=== PATIENT | female | born 1955 | race Caucasian/White ===

== ENCOUNTER 2016-05-24 20:07 | Observation (INO) | payer OTHER ==
[~2016-05-24] VITALS: Ht 157.5 cm; Wt 77.2 kg
[2016-05-24] MEDS ORDERED: EPINEPHrine INJ 1 MG/ML 1ML VIAL/AMP As Ordered ONE (20:29)
[2016-05-24] MEDS ORDERED: methylPREDNISolone INJ 125 MG/2 ML VIAL (J2930) As Ordered ONE (20:47)
[2016-05-24] MEDS ORDERED: diphenhydrAMINE INJ 50MG/ML VIAL (J1200) As Ordered ONE (20:47)
[2016-05-24] MEDS ORDERED: FAMOTIDINE INJ 20MG/2ML VIAL (S0028) As Ordered ONE (20:48)
[2016-05-24 21:13] LABS: ANION GAP 7 MEQ/L (8-16); BLOOD UREA NITROGEN 25 MG/DL (7-18); CARBON DIOXIDE LEVEL 26 MEQ/L (21-32); CHLORIDE LEVEL 109 MEQ/L (98-107); GLUCOSE, FASTING 146 MG/DL (70-105); POTASSIUM SERUM 4.7 MEQ/L (3.5-5.1); SODIUM LEVEL 142 MEQ/L (136-145)
[2016-05-24 21:16] LABS: BASO % 0.5 % (0.0-1.0); EOS # 0.1 K/mm3 (0.0-0.50); EOS % 1.1 % (0.0-3.0); LARGE UNSTAINED CELL # 0.1 K/mm3 (0.0-0.4); LARGE UNSTAINED CELL % 2.2 % (0.0-4.0); LYMPH # 2.7 K/mm3 (1.5-4.5); LYMPH % 45.7 % (24.0-44.0); MEAN CORPUSCULAR HEMOGLOBIN 31.3 pg (27.0-33.0); MEAN CORPUSCULAR VOLUME 94.8 fl (80.0-96.0); MONO # 0.3 K/mm3 (0.0-0.8); MONO % 4.2 % (0.0-5.0); NEUTROPHILS # 2.7 K/mm3 (1.8-7.7); NEUTROPHILS % 46.3 % (36.0-66.0); PLATELET COUNT, AUTOMATED 323 k/mm3 (150-450); RED CELL DISTRIBUTION WIDTH 11.6 % (11.5-14.5); WHITE BLOOD COUNT 5.9 K/mm3 (4.0-10.0)
[2016-05-24] MEDS ORDERED: TYLE325T5 PO (23:13)
[2016-05-24] MEDS ORDERED: LEXA1TAB2 PO (23:13)
[2016-05-24] MEDS ORDERED: ACETAMINOPHEN TAB 650MG DOSE (2X325MG) PO PRN (23:30)
[2016-05-24] MEDS ORDERED: ONDANSETRON 4MG/2ML VIAL (J2405) IV PRN (23:30)
--- NOTE | 2016-05-25 | HPE ---
DATE OF ADMISSION: 05/24/2016 PRIMARY CARE PROVIDER: Dr. Jessie Lovell NEUROLOGIST: The patient sees Dr. Bansal in [place] but also sees a neurologist at [facility]. CHIEF COMPLAINT: Hives, itchy, redness, sensation of throat closing. 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 The patient was in her normal state of health today until around 7:00 p.m. when the patient was eating some beef stew prepared by her sister, usual recipe with no new food or new medication but after around 7:00 p.m., the patient was having her beef stew when she felt her lip was full and she was red all over her body with itchiness and also a sensation of her throat closing. Subsequently, the patient was brought to the emergency room. In the emergency room, the patient was given Benadryl, Solu-Medrol, Pepcid and epinephrine, subsequently with resolution of symptoms. The patient is feeling almost back to baseline, but in addition, the patient was found to have a creatinine elevation of 1.5, baseline creatinine is normal. The patient denies any recent nonsteroidal anti-inflammatory drug (NSAID) use or medication changes, is only taking Tylenol over the counter. No new medication recently. She does report drinking less and making less urine in the last couple of weeks. The patient denies any previous episodes, but does report many years ago had some strawberries with some hives but subsequently taking strawberries with no problems. Currently, the patient is comfortable, denies any shortness of breath, denies any chest pain, palpitations, abdominal pain. Denies any nausea or vomiting, vision change, hearing change. Denies any significant headache. The patient does have underlying aphasia that has been evaluated by neurology currently, although it was not noticed during the history and physical process. ALLERGIES: No known drug allergies previously. PAST MEDICAL HISTORY: Depression. Questionable cerebrovascular accident. PAST SURGICAL HISTORY: Gastric bypass 2007. Tonsillectomy. Eight brain surgeries done at [facility] for a variety of reasons, which include hydrocephalus, brain cyst, head trauma. SOCIAL HISTORY: The patient has a year of smoking history while she was in college many years ago. Drinks about a beer or wine every 2 weeks. Denies any other illicit drug use, [id number] medications or herbal remedies. FAMILY HISTORY: Noncontributory. REVIEW OF SYSTEMS: 11-point review of systems was negative except for those mentioned in the history of the present illness. HOME MEDICATIONS: The patient takes: - Lexapro 20 mg by mouth nightly - acetaminophen 975 mg by mouth every 6 hours as needed PHYSICAL EXAMINATION: VITAL SIGNS: Blood pressure 128/83, pulse 101, respirations 20, temperature 95.9, pulse oximetry 96% on room air. GENERAL: Patient alert and oriented times three, in no acute distress. HEENT: Normocephalic, atraumatic. PULMONARY: Bilateral clear to auscultation. CARDIAC: Regular rate and rhythm. Normal S1, S2. ABDOMEN: Soft, nontender. Positive bowel sounds. EXTREMITIES: No edema bilateral lower extremities. NEUROLOGIC: No focal deficit. Able to move all four extremities. EKG: Sinus rhythm at 68. No ST segment changes. LABORATORY: WBC 5.9, hemoglobin and hematocrit 13.8 over 41.6, platelets 323. Chemistry: Sodium 142, potassium 4.7, chloride 109, bicarbonate 26, BUN 25, creatinine 1.5. ASSESSMENT AND PLAN: This is a 60-year-old female patient with underlying medical history of gastric bypass, depression, brain lesions with multiple brain surgeries and questionable cerebrovascular accident, admitted for angioedema with allergic reaction and also acute kidney injury (MARKUS). Problems: 1. Angioedema. The patient is returning to baseline. Given Solu-Medrol, Pepcid, Benadryl and epinephrine in the emergency room. Will monitor oxygen saturation. 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 The patient should followup with primary care provider for possible referral to allergy/immunology for further workup but currently no obvious source other than the beef stew, which the patient had previously. Will continue to monitor. 2. Acute kidney injury. Baseline normal creatinine. Currently creatinine elevation. IV hydration. Followup BUN and creatinine overnight. Followup salicylate level. Followup urine studies. Ultrasound renal. 3. History of gastric bypass. Patient placed on folic acid, multivitamin, vitamin D and thiamine. Will check vitamin D level in the morning to adjust the dosage. 4. History of brain trauma and brain lesions, questionable cerebrovascular accident. Outpatient followup with neurology and neurosurgeon. Currently the patient is asymptomatic. 5. Depression. Continue home medication. 6. Deep vein thrombosis (DVT) prophylaxis. Heparin subcu. DISPOSITION PLANNING: Will monitor the patient overnight. Workup kidney function. Will followup BUN and creatinine in the morning. Followup urine output. Addendum: To Assessment and Plan under acute kidney injury (MARKUS), please add: Consider outpatient nephrology versus inpatient consultation for nephrology for MARKUS.
--- NOTE | 2016-05-25 00:10 | REPUSA ---
Clinical history: Renal failure. Findings: The urinary bladder is unremarkable. The right kidney measures 10.6 x 5.3 x 4.3 cm. The lef t kidney measures 10.5 x 5.4 x 6.1 cm. The kidneys demonstrate normal echotexture and echogenicity. T here is no evidence of hydronephrosis or nephrolithiasis. No renal masses are seen. There is incident al finding of multiple echogenic solid lesions throughout the liver. The largest of these is in the p osterior right lobe measuring 5.7 x 4.8 cm. A lesion in the left lobe measures 6.0 x 5.1 cm. No free fluid is appreciated. Impression: 1. Unremarkable ultrasound examination of the kidneys. 2. Multiple echogenic solid lesions throughout the liver. This is a nonspecific finding. CT or MRI wi th contrast utilizing liver protocol would be recommended for further evaluation.
[2016-05-25] MEDS: LR 1,000 ML IV SCH ×3 (01:47→22:03)
[2016-05-25 01:51] LABS: OSMOLALITY URINE 1098 MOSM/KG (500-800)
[2016-05-25] MEDS ORDERED: ESCITALOPRAM OXALATE 10 MG TAB (LEXAPRO) As Ordered ONE (01:51)
[2016-05-25] MEDS: ESCITALOPRAM OXALATE 10 MG TAB (LEXAPRO) PO SCH ×2 (01:55→22:04)
[2016-05-25] MEDS ORDERED: ACETAMINOPHEN 325 MG TAB As Ordered ONE (04:55)
[2016-05-25 06:56] LABS: MEAN CORPUSCULAR HEMOGLOBIN 31.5 pg (27.0-33.0); MEAN CORPUSCULAR HGB CONC 33.3 g/dl (32.0-36.5); MEAN CORPUSCULAR VOLUME 94.6 fl (80.0-96.0); RED CELL DISTRIBUTION WIDTH 11.6 % (11.5-14.5)
[2016-05-25 07:24] LABS: ALBUMIN 3.5 GM/DL (3.2-5.2); ALBUMIN/GLOBULIN RATIO 1.13 (1.00-1.93); ALKALINE PHOSPHATASE 86 U/L (45-117); ALT/SGPT 23 U/L (12-78); ANION GAP 8 MEQ/L (8-16); AST/SGOT 14 U/L (15-37); BILIRUBIN,DIRECT < 0.1 MG/DL (0.0-0.2); BILIRUBIN,TOTAL 0.4 MG/DL (0.2-1.0); BLOOD UREA NITROGEN 19 MG/DL (7-18); CALCIUM LEVEL 8.9 MG/DL (8.5-10.1); CARBON DIOXIDE LEVEL 27 MEQ/L (21-32); CHLORIDE LEVEL 107 MEQ/L (98-107); GLUCOSE, FASTING 171 MG/DL (70-105); MAGNESIUM LEVEL 1.9 MG/DL (1.8-2.4); POTASSIUM SERUM 4.1 MEQ/L (3.5-5.1); SODIUM LEVEL 142 MEQ/L (136-145); TOTAL PROTEIN 6.6 GM/DL (6.4-8.2)
[2016-05-25 07:31] LABS: GLOMERULAR FILTRATION RATE > 60.0 (>51)
[2016-05-25] MEDS: SENOKOT S TAB PO SCH ×2 (09:00→22:04)
[2016-05-25] MEDS: MULTIVITAMINS/MINERALS THERAP 1 TAB PO SCH (09:00)
[2016-05-25] MEDS: FOLIC ACID 1 MG TAB PO SCH (09:00)
[2016-05-25] MEDS: THIAMINE 100 MG TAB PO SCH (09:00)
[2016-05-25] MEDS: VITAMIN D (CHOLECALCIFEROL) 400 INTERNATIONAL UNITS TAB PO SCH (09:00)
[2016-05-25] MEDS: HEPARIN SOD (PORCINE) 5000 UNITS/ML VIAL SC SCH ×2 (09:00→22:04)
[2016-05-25] MEDS: PANTOPRAZOLE 40MG TAB (PROTONIX) PO SCH (09:00)
--- NOTE | 2016-05-25 10:53 | ECGEPIP ---
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
--- NOTE | 2016-05-25 11:11 | CR.PDOC ---
[facility] Consultation Consultation DATE OF ADMISSION: 05/24/2016 DATE OF CONSULTATION: 05/25/2016 ATTENDING PHYSICIAN: Dr. Marquis Goodwin CONSULTING PHYSICIAN: Dr. Chasidy Hughes REASON FOR CONSULTATION: Acute kidney injury. HISTORY OF PRESENT ILLNESS: Ms. Butts is a 60-year-old female with past medical history significant for hydrocephalus status post PER DIEM RN shunt and 6 brain surgeries, brain cysts, depression, multiple CVAs, headaches who presents to the emergency department after having an allergic reaction. She stated that she was in her usual state of health and then all of a sudden while eating some beef stew that was prepared by her sister, she began to experience itching, redness, swelling of the lips, and sensation of her throat closing. She reports that all of her symptoms erupted within 15-20 minutes. She reports that she took some cider vinegar shortly before eating the beef stew as she heard that it was good for digestion. After about 20 minutes of her symptoms, she presented to the emergency department. She reports that she had an allergic reaction once in college after eating strawberries, but now she tolerates strawberries just fine. In the emergency department, she was given Benadryl, Solu-Medrol, Pepcid and epinephrine and symptoms resolved. She was found to have a creatinine of 1.5 with previous normal renal function. She denies any NSAID use or medication changes. Oral intake has been good. She does report a sensation of incomplete bladder emptying, which is not new. Currently she is comfortable, in no acute distress. She denies any chest pain, chest pressure, palpitations, shortness of breath, nausea, vomiting, diarrhea, abdominal pain, headache, dizziness. No new urinary complaints. She was given IV hydration and renal function has improved. Nephrology was consulted for assistance in managing acute kidney injury. PAST MEDICAL HISTORY: Hydrocephalus. Brain cysts. Depression. History of many strokes. History of headaches. PAST SURGICAL HISTORY: Six brain surgeries done at [facility] from [id number] PER DIEM RN shunt. Gastric bypass 2007. Tonsillectomy. Breast augmentation. ALLERGIES: No known drug allergies. She had a strawberry allergy when she was young, but she tolerates it well now. HOME MEDICATIONS: Please see below. SOCIAL HISTORY: She smoked for a year while she was in college many years ago. Drinks about one beer or glass of wine every other week. Denies any illicit drug use. 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 FAMILY HISTORY: No history of renal disease requiring hemodialysis. REVIEW OF SYSTEMS: CONSTITUTIONAL: No fever, chills, night sweats. No excessive weight changes. HEENT: No headache, lightheadedness or dizziness. No acute changes to vision or hearing. CARDIOVASCULAR: No chest pain, chest pressure, palpitations, shortness of breath. RESPIRATORY: Shortness of breath or cough. No hemoptysis. GENITOURINARY: She reports feeling of incomplete bladder emptying, which is not new. No dysuria or hematuria. MUSCULOSKELETAL: No unusual muscle or joint pains. GASTROINTESTINAL: No nausea, vomiting, diarrhea, constipation, abdominal pain, hematochezia or melena. SKIN: Positive for itching and redness of the skin, which has resolved. NEUROLOGICAL: No syncope. No paresthesias. History of mini strokes. ENDOCRINE: No history of diabetes or thyroid disorder. HEMATOLOGIC: No excessive bleeding or bruising. ALLERGIC: Allergic reaction with sensation of throat closing, lip swelling, pruritus and hives after eating beef stew. PHYSICAL EXAMINATION: VITALS SIGNS: Temperature 97.9, blood pressure 131/71, pulse 74, respiratory rate 18, pulse ox 95% on room air. GENERAL: Patient is alert and oriented times three, in no acute distress. HEENT: Normocephalic, atraumatic. Extraocular muscles are intact. Moist mucosa. NECK: Supple. No thyromegaly. No jugular venous distention appreciated. PER DIEM RN shunt on the right. HEART: Normal S1, S2. Regular rate and rhythm. LUNGS: Clear to auscultation bilaterally. No rales, rhonchi or wheezing. ABDOMEN: Soft, nontender. Nondistended. Bowel sounds are present. EXTREMITIES: No cyanosis or lower extremity edema. Positive pedal pulses bilaterally. SKIN: Warm and dry. Good skin turgor. No rashes noted. NEUROLOGIC: No focal deficit. Cranial nerves II through XII are grossly intact. Motor and sensation intact. LABORATORY DATA: 05/25/16 06:40 IMAGING: Renal ultrasound revealed that kidneys were unremarkable. Multiple echogenic solid lesions throughout the liver, nonspecific finding. CT or MRI with contrast utilizing liver protocol is recommended for further evaluation. ASSESSMENT/PLAN: Ms. Butts is a 60-year-old female with past medical history significant for hydrocephalus status post PER DIEM RN shunt and 6 brain surgeries, brain cysts, depression, multiple CVAs, and headaches who presented with an allergic reaction with symptoms of hives, pruritus, swelling of the lips and sensation of throat closing after eating beef stew and found to have acute renal injury. 1. Acute kidney injury, likely secondary to hemodynamic instability from allergic reaction. Her vitals and electrolytes are stable. She was given IV hydration and renal function has improved. 2. Allergic reaction with angioedema. Patient was treated with Benadryl, Solu- Medrol, Pepcid and epinephrine with resolution of symptoms. She's currently stable. Given the severity of her allergic reaction, EpiPen was discussed and patient was advised to consider carrying this in her purse in case she has another allergic reaction, as it is not clear what she was allergic to in the beef stew. 3. Multiple solid lesions of the liver. MRI has been recommended and this is pending. 4. History of hydrocephalus with multiple brain surgeries. She currently has a PER DIEM RN shunt on the right. She does have chronic headaches but this is stable. 5. History of depression. Patient takes Lexapro 20 mg daily. Mood is stable. DISPOSITION: Given that allergic symptoms have resolved and her renal function has improved, on a renal standpoint, she would be okay to be discharged as long as she remains stable. Thank you for the consultation and allowing us to participate in the care of Ms. Butts. We will continue to follow along with you. Allergies Coded Allergies: No Known Drug Allergy (Unverified Allergy, Unknown, 05/24/16) Home Medications Scheduled Escitalopram Oxalate (Lexapro) 20 Mg Tab 20 MG PO QHS (Reported) Scheduled PRN Acetaminophen (Tylenol) 325 Mg Tab 975 MG PO Q6H PRN PRN HEADACHE OR PAIN ( Reported) Diphenhydramine HCl (Diphenhydramine HCl) 25 Mg Cap #10 25 MG PO Q6HP PRN PRN ITCHING GME ATTESTATION GME ATTESTATION My preceptor for this patient encounter was physically present in the building during the encounter and was fully available. As needed, all aspects of the patient interview, examination, medical decision making process, and medical care plan development were reviewed and approved by the preceptor. Preceptor is aware and concurs with the plan as stated in the body of this note and will attest to such by his/her cosignature. ATTENDING NOTE Nephrology: Pt was examined during rounds. MARKUS sec to anaphylactic reaction and hemodynamic instability. Renal function is improving. Pt needs to follow up with allergy and Immunology and possibly carry an Epi Pen. Plan of care as per Resident's note. RICARDO PINO DO May 25, 2016 11:11 CHASIDY HUGHES MD May 27, 2016 21:56
--- NOTE | 2016-05-25 12:42 | EDDOCDS ---
Nurse's Notes [facility] Name: Florencia Butts Age: 60 yrs Sex: Female : 1955 Arrival Date: 05/24/2016 Time: 20:07 Bed Admit Hold Private MD: Jessie Mcneil Diagnosis: Pruritus-Allergic Reaction;Abnormal results of kidney function studies Presentation: 05/24 20:13 Presenting complaint: Patient states: itching, rash, throat closing while eating beef rs3 soup around 7.30. Has not taken any meds. Onset: The symptoms/episode began/occurred suddenly. This patient has not experienced a previous allergic reaction. Anaphylaxis evaluation, the patient reports or I have noted the following symptoms which indicate a significant risk of anaphylaxis: no signs or symptoms of anaphylaxis were noted. Adult Sepsis Screening: The patient does not have new or worsening altered mentation. Patient's respiratory rate is less than 22. Systolic blood pressure is greater than 100. Patient has a qSOFA score of 0- Negative Sepsis Screen. Suicide/Homicide risk assessment- the patient denies having any suicidal and/or homicidal ideations and does not present with any other emotional, behavioral or mental health complaints. Status: Patient is not a insurance customer service specialist or dependent. Transition of care: patient was not received from another setting of care. 20:13 Method Of Arrival: Walkin/Carried/Asstd rs3 20:13 Acuity: PHILL Level 3 rs3 Triage Assessment: 20:13 General: Appears in no apparent distress. Pain: Denies pain. Pt Declines HIV testing. rs3 Respiratory: Reports no respiratory complaints. Historical: - Allergies: no known allergies; - Home Meds: 1. Lexapro 20 mg Oral tab 1 tab once daily - PMHx: Depression; - PSHx: Gastric Bypass (2007); Tonsillectomy; 6 brain surgeries; - Social history: Smoking status: Patient states former smoker of tobacco. No barriers to communication noted, The patient speaks fluent Tajik. - Family history: Not pertinent. - : The pt / caregiver states he / she is not on anticoagulants. Home medication list is obtained from the patient. - Exposure Risk Screening:: None identified. Screenin:35 Screening information is obtained from the patient. Fall risk: No risks identified. tm5 Assistance ADL's: requires no assistance with activities of daily living. Abuse/DV Screen: The patient / caregiver reports he/she is: not in a situation that causes fear, pain or injury. Nutritional screening: No deficits noted. Advance Directives: Currently, there is no health care proxy. There is no active DNR order. home support is adequate. Assessment: 20:35 General: Appears in no apparent distress, Behavior is appropriate for age, cooperative. tm5 Pain: Denies pain. Neurological: Level of Consciousness is awake, alert, Oriented to person, place, time. Cardiovascular: Rhythm is regular. Respiratory: Airway is patent Respiratory effort is even, unlabored, Respiratory pattern is regular, symmetrical, Breath sounds are clear bilaterally. GI: No deficits noted. : No deficits noted. Derm: Rash noted that is red, urticaria, to entire body per pt. 21:37 General: Appears in no apparent distress, comfortable, well nourished, well groomed, kas2 Behavior is appropriate for age, cooperative. Pain: Denies pain. Neurological: Level of Consciousness is awake, alert, Oriented to person, place, time. Cardiovascular: Capillary refill < 3 seconds Heart tones S1 S2 present Rhythm is sinus rhythm No ectopy. Respiratory: Airway is patent Respiratory effort is even, unlabored, Respiratory pattern is regular, symmetrical, Breath sounds are clear bilaterally. GI: No deficits noted. : No deficits noted. Derm: Skin is intact, Skin is dry, Skin is pink, warm & dry. Skin temperature is warm Rash noted that is Small light rash all over body. Improved after meds given. 22:48 General: Patient resting in bed with family at bedside. No apparent distress. Denies kas2 pain or discomfort at this time. Appears comfortable. VSS. Call hernandez within reach. Will continue to monitor.. 05/25 00:45 General: Hospitalist in to assess patient at this time.. kas2 01:58 General: Appears in no apparent distress, comfortable, Behavior is appropriate for age, kas2 cooperative. Pain: Denies pain. Neurological: Level of Consciousness is awake, alert, Oriented to person, place, time. Cardiovascular: Rhythm is sinus rhythm No ectopy. Respiratory: Airway is patent Respiratory effort is even, unlabored, Respiratory pattern is regular, symmetrical. Derm: Skin is intact, Skin is dry, Skin is pink, warm & dry. Skin temperature is warm. 03:42 General: Appears in no apparent distress, comfortable, Behavior is appropriate for age, kas2 cooperative. Pain: Denies pain. Neurological: Level of Consciousness is awake, alert, Oriented to person, place, time. Cardiovascular: Rhythm is sinus rhythm No ectopy. Respiratory: Airway is patent Respiratory effort is even, unlabored, Respiratory pattern is regular, symmetrical. Derm: Skin is intact, Skin is dry, Skin is pink, warm & dry. Skin temperature is warm. 04:10 General: Patient up to bathroom to void.. kas2 04:20 General: Patient back from bathroom. Resettled in bed.. kas2 05:00 General: Patient complaining of headache /. Meds given. No apparent distress. Airway kas2 patent and respiratory effort even and unlabored. Call hernandez within reach. Will continue to monitor.. 06:00 General: Appears in no apparent distress, comfortable, Behavior is appropriate for age, kas2 cooperative. Pain: Denies pain. Neurological: Level of Consciousness is awake, alert, Oriented to person, place, time. Cardiovascular: Rhythm is sinus rhythm No ectopy. Respiratory: Airway is patent Respiratory effort is even, unlabored, Respiratory pattern is regular, symmetrical. Derm: Skin is intact, Skin is dry, Skin is pink, warm & dry. Skin temperature is warm. 06:27 General: Patient sleeping at this time with sister at bedside. Denies pain or kas2 discomfort and no apparent distress noted. Appears comfortable. Airway patent and respiratory effort even and unlabored. Call hernandez within reach. Will continue to monitor.. 07:17 General: Appears in no apparent distress, comfortable, Behavior is appropriate for age, pml cooperative. Pain: Location: headache Pain currently is 2 out of 10 on a pain scale. Neurological: Level of Consciousness is awake, alert, Oriented to person, place, time. Cardiovascular: Capillary refill < 3 seconds Rhythm is sinus rhythm No ectopy. Respiratory: Airway is patent Respiratory effort is even, unlabored. GI: Abdomen is non- distended obese. Derm: Skin is pink, warm & dry. 09:06 General: up OOB - off tele as per MD Ricci orders for shower. voices no complaints. pml resps easy and unlabored, skin p/w/d . 12:31 General: Appears in no apparent distress, skin warm and dry color satisfactory. Moist jmk pink oral mucosa. easily accommodates own saliva and vocalizes. No work of breathing. chest CTA. face slightly flushed. skin is other hurtado oren. IV patent. report to ellie putnam as pt is now reporting itching without outward signs of allergic response. Vital Signs: 05/24 20:09 BP 123 / 83; Pulse 101; Resp 20; Temp 95.9(O); Pulse Ox 96% ; Weight 74.84 kg; Height 5 elp ft. 3 in. (160.02 cm); Pain 0/10; 20:31 BP 137 / 69 (auto/); kas2 20:31 Pulse 78 MON; Pulse Ox 97% ; kas2 20:44 BP 133 / 67 (auto/); kas2 20:44 Pulse 62 MON; Pulse Ox 97% ; kas2 21:14 BP 122 / 62 (auto/); kas2 21:14 Pulse 72 MON; Pulse Ox 96% ; kas2 21:44 BP 108 / 65 (auto/); kas2 21:44 Pulse 76 MON; Pulse Ox 95% ; kas2 22:14 BP 111 / 57 (auto/); kas2 22:14 Pulse 72 MON; Pulse Ox 95% ; kas2 22:44 BP 134 / 70 (auto/); kas2 22:44 Pulse 72 MON; Pulse Ox 96% ; kas2 23:14 BP 110 / 62 (auto/); kas2 23:14 Pulse 72 MON; Pulse Ox 96% ; kas2 23:44 BP 112 / 60 (auto/); kas2 23:50 Pulse Ox 95% ; kas2 05/25 00:30 BP 118 / 65; Pulse 75; Resp 18; Temp 98.0(O); Pulse Ox 99% on R/A; Pain 0/10; kas2 01:05 BP 120 / 68; Pulse 69; Resp 18; Pulse Ox 99% on R/A; kas2 03:44 BP 121 / 70; Pulse 72; Resp 18; Temp 97.3(O); Pulse Ox 99% on R/A; Pain 0/10; kas2 04:52 BP 128 / 66 (auto/); kas2 04:52 Pulse Ox 95% ; kas2 05:02 Resp 18; Temp 97.9(O); kas2 05:52 BP 148 / 71 (auto/); kas2 05:52 Pulse 64 MON; Pulse Ox 95% ; kas2 06:52 BP 131 / 71 (auto/); kas2 06:52 Pulse 74 MON; kas2 12:31 BP 141 / 70; Pulse 56; Resp 16; Temp 98.5; jmk 05/24 20:09 Body Mass Index 29.23 (74.84 kg, 160.02 cm) elp Vitals: 05/24 20:09 Log In Time: May 24, 2016 at 20:07. RN notified that patient meets Red Flag elp criteria. ED Course: 20:09 Patient visited by Florence Junior PCA. elp 20:09 Jessie Mcneil is Private Physician. elp 20:09 Patient moved to Waiting elp 20:12 Patient visited by Florence Junior PCA. elp 20:12 Patient moved to Pre RCE elp 20:15 Triage Initiated rs3 20:17 Lorri Lau RN is Primary Nurse. rs3 20:17 Patient moved to 17 rs3 20:20 Dixon Jain MD is Attending Physician. br1 20:27 Patient visited by Dixon Jain MD. br1 20:35 The patient / caregiver is instructed regarding the plan of care and ED course. Cardiac tm5 monitor on. Pulse ox on. NIBP on. 20:57 Inserted saline lock: 20 gauge in left hand and blood collected. The patient tolerated tm5 the procedure well. Labs drawn. (by ED staff). Sent per order to lab. 20:59 Patient visited by Verenice Swanson PCA. rs6 20:59 EKG done. (by ED staff). Reviewed by Dixon Jain MD. rs6 21:36 [facility] Payment Agreement was scanned into en[employer]reet and attached to record. zo 21:39 Patient visited by Lorri Lau RN. kas2 22:15 Patient visited by Lorri Lau RN. kas2 22:48 Patient visited by Lorri Lau RN. kas2 22:50 Patient visited by Lorri Lau RN. kas2 23:03 Marci Dickey is Hospitalizing Provider. br1 05/25 00:30 Patient moved to Admit Hold sls1 00:35 RENAL US Returned. EDMS 01:08 Patient visited by Lorri Lau RN. kas2 01:08 No procedures done that require assistance. Urine collected. Clean catch specimen. kas2 Urine specimen sent to lab. 01:13 Patient visited by Lorri Lau RN. kas2 02:00 Patient visited by Lorri Lau RN. kas2 03:45 Patient visited by Lorri Lau RN. kas2 05:02 Patient visited by Lorri Lau RN. kas2 06:01 Patient visited by Lorri Lau RN. kas2 06:28 Patient visited by Lorri Lau RN. kas2 06:57 Patient visited by Lorri Lau RN. kas2 07:04 Patient visited by Lorri Lau RN. kas2 07:18 Patient visited by Fany Segura RN. pml 08:27 Fany Segura RN is Primary Nurse. pml 09:06 Patient visited by Fany Segura RN. pml 11:12 EKG-ADULT Returned. EDMS Administered Medications: 05/24 20:34 Drug: EPINEPHrine (1:1000) 0.3 ml [epinephrine HCl (PF) 1 mg/mL (1 mL) intravenous tm5 solution (0.3 mL)] Route: IM; Site: left vastus lateralis; 20:57 Drug: Solu-MEDROL 125 mg [Solu-Medrol 500 mg intravenous solution (125 mg)] Route: IVP; tm5 Site: left hand; 20:57 Drug: diphenhydrAMINE 50 mg [diphenhydramine 50 mg/mL injection solution (1 mL)] Route: tm5 IVP; Site: left hand; 20:57 Drug: Famotidine 40 mg [famotidine 10 mg/mL intravenous solution (4 mL)] {Note: given tm5 IVPB over 30 minutes.} Route: IVP; Site: left hand; 21:39 Drug: NS 0.9% 1000 ml [sodium chloride 0.9 % intravenous solution] Route: IV; Rate: 150 kas2 mL/hr; Site: left hand; Order Results: Lab Order: CBC with Diff; SPEC'M 05/24/16 20:46 Test: WHITE BLOOD COUNT; Value: 5.9; Range: 4.0-10.0; Units: K/mm3; Status: F Test: RED BLOOD COUNT; Value: 4.39; Range: 4.00-5.40; Units: M/mm3; Status: F Test: HEMOGLOBIN; Value: 13.8; Range: 12.0-16.0; Units: g/dl; Status: F Test: HEMATOCRIT; Value: 41.6; Range: 36.0-47.0; Units: %; Status: F Test: MEAN CORPUSCULAR VOLUME; Value: 94.8; Range: 80.0-96.0; Units: fl; Status: F Test: MEAN CORPUSCULAR HEMOGLOBIN; Value: 31.3; Range: 27.0-33.0; Units: pg; Status: F Test: MEAN CORPUSCULAR HGB CONC; Value: 33.0; Range: 32.0-36.5; Units: g/dl; Status: F Test: RED CELL DISTRIBUTION WIDTH; Value: 11.6; Range: 11.5-14.5; Units: %; Status: F Test: PLATELET COUNT, AUTOMATED; Value: 323; Range: 150-450; Units: k/mm3; Status: F Test: NEUTROPHILS %; Value: 46.3; Range: 36.0-66.0; Units: %; Status: F Test: LYMPH %; Value: 45.7; Range: 24.0-44.0; Abnormal: Above high normal; Units: %; Status: F Test: MONO %; Value: 4.2; Range: 0.0-5.0; Units: %; Status: F Test: EOS %; Value: 1.1; Range: 0.0-3.0; Units: %; Status: F Test: BASO %; Value: 0.5; Range: 0.0-1.0; Units: %; Status: F Test: LARGE UNSTAINED CELL %; Value: 2.2; Range: 0.0-4.0; Units: %; Status: F Test: NEUTROPHILS #; Value: 2.7; Range: 1.8-7.7; Units: K/mm3; Status: F Test: LYMPH #; Value: 2.7; Range: 1.5-4.5; Units: K/mm3; Status: F Test: MONO #; Value: 0.3; Range: 0.0-0.8; Units: K/mm3; Status: F Test: EOS #; Value: 0.1; Range: 0.0-0.50; Units: K/mm3; Status: F Test: BASO #; Value: 0.0; Range: 0.0-0.2; Units: K/mm3; Status: F Test: LARGE UNSTAINED CELL #; Value: 0.1; Range: 0.0-0.4; Units: K/mm3; Status: F Lab Order: BMP; SPEC'M 05/24/16 20:46 Test: GLUCOSE, FASTING; Value: 146; Range: 70-105; Abnormal: Above high normal; Units: MG/DL; Status: F Test: BLOOD UREA NITROGEN; Value: 25; Range: 7-18; Abnormal: Above high normal; Units: MG/DL; Status: F Test: CREATININE FOR GFR; Value: 1.50; Range: 0.55-1.02; Abnormal: Above high normal; Units: MG/DL; Status: F Test: GLOMERULAR FILTRATION RATE; Value: 38.0; Range: >51; Abnormal: Below low normal; Status: F Test: SODIUM LEVEL; Value: 142; Range: 136-145; Units: MEQ/L; Status: F Test: POTASSIUM SERUM; Value: 4.7; Range: 3.5-5.1; Units: MEQ/L; Status: F Test: CHLORIDE LEVEL; Value: 109; Range: 98-107; Abnormal: Above high normal; Units: MEQ/L; Status: F Test: CARBON DIOXIDE LEVEL; Value: 26; Range: 21-32; Units: MEQ/L; Status: F Test: ANION GAP; Value: 7; Range: 8-16; Abnormal: Below low normal; Units: MEQ/L; Status: F Test: CALCIUM LEVEL; Value: 9.0; Range: 8.5-10.1; Units: MG/DL; Status: F Test Note: ; Units are mL/min/1.73 m2 Chronic Kidney Disease Staging per NKF: Stage I & II GFR >=60 Normal to Mildly Decreased Stage III GFR 30-59 Moderately Decreased Stage IV GFR 15-29 Severely Decreased Stage V GFR <15 Very Little GFR Left ESRD GFR <15 on IP/MOSAIC TECHNICIAN Lab Order: URINALYSIS; SPEC'M 05/25/16 01:06 Test: APPEARANCE, URINE; Value: CLEAR; Range: CLEAR; Status: F Test: COLOR, URINE; Value: YELLOW; Range: YELLOW; Status: F Test: PH,URINE; Value: 5.0; Range: 5.0-9.0; Units: UNITS; Status: F Test: SPECIFIC GRAVITY URINE AUTO; Value: 1.026; Range: 1.002-1.035; Status: F Test: PROTEIN, URINE AUTO; Value: NEGATIVE; Range: NEGATIVE; Units: mg/dL; Status: F Test: GLUCOSE, URINE (UA) AUTO; Value: NEGATIVE; Range: NEGATIVE; Units: mg/dL; Status: F Test: KETONE, URINE AUTO; Value: 2+; Range: NEGATIVE; Abnormal: Above high normal; Units: mg/dL; Status: F Test: UROBILINOGEN, URINE AUTO; Value: 0.2; Range: 0.0-2.0; Units: mg/dL; Status: F Test: BILIRUBIN, URINE AUTO; Value: NEGATIVE; Range: NEGATIVE; Status: F Test: NITRITE, URINE AUTO; Value: NEGATIVE; Range: NEGATIVE; Status: F Test: LEUKOCYTE ESTERASE, URINE AUTO; Value: NEGATIVE; Range: NEGATIVE; Status: F Test: BLOOD, URINE BLOOD; Value: NEGATIVE; Range: NEGATIVE; Status: F Test: WBC, URINE AUTO; Value: 2; Range: 0-3; Units: /HPF; Status: F Test: RBC, URINE AUTO; Value: 1; Range: 0-3; Units: /HPF; Status: F Test: BACTERIA, URINE AUTO; Value: NEGATIVE; Range: NEGATIVE; Status: F Test: SQUAMOUS EPITHELIAL CELL UR AU; Value: 1; Range: 0-6; Units: /HPF; Status: F Test: MUCUS, URINE; Value: SMALL; Range: NEGATIVE; Status: F Test: HYALINE CAST, URINE AUTO; Value: 0; Range: 0-1; Units: /LPF; Status: F Lab Order: OSMOLALITY,URINE; SPEC' 05/25/16 01:06 Test: OSMOLALITY URINE; Value: 1098; Range: 500-800; Abnormal: Above high normal; Units: MOSM/KG; Status: F Lab Order: TOTAL PROTEIN,RANDOM URINE; SPEC' 05/25/16 01:06 Test: TOTAL PROTEIN,RANDOM URINE; Value: 14.0; Range: 0.0-12.0; Abnormal: Above high normal; Units: MG/DL; Status: F Lab Order: CREATININE,RANDOM URINE; SPEC' 05/25/16 01:06 Test: CREATININE,RANDOM URINE; Value: 140.0; Units: MG/DL; Status: F Lab Order: POTASSIUM,RANDOM URINE; 05/25/16 01:06 Test: POTASSIUM RANDOM URINE; Value: 84.2; Units: MEQ/L; Status: F Lab Order: CHLORIDE,RANDOM URINE; 05/25/16 01:06 Test: CHLORIDE,RANDOM URINE; Value: 208; Units: MEQ/L; Status: F Lab Order: SODIUM,RANDOM URINE; 05/25/16 01:06 Test: SODIUM,RANDOM URINE; Value: 139; Units: MEQ/L; Status: F Lab Order: COMPLETE BLOOD COUNT; 05/25/16 06:40 Test: WHITE BLOOD COUNT; Value: 5.0; Range: 4.0-10.0; Units: K/mm3; Status: F Test: RED BLOOD COUNT; Value: 3.92; Range: 4.00-5.40; Abnormal: Below low normal; Units: M/mm3; Status: F Test: HEMOGLOBIN; Value: 12.3; Range: 12.0-16.0; Units: g/dl; Status: F Test: HEMATOCRIT; Value: 37.0; Range: 36.0-47.0; Units: %; Status: F Test: MEAN CORPUSCULAR VOLUME; Value: 94.6; Range: 80.0-96.0; Units: fl; Status: F Test: MEAN CORPUSCULAR HEMOGLOBIN; Value: 31.5; Range: 27.0-33.0; Units: pg; Status: F Test: MEAN CORPUSCULAR HGB CONC; Value: 33.3; Range: 32.0-36.5; Units: g/dl; Status: F Test: RED CELL DISTRIBUTION WIDTH; Value: 11.6; Range: 11.5-14.5; Units: %; Status: F Test: PLATELET COUNT, AUTOMATED; Value: 277; Range: 150-450; Units: k/mm3; Status: F Lab Order: BASIC METABOLIC PROFILE; [facility] 05/25/16 06:40 Test: GLUCOSE, FASTING; Value: 171; Range: 70-105; Abnormal: Above high normal; Units: MG/DL; Status: F Test: BLOOD UREA NITROGEN; Value: 19; Range: 7-18; Abnormal: Above high normal; Units: MG/DL; Status: F Test: CREATININE FOR GFR; Value: 0.70; Range: 0.55-1.02; Abnormal: Delta; Units: MG/DL; Status: F Test: GLOMERULAR FILTRATION RATE; Value: > 60.0; Range: >51; Status: F Test: SODIUM LEVEL; Value: 142; Range: 136-145; Units: MEQ/L; Status: F Test: POTASSIUM SERUM; Value: 4.1; Range: 3.5-5.1; Units: MEQ/L; Status: F Test: CHLORIDE LEVEL; Value: 107; Range: 98-107; Units: MEQ/L; Status: F Test: CARBON DIOXIDE LEVEL; Value: 27; Range: 21-32; Units: MEQ/L; Status: F Test: ANION GAP; Value: 8; Range: 8-16; Units: MEQ/L; Status: F Test: CALCIUM LEVEL; Value: 8.9; Range: 8.5-10.1; Units: MG/DL; Status: F Test Note: ; Units are mL/min/1.73 m2 Chronic Kidney Disease Staging per NKF: Stage I & II GFR >=60 Normal to Mildly Decreased Stage III GFR 30-59 Moderately Decreased Stage IV GFR 15-29 Severely Decreased Stage V GFR <15 Very Little GFR Left ESRD GFR <15 on IP/MOSAIC TECHNICIAN Lab Order: MAGNESIUM LEVEL; SPEC'M 05/25/16 06:40 Test: MAGNESIUM LEVEL; Value: 1.9; Range: 1.8-2.4; Units: MG/DL; Status: F Lab Order: LIVER PROFILE; SPEC'M 05/25/16 06:40 Test: AST/SGOT; Value: 14; Range: 15-37; Abnormal: Below low normal; Units: U/L; Status: F Test: ALT/SGPT; Value: 23; Range: 12-78; Units: U/L; Status: F Test: ALKALINE PHOSPHATASE; Value: 86; Range: 45-117; Units: U/L; Status: F Test: BILIRUBIN,TOTAL; Value: 0.4; Range: 0.2-1.0; Units: MG/DL; Status: F Test: BILIRUBIN,DIRECT; Value: < 0.1; Range: 0.0-0.2; Units: MG/DL; Status: F Test: TOTAL PROTEIN; Value: 6.6; Range: 6.4-8.2; Units: GM/DL; Status: F Test: ALBUMIN; Value: 3.5; Range: 3.2-5.2; Units: GM/DL; Status: F Test: ALBUMIN/GLOBULIN RATIO; Value: 1.13; Range: 1.00-1.93; Status: F Lab Order: VITAMIN D, 25-HYDROXY; [facility]05/25/16 06:40 Test: TOTAL 25(OH) VITAMIN D; Value: 26.8; Range: 30.0-100.0; Abnormal: Below low normal; Units: NG/ML; Status: F Test Note: ; Total 25(OH)Vitamin D Expected Values Deficiency <20 ng/ml Insufficiency 20-30 ng/ml Sufficiency 30-100 ng/ml Toxicity >100 ng/ml Lab Order: SALICYLATE LEVEL; [facility] 05/24/16 20:46 Test: SALICYLATE LEVEL; Value: < 1.7; Range: 5.0-30.0; Abnormal: Below low normal; Units: MG/DL; Status: F Lab Order: ACETAMINOPHEN LEVEL; 05/24/16 20:46 Test: ACETAMINOPHEN LEVEL; Value: < 2.0; Range: 10.0-30.0; Abnormal: Below low normal; Units: UG/ML; Status: F Lab Order: URINE PROTEIN ELECTROPHORESIS; 05/25/16 01:06 Test: URINE VOLUME; Units: ML; Status: I Test: URINE TOTAL PROTEIN; Value: 16.6; Range: 0-12; Abnormal: Above high normal; Units: MG/DL; Status: F Test: UPEP INTERPRETATION; Status: I Lab Order: SERUM PROTEIN ELECTROPHORESIS; 05/25/16 06:40 Test: ALBUMIN %; Range: 55.8-66.1; Units: %; Status: I Test: CNPUH-0-JIMCMVWE %; Range: 2.9-4.9; Units: %; Status: I Test: LRWEY-3-ZZIERZOGP %; Range: 7.1-11.8; Units: %; Status: I Test: TQHI-7-ESVGNVYEU %; Range: 4.7-7.2; Units: %; Status: I Test: YLBI-4-YVJSDFCKO %; Range: 3.2-6.5; Units: %; Status: I Test: GAMMA GLOBULIN %; Range: 11.1-18.8; Units: %; Status: I Test: ALBUMIN; Range: 3.29-5.55; Units: GM/DL; Status: I Test: NKEWW-8-HQHBTZFYP; Range: 0.17-0.41; Units: GM/DL; Status: I Test: AZPOJ-1-JBEREFKOF; Range: 0.42-0.99; Units: GM/DL; Status: I Test: OSLQ-9-FRTKNXCEM; Range: 0.28-0.60; Units: GM/DL; Status: I Test: ZYJI-2-TYPJBXGEE; Range: 0.19-0.55; Units: GM/DL; Status: I Test: GAMMA GLOBULINS; Range: 0.65-1.58; Units: GM/DL; Status: I Test: TOTAL PROTEIN; Value: 6.6; Range: 6.4-8.2; Units: GM/DL; Status: F Test: SPEP INTERPRETATION; Status: I Radiology Order: EKG-ADULT Test: EKG-ADULT REASON FOR EXAMINATION: dysrhythmia; Stationary ECG Study; [facility] - ED; ; Test Date: 2016-05-24; Pat Name: FLORENCIA BUTTS Department:; Room: [place] [address]; Gender: F 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 The right kidney measures 10.6 x 5.3 x 4.3 cm. The lef; t kidney measures 10.5 x 5.4 x 6.1 cm. The kidneys demonstrate normal echotexture and echogenicity. T; here is no evidence of hydronephrosis or nephrolithiasis. No renal masses are seen. There is incident; al finding of multiple echogenic solid lesions throughout the liver. The largest of these is in the p; osterior right lobe measuring 5.7 x 4.8 cm. A lesion in the left lobe measures 6.0 x 5.1 cm. No free; fluid is appreciated.; Impression:; 1. Unremarkable ultrasound examination of the kidneys.; 2. Multiple echogenic solid lesions throughout the liver. This is a nonspecific finding. CT or MRI wi; th contrast utilizing liver protocol would be recommended for further evaluation.; ; Outcome: 23:03 Decision to Hospitalize by Provider. br1 05/25 12:33 Discharge Assessment: Patient awake, alert and oriented x 3. No cognitive and/or k functional deficits noted. Patient verbalized understanding of disposition instructions. patient administered narcotics - no. The following High Risk Discharge criteria are identified: None. Admitted to Med/Surg Other 5 [place]. Condition: good. CT Study completed. Property :Personal belongings accompany Pt. 12:41 Patient left the ED. caitlin Signatures: Dispatcher [employer] EDMS Yosef Bowman RN RN jmk Olin, Zoeann zo Roggie, Brian, MD MD br1 Sophia Saldana RN RN rs3 Nguyen Hill RN RN sls1 Fany Segura RN RN pml Patchen, Erin, CLINIC OFFICE ASSISTANT CLINIC OFFICE ASSISTANT elp Verenice Swanson, CLINIC OFFICE ASSISTANT CLINIC OFFICE ASSISTANT rs6 Lorri Lau RN RN kas2 Steff Hardy RN RN tm5 Corrections: (The following items were deleted from the chart) 05/24 20:16 20:13 Acuity: PHILL Level 2 rs3 rs3 MTDD
--- NOTE | 2016-05-25 12:42 | EDDOCDS ---
Physician Documentation [facility] Name: Florencia Butts Age: 60 yrs Sex: Female : 1955 Arrival Date: 05/24/2016 Time: 20:07 Bed Admit Hold Private MD: Jessie Mcneil Disposition: 05/24/16 23:03 Hospitalization ordered by Marci Dickey for Inpatient Admission. Preliminary diagnosis are Pruritus - Allergic Reaction, Abnormal results of kidney function studies. - Bed requested for 5 Higgins. - Status is Inpatient Admission. [place] - Condition is Stable. - Problem is new. - Symptoms are unchanged. Historical: - Allergies: no known allergies; - Home Meds: 1. Lexapro 20 mg Oral tab 1 tab once daily - PMHx: Depression; - PSHx: Gastric Bypass (2007); Tonsillectomy; 6 brain surgeries; - Social history: Smoking status: Patient states former smoker of tobacco. No barriers to communication noted, The patient speaks fluent Cape Verdean. - Family history: Not pertinent. - : The pt / caregiver states he / she is not on anticoagulants. Home medication list is obtained from the patient. - Exposure Risk Screening:: None identified. Vital Signs: 05/24 20:09 BP 123 / 83; Pulse 101; Resp 20; Temp 95.9(O); Pulse Ox 96% ; Weight 74.84 kg / 164.99 elp lbs; Height 5 ft. 3 in. (160.02 cm); Pain 0/10; 20:31 BP 137 / 69 (auto/); kas2 20:31 Pulse 78 MON; Pulse Ox 97% ; kas2 20:44 BP 133 / 67 (auto/); kas2 20:44 Pulse 62 MON; Pulse Ox 97% ; kas2 21:14 BP 122 / 62 (auto/); kas2 21:14 Pulse 72 MON; Pulse Ox 96% ; kas2 21:44 BP 108 / 65 (auto/); kas2 21:44 Pulse 76 MON; Pulse Ox 95% ; kas2 22:14 BP 111 / 57 (auto/); kas2 22:14 Pulse 72 MON; Pulse Ox 95% ; kas2 22:44 BP 134 / 70 (auto/); kas2 22:44 Pulse 72 MON; Pulse Ox 96% ; kas2 23:14 BP 110 / 62 (auto/); kas2 23:14 Pulse 72 MON; Pulse Ox 96% ; kas2 23:44 BP 112 / 60 (auto/); kas2 23:50 Pulse Ox 95% ; kas2 02 00:30 BP 118 / 65; Pulse 75; Resp 18; Temp 98.0(O); Pulse Ox 99% on R/A; Pain 0/10; kas2 01:05 BP 120 / 68; Pulse 69; Resp 18; Pulse Ox 99% on R/A; kas2 03:44 BP 121 / 70; Pulse 72; Resp 18; Temp 97.3(O); Pulse Ox 99% on R/A; Pain 0/10; kas2 04:52 BP 128 / 66 (auto/); kas2 04:52 Pulse Ox 95% ; kas2 05:02 Resp 18; Temp 97.9(O); kas2 05:52 BP 148 / 71 (auto/); kas2 05:52 Pulse 64 MON; Pulse Ox 95% ; kas2 06:52 BP 131 / 71 (auto/); kas2 06:52 Pulse 74 MON; kas2 12:31 BP 141 / 70; Pulse 56; Resp 16; Temp 98.5; [facility] 05/24 20:09 Body Mass Index 29.23 (74.84 kg, 160.02 cm) elp MDM: 05/24 20:27 EPINEPHrine (1:1000) 0.3 ml IM once; Deep IM ordered. br1 20:28 IV Saline Lock ordered. br1 20:28 Solu-MEDROL 125 mg IVP once ordered. br1 20:28 diphenhydrAMINE 50 mg IVP once ordered. br1 20:28 Famotidine 40 mg IVP once ordered. br1 20:29 Gambling Supervisor/Pulse Ox/q 30 min VS ordered. br1 20:30 CBC with Diff Ordered. EDMS 20:30 BMP Ordered. EDMS 20:30 ECG WITH READING ER PHYS+CARDIAG ordered. EDMS 21:19 Financial registration complete. zo 21:23 CBC with Diff Reviewed. br1 21:23 BMP Reviewed. br1 21:24 NS 0.9% 1000 ml IV at 150 mL/hr continuous ordered. br1 21:36 [facility] [place] was scanned into [employer] and attached to record. zo 22:34 BED REQUEST+ADM ordered. EDMS 23:23 URINALYSIS Ordered. EDMS 23:24 OSMOLALITY,URINE Ordered. EDMS 23:24 TOTAL PROTEIN,RANDOM URINE Ordered. EDMS 23:24 CREATININE,RANDOM URINE Ordered. EDMS 23:24 POTASSIUM,RANDOM URINE Ordered. EDMS 23:24 CHLORIDE,RANDOM URINE Ordered. EDMS 23:24 SODIUM,RANDOM URINE Ordered. EDMS 23:24 COMPLETE BLOOD COUNT Ordered. EDMS 23:24 BASIC METABOLIC PROFILE Ordered. EDMS 23:24 MAGNESIUM LEVEL Ordered. EDMS 23:27 RENAL US Ordered. EDMS 23:28 Admission / Observation Status ordered. EDMS 23:28 REGULAR DIET ordered. EDMS 02/03 01:12 LIVER PROFILE Ordered. EDMS 01:12 VITAMIN D, 25-HYDROXY Ordered. EDMS 04:12 MRI ABDOMEN WITHOUT CONTRAST Ordered. EDMS 04:16 5-HIAA QN,RANDOM UR Ordered. EDMS 04:16 SEROTONIN QUANTITATIVE LEVEL Ordered. EDMS 04:26 URINE PROTEIN ELECTROPHORESIS Ordered. EDMS 04:36 SERUM PROTEIN ELECTROPHORESIS Ordered. EDMS 12:01 Admission / Observation Status ordered. EDMS Administered Medications: 05/24 20:34 Drug: EPINEPHrine (1:1000) 0.3 ml [epinephrine HCl (PF) 1 mg/mL (1 mL) intravenous tm5 solution (0.3 mL)] Route: IM; Site: left vastus lateralis; 20:57 Drug: Solu-MEDROL 125 mg [Solu-Medrol 500 mg intravenous solution (125 mg)] Route: IVP; tm5 Site: left hand; 20:57 Drug: diphenhydrAMINE 50 mg [diphenhydramine 50 mg/mL injection solution (1 mL)] Route: tm5 IVP; Site: left hand; 20:57 Drug: Famotidine 40 mg [famotidine 10 mg/mL intravenous solution (4 mL)] {Note: given tm5 IVPB over 30 minutes.} Route: IVP; Site: left hand; 21:39 Drug: NS 0.9% 1000 ml [sodium chloride 0.9 % intravenous solution] Route: IV; Rate: 150 kas2 mL/hr; Site: left hand; Signatures: Dispatcher [employer] EDMS Yosef Bowman RN RN jmk Olin, Zoeann zo Roggie, Brian, MD MD br1 Sophia Saldana RN RN rs3 Fany Segura,RN RN pml Domitila Munoz RN RN sls2 Steff Hardy,RN RN tm5 Lorri Lau RN kas2 The chart was reviewed and I authenticate all verbal orders and agree with the evaluation and treatment provided.Corrections: (The following items were deleted from the chart) 05/25 01:12 05/24 23:29 VITAMIN D, 25-HYDROXY ordered. EDMS EDMS 05/25 01:12 05/24 23:32 LIVER PROFILE ordered. EDMS EDMS 05/25 01:13 05/24 23:05 ACETAMINOPHEN LEVEL+LAB ordered. EDMS EDMS 05/25 01:13 05/24 23:05 SALICYLATE LEVEL+LAB ordered. EDMS EDMS 05/25 04:36 04:26 SERUM PROTEIN ELECTROPHORESIS ordered. EDMS EDMS : 05/24 21:36 [facility] [place] Agreement zo MTDD
[2016-05-25 12:55] VITALS: BP 160/74; O2SAT 99
[2016-05-25] MEDS ORDERED: diphenhydrAMINE 25 MG CAP PO PRN (13:15)
[2016-05-25 14:00] VITALS: BP 123/71
--- NOTE | 2016-05-25 17:01 | REP ---
MRI study of the abdomen without and with IV contrast: History: Multiple echogenic mass is seen throughout the liver on renal ultrasound from May 24, 2016. MRI contrast dose: 50 ml of intravenous ProHance is administered. MRI technique: Axial and coronal imaging planes are utilized. T1 and T2-weighted sequences include true FISP, in and out of phase, spin echo, turbo spin-echo, and 2-D gradient echo fat sat T1-weighted sequentially acquired post-gadolinium enhanced images. MRI findings: There are numerous hepatic mass lesions ranging in size from 0.9 cm to 9.7 cm in greatest diameter in the left lobe and right lobe of the liver. These all show low T1 and high T2 signal intensity. The T2 signal intensity increases with increased T2-weighting. There are at least 12 hepatic mass lesions. On dynamically acquired post gadolinium enhanced images all the lesions demonstrate initial peripheral discontinuous enhancement with subsequent sequences showing centripetal filling in and enhancement of the lesions. The larger lesions do not fill in completely. They are considered most compatible with atypical benign hemangiomas. No splenic mass lesion is observed. The liver is not enlarged. No biliary ductal dilation is apparent. No pancreatic mass lesion is seen. No adrenal lesion is observed. No renal lesion is seen. There is no evidence of ascites. No retroperitoneal mass or adenopathy is seen. No bony lesion is seen. No pleural effusion is noted. Bilateral breast augmentation implants are seen. Study is otherwise unremarkable. Impression: Multiple hepatic mass lesions compatible with atypical benign hemangiomas. Recommend follow-up MRI study in six months to document stability over time. Signed by Brian Ramos MD 05/25/2016 07:30 P
[2016-05-25 20:00] VITALS: O2SAT 94
[2016-05-25 22:00] VITALS: BP 112/55
[2016-05-26 06:00] VITALS: BP 114/66
[2016-05-26 06:38] LABS: MEAN CORPUSCULAR HEMOGLOBIN 31.7 pg (27.0-33.0); MEAN CORPUSCULAR HGB CONC 32.7 g/dl (32.0-36.5); RED CELL DISTRIBUTION WIDTH 11.7 % (11.5-14.5); WHITE BLOOD COUNT 5.5 K/mm3 (4.0-10.0)
[2016-05-26] MEDS: LR 1,000 ML IV SCH (06:38)
[2016-05-26 06:59] LABS: ANION GAP 6 MEQ/L (8-16); BLOOD UREA NITROGEN 13 MG/DL (7-18); CALCIUM LEVEL 8.4 MG/DL (8.5-10.1); CARBON DIOXIDE LEVEL 29 MEQ/L (21-32); CHLORIDE LEVEL 110 MEQ/L (98-107); CREATININE FOR GFR 0.54 MG/DL (0.55-1.02); GLOMERULAR FILTRATION RATE > 60.0 (>51); GLUCOSE, FASTING 88 MG/DL (70-105); MAGNESIUM LEVEL 1.9 MG/DL (1.8-2.4); SODIUM LEVEL 145 MEQ/L (136-145)
[2016-05-26] MEDS ORDERED: DIPH25CA PO (08:13)
[2016-05-26] MEDS: VITAMIN D (CHOLECALCIFEROL) 400 INTERNATIONAL UNITS TAB PO SCH (08:27)
[2016-05-26] MEDS: THIAMINE 100 MG TAB PO SCH (08:27)
[2016-05-26] MEDS: HEPARIN SOD (PORCINE) 5000 UNITS/ML VIAL SC SCH (08:27)
[2016-05-26] MEDS: MULTIVITAMINS/MINERALS THERAP 1 TAB PO SCH (08:28)
[2016-05-26] MEDS: SENOKOT S TAB PO SCH (08:28)
[2016-05-26] MEDS: FOLIC ACID 1 MG TAB PO SCH (08:28)
[2016-05-26] MEDS: PANTOPRAZOLE 40MG TAB (PROTONIX) PO SCH (08:28)
[2016-05-26 09:00] VITALS: O2SAT 94
--- NOTE | 2016-05-27 13:41 | EDDOCDS ---
Physician Documentation [facility] Name: Florencia Butts Age: 60 yrs Sex: Female : 1955 Arrival Date: 05/24/2016 Time: 20:07 Bed Admit Hold Private MD: Jessie Mcneil Disposition: 05/24/16 23:03 Hospitalization ordered by Marci Dickey for Inpatient Admission. Preliminary diagnosis are Pruritus - Allergic Reaction, Abnormal results of kidney function studies. - Bed requested for 5 Higgins. - Status is Inpatient Admission. [place] - Condition is Stable. - Problem is new. - Symptoms are unchanged. Historical: - Allergies: no known allergies; - Home Meds: 1. Lexapro 20 mg Oral tab 1 tab once daily - PMHx: Depression; - PSHx: Gastric Bypass (2007); Tonsillectomy; 6 brain surgeries; - Social history: Smoking status: Patient states former smoker of tobacco. No barriers to communication noted, The patient speaks fluent [place]ymraes. - Family history: Not pertinent. - : The pt / caregiver states he / she is not on anticoagulants. Home medication list is obtained from the patient. - Exposure Risk Screening:: None identified. Vital Signs: 05/24 20:09 BP 123 / 83; Pulse 101; Resp 20; Temp 95.9(O); Pulse Ox 96% ; Weight 74.84 kg / 164.99 elp lbs; Height 5 ft. 3 in. (160.02 cm); Pain 0/10; 20:31 BP 137 / 69 (auto/); kas2 20:31 Pulse 78 MON; Pulse Ox 97% ; kas2 20:44 BP 133 / 67 (auto/); kas2 20:44 Pulse 62 MON; Pulse Ox 97% ; kas2 21:14 BP 122 / 62 (auto/); kas2 21:14 Pulse 72 MON; Pulse Ox 96% ; kas2 21:44 BP 108 / 65 (auto/); kas2 21:44 Pulse 76 MON; Pulse Ox 95% ; kas2 22:14 BP 111 / 57 (auto/); kas2 22:14 Pulse 72 MON; Pulse Ox 95% ; kas2 22:44 BP 134 / 70 (auto/); kas2 22:44 Pulse 72 MON; Pulse Ox 96% ; kas2 23:14 BP 110 / 62 (auto/); kas2 23:14 Pulse 72 MON; Pulse Ox 96% ; kas2 23:44 BP 112 / 60 (auto/); kas2 23:50 Pulse Ox 95% ; kas2 02 00:30 BP 118 / 65; Pulse 75; Resp 18; Temp 98.0(O); Pulse Ox 99% on R/A; Pain 0/10; kas2 01:05 BP 120 / 68; Pulse 69; Resp 18; Pulse Ox 99% on R/A; kas2 03:44 BP 121 / 70; Pulse 72; Resp 18; Temp 97.3(O); Pulse Ox 99% on R/A; Pain 0/10; kas2 04:52 BP 128 / 66 (auto/); kas2 04:52 Pulse Ox 95% ; kas2 05:02 Resp 18; Temp 97.9(O); kas2 05:52 BP 148 / 71 (auto/); kas2 05:52 Pulse 64 MON; Pulse Ox 95% ; kas2 06:52 BP 131 / 71 (auto/); kas2 06:52 Pulse 74 MON; kas2 12:31 BP 141 / 70; Pulse 56; Resp 16; Temp 98.5; [facility] 05/24 20:09 Body Mass Index 29.23 (74.84 kg, 160.02 cm) elp MDM: 05/24 20:27 EPINEPHrine (1:1000) 0.3 ml IM once; Deep IM ordered. br1 20:28 IV Saline Lock ordered. br1 20:28 Solu-MEDROL 125 mg IVP once ordered. br1 20:28 diphenhydrAMINE 50 mg IVP once ordered. br1 20:28 Famotidine 40 mg IVP once ordered. br1 20:29 Smoked Meat Preparer/Pulse Ox/q 30 min VS ordered. br1 20:30 CBC with Diff Ordered. EDMS 20:30 BMP Ordered. EDMS 20:30 ECG WITH READING ER PHYS+CARDIAG ordered. EDMS 21:19 Financial registration complete. zo 21:23 CBC with Diff Reviewed. br1 21:23 BMP Reviewed. br1 21:24 NS 0.9% 1000 ml IV at 150 mL/hr continuous ordered. br1 21:36 [facility] [place] Agreement was scanned into [employer] and attached to record. zo 22:34 BED REQUEST+ADM ordered. EDMS 23:23 URINALYSIS Ordered. EDMS 23:24 OSMOLALITY,URINE Ordered. EDMS 23:24 TOTAL PROTEIN,RANDOM URINE Ordered. EDMS 23:24 CREATININE,RANDOM URINE Ordered. EDMS 23:24 POTASSIUM,RANDOM URINE Ordered. EDMS 23:24 CHLORIDE,RANDOM URINE Ordered. EDMS 23:24 SODIUM,RANDOM URINE Ordered. EDMS 23:24 COMPLETE BLOOD COUNT Ordered. EDMS 23:24 BASIC METABOLIC PROFILE Ordered. EDMS 23:24 MAGNESIUM LEVEL Ordered. EDMS 23:27 RENAL US Ordered. EDMS 23:28 Admission / Observation Status ordered. EDMS 23:28 REGULAR DIET ordered. EDMS 02/03 01:12 LIVER PROFILE Ordered. EDMS 01:12 VITAMIN D, 25-HYDROXY Ordered. EDMS 04:12 MRI ABDOMEN WITHOUT CONTRAST Ordered. EDMS 04:16 5-HIAA QN,RANDOM UR Ordered. EDMS 04:16 SEROTONIN QUANTITATIVE LEVEL Ordered. EDMS 04:26 URINE PROTEIN ELECTROPHORESIS Ordered. EDMS 04:36 SERUM PROTEIN ELECTROPHORESIS Ordered. EDMS 12:01 Admission / Observation Status ordered. EDMS 15:46 T-Sheet-- Draft Copy was scanned into [employer] and attached to record. gb Administered Medications: 05/24 20:34 Drug: EPINEPHrine (1:1000) 0.3 ml [epinephrine HCl (PF) 1 mg/mL (1 mL) intravenous tm5 solution (0.3 mL)] Route: IM; Site: left vastus lateralis; 20:57 Drug: Solu-MEDROL 125 mg [Solu-Medrol 500 mg intravenous solution (125 mg)] Route: IVP; tm5 Site: left hand; 20:57 Drug: diphenhydrAMINE 50 mg [diphenhydramine 50 mg/mL injection solution (1 mL)] Route: tm5 IVP; Site: left hand; 20:57 Drug: Famotidine 40 mg [famotidine 10 mg/mL intravenous solution (4 mL)] {Note: given tm5 IVPB over 30 minutes.} Route: IVP; Site: left hand; 21:39 Drug: NS 0.9% 1000 ml [sodium chloride 0.9 % intravenous solution] Route: IV; Rate: 150 kas2 mL/hr; Site: left hand; Signatures: Dispatcher [employer] EDMS Yosef Bowman,MIGUEL ANGEL RN Evelia Buchanan Reg Reg gb Janay Resendez Brian, MD MD br1 Sophia SaldanaRN RN rs3 Fany Segura,RN RN pml Domitila Munoz RN RN sls2 Steff Hardy,RN RN tm5 Lorri Lau RN kas2 The chart was reviewed and I authenticate all verbal orders and agree with the evaluation and treatment provided.Corrections: (The following items were deleted from the chart) 05/25 01:12 05/24 23:29 VITAMIN D, 25-HYDROXY ordered. EDMS EDMS 05/25 01:12 05/24 23:32 LIVER PROFILE ordered. EDMS EDMS 05/25 01:13 05/24 23:05 ACETAMINOPHEN LEVEL+LAB ordered. EDMS EDMS 05/25 01:13 05/24 23:05 SALICYLATE LEVEL+LAB ordered. EDMS EDMS 05/25 04:36 04:26 SERUM PROTEIN ELECTROPHORESIS ordered. EDMS EDMS Attachments: 05/24 21:36 [facility] Payment Agreement zo 05/25 15:46 T-Sheet-- Draft Copy gb Chart Complete MTDD
--- NOTE | 2016-05-27 13:41 | EDDOCDS ---
Physician Documentation [facility] Name: Florencia Butts Age: 60 yrs Sex: Female : 1955 Arrival Date: 05/24/2016 Time: 20:07 Bed Admit Hold Private MD: Jessie Mcneil Disposition: 05/24/16 23:03 Hospitalization ordered by Marci Dickey for Inpatient Admission. Preliminary diagnosis are Pruritus - Allergic Reaction, Abnormal results of kidney function studies. - Bed requested for 5 Higgins. - Status is Inpatient Admission. [place] - Condition is Stable. - Problem is new. - Symptoms are unchanged. Historical: - Allergies: no known allergies; - Home Meds: 1. Lexapro 20 mg Oral tab 1 tab once daily - PMHx: Depression; - PSHx: Gastric Bypass (2007); Tonsillectomy; 6 brain surgeries; - Social history: Smoking status: Patient states former smoker of tobacco. No barriers to communication noted, The patient speaks fluent Thai. - Family history: Not pertinent. - : The pt / caregiver states he / she is not on anticoagulants. Home medication list is obtained from the patient. - Exposure Risk Screening:: None identified. Vital Signs: 05/24 20:09 BP 123 / 83; Pulse 101; Resp 20; Temp 95.9(O); Pulse Ox 96% ; Weight 74.84 kg / 164.99 elp lbs; Height 5 ft. 3 in. (160.02 cm); Pain 0/10; 20:31 BP 137 / 69 (auto/); kas2 20:31 Pulse 78 MON; Pulse Ox 97% ; kas2 20:44 BP 133 / 67 (auto/); kas2 20:44 Pulse 62 MON; Pulse Ox 97% ; kas2 21:14 BP 122 / 62 (auto/); kas2 21:14 Pulse 72 MON; Pulse Ox 96% ; kas2 21:44 BP 108 / 65 (auto/); kas2 21:44 Pulse 76 MON; Pulse Ox 95% ; kas2 22:14 BP 111 / 57 (auto/); kas2 22:14 Pulse 72 MON; Pulse Ox 95% ; kas2 22:44 BP 134 / 70 (auto/); kas2 22:44 Pulse 72 MON; Pulse Ox 96% ; kas2 23:14 BP 110 / 62 (auto/); kas2 23:14 Pulse 72 MON; Pulse Ox 96% ; kas2 23:44 BP 112 / 60 (auto/); kas2 23:50 Pulse Ox 95% ; kas2 02 00:30 BP 118 / 65; Pulse 75; Resp 18; Temp 98.0(O); Pulse Ox 99% on R/A; Pain 0/10; kas2 01:05 BP 120 / 68; Pulse 69; Resp 18; Pulse Ox 99% on R/A; kas2 03:44 BP 121 / 70; Pulse 72; Resp 18; Temp 97.3(O); Pulse Ox 99% on R/A; Pain 0/10; kas2 04:52 BP 128 / 66 (auto/); kas2 04:52 Pulse Ox 95% ; kas2 05:02 Resp 18; Temp 97.9(O); kas2 05:52 BP 148 / 71 (auto/); kas2 05:52 Pulse 64 MON; Pulse Ox 95% ; kas2 06:52 BP 131 / 71 (auto/); kas2 06:52 Pulse 74 MON; kas2 12:31 BP 141 / 70; Pulse 56; Resp 16; Temp 98.5; [facility] 05/24 20:09 Body Mass Index 29.23 (74.84 kg, 160.02 cm) elp MDM: 05/24 20:27 EPINEPHrine (1:1000) 0.3 ml IM once; Deep IM ordered. br1 20:28 IV Saline Lock ordered. br1 20:28 Solu-MEDROL 125 mg IVP once ordered. br1 20:28 diphenhydrAMINE 50 mg IVP once ordered. br1 20:28 Famotidine 40 mg IVP once ordered. br1 20:29 Skilled Nursing Case Manager/Pulse Ox/q 30 min VS ordered. br1 20:30 CBC with Diff Ordered. EDMS 20:30 BMP Ordered. EDMS 20:30 ECG WITH READING ER PHYS+CARDIAG ordered. EDMS 21:19 Financial registration complete. zo 21:23 CBC with Diff Reviewed. br1 21:23 BMP Reviewed. br1 21:24 NS 0.9% 1000 ml IV at 150 mL/hr continuous ordered. br1 21:36 [facility] Payment Agreement was scanned into [employer] and attached to record. zo 22:34 BED REQUEST+ADM ordered. EDMS 23:23 URINALYSIS Ordered. EDMS 23:24 OSMOLALITY,URINE Ordered. EDMS 23:24 TOTAL PROTEIN,RANDOM URINE Ordered. EDMS 23:24 CREATININE,RANDOM URINE Ordered. EDMS 23:24 POTASSIUM,RANDOM URINE Ordered. EDMS 23:24 CHLORIDE,RANDOM URINE Ordered. EDMS 23:24 SODIUM,RANDOM URINE Ordered. EDMS 23:24 COMPLETE BLOOD COUNT Ordered. EDMS 23:24 BASIC METABOLIC PROFILE Ordered. EDMS 23:24 MAGNESIUM LEVEL Ordered. EDMS 23:27 RENAL US Ordered. EDMS 23:28 Admission / Observation Status ordered. EDMS 23:28 REGULAR DIET ordered. EDMS 02/03 01:12 LIVER PROFILE Ordered. EDMS 01:12 VITAMIN D, 25-HYDROXY Ordered. EDMS 04:12 MRI ABDOMEN WITHOUT CONTRAST Ordered. EDMS 04:16 5-HIAA QN,RANDOM UR Ordered. EDMS 04:16 SEROTONIN QUANTITATIVE LEVEL Ordered. EDMS 04:26 URINE PROTEIN ELECTROPHORESIS Ordered. EDMS 04:36 SERUM PROTEIN ELECTROPHORESIS Ordered. EDMS 12:01 Admission / Observation Status ordered. EDMS 15:46 T-Sheet-- Draft Copy was scanned into [employer] and attached to record. gb Administered Medications: 05/24 20:34 Drug: EPINEPHrine (1:1000) 0.3 ml [epinephrine HCl (PF) 1 mg/mL (1 mL) intravenous tm5 solution (0.3 mL)] Route: IM; Site: left vastus lateralis; 20:57 Drug: Solu-MEDROL 125 mg [Solu-Medrol 500 mg intravenous solution (125 mg)] Route: IVP; tm5 Site: left hand; 20:57 Drug: diphenhydrAMINE 50 mg [diphenhydramine 50 mg/mL injection solution (1 mL)] Route: tm5 IVP; Site: left hand; 20:57 Drug: Famotidine 40 mg [famotidine 10 mg/mL intravenous solution (4 mL)] {Note: given tm5 IVPB over 30 minutes.} Route: IVP; Site: left hand; 21:39 Drug: NS 0.9% 1000 ml [sodium chloride 0.9 % intravenous solution] Route: IV; Rate: 150 kas2 mL/hr; Site: left hand; Signatures: Dispatcher [employer] EDMS Yosef Bowman,MIGUEL ANGEL RN Evelia Buchanan Reg Reg gb Janay Resendez Brian, MD MD br1 Sophia SaldanaRN RN rs3 Fany Segura,RN RN pml Domitila Munoz RN RN sls2 Steff Hardy,RN RN tm5 Lorri Lau RN kas2 The chart was reviewed and I authenticate all verbal orders and agree with the evaluation and treatment provided.Corrections: (The following items were deleted from the chart) 05/25 01:12 05/24 23:29 VITAMIN D, 25-HYDROXY ordered. EDMS EDMS 05/25 01:12 05/24 23:32 LIVER PROFILE ordered. EDMS EDMS 05/25 01:13 05/24 23:05 ACETAMINOPHEN LEVEL+LAB ordered. EDMS EDMS 05/25 01:13 05/24 23:05 SALICYLATE LEVEL+LAB ordered. EDMS EDMS 05/25 04:36 04:26 SERUM PROTEIN ELECTROPHORESIS ordered. EDMS EDMS Attachments: 05/24 21:36 [facility] Payment Agreement zo 05/25 15:46 T-Sheet-- Draft Copy gb Chart Complete MTDD
--- NOTE | 2016-05-27 13:41 | EDDOCDS ---
Nurse's Notes [facility] Name: Florencia Butts Age: 60 yrs Sex: Female : 1955 Arrival Date: 05/24/2016 Time: 20:07 Bed Admit Hold Private MD: Jessie Mcneil Diagnosis: Pruritus-Allergic Reaction;Abnormal results of kidney function studies Presentation: 05/24 20:13 Presenting complaint: Patient states: itching, rash, throat closing while eating beef rs3 soup around 7.30. Has not taken any meds. Onset: The symptoms/episode began/occurred suddenly. This patient has not experienced a previous allergic reaction. Anaphylaxis evaluation, the patient reports or I have noted the following symptoms which indicate a significant risk of anaphylaxis: no signs or symptoms of anaphylaxis were noted. Adult Sepsis Screening: The patient does not have new or worsening altered mentation. Patient's respiratory rate is less than 22. Systolic blood pressure is greater than 100. Patient has a qSOFA score of 0- Negative Sepsis Screen. Suicide/Homicide risk assessment- the patient denies having any suicidal and/or homicidal ideations and does not present with any other emotional, behavioral or mental health complaints. Status: Patient is not a clinical services specialist or dependent. Transition of care: patient was not received from another setting of care. 20:13 Method Of Arrival: Walkin/Carried/Asstd rs3 20:13 Acuity: PHILL Level 3 rs3 Triage Assessment: 20:13 General: Appears in no apparent distress. Pain: Denies pain. Pt Declines HIV testing. rs3 Respiratory: Reports no respiratory complaints. Historical: - Allergies: no known allergies; - Home Meds: 1. Lexapro 20 mg Oral tab 1 tab once daily - PMHx: Depression; - PSHx: Gastric Bypass (2007); Tonsillectomy; 6 brain surgeries; - Social history: Smoking status: Patient states former smoker of tobacco. No barriers to communication noted, The patient speaks fluent Serbian. - Family history: Not pertinent. - : The pt / caregiver states he / she is not on anticoagulants. Home medication list is obtained from the patient. - Exposure Risk Screening:: None identified. Screenin:35 Screening information is obtained from the patient. Fall risk: No risks identified. tm5 Assistance ADL's: requires no assistance with activities of daily living. Abuse/DV Screen: The patient / caregiver reports he/she is: not in a situation that causes fear, pain or injury. Nutritional screening: No deficits noted. Advance Directives: Currently, there is no health care proxy. There is no active DNR order. home support is adequate. Assessment: 20:35 General: Appears in no apparent distress, Behavior is appropriate for age, cooperative. tm5 Pain: Denies pain. Neurological: Level of Consciousness is awake, alert, Oriented to person, place, time. Cardiovascular: Rhythm is regular. Respiratory: Airway is patent Respiratory effort is even, unlabored, Respiratory pattern is regular, symmetrical, Breath sounds are clear bilaterally. GI: No deficits noted. : No deficits noted. Derm: Rash noted that is red, urticaria, to entire body per pt. 21:37 General: Appears in no apparent distress, comfortable, well nourished, well groomed, kas2 Behavior is appropriate for age, cooperative. Pain: Denies pain. Neurological: Level of Consciousness is awake, alert, Oriented to person, place, time. Cardiovascular: Capillary refill < 3 seconds Heart tones S1 S2 present Rhythm is sinus rhythm No ectopy. Respiratory: Airway is patent Respiratory effort is even, unlabored, Respiratory pattern is regular, symmetrical, Breath sounds are clear bilaterally. GI: No deficits noted. : No deficits noted. Derm: Skin is intact, Skin is dry, Skin is pink, warm & dry. Skin temperature is warm Rash noted that is Small light rash all over body. Improved after meds given. 22:48 General: Patient resting in bed with family at bedside. No apparent distress. Denies kas2 pain or discomfort at this time. Appears comfortable. VSS. Call hernandez within reach. Will continue to monitor.. 05/25 00:45 General: Hospitalist in to assess patient at this time.. kas2 01:58 General: Appears in no apparent distress, comfortable, Behavior is appropriate for age, kas2 cooperative. Pain: Denies pain. Neurological: Level of Consciousness is awake, alert, Oriented to person, place, time. Cardiovascular: Rhythm is sinus rhythm No ectopy. Respiratory: Airway is patent Respiratory effort is even, unlabored, Respiratory pattern is regular, symmetrical. Derm: Skin is intact, Skin is dry, Skin is pink, warm & dry. Skin temperature is warm. 03:42 General: Appears in no apparent distress, comfortable, Behavior is appropriate for age, kas2 cooperative. Pain: Denies pain. Neurological: Level of Consciousness is awake, alert, Oriented to person, place, time. Cardiovascular: Rhythm is sinus rhythm No ectopy. Respiratory: Airway is patent Respiratory effort is even, unlabored, Respiratory pattern is regular, symmetrical. Derm: Skin is intact, Skin is dry, Skin is pink, warm & dry. Skin temperature is warm. 04:10 General: Patient up to bathroom to void.. kas2 04:20 General: Patient back from bathroom. Resettled in bed.. kas2 05:00 General: Patient complaining of headache /. Meds given. No apparent distress. Airway kas2 patent and respiratory effort even and unlabored. Call hernandez within reach. Will continue to monitor.. 06:00 General: Appears in no apparent distress, comfortable, Behavior is appropriate for age, kas2 cooperative. Pain: Denies pain. Neurological: Level of Consciousness is awake, alert, Oriented to person, place, time. Cardiovascular: Rhythm is sinus rhythm No ectopy. Respiratory: Airway is patent Respiratory effort is even, unlabored, Respiratory pattern is regular, symmetrical. Derm: Skin is intact, Skin is dry, Skin is pink, warm & dry. Skin temperature is warm. 06:27 General: Patient sleeping at this time with sister at bedside. Denies pain or kas2 discomfort and no apparent distress noted. Appears comfortable. Airway patent and respiratory effort even and unlabored. Call hernandez within reach. Will continue to monitor.. 07:17 General: Appears in no apparent distress, comfortable, Behavior is appropriate for age, pml cooperative. Pain: Location: headache Pain currently is 2 out of 10 on a pain scale. Neurological: Level of Consciousness is awake, alert, Oriented to person, place, time. Cardiovascular: Capillary refill < 3 seconds Rhythm is sinus rhythm No ectopy. Respiratory: Airway is patent Respiratory effort is even, unlabored. GI: Abdomen is non- distended obese. Derm: Skin is pink, warm & dry. 09:06 General: up OOB - off tele as per MD Ricci orders for shower. voices no complaints. pml resps easy and unlabored, skin p/w/d . 12:31 General: Appears in no apparent distress, skin warm and dry color satisfactory. Moist jmk pink oral mucosa. easily accommodates own saliva and vocalizes. No work of breathing. chest CTA. face slightly flushed. skin is other hurtado oren. IV patent. report to ellie putnam as pt is now reporting itching without outward signs of allergic response. Vital Signs: 05/24 20:09 BP 123 / 83; Pulse 101; Resp 20; Temp 95.9(O); Pulse Ox 96% ; Weight 74.84 kg; Height 5 elp ft. 3 in. (160.02 cm); Pain 0/10; 20:31 BP 137 / 69 (auto/); kas2 20:31 Pulse 78 MON; Pulse Ox 97% ; kas2 20:44 BP 133 / 67 (auto/); kas2 20:44 Pulse 62 MON; Pulse Ox 97% ; kas2 21:14 BP 122 / 62 (auto/); kas2 21:14 Pulse 72 MON; Pulse Ox 96% ; kas2 21:44 BP 108 / 65 (auto/); kas2 21:44 Pulse 76 MON; Pulse Ox 95% ; kas2 22:14 BP 111 / 57 (auto/); kas2 22:14 Pulse 72 MON; Pulse Ox 95% ; kas2 22:44 BP 134 / 70 (auto/); kas2 22:44 Pulse 72 MON; Pulse Ox 96% ; kas2 23:14 BP 110 / 62 (auto/); kas2 23:14 Pulse 72 MON; Pulse Ox 96% ; kas2 23:44 BP 112 / 60 (auto/); kas2 23:50 Pulse Ox 95% ; kas2 05/25 00:30 BP 118 / 65; Pulse 75; Resp 18; Temp 98.0(O); Pulse Ox 99% on R/A; Pain 0/10; kas2 01:05 BP 120 / 68; Pulse 69; Resp 18; Pulse Ox 99% on R/A; kas2 03:44 BP 121 / 70; Pulse 72; Resp 18; Temp 97.3(O); Pulse Ox 99% on R/A; Pain 0/10; kas2 04:52 BP 128 / 66 (auto/); kas2 04:52 Pulse Ox 95% ; kas2 05:02 Resp 18; Temp 97.9(O); kas2 05:52 BP 148 / 71 (auto/); kas2 05:52 Pulse 64 MON; Pulse Ox 95% ; kas2 06:52 BP 131 / 71 (auto/); kas2 06:52 Pulse 74 MON; kas2 12:31 BP 141 / 70; Pulse 56; Resp 16; Temp 98.5; jmk 05/24 20:09 Body Mass Index 29.23 (74.84 kg, 160.02 cm) elp Vitals: 05/24 20:09 Log In Time: May 24, 2016 at 20:07. RN notified that patient meets Red Flag elp criteria. ED Course: 20:09 Patient visited by Florence Junior PCA. elp 20:09 Jessie Mcneil is Private Physician. elp 20:09 Patient moved to Waiting elp 20:12 Patient visited by Florence Junior PCA. elp 20:12 Patient moved to Pre RCE elp 20:15 Triage Initiated rs3 20:17 Lorri Lau RN is Primary Nurse. rs3 20:17 Patient moved to 17 rs3 20:20 Dixon Jain MD is Attending Physician. br1 20:27 Patient visited by Dixon Jain MD. br1 20:35 The patient / caregiver is instructed regarding the plan of care and ED course. Cardiac tm5 monitor on. Pulse ox on. NIBP on. 20:57 Inserted saline lock: 20 gauge in left hand and blood collected. The patient tolerated tm5 the procedure well. Labs drawn. (by ED staff). Sent per order to lab. 20:59 Patient visited by Verenice Swanson PCA. rs6 20:59 EKG done. (by ED staff). Reviewed by Dixon Jain MD. rs6 21:36 [facility] [place] Agreement was scanned into [employer] and attached to record. zo 21:39 Patient visited by Lorri Lau RN. kas2 22:15 Patient visited by Lorri Lau RN. kas2 22:48 Patient visited by Lorri Lau RN. kas2 22:50 Patient visited by Lorri Lau RN. kas2 23:03 Marci Dickey is Hospitalizing Provider. br1 05/25 00:30 Patient moved to Admit Hold sls1 00:35 RENAL US Returned. EDMS 01:08 Patient visited by Lorri Lau RN. kas2 01:08 No procedures done that require assistance. Urine collected. Clean catch specimen. kas2 Urine specimen sent to lab. 01:13 Patient visited by Lorri Lau RN. kas2 02:00 Patient visited by Lorri Lau RN. kas2 03:45 Patient visited by Lorri Lau RN. kas2 05:02 Patient visited by Lorri Lau RN. kas2 06:01 Patient visited by Lorri Lau RN. kas2 06:28 Patient visited by Lorri Lau RN. kas2 06:57 Patient visited by Lorri Lau RN. kas2 07:04 Patient visited by Lorri Lau RN. kas2 07:18 Patient visited by Fany Segura RN. pml 08:27 Fany Segura RN is Primary Nurse. pml 09:06 Patient visited by Fany Segura RN. pml 11:12 EKG-ADULT Returned. EDMS 15:46 T-Sheet-- Draft Copy was scanned into [employer] and attached to record. gb Administered Medications: 05/24 20:34 Drug: EPINEPHrine (1:1000) 0.3 ml [epinephrine HCl (PF) 1 mg/mL (1 mL) intravenous tm5 solution (0.3 mL)] Route: IM; Site: left vastus lateralis; 20:57 Drug: Solu-MEDROL 125 mg [Solu-Medrol 500 mg intravenous solution (125 mg)] Route: IVP; tm5 Site: left hand; 20:57 Drug: diphenhydrAMINE 50 mg [diphenhydramine 50 mg/mL injection solution (1 mL)] Route: tm5 IVP; Site: left hand; 20:57 Drug: Famotidine 40 mg [famotidine 10 mg/mL intravenous solution (4 mL)] {Note: given tm5 IVPB over 30 minutes.} Route: IVP; Site: left hand; 21:39 Drug: NS 0.9% 1000 ml [sodium chloride 0.9 % intravenous solution] Route: IV; Rate: 150 kas2 mL/hr; Site: left hand; Order Results: Lab Order: CBC with Diff; SPEC'M 05/24/16 20:46 Test: WHITE BLOOD COUNT; Value: 5.9; Range: 4.0-10.0; Units: K/mm3; Status: F Test: RED BLOOD COUNT; Value: 4.39; Range: 4.00-5.40; Units: M/mm3; Status: F Test: HEMOGLOBIN; Value: 13.8; Range: 12.0-16.0; Units: g/dl; Status: F Test: HEMATOCRIT; Value: 41.6; Range: 36.0-47.0; Units: %; Status: F Test: MEAN CORPUSCULAR VOLUME; Value: 94.8; Range: 80.0-96.0; Units: fl; Status: F Test: MEAN CORPUSCULAR HEMOGLOBIN; Value: 31.3; Range: 27.0-33.0; Units: pg; Status: F Test: MEAN CORPUSCULAR HGB CONC; Value: 33.0; Range: 32.0-36.5; Units: g/dl; Status: F Test: RED CELL DISTRIBUTION WIDTH; Value: 11.6; Range: 11.5-14.5; Units: %; Status: F Test: PLATELET COUNT, AUTOMATED; Value: 323; Range: 150-450; Units: k/mm3; Status: F Test: NEUTROPHILS %; Value: 46.3; Range: 36.0-66.0; Units: %; Status: F Test: LYMPH %; Value: 45.7; Range: 24.0-44.0; Abnormal: Above high normal; Units: %; Status: F Test: MONO %; Value: 4.2; Range: 0.0-5.0; Units: %; Status: F Test: EOS %; Value: 1.1; Range: 0.0-3.0; Units: %; Status: F Test: BASO %; Value: 0.5; Range: 0.0-1.0; Units: %; Status: F Test: LARGE UNSTAINED CELL %; Value: 2.2; Range: 0.0-4.0; Units: %; Status: F Test: NEUTROPHILS #; Value: 2.7; Range: 1.8-7.7; Units: K/mm3; Status: F Test: LYMPH #; Value: 2.7; Range: 1.5-4.5; Units: K/mm3; Status: F Test: MONO #; Value: 0.3; Range: 0.0-0.8; Units: K/mm3; Status: F Test: EOS #; Value: 0.1; Range: 0.0-0.50; Units: K/mm3; Status: F Test: BASO #; Value: 0.0; Range: 0.0-0.2; Units: K/mm3; Status: F Test: LARGE UNSTAINED CELL #; Value: 0.1; Range: 0.0-0.4; Units: K/mm3; Status: F Lab Order: BMP; SPEC05/24/16 20:46 Test: GLUCOSE, FASTING; Value: 146; Range: 70-105; Abnormal: Above high normal; Units: MG/DL; Status: F Test: BLOOD UREA NITROGEN; Value: 25; Range: 7-18; Abnormal: Above high normal; Units: MG/DL; Status: F Test: CREATININE FOR GFR; Value: 1.50; Range: 0.55-1.02; Abnormal: Above high normal; Units: MG/DL; Status: F Test: GLOMERULAR FILTRATION RATE; Value: 38.0; Range: >51; Abnormal: Below low normal; Status: F Test: SODIUM LEVEL; Value: 142; Range: 136-145; Units: MEQ/L; Status: F Test: POTASSIUM SERUM; Value: 4.7; Range: 3.5-5.1; Units: MEQ/L; Status: F Test: CHLORIDE LEVEL; Value: 109; Range: 98-107; Abnormal: Above high normal; Units: MEQ/L; Status: F Test: CARBON DIOXIDE LEVEL; Value: 26; Range: 21-32; Units: MEQ/L; Status: F Test: ANION GAP; Value: 7; Range: 8-16; Abnormal: Below low normal; Units: MEQ/L; Status: F Test: CALCIUM LEVEL; Value: 9.0; Range: 8.5-10.1; Units: MG/DL; Status: F Test Note: ; Units are mL/min/1.73 m2 Chronic Kidney Disease Staging per NKF: Stage I & II GFR >=60 Normal to Mildly Decreased Stage III GFR 30-59 Moderately Decreased Stage IV GFR 15-29 Severely Decreased Stage V GFR <15 Very Little GFR Left ESRD GFR <15 on PATENTS EXAMINER Lab Order: URINALYSIS; SPEC05/25/16 01:06 Test: APPEARANCE, URINE; Value: CLEAR; Range: CLEAR; Status: F Test: COLOR, URINE; Value: YELLOW; Range: YELLOW; Status: F Test: PH,URINE; Value: 5.0; Range: 5.0-9.0; Units: UNITS; Status: F Test: SPECIFIC GRAVITY URINE AUTO; Value: 1.026; Range: 1.002-1.035; Status: F Test: PROTEIN, URINE AUTO; Value: NEGATIVE; Range: NEGATIVE; Units: mg/dL; Status: F Test: GLUCOSE, URINE (UA) AUTO; Value: NEGATIVE; Range: NEGATIVE; Units: mg/dL; Status: F Test: KETONE, URINE AUTO; Value: 2+; Range: NEGATIVE; Abnormal: Above high normal; Units: mg/dL; Status: F Test: UROBILINOGEN, URINE AUTO; Value: 0.2; Range: 0.0-2.0; Units: mg/dL; Status: F Test: BILIRUBIN, URINE AUTO; Value: NEGATIVE; Range: NEGATIVE; Status: F Test: NITRITE, URINE AUTO; Value: NEGATIVE; Range: NEGATIVE; Status: F Test: LEUKOCYTE ESTERASE, URINE AUTO; Value: NEGATIVE; Range: NEGATIVE; Status: F Test: BLOOD, URINE BLOOD; Value: NEGATIVE; Range: NEGATIVE; Status: F Test: WBC, URINE AUTO; Value: 2; Range: 0-3; Units: /HPF; Status: F Test: RBC, URINE AUTO; Value: 1; Range: 0-3; Units: /HPF; Status: F Test: BACTERIA, URINE AUTO; Value: NEGATIVE; Range: NEGATIVE; Status: F Test: SQUAMOUS EPITHELIAL CELL UR AU; Value: 1; Range: 0-6; Units: /HPF; Status: F Test: MUCUS, URINE; Value: SMALL; Range: NEGATIVE; Status: F Test: HYALINE CAST, URINE AUTO; Value: 0; Range: 0-1; Units: /LPF; Status: F Lab Order: OSMOLALITY,URINE; SPEC'M 05/25/16 01:06 Test: OSMOLALITY URINE; Value: 1098; Range: 500-800; Abnormal: Above high normal; Units: MOSM/KG; Status: F Lab Order: TOTAL PROTEIN,RANDOM URINE; SPEC'M 05/25/16 01:06 Test: TOTAL PROTEIN,RANDOM URINE; Value: 14.0; Range: 0.0-12.0; Abnormal: Above high normal; Units: MG/DL; Status: F Lab Order: CREATININE,RANDOM URINE; 05/25/16 01:06 Test: CREATININE,RANDOM URINE; Value: 140.0; Units: MG/DL; Status: F Lab Order: POTASSIUM,RANDOM URINE; 05/25/16 01:06 Test: POTASSIUM RANDOM URINE; Value: 84.2; Units: MEQ/L; Status: F Lab Order: CHLORIDE,RANDOM URINE; 05/25/16 01:06 Test: CHLORIDE,RANDOM URINE; Value: 208; Units: MEQ/L; Status: F Lab Order: SODIUM,RANDOM URINE; 05/25/16 01:06 Test: SODIUM,RANDOM URINE; Value: 139; Units: MEQ/L; Status: F Lab Order: COMPLETE BLOOD COUNT; 05/25/16 06:40 Test: WHITE BLOOD COUNT; Value: 5.0; Range: 4.0-10.0; Units: K/mm3; Status: F Test: RED BLOOD COUNT; Value: 3.92; Range: 4.00-5.40; Abnormal: Below low normal; Units: M/mm3; Status: F Test: HEMOGLOBIN; Value: 12.3; Range: 12.0-16.0; Units: g/dl; Status: F Test: HEMATOCRIT; Value: 37.0; Range: 36.0-47.0; Units: %; Status: F Test: MEAN CORPUSCULAR VOLUME; Value: 94.6; Range: 80.0-96.0; Units: fl; Status: F Test: MEAN CORPUSCULAR HEMOGLOBIN; Value: 31.5; Range: 27.0-33.0; Units: pg; Status: F Test: MEAN CORPUSCULAR HGB CONC; Value: 33.3; Range: 32.0-36.5; Units: g/dl; Status: F Test: RED CELL DISTRIBUTION WIDTH; Value: 11.6; Range: 11.5-14.5; Units: %; Status: F Test: PLATELET COUNT, AUTOMATED; Value: 277; Range: 150-450; Units: k/mm3; Status: F Lab Order: BASIC METABOLIC PROFILE; 05/25/16 06:40 Test: GLUCOSE, FASTING; Value: 171; Range: 70-105; Abnormal: Above high normal; Units: MG/DL; Status: F Test: BLOOD UREA NITROGEN; Value: 19; Range: 7-18; Abnormal: Above high normal; Units: MG/DL; Status: F Test: CREATININE FOR GFR; Value: 0.70; Range: 0.55-1.02; Abnormal: Delta; Units: MG/DL; Status: F Test: GLOMERULAR FILTRATION RATE; Value: > 60.0; Range: >51; Status: F Test: SODIUM LEVEL; Value: 142; Range: 136-145; Units: MEQ/L; Status: F Test: POTASSIUM SERUM; Value: 4.1; Range: 3.5-5.1; Units: MEQ/L; Status: F Test: CHLORIDE LEVEL; Value: 107; Range: 98-107; Units: MEQ/L; Status: F Test: CARBON DIOXIDE LEVEL; Value: 27; Range: 21-32; Units: MEQ/L; Status: F Test: ANION GAP; Value: 8; Range: 8-16; Units: MEQ/L; Status: F Test: CALCIUM LEVEL; Value: 8.9; Range: 8.5-10.1; Units: MG/DL; Status: F Test Note: ; Units are mL/min/1.73 m2 Chronic Kidney Disease Staging per NKF: Stage I & II GFR >=60 Normal to Mildly Decreased Stage III GFR 30-59 Moderately Decreased Stage IV GFR 15-29 Severely Decreased Stage V GFR <15 Very Little GFR Left ESRD GFR <15 on PATENTS EXAMINER Lab Order: MAGNESIUM LEVEL; SPEC'M 05/25/16 06:40 Test: MAGNESIUM LEVEL; Value: 1.9; Range: 1.8-2.4; Units: MG/DL; Status: F Lab Order: LIVER PROFILE; SPEC'M 05/25/16 06:40 Test: AST/SGOT; Value: 14; Range: 15-37; Abnormal: Below low normal; Units: U/L; Status: F Test: ALT/SGPT; Value: 23; Range: 12-78; Units: U/L; Status: F Test: ALKALINE PHOSPHATASE; Value: 86; Range: 45-117; Units: U/L; Status: F Test: BILIRUBIN,TOTAL; Value: 0.4; Range: 0.2-1.0; Units: MG/DL; Status: F Test: BILIRUBIN,DIRECT; Value: < 0.1; Range: 0.0-0.2; Units: MG/DL; Status: F Test: TOTAL PROTEIN; Value: 6.6; Range: 6.4-8.2; Units: GM/DL; Status: F Test: ALBUMIN; Value: 3.5; Range: 3.2-5.2; Units: GM/DL; Status: F Test: ALBUMIN/GLOBULIN RATIO; Value: 1.13; Range: 1.00-1.93; Status: F Lab Order: VITAMIN D, 25-HYDROXY; 05/25/16 06:40 Test: TOTAL 25(OH) VITAMIN D; Value: 26.8; Range: 30.0-100.0; Abnormal: Below low normal; Units: NG/ML; Status: F Test Note: ; Total 25(OH)Vitamin D Expected Values Deficiency <20 ng/ml Insufficiency 20-30 ng/ml Sufficiency 30-100 ng/ml Toxicity >100 ng/ml Lab Order: SALICYLATE LEVEL; 05/24/16 20:46 Test: SALICYLATE LEVEL; Value: < 1.7; Range: 5.0-30.0; Abnormal: Below low normal; Units: MG/DL; Status: F Lab Order: ACETAMINOPHEN LEVEL; 05/24/16 20:46 Test: ACETAMINOPHEN LEVEL; Value: < 2.0; Range: 10.0-30.0; Abnormal: Below low normal; Units: UG/ML; Status: F Lab Order: URINE PROTEIN ELECTROPHORESIS; 05/25/16 01:06 Test: URINE VOLUME; Units: ML; Status: I Test: URINE TOTAL PROTEIN; Value: 16.6; Range: 0-12; Abnormal: Above high normal; Units: MG/DL; Status: F Test: UPEP INTERPRETATION; Status: I Lab Order: SERUM PROTEIN ELECTROPHORESIS; 05/25/16 06:40 Test: ALBUMIN %; Range: 55.8-66.1; Units: %; Status: I Test: PIWYJ-2-FKBWYWEK %; Range: 2.9-4.9; Units: %; Status: I Test: FCKVM-5-NXNAXOQPR %; Range: 7.1-11.8; Units: %; Status: I Test: HMYL-1-UTXMMPCLL %; Range: 4.7-7.2; Units: %; Status: I Test: DMEN-5-CKTBMFCWT %; Range: 3.2-6.5; Units: %; Status: I Test: GAMMA GLOBULIN %; Range: 11.1-18.8; Units: %; Status: I Test: ALBUMIN; Range: 3.29-5.55; Units: GM/DL; Status: I Test: GRISN-2-YUSICLUBU; Range: 0.17-0.41; Units: GM/DL; Status: I Test: UNRLR-6-HEUHAZARE; Range: 0.42-0.99; Units: GM/DL; Status: I Test: FMOF-6-KMUJPZDBG; Range: 0.28-0.60; Units: GM/DL; Status: I Test: CJFH-4-TDTAQMBFE; Range: 0.19-0.55; Units: GM/DL; Status: I Test: GAMMA GLOBULINS; Range: 0.65-1.58; Units: GM/DL; Status: I Test: TOTAL PROTEIN; Value: 6.6; Range: 6.4-8.2; Units: GM/DL; Status: F Test: SPEP INTERPRETATION; Status: I Radiology Order: EKG-ADULT Test: EKG-ADULT REASON FOR EXAMINATION: dysrhythmia; Stationary ECG Study; [facility] - ED; ; Test Date: 2016-05-24; Pat Name: FLORENCIA BUTTS Department:; Room: [place] [address]; Gender: F Clinical Lab Specialist: rs; : 1955 Requested By: DIXON Zheng; Order Number: [id number] Reading MD: Shruthi Sauceda; Measurements; Intervals Tennyson; Rate: 68 P: 35; FL: 164 QRS: 36; QRSD: 83 T: 51; QT: 399; QTc: 427; Interpretive Statements; SINUS RHYTHM; NONSPECIFIC T-WAVE ABNORMALITY COMPARED 02/09/14; Electronically Signed On 05-25-2016 10:53:07 EST by Shruthi Sauceda; Radiology Order: RENAL US Test: RENAL US REASON FOR EXAMINATION: diane; ; Clinical history: Renal failure.; Findings: The urinary bladder is unremarkable. The right kidney measures 10.6 x 5.3 x 4.3 cm. The lef; t kidney measures 10.5 x 5.4 x 6.1 cm. The kidneys demonstrate normal echotexture and echogenicity. T; here is no evidence of hydronephrosis or nephrolithiasis. No renal masses are seen. There is incident; al finding of multiple echogenic solid lesions throughout the liver. The largest of these is in the p; osterior right lobe measuring 5.7 x 4.8 cm. A lesion in the left lobe measures 6.0 x 5.1 cm. No free; fluid is appreciated.; Impression:; 1. Unremarkable ultrasound examination of the kidneys.; 2. Multiple echogenic solid lesions throughout the liver. This is a nonspecific finding. CT or MRI wi; th contrast utilizing liver protocol would be recommended for further evaluation.; ; Outcome: 23:03 Decision to Hospitalize by Provider. br1 05/25 12:33 Discharge Assessment: Patient awake, alert and oriented x 3. No cognitive and/or k functional deficits noted. Patient verbalized understanding of disposition instructions. patient administered narcotics - no. The following High Risk Discharge criteria are identified: None. Admitted to Med/Surg Other 5 [place]. Condition: good. CT Study completed. Property :Personal belongings accompany Pt. 12:41 Patient left the ED. caitlin Signatures: Dispatcher [employer] EDMS Yosef Bowman RN RN jmk Barnhardt, Gloria, Reg Reg Janay Marcelo Brian, MD MD br1 Sophia SaldanaRN RN rs3 Nguyen Hill RN RN sls1 Fany SeguraRN RN Florence Wu, WEB ADMINISTRATOR WEB ADMINISTRATOR elp Verenice Swanson, WEB ADMINISTRATOR WEB ADMINISTRATOR rs6 Lorri Lau RN RN kas2 Steff Hardy RN RN tm5 Corrections: (The following items were deleted from the chart) 05/24 20:16 20:13 Acuity: PHILL Level 2 rs3 rs3 Chart Complete MTDD
[2016-05-28 11:17] LABS: ALBUMIN % 60.6 % (55.8-66.1); GAMMA GLOBULIN % 14.6 % (11.1-18.8)
== END 2016-05-26 09:30 | disposition home or self-care (01) ==
LOC: M ED 20:07 → M ED INP 23:17 → M MS5PR 05-25 12:56
PROVIDERS: ADMIT Hospitalist; ATTEND Internal Medicine
DX: N17.9 Acute kidney failure, unspecified (principal); T78.3XXA Angioneurotic edema, initial encounter; F32.9 Major depressive disorder, single episode, unspecified; Z98.84 Bariatric surgery status; Z86.73 Personal history of transient ischemic attack (TIA), and cerebral infarction without residual deficits
CPT/HCPCS: 36415; 74183; 76775; 80048; 80076; 81001; 82306; 82436; 82570; 83735; 83935; 84133; 84156; 84165; 84166; 84260; 84300; 85025; 85027; 93005; 93041; 96372; 96374; 96375; 99285; A9576; G0480; J1200; J2930

== ENCOUNTER → 2016-05-29 | Outpatient (REF) | payer OTHER ==
[~2016-05-29] MED LIST: DIPH25CA PO; LEXA1TAB2 PO; TYLE325T5 PO
[2016-05-30 14:05] LABS: HIV SCRN NEGATIVE (NEGATIVE); HIV SCRN1 NEGATIVE (NEGATIVE)
[2016-05-30 14:06] LABS: CONTROL LINE INT CTR LINE PRESENT
== END ==
LOC: M LAB REF 16:29
PROVIDERS: ATTEND Nurse Practitioner Family
DX: Z72.51 High risk heterosexual behavior (principal)

== ENCOUNTER → 2016-06-26 | Outpatient (CLI) | payer OTHER ==
[2016-06-29 14:15] LABS: F036-IGE COCONUT <0.10 kU/L (Class 0); F047-IGE GARLIC <0.10 kU/L (Class 0); F048-IGE ONIONS <0.10 kU/L (Class 0); F089-IGE MUSTARD <0.10 kU/L (Class 0); F224-IGE POPPY SEED <0.10 kU/L (Class 0); F234-IGE VANILLA <0.10 kU/L (Class 0); F269 IGE BASIL <0.10 kU/L (Class 0); F279-IGE CHILI PEPPER <0.10 kU/L (Class 0); F332-IgE MINT <0.10 kU/L (Class 0); IgE CANOLA/RAPE SEED <0.10 kU/L (<0.35); K084-IGE SUNFLOWER SEED <0.10 kU/L (Class 0)
== END ==
LOC: M SMT 11:03
PROVIDERS: ATTEND Allergy & Immunology Allergy
DX: Z91.018 Allergy to other foods (principal)

== ENCOUNTER → 2016-11-13 | Outpatient (CLI) | payer OTHER ==
--- NOTE | 2016-11-13 19:11 | REP ---
MRI LIVER WITH AND WITHOUT CONTRAST: TECHNIQUE: Multiple sequences obtained prior to and following the intravenous administration of 15 mL of gadolinium. Comparison made with prior MRI of 06/04/2016. Once again there are multiple liver lesions present involving right and left lobes. The largest appears to be bilobed and is located in the left lobe of the liver. There are low in signal on T1 and high in signal on T2. Again they demonstrate peripheral nodular enhancement on initial postcontrast images with gradual filling in centrally. Some completely fill in consistent with hemangiomas. One of the larger left lobe hemangiomas does not completely fill in with contrast and another in the posterior right lobe also does not completely fill in with contrast. Findings are again consistent with large hemangiomas. Once again the spleen, adrenals, pancreas and kidneys appear unremarkable. No adenopathy or free fluid is seen in the abdomen. IMPRESSION: Multiple stable large liver hemangiomas. Signed by Heron Marcus MD 11/15/2016 05:47 P
== END ==
LOC: M RAD 14:30
PROVIDERS: ATTEND Nurse Practitioner Family
DX: D18.03 Hemangioma of intra-abdominal structures (principal)

== ENCOUNTER → 2016-12-05 | Outpatient (REF) | payer OTHER ==
[2016-12-05 16:04] LABS: PERCENT SATURATION 35.2 % (13.2-45.0)
== END ==
LOC: M LAB REF 13:20
PROVIDERS: ATTEND Internal Medicine Medical Oncology
DX: D50.9 Iron deficiency anemia, unspecified (principal)

== ENCOUNTER → 2016-12-11 | Outpatient (REF) | payer OTHER ==
[2016-12-11 15:01] LABS: FOLATE 14.3 NG/ML (>5.4)
== END ==
LOC: M LAB REF 13:26
PROVIDERS: ATTEND Internal Medicine Medical Oncology
DX: D50.9 Iron deficiency anemia, unspecified (principal)

== ENCOUNTER → 2017-03-01 | Outpatient (CLI) | payer OTHER ==
--- NOTE | 2017-03-01 14:36 | REP ---
MR LUMBAR SPINE WITHOUT CONTRAST: HISTORY: Scoliosis. Decreased signal intensity on T2-weighted images is present in the lumbar intervertebral discs. The L1-2 through L4-5 intervertebral discs are decreased in height. These findings are consistent with disc degeneration. A diffuse disc bulge is present at the L1-2 level. There is minimal compression of the thecal sac. There is hypertrophy of the posterior articulating facets. A small right intraforaminal disc protrusion is present. There is compression of the right L1 nerve in the neural foramen. The left L1 nerve exits the neural foramen without compression. A diffuse disc bulge is present at the L2-3 level. There is minimal compression of the thecal sac. There is hypertrophy of the posterior articulating facets. The L2 nerves exit the neural foramina without compression. A diffuse disc bulge is present at the L3-4 level. There is minimal compression of the thecal sac. There is hypertrophy of the posterior articulating facets. There is compression of the left L3 nerve in the neural foramen. The right L3 nerve exits the neural foramen without compression. A diffuse disc bulge is present at the L4-5 level. There is hypertrophy of the ligamenta flava and posterior articulating facets. These findings produce mild central canal stenosis. The L4 nerves exit the neural foramina without compression. A diffuse disc bulge is present at the L5-S1 level. There is minimal compression of the thecal sac. There is hypertrophy of the posterior articulating facets. The L5 nerves exit the neural foramina without compression. The conus medullaris is normal in appearance terminating at the level of the L1-2 intervertebral disc. Increased signal intensity on T2-weighted images is present in the endplates of the L1-4 vertebral bodies. This represents degenerative change. IMPRESSION: 1. Diffuse disc bulges at the L1-2 through L3-4 and L5-S1 levels with minimal thecal sac compression. There is compression of the right L1 and left L3 nerves in the neural foramina. 2. Mild central canal stenosis at the L4-5 level secondary to disc bulge, ligamentous and facet hypertrophy. Signed by Korey Ames MD 03/01/2017 02:42 P
== END ==
LOC: M PLARAD 12:50
PROVIDERS: ATTEND Orthopaedic Surgery
DX: M41.26 Other idiopathic scoliosis, lumbar region (principal); M51.26 Other intervertebral disc displacement, lumbar region; M48.061 Spinal stenosis, lumbar region without neurogenic claudication

== ENCOUNTER → 2017-04-30 | Outpatient (REF) | payer OTHER ==
[2017-04-30 16:42] LABS: FERRITIN 12 NG/ML (8-252); IRON (FE) 84 UG/DL (50-170); TOTAL IRON BINDING CAPACITY 221 UG/DL (250-450)
== END ==
LOC: M LAB REF 15:43
DX: D50.9 Iron deficiency anemia, unspecified (principal)

== ENCOUNTER → 2017-07-11 | Outpatient (REF) | payer OTHER ==
[2017-07-11 14:45] LABS: FERRITIN 11 NG/ML (8-252); IRON (FE) 78 UG/DL (50-170); PERCENT SATURATION 35.6 % (13.2-45.0); TOTAL IRON BINDING CAPACITY 219 UG/DL (250-450)
== END ==
LOC: M LAB REF 13:29
DX: D50.9 Iron deficiency anemia, unspecified (principal)

== ENCOUNTER → 2018-08-27 | Outpatient (REF) | payer OTHER ==
[2018-08-27 13:39] LABS: PERCENT SATURATION 27.3 % (13.2-45.0)
== END ==
LOC: M LAB REF 12:26
PROVIDERS: ATTEND Internal Medicine
DX: Z01.818 Encounter for other preprocedural examination (principal); D63.8 Anemia in other chronic diseases classified elsewhere; M16.11 Unilateral primary osteoarthritis, right hip

== ENCOUNTER → 2018-12-25 | Outpatient (REF) | payer OTHER ==
[~2018-12-25] MED LIST changes: -DIPH25CA PO; +DIPH25CA32 PO
[2018-12-30 00:06] LABS: C-PEPTIDE 1.2 ng/mL (1.1-4.4); INSULIN LEVEL 3.4 uIU/mL (2.6-24.9)
== END ==
LOC: M LAB REF 13:13
PROVIDERS: ATTEND Internal Medicine
DX: Z86.39 Personal history of other endocrine, nutritional and metabolic disease (principal)

== ENCOUNTER → 2019-03-10 | Outpatient (CLI) | payer OTHER | LOC: M LAB 07:20 | PROVIDERS: ATTEND Physician Assistant Surgical | DX: Z96.641 Presence of right artificial hip joint (principal); T56.891A Toxic effect of other metals, accidental (unintentional), initial encounter ==

== ENCOUNTER → 2019-04-08 | Outpatient (REF) | payer OTHER | LOC: M LAB REF 17:15 | PROVIDERS: ATTEND Internal Medicine | DX: D50.9 Iron deficiency anemia, unspecified (principal) ==

== ENCOUNTER → 2019-07-24 | Outpatient (CLI) | payer OTHER ==
--- NOTE | 2019-07-24 12:31 | REP ---
MRI LUMBAR SPINE WITHOUT CONTRAST: HISTORY: Low back pain. Spinal stenosis. Comparison MRI study March 01, 2017. TECHNIQUE: Sagittal and axial T1- and T2-weighted scans are acquired in the usual fashion with and without fat saturation. Sequences include spin echo, turbo spin-echo, and STIR imaging sequences. MRI FINDINGS: There is straightening of the normal lumbar lordosis. Lumbar vertebral body heights are preserved. Alignment is normal. Degenerative disc disease changes are again noted at each lumbar level L1-2 through L4-5. The tip of the conus medullaris is normal in position and appearance at L1 unchanged. No extra vertebral abnormality is appreciated. No bony destructive lesion is seen. At L1-L2, there is mild diffuse disc bulging. There is right-sided focal disc protrusion again noted producing right-sided neural foraminal narrowing. This is unchanged. At L2-3, there is been progressive reactive marrow change on either side of the degenerated L2-3 disc, more prominent than at the time of the March 01, 2017 study. Posterior diffuse disc bulging is seen with discogenic osteophytic ridging. This indents the ventral margin of the thecal sac. The canal is mildly stenotic at L2-3. The posterior bulging and thecal sac compression is unchanged. There is mild facet hypertrophy. There is mild bilateral foraminal disc bulging producing mild bilateral neural foraminal narrowing, left more so than right. At L3-L4, there is degenerative narrowing of the disc. Diffuse disc bulging indents the thecal sac. There is mild central canal stenosis. Midline AP dimension of the thecal sac at L3-4 is seen 0.7 mm. This is unchanged. There is mild left-sided foraminal narrowing at L3-4 due to disc bulging and associated spurring. This is unchanged as well. At L4-L5, there is degenerative narrowing, diffuse disc bulging, moderate facet and ligamentum flavum hypertrophy, and central canal stenosis. The midline AP dimension of the thecal sac at L4-5 is 8.4 mm. There is mild right-sided foraminal narrowing due to disc bulging and associated spurring. This is felt to be unchanged. At L5-S1, disc space height is preserved. No thecal sac compression is seen. There is mild facet and ligamentum flavum hypertrophy unchanged. IMPRESSION: Degenerative spondylosis changes with some progression in reactive marrow change on either side of the L2-3 disc. Multilevel central canal stenosis and foraminal narrowing as above. Electronically Signed by Brian Ramos MD 07/24/2019 12:37 P
== END ==
LOC: M RAD 10:03
PROVIDERS: ATTEND Orthopaedic Surgery
DX: M51.36 Other intervertebral disc degeneration, lumbar region (principal); M48.061 Spinal stenosis, lumbar region without neurogenic claudication

== ENCOUNTER → 2020-05-13 | Outpatient (CLI) | payer BC ==
--- NOTE | 2020-05-13 13:22 | REP ---
INDICATION: LUMBAR STENOSIS. COMPARISON: Comparison MRI study July 24, 2019.. TECHNIQUE: Sagittal and axial T1 and T2-weighted scans are acquired in the usual fashion with and without fat saturation. Sequences include spin echo, turbo spin-echo, and STIR imaging sequences. FINDINGS: There is straightening of the normal lumbar lordosis. Cortical and medullary bone signal intensity are normal. Lumbar vertebral body heights are preserved. The tip of the conus medullaris is normal in position and appearance at L1-L2. No extra vertebral abnormality is appreciated. There is mild disc bulging at T9-10 centrally. This appears to contact and displace the distal thoracic cord but there is no cord compression. This was not included in the scanned field of the previous study. There is minimal central bulging at T11-12 which is unchanged. At L1-L2, there is degenerative disc narrowing. Diffuse disc bulging is seen and there is a right lateral and disc disc protrusion with a right-sided neural foraminal narrowing unchanged. At L2-L3 there is advanced degenerative narrowing of the disc and diffuse disc bulging. Bilateral lateral disc bulges and foraminal disc bulges are observed. Left-sided foraminal narrowing worse than right. This is unchanged from the comparison study. At L3-4, there is diffuse disc bulging. Mild central canal stenosis is present. A left foraminal disc protrusion contributes to left-sided neural foraminal narrowing. There is some associated discogenic spurring. These findings are felt to be unchanged at L3-4. At L4-L5, there is mild central canal stenosis due to diffuse disc bulging in combination with ligamentum flavum and facet hypertrophy. No focal protrusion is seen. There is right-sided neural foraminal narrowing at L4-5 due to facet hypertrophy. This is felt to be unchanged. At L5-S1, there is mild facet hypertrophy. No disc protrusion is seen. No other finding. IMPRESSION: Degenerative spondylosis changes as noted above with multilevel neural foraminal narrowing and disc bulge is unchanged from the July 24, 2019 prior study. Straightening. <Electronically signed by Tyler Ramos > 05/13/20 [id number]
== END ==
LOC: M PLARAD 10:46
PROVIDERS: ATTEND Anesthesiology Pain Medicine
DX: M48.062 Spinal stenosis, lumbar region with neurogenic claudication (principal)

== ENCOUNTER → 2020-12-27 | Outpatient (REF) | payer BC ==
[2020-12-27 17:48] LABS: APPEARANCE, URINE CLEAR (CLEAR); BACTERIA, URINE AUTO NEGATIVE (NEGATIVE); BILIRUBIN, URINE AUTO NEGATIVE (NEGATIVE); BLOOD, URINE BLOOD NEGATIVE (NEGATIVE); COLOR, URINE YELLOW (YELLOW); GLUCOSE, URINE (UA) AUTO NEGATIVE (NEGATIVE); KETONE, URINE AUTO NEGATIVE (NEGATIVE); LEUKOCYTE ESTERASE, URINE AUTO NEGATIVE (NEGATIVE); MUCUS, URINE SMALL (NEGATIVE); NITRITE, URINE AUTO NEGATIVE (NEGATIVE); PROTEIN, URINE AUTO NEGATIVE (NEGATIVE); RBC, URINE AUTO 2 /HPF (0-3); SPECIFIC GRAVITY URINE AUTO 1.024 (1.002-1.035); SQUAMOUS EPITHELIAL CELL UR AU 0 /HPF (0-6); WBC, URINE AUTO 1 /HPF (0-3)
[2020-12-27 18:46] LABS: FERRITIN 7 NG/ML (8-252); IRON (FE) 70 UG/DL (50-170); PERCENT SATURATION 28.6 % (13.2-45.0); TOTAL IRON BINDING CAPACITY 245 UG/DL (250-450)
[2020-12-27 18:47] LABS: VITAMIN B12 LEVEL 442 PG/ML
[2020-12-28 09:39] LABS: FOLATE > 24.0 NG/ML
== END ==
LOC: M LAB REF 16:36
PROVIDERS: ATTEND Internal Medicine
DX: Z01.818 Encounter for other preprocedural examination (principal)

== ENCOUNTER → 2021-01-20 | Outpatient (CLI) | payer OTHER ==
--- NOTE | 2021-01-20 16:09 | REPVR ---
PROCEDURE INFORMATION: Exam: MR Head Without and With Contrast Exam date and time: 01/20/2021 2:22 PM Age: 65 years old Clinical indication: Pain; Headache not specified; Prior surgery; Surgery date: 6+ months; Surgery type: HX shunt and multiple surgeries for cyst and hydrocephalus. Last one in 1995; Patient HX: Headaches, shunt since 1995; Additional info: Cognative dysfunction, hydrocephalus TECHNIQUE: Imaging protocol: MR of the head without and with intravenous contrast. 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 This measures approximately 2.8 x 2.3 x 1.4 cm in dimensions. Correlation with prior surgical history is recommended.If the prior studies are made available a direct comparison will be made and an addendum will be issued. There is mild patchy increased T2 signal intensity within the bilateral cerebral periventricular white matter, consistent with chronic microvascular ischemic changes. There is a tiny focus of chronic ischemia in the left deep frontal white matter. Remainder of the brain parenchyma is unremarkable.There is no abnormal diffusion weighted signal intensity to suggest an acute ischemic event. There is mild diffuse cerebral atrophy present, consistent with this patient's age. Cerebral ventricles: Examination again demonstrates a right parietal [employer] shunt with its tip traversing the atrium and body of the left lateral ventricle and with the tip terminating in the left centrum semi ovale. There is increased T2 signal reflecting gliosis/encephalomalacia along the shunt tract in the right parietal lobe. The ventricular system is not dilated and is appropriate for the patient's age. There is no hydrocephalus. Bones/joints: Unremarkable. Paranasal sinuses: Small retention cyst is seen in the right maxillary sinus. Mastoid air cells: Normal as visualized. No mastoid effusion. Orbital cavity: Unremarkable. Soft tissues: Unremarkable. IMPRESSION: 1. Examination again demonstrates a right parietal [employer] shunt with its tip traversing the atrium and body of the left lateral ventricle and with the tip terminating in the left centrum semi ovale. There is increased T2 signal reflecting gliosis/encephalomalacia along the shunt tract in the right parietal lobe. 2. 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 This measures approximately 2.8 x 2.3 x 1.4 cm in dimensions. Correlation with prior surgical history is recommended.If the prior studies are made available a direct comparison will be made and an addendum will be issued. 3. The ventricular system is not dilated and is appropriate for the patient's age. There is no hydrocephalus. Electronically signed by: Yousuf Graham On 01/20/2021 16:09:27 PM
== END ==
LOC: M PLARAD 13:02
PROVIDERS: ATTEND Psychiatry & Neurology Neurology
DX: F09 Unspecified mental disorder due to known physiological condition (principal); G91.9 Hydrocephalus, unspecified

== ENCOUNTER → 2021-01-20 | Outpatient (CLI) | payer BC | LOC: M LABSMTC 11:37 | PROVIDERS: ATTEND Orthopaedic Surgery | DX: Z20.828 Contact with and (suspected) exposure to other viral communicable diseases (principal); Z11.52 Encounter for screening for COVID-19 ==

== ENCOUNTER 2021-04-01 20:35 | Observation (INO) | payer BC, OTHER, SELFPAY ==
[~2021-04-01] VITALS: Ht 157.5 cm; Wt 79.2 kg
--- OUTSIDE RECORDS SUMMARY | 2021-04-01 20:39 | CCD ---
Author Author Ramiro Cedeno MD [facility] Organization Ramiro Cedeno MD [facility] Address [address] [address] Phone Care Team Providers Care [employer]ulatory Lead Name Role Phone Wilian KRAMER, VIKI, Ramiro Manzano Unavailable [phone] Jessie Mcneil MD PP [phone] Reason for Referral No Reason for Referral Recorded Problems Includes: Active, inactive, and resolved Problems All Visits Onset Date - Time Resolved Date - Time Provider Co ndition Status Chalazion 12/11/2018 - 12:00AM Ramiro Cedeno MD, FACS Inactive Vitreous Disorders Degeneration 11/23/2015 - 12:00AM Ramiro Cedeno MD, FACS Active Conjunctivitis Chronic Allergic 11/21/2014 - 12:00AM Ramiro Cedeno MD, FACS Active Note: Unchanged Dry Eye Syndrome Both Eyes 11/19/2014 - 12:00AM Ramiro Cedeno MD, FACS Active Note: Unchanged Blepharitis Both Eyelids 10/06/2013 - 12:00AM Ramiro Cedeno MD, FACS Inactive Note: Unchanged Chalazion Right Eyelid 10/06/2013 - 12:00AM Unknown - Unknown Raúl Lima MD, FACS Resolved Note: Improved - of the uppe r eyelid, 95% improved Pinguecula 10/06/2013 - 12:00AM Ramiro Cedeno MD, FACS Active Note: Unchanged - both eyes Presbyopia 10/06/2013 - 12:00AM Ramiro Cedeno MD, FACS Active Note: Unchanged Vitreous Floaters Both Eyes 10/06/2013 - 12:00AM Ramiro Cedeno MD, FACS Inactive Note: Unchanged Plan of Treatment Future Appointments Date Time Location Provider 1 Year Follow-Up 04/03/2021 7:20AM Ramiro Cedeno MD [facility] Ramiro Cedeno MD, FACS Findings Encounter Date Ordered visual castro test A visual fie ld 120 is indicated to determine if the stroke / hydrocephalus has caused any constriction or loss of vision in the visual field of either eye 5 Month Follow-Up with Ramiro Cedeno MD, FACS 03/29/2016 Ordered visual castro test A visual fie ld 120 is indicated to determine if the Hydrocephalus has caused any constriction or loss of vision in the visual field of either eye 1 Year Follow-Up with Ramiro Cedeno MD, FACS 06/2015 Assessments Includes: Assessments for all patient encounters Findings Encounter Date Chronic allergic conjunctivitis 1 Year Follow-Up with Ramiro Cedeno MD, FACS 04/08/2020 Dry eye syndrome 1 Year Follow-Up with Ramiro westfall MD, FACS 04/08/2020 Pinguecula 1 Year Follow-Up with Ramiro westfall MD, FACS 04/08/2020 Chronic allergic conjunctivitis 1 Year Follow-Up with Ramiro Cedeno MD, FACS 04/03/2019 Dry eye syndrome 1 Year Follow-Up with Ramiro westfall MD, FACS 04/03/2019 Pinguecula 1 Year Follow-Up with Ramiro westfall MD, FACS 04/03/2019 Chalazion TRIAGE NON URGENT with Ramiro torres MD, FACS 12/11/2018 Chronic allergic conjunctivitis 1 Year Follow-Up with Ramiro Cedeno MD, FACS 04/03/2018 Dry eye syndrome of both eyes 1 Year Follow-Up with Raúl Cedeno MD, FACS 04/03/2018 Pinguecula 1 Year Follow-Up with Ramiro westfall MD, FACS 04/03/2018 Bilateral pinguecula 1 Year Follow-Up with Ramiro torres MD, FACS 03/29/2017 Dry eye syndrome of both eyes 1 Year Follow-Up with Raúl Cedeno MD, FACS 03/29/2017 Vitreous degeneration 1 Year Follow-Up with Ramiro stallworth MD, FACS 03/29/2017 Quadrantanopsia VISUAL FIELD 120 with Norm Castañeda DO 01/02/2017 Bilateral pinguecula 5 Month Follow-Up with Ramiro stallworth MD, FACS 03/29/2016 Dry eye syndrome of both eyes 5 Month Follow-Up with Lizet Cedeno MD, FACS 03/29/2016 Stroke/cerebrovascular accident VISUAL FIELD 120 with Ramiro Cedeno MD, FACS 01/11/2016 Dry eye syndrome of both eyes 1 Year Follow-Up with Raúl Cedeno MD, FACS 11/23/2015 Pinguecula 1 Year Follow-Up with Ramiro westfall MD, FACS 11/23/2015 Vitreous degeneration 1 Year Follow-Up with Ramiro stallworth MD, FACS 11/23/2015 Bilateral pinguecula 1 Year Follow-Up with Ramiro torres MD, FACS 11/19/2014 Blepharitis in both eyes 1 Year Follow-Up with Ramiro Razo MD, FACS 11/19/2014 Chronic allergic conjunctivitis of both eyes 1 Year F ollow-Up with Ramiro Cedeno MD, FACS 11/19/2014 Dry eye syndrome of both eyes 1 Year Follow-Up with Raúl Cedeno MD, FACS 11/19/2014 Vitreous floaters in both eyes 1 Year Follow-Up with Lizet Cedeno MD, FACS 11/19/2014 Blepharitis in both eyes Excision of Chalazion In Off ice with Ramiro Lima MD, FACS 11/17/2013 Chalazion in the right eye upper lid, 95% resolved Ex cision of Chalazion In Office with Ramiro Cedeno MD, FACS 11/17/2013 Blepharitis in both eyes TRIAGE NON URGENT with Ramiro Santana MD, FACS 10/06/2013 Chalazion in the right eye of the upper eyelid TRIAGE NON URGENT with Ramiro Cedeno MD, FACS 10/06/2013 Pinguecula of both eyes TRIAGE NON URGENT with Ramiro Santana MD, FACS 10/06/2013 Presbyopia TRIAGE NON URGENT with Ramiro torres MD, FACS 10/06/2013 Vitreous floaters in both eyes TRIAGE NON URGENT with Rmairo Cedeno MD, FACS 10/06/2013 Instructions Instructions not supported for this document typeNo Instructions Recorded Medical Equipment - Implanted Devices Includes: Current and historical DevicesNo Medical Equipment Recorded Medications Includes: Current and historical Medications Current Medications (continue as prescribed) Propanolol 40 MG Oral Tablet 04/03/2019 Provider: Diagnosis: PROzac 10MG Oral Capsule 04/03/2018 Provider: Diagnosis: Past Medications on file Doxycycline Hyclate 50MG Oral Tablet 12/11/2018 - 04/03/2019 Provider: Diagnosis: TobraDex 0.3-0.1% Ophthalmic Suspension 12/11/2018 - 019 Provider: Ramiro Cedeno MD, FACS Diagnosis: Chalazion right uppe r eyelid One drop twice a day in the right eye until follow up with Lizet Mendez Lexapro 10 MG Tablet 11/19/2014 - 04/03/2018 Provider: Diagnosis: Lexapro 10 MG OR TABS 10/06/2013 - 11/19/2014 Provider: Diagnosis: Fiorinal 50-325-40 MG OR CAPS 10/06/2013 - 11/23/2015 Provid er: Diagnosis: TobraDex 0.3-0.1% OP SUSP 10/06/2013 - 05/29/2016 Provider: Ramiro Cedeno MD, FACS Diagnosis: Blepharitis NOS Zylet 0.5-0.3% OP SUSP 10/06/2013 - 12/05/2013 Provider: Ramiro Cedeno MD, FACS Diagnosis: Blepharitis NOS TRY THIS INSTEAD OF TOBRADEX Medications Administered Includes: Administered Medications in patient's chartNo Administered Medications Recorded Vital Signs Includes: Vital Signs from 03/17/2020 through 03/17/2021No Vital Signs Recorded For Specified Dates Results Includes: Results from 03/17/2020 through 03/17/2021No Results Recorded For Specified Dates History of Present Illness History of Present Illness not supported for this document typeNo History of Present Illness Recorded Social History Description Last Updated Never smoked 04/03/2019 Not a current smoker 12/11/2018 No tobacco use 12/11/2018 Not using drugs 12/11/2018 Smoking status : Never smoker 12/11/2018 A social drinker 05/29/2016 Alcohol use seldom 10/06/2013 Procedures and Surgical History Includes: Procedures from 03/17/2020 through 03/17/2021 Procedures Code Diagnosis Performing Provider Service Location Service Date Intermediate Eye Exam Established Patient 355[address] Other chronic allergic conjunctivitis, Dry eye syndrome of bilateral lacrimal glands, Pinguecula, bilateral Ramiro Cedeno MD, FACS Ramiro Cedeno MD [facility] 2019 Surgical History Last Updated Surgical / procedural history : Brain Ellis rgery (6 in Total [id number]), Gastric Bypass - 2007, Breast Augmentation - 201110/06/2013 Medical History Includes: Medical History in patient's chart Description Last Updated Currently wearing eyeglasses OTC Readers +2.50 2019 Reported medical history : Hydrocephalus with [employer] shunt, Depression, Insomnia, Anemia, 2 Mini Strokes 04/03/2019 No recent change in medical history 12/11/2018 Family History Includes: Family History in patient's chart Description Last Updated Maternal history of cataract 12/11/2018 Maternal history of stroke/cerebrovascular accident Paternal history of cataract 12/11/2018 Paternal history of family history of cancer 9 Paternal history of hypertension 12/11/2018 Sororal history of hypertension 12/11/2018 [place] history of macular degeneration 12/11/2018 Review of Systems Review of Systems not supported for this document typeNo Review of Systems Recorded Mental Status Mental Status not supported for this document type Description Oriented to time, place, and person Functional Status Functional Status not supported for this document typeNo Functional Status Recorded Physical Exam Physical Exam not supported for this document typeNo Physical Exam Recorded Immunizations Includes: Immunizations in patient's chartNo Immunizations Recorded Allergies Includes: Active, inactive, and resolved AllergiesNo Known Allergies Encounters Includes: Encounters from 03/17/2020 through 03/17/2021 Encounter Provider Location Date Check-In Time Check-Out Time D iagnosis 1 Year Follow-Up Ramiro Cedeno MD, FACS Ramiro Hinds [facility] 04/08/2020 7:24AM 7:49AM Conjunctivitis Chron ic Allergic, Pinguecula, Dry Eye Syndrome Insurance Includes: Active Insurance Policies Plan Name Member ID Group # Subscriber Relationship Effective [facility] [id number] Florencia black Advance Directives Includes: Current Advance DirectivesNo Advance Directives Recorded Health Concerns Includes: Active Health ConcernsNo Active Health Concerns Recorded Goals Includes: Active GoalsNo Active Goals Recorded Interventions Includes: Interventions for active GoalsNo Interventions Recorded Evaluations & Outcomes Includes: Evaluations & Outcomes for active GoalsNo Outcomes Recorded
--- OUTSIDE RECORDS SUMMARY | 2021-04-01 20:39 | CCD | Continuity of Care Document ---
Author Organization Unknown Address Unknown Phone Unavailable Care Team Providers Care Teacher Learning Disabled Name Role Phone German Pagan MD AUTM [phone] Stephanie Jackson AUTM [phone] Genet Patel AUTM [phone] Problems Active Problems Provider Date Conduction disorder of the heart Shirley Bennett FNP Onset: 06/18/2011 Depressive disorder Shirley Bennett FNP Onset: 06/18/2011 Herpes simplex without complication Shirley Bennett FNP Onse t: 06/18/2011 Inflamed seborrheic keratosis Onset: Mitral valve disorder Onset: 06/18/2011 Hyperlipidemia Onset: 06/18/2011 Social History Type Date Description Comments Sex Unknown ETOH Use Occasionally consumes wine 2-4 p er month ETOH Use Occasionally consumes alcohol 0- 2 a month Tobacco Use Start: Unknown Patient has never smoked Allergies and adverse reactions Description No Known Drug Allergies Medications Active Medications SIG Qnty Indications Ordering Provide r Date Ferrous Sulfate 325(65Fe) mg Table ts 1 by mouth qd increase to bid as tolerated Jessie cano M.D. 12/29/2020 Senna Lax 8.6mg Tablets 1-2 by mouth every night at bedtime as needed Sheldon Hylton 12/29/2020 Fluoxetine HCL 40mg Capsules take one capsule by mouth every morning Jessie Mcneil M.D. 09/23/2018 Acyclovir 5% Ointment Apply 5X/Day X 7 Days prn 30gm Shirley Bennett FNP 10/25/2017 Valacyclovir HCL 1gm Tablets 2 by mouth twice a day x 1 day as needed 12tabs Juan Francisco Desir MD 04/23/2017 Epipen 2-John 0.3mg/0 .3ML Solution Auto-Inject as directed 2units Shirley Bennett FNP 05/29/19 17 Tylenol 325mg Tablets 2 tabs every 4 hours as needed pain or fever 120tabs Shirley Bennett FNP 09/21 Propranolol HCL ER 60mg Caps ER 24 HR 1 by mouth anisha Mcneil M.D. Medications Administered in Office Medication SIG Qnty Indications Ordering Provider Date Covid-19 vaccine, Unspecified Inj ection Unknown 09/03/2020 Immunizations CPT Code Status Date Vaccine Lot # [id number] Refused 06/06/2011 Fluvirin Virus Vaccine Vital Signs Date Vital Result Comment 12/27/2020 10:10am BP Systolic 128 mmHg RT Arm BP Diastolic 76 mmHg RT Arm Heart Rate 51 /min Height 61.75 inches 5'1.75" Weight 175.50 lb O2 Saturation Level with Exercise 91 % RM Air BMI (Body Mass Index) 32.4 kg/m2 07/01/2020 8:10am BP Systolic 102 mmHg RT Arm BP Diastolic 64 mmHg RT Arm Heart Rate 64 /min Height 61.75 inches 5'1.75" Weight 172.00 lb BMI (Body Mass Index) 31.7 kg/m2 Results Test Acquired Date Facility Test Result H/L Range Note Coronavirus 2019 Nasopharygeal 01/20/2021 [id number] [place] [address] [phone] Coronavirus 2019 Nasopharygeal ASSAY INFORMATIO <SEE N OTE> 1 Ua Routine 12/27/2020 [facility] [address] [place] [address] [phone] Appearance, Urine CLEAR Normal Clear Color, Urine YELLOW Normal Yellow PH,Urine 6.0 units Normal 5.0-9.0 Specific [place] Urine Auto 1.024 Normal 1.002-1.035 Protein, Urine Auto NEGATIVE mg/dL Normal Negative Glucose, Urine (Ua) Auto NEGATIVE mg/dL Normal Negative Ketone, Urine Auto NEGATIVE mg/dL Normal Negative Urobilinogen, Urine Auto 2.0 mg/dL High 0.0-2.0 Bilirubin, Urine Auto NEGATIVE Normal Negative Nitrite, Urine Auto NEGATIVE Normal Negative Leukocyte Esterase, Urine Auto NEGATIVE Normal Negative Blood, Urine Blood NEGATIVE Normal Negative WBC, Urine Auto 1 /HPF Normal 0-3 RBC, Urine Auto 2 /HPF Normal 0-3 Bacteria, Urine Auto NEGATIVE Normal Negative Squamous Epithelial Cell Ur AU 0 /HPF Normal 0-6 Mucus, Urine SMALL Normal Negative Hyaline Cast, Urine Auto 0 /LPF Normal 0-1 Laboratory test finding 12/27/2020 [facility] [address] [place], [place] [id number] [phone] Urine Culture FULL REPORT IN L <SEE NOTE> Normal 2 Complete Blood Count 12/27/2020 [facility] [employer]: [place] [address] [phone] WBC 4.7 x10*3/UL 4.1 - 10.9 3 RBC 3.73 x10*6/UL Low 4.20 - 6.30 Hemoglobin 10.9 g/dL Low 12.0 - 18.0 Hematocrit 32.3 % Low 37.0 - 51.0 MCV 86.5 fL 80.0 - 97.0 MCH 29.3 pg 26.0 - 32.0 MCHC 33.9 g/dL 31.0 - 38.0 RDW 13.8 % High 11.6 - 13.7 PLT 378 x10*3/UL 140 - 440 MPV 7.1 FL Low 7.8 - 11.0 Lymph % 40.9 % 10.0 - 58.5 Mid % 7.4 % 1.7 - 9.3 Neut % 51.7 % 37.0 - 92.0 Lymph # 1.9 x10*3/UL 0.6 - 4.1 Mid # 0.4 x10*3/UL 0.1 - 0.6 Neut # 2.4 x10*3/UL 2.0 - 7.8 Basic Metabolic Panel 12/27/2020 [facility] [employer]: [place] [address] [phone] Glucose 89 mg/dL 74 - 99 4 BUN 17 mg/dL 7 - 18 Creatinine 0.7 mg/dL 0.6 - 1.3 Sodium 143 mEq/L 136 - 145 Potassium 4.5 mEq/L 3.5 - 5.1 Chloride 107 mEq/L 98 - 107 Carbon Dioxide 29 mEq/L 21 - 32 Calcium 8.9 mg/dL 8.5 - 10.1 GFR >= 60 mL/min >60 GFR >= 60 mL/min >60 5 A1c 12/27/2020 [facility] [employer]: [place] [address] [phone] Hba1c 6.0 % High <5.7 6 Est Avg Glucose 125 mg/dL High 60 - 110 Laboratory test finding 12/27/2020 [facility] [employer]: [place] [address] [phone] Vitamin D 25-Hydroxy 34.5 ng/ml 24.0 - 80.0 7 Laboratory test finding 12/27/2020 [facility] [address] [place] [address] [phone] Ferritin 7 NG/ML Low 8-252 Total Iron Binding Capacit 12/27/2020 [facility] [address] [place], [place] [id number] [phone] Iron (Fe) 70 g/dL Normal 50-170 Total Iron Binding Capacity 245 g/dL Low 250-450 Percent Saturation 28.6 % Normal 13.2-45.0 Vitamin B12 & Folate 12/27/2020 [facility] [address] [place] [address] [phone] Vitamin B12 Level 442 pg/mL Normal 8 Folate > 24.0 NG/ML Normal 9 1 ASSAY INFORMATION: Real Time RT-PCR NOTE: The COVID-19 assay has been cleared by the U.S. Food and Drug Administration under the Emergency Use Authorization (EUA). [facility] are designated as high complexity laboratories by the Clinical Laboratory Improvement Amendments of 1988(CLIA) and are qualified to perform this test. Not Detected 2 FULL REPORT IN LAB NOTES ([facility] and [facility]). NO GROWTH 3 NOTE: CBC VERIFIED 4 100-125 mg/dL PRE-DIABET ES/FASTING >126 mg/dL DIABETES/FASTING 5 CHRONIC KIDNEY DISEASE STAGI NG PER NKF STAGE I & II GFR >= 60 NORMAL TO MILDLY DECREASED STAGE III GFR 30-59 MODERATELY DECREASED STAGE IV GFR 15-29 SEVERELY DECREASED STAGE V GFR <15 VERY LITTLE GFR LEFT ESRD GFR <15 ON SOLE SPLITTER 6 Lab Result Notes: Pre-Diabetes 5.7 - 6.4 % Diabetes = or > 6.5% 7 This test was performed Monitor [facility] [employer] Vitamin D immunoassay kit. Values obtained with different assay methods should not be used interchangeably. 8 VITAMIN B12 NORMAL RANGE NORMAL 247 - 911 PG/ML INDETERMINATE 211 - 246 PG/ML DEFICIENT LESS THAN 211 PG/ML 9 FOLATE NORMAL RANGE NORMAL GREATER THAN 5.4 NG/ML INDETERMINATE 3.4-5.4 NG/ML DEFICIENT LESS THAN 3.4 NG/ML Procedures Date Code Description Status 12/27/2020 37585 Office/Outpatient Established Mo d MDM 30-39 Min Completed 12/27/2020 22250 EKG/Interpretation & Report Comp leted 07/14/2020 [id number] Colonoscopy Completed 05/28/2012 [id number] Mammogram Completed 02/22/2012 [id number] Colonoscopy Completed Medical Devices Description No Information Available Encounters Type Date Location Provider Dx Diagnosis Office Visit 12/27/2020 10:00a [facility] Samuel Mcneil M.D. Z01.810 Encounter for preprocedural cardiovascular examination M54.16 Radiculopathy, lumbar region M48.061 Spinal stenosis, lumbar keith on without neurogenic reanna M48.062 Spinal stenosis, lumbar keith on with neurogenic claudication G31.84 Mild cognitive impairment, s o stated F34.1 Dysthymic disorder Z98.84 Bariatric surgery status R73.03 Prediabetes B00.9 Herpesviral infection, unspe cified E78.00 Pure hypercholesterolemia, u nspecified M19.90 Unspecified osteoarthritis, unspecified site E55.9 Vitamin D deficiency, unspec ified Assessments Date Code Description Provider 12/27/2020 Z01.810 Encounter for preprocedural card iovascular examination Jessie Mcneil M.D. 12/27/2020 M54.16 Radiculopathy, lumbar region Samuel Mcneil M.D. 12/27/2020 M48.061 Spinal stenosis, lum bar region without neurogenic claudication Jessie Mcneil M.D. 12/27/2020 M48.062 Spinal stenosis, lumbar region w ith neurogenic claudication Jessie Mcneil M.D. 12/27/2020 G31.84 Mild cognitive impairment, so st ated Jessie Mcneil M.D. 12/27/2020 F34.1 Dysthymic disorder Jessie lam M.D. 12/27/2020 Z98.84 Bariatric surgery status Jessie Mcneil M.D. 12/27/2020 R73.03 Prediabetes Jessie jackson M.D. 12/27/2020 B00.9 Herpesviral infection, unspecifi ed Jessie Mcneil M.D. 12/27/2020 E78.00 Pure hypercholesterolemia, unspe cified Jessie Mcneil M.D. 12/27/2020 M19.90 Unspecified osteoarthritis, unsp ecified site Jessie Mcneil M.D. 12/27/2020 E55.9 Vitamin D deficiency, unspecifie d Jessie Mcneil M.D. Plan of Treatment Future Appointment(s):* 06/30/2021 8:40 am - JENNIFER Casarez at [facility] 07/01/2020 - JENNIFER Casarez* Z00.01 Encounter for general adult medical examination with abnormal findings * R73.03 Prediabetes* Comments:* Ha1c is pending. Continue to choose foods with low glycemic index. Decrease intake of processed foods, refined sugars. Weight loss would be favorable and is encouraged. Regular exercise is encouraged as tolerated. * D50.9 Iron deficiency anemia, unspecified* Comments:* CBC is pending, not currently on supplementation. HX of bariatric surgery. * B00.9 Herpesviral infection, unspecified* Comments:* Uses acyclovir/valacyclovir. No current issues. * G31.84 Mild cognitive impairment, so stated* Comments:* Working with a provider in [place]. * F34.1 Dysthymic disorder* Comments:* Follows with Dr. Pond. Stable on Fluoxetine. * E55.9 Vitamin D deficiency, unspecified* Comments:* Not currently supplemented. 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 Deciding against the COVID vaccine at this point. * E78.00 Pure hypercholesterolemia, unspecified* Comments:* Lipids are pending. No current pharmacotherapy. Weight loss, diet and exercise discussed and reinforced. * Z98.84 Bariatric surgery status* Comments:* On bariatric vitamin. * E66.09 Other obesity due to excess calories* Comments:* Weight loss would be favorable.Implement dietary modifications (low fat, low carb, high fiber, lean proteins, decreasing portion sizes, small frequent high protein snacks, and making substitutions in refined sugars).Implement regular exercise as tolerated and increase daily water intake. * Z68.31 Body mass index [BMI] 31.0-31.9, adult * All * Comments:* Tetanus 03/2010. Flu shot refused. EKG 06/06/11. Colonoscopy to be updated next week. Pap, mammogram and DEXA all up to date through Dr. Cardona.F/U in 6 months, sooner PRN.Encouraged balanced diet, 4-5 servings of fresh fruits and vegetables daily. Recommended at least 30 minutes of exercise daily and eight 8 oz. glasses of water daily.SBE encouraged monthly.RTC PRN for acute illness. COVID precautions are discussed and social distancing/mask use/ frequent hand washing and sanitizing are encouraged. Deciding against the COVID vaccination due to personal hx of anaphylaxis without knowing the root cause/inconclusive allergy testing. Functional Status Description No Information Available Mental Status Description No Information Available Referrals Description No Information Available
--- OUTSIDE RECORDS SUMMARY | 2021-04-01 20:41 | CCD ---
Author Author [facility] Organization [facility] Address Unknown Phone Unavailable Care Team Providers Care Sanding Supervisor Name Role Phone Jorge, Genet TEACHER ASSOCIATE Unavailable Unavailable Jorge, Genet TEACHER ASSOCIATE Unavailable Unavailable Jorge, Genet TEACHER ASSOCIATE Unavailable Unavailable Jorge, Genet TEACHER ASSOCIATE Unavailable Unavailable Jorge, Genet TEACHER ASSOCIATE Unavailable Unavailable Jorge, Genet TEACHER ASSOCIATE Unavailable Unavailable Jorge, Genet TEACHER ASSOCIATE Unavailable Unavailable Jorge, Genet TEACHER ASSOCIATE Unavailable Unavailable Jorge, Genet TEACHER ASSOCIATE Unavailable Unavailable Jorge, Genet TEACHER ASSOCIATE Unavailable Unavailable Jorge, Genet TEACHER ASSOCIATE Unavailable Unavailable Jorge, Genet TEACHER ASSOCIATE Unavailable Unavailable Jorge, Genet TEACHER ASSOCIATE Unavailable Unavailable Jorge, Genet TEACHER ASSOCIATE Unavailable Unavailable Jorge, Genet TEACHER ASSOCIATE Unavailable Unavailable Jorge, Genet TEACHER ASSOCIATE Unavailable Unavailable Jorge, Genet TEACHER ASSOCIATE Unavailable Unavailable Jorge, Genet TEACHER ASSOCIATE Unavailable Unavailable Jorge, Genet TEACHER ASSOCIATE Unavailable Unavailable Jorge, Genet TEACHER ASSOCIATE Unavailable Unavailable Jorge, Genet TEACHER ASSOCIATE Unavailable Unavailable Jorge, Genet TEACHER ASSOCIATE Unavailable Unavailable Jorge, Genet TEACHER ASSOCIATE Unavailable Unavailable Jorge, Genet TEACHER ASSOCIATE Unavailable Unavailable Jorge, Genet TEACHER ASSOCIATE Unavailable Unavailable Jorge, Genet TEACHER ASSOCIATE Unavailable Unavailable Jorge, Genet TEACHER ASSOCIATE Unavailable Unavailable Jorge, Genet TEACHER ASSOCIATE Unavailable Unavailable Jorge, Genet TEACHER ASSOCIATE Unavailable Unavailable Jorge, Genet TEACHER ASSOCIATE Unavailable Unavailable Jorge, Genet TEACHER ASSOCIATE Unavailable Unavailable Jorge, Genet TEACHER ASSOCIATE Unavailable Unavailable Jorge, Genet TEACHER ASSOCIATE Unavailable Unavailable Jorge, Genet TEACHER ASSOCIATE Unavailable Unavailable Jorge, Genet TEACHER ASSOCIATE Unavailable Unavailable Jorge, Genet TEACHER ASSOCIATE Unavailable Unavailable MONTGOMERY, L LIZ KRAMER Unavailable Unavailable MONTGOMERY, L LIZ KRAMER Unavailable Unavailable MONTGOMERY, L LIZ KRAMER Unavailable Unavailable MONTGOMERY, L LIZ KRAMER Unavailable Unavailable MONTGOMERY, L LIZ KRAMER Unavailable Unavailable MONTGOMERY, L LIZ KRAMER Unavailable Unavailable MONTGOMERY, L LIZ KRAMER Unavailable Unavailable MONTGOMERY, L LIZ KRAMER Unavailable Unavailable MONTGOMERY, L LIZ KRAMER Unavailable Unavailable MONTGOMERY, L LIZ KRAMER Unavailable Unavailable MONTGOMERY, L LIZ KRAMER Unavailable Unavailable MONTGOMERY, L LIZ KRAMER Unavailable Unavailable MONTGOMERY, L LIZ KRAMER Unavailable Unavailable MONTGOMERY, L LIZ KRAMER Unavailable Unavailable MONTGOMERY, L LIZ KRAMER Unavailable Unavailable MONTGOMERY, L LIZ KRAMER Unavailable Unavailable MONTGOMERY, L LIZ KRAMER Unavailable Unavailable MONTGOMERY, L LIZ KRAMER Unavailable Unavailable MONTGOMERY, L LIZ KRAMER Unavailable Unavailable MONTGOMERY, L LIZ KRAMER Unavailable Unavailable MONTGOMERY, L LIZ KRAMER Unavailable Unavailable MONTGOMERY, L LIZ KRAMER Unavailable Unavailable MONTGOMERY, L LIZ KRAMER Unavailable Unavailable MONTGOMERY, L LIZ KRAMER Unavailable Unavailable MONTGOMERY, L LIZ KRAMER Unavailable Unavailable MONTGOMERY, L LIZ KRAMER Unavailable Unavailable MONTGOMERY, L LIZ KRAMER Unavailable Unavailable MONTGOMERY, L LIZ KRAMER Unavailable Unavailable MONTGOMERY, L LIZ KRAMER Unavailable Unavailable MONTGOMERY, L LIZ KRAMER Unavailable Unavailable MONTGOMERY, L LIZ KRAMER Unavailable Unavailable MONTGOMERY, L LIZ KRAMER Unavailable Unavailable MONTGOMERY, L LIZ KRAMER Unavailable Unavailable MONTGOMERY, L LIZ KRAMER Unavailable Unavailable MONTGOMERY, L LIZ KRAMER Unavailable Unavailable MONTGOMERY, L LIZ KRAMER Unavailable Unavailable MONTGOMERY, L LIZ KRAMER Unavailable Unavailable MONTGOMERY, L LIZ KRAMER Unavailable Unavailable MONTGOMERY, L LIZ KRAMER Unavailable Unavailable MONTGOMERY, L LIZ KRAMER Unavailable Unavailable MONTGOMERY, L LIZ KRAMER Unavailable Unavailable MONTGOMERY, L LIZ KRAMER Unavailable Unavailable MONTGOMERY, L LIZ KRAMER Unavailable Unavailable MONTGOMERY, L LIZ KRAMER Unavailable Unavailable MONTGOMERY, L LIZ KRAMER Unavailable Unavailable YARITZAJerson MORENO MD Unavailable Unavailable YARITZAJerson MORENO MD Unavailable Unavailable YARITZAJerson Donovan MD Unavailable Unavailable YARITZA, Jerson FERRER MD Unavailable Unavailable YARITZA, Jerson FERRER MD Unavailable Unavailable YARITZA, Jerson FERRER MD Unavailable Unavailable YARITZA, Jerson FERRER MD Unavailable Unavailable YARITZA, Jerson FERRER MD Unavailable Unavailable YARITZA, Jerson FERRER MD Unavailable Unavailable YARITZA, Jerson FERRER MD Unavailable Unavailable YARITZA, Jerson FERRER MD Unavailable Unavailable YARITZA, Jerson FERRER MD Unavailable Unavailable YARITZA, Jerson FERRER MD Unavailable Unavailable YARITZA, Jerson FERRER MD Unavailable Unavailable YARITZA, Jerson FERRER MD Unavailable Unavailable YARITZA, Jerson FERRER MD Unavailable Unavailable YARITZA, Jerson FERRER MD Unavailable Unavailable YARITZA, Jerson FERRER MD Unavailable Unavailable YARITZA, Jerson FERRER MD Unavailable Unavailable YARITZA, Jerson FERRER MD Unavailable Unavailable YARITZA, Jerson FERRER MD Unavailable Unavailable YARITZA, Jerson FERRER MD Unavailable Unavailable YARITZA, Jerson FERRER MD Unavailable Unavailable YARITZA, Jerson FERRER MD Unavailable Unavailable YARITZA, Jerson FERRER MD Unavailable Unavailable YARITZA, Jerson FERRER MD Unavailable Unavailable YARITZA, Jerson FERRER MD Unavailable Unavailable YARITZA, Jersno FERRER MD Unavailable Unavailable YARITZA, Jerson FERRER MD Unavailable Unavailable YARITZA, Jerson FERRER MD Unavailable Unavailable YARITZA, Jerson FERRER MD Unavailable Unavailable YARITZA, Jerson FERRER MD Unavailable Unavailable YARITZA, Jerson FERRER MD Unavailable Unavailable YARITZA, Jerson FERRER MD Unavailable Unavailable YARITZA, Jerson FERRER MD Unavailable Unavailable YARITZA, Jerson FERRER MD Unavailable Unavailable YARITZA, Jerson FERRER MD Unavailable Unavailable YARITZA, Jerson FERRER MD Unavailable Unavailable YARITZA, Jerson FERRER MD Unavailable Unavailable YARITZA, Jerson FERRER MD Unavailable Unavailable YARITZA, Jerson FERRER MD Unavailable Unavailable YARITZA, Jerson FERRER MD Unavailable Unavailable YARITZA, Jerson FERRER MD Unavailable Unavailable YARITZA, Jerson FERRER MD Unavailable Unavailable YARITZA, Jerson FERRER MD Unavailable Unavailable YARITZA, Jerosn FERRER MD Unavailable Unavailable YARITZA, Jerson FERRER MD Unavailable Unavailable YARITZA, Jerson FERRER MD Unavailable Unavailable YARITZA, Jerson FERRER MD Unavailable Unavailable YARITZA, Jerson FERRER MD Unavailable Unavailable YARITZA, Jerson FERRER MD Unavailable Unavailable YARITZA, Jerson FERRER MD Unavailable Unavailable YARITZA, Jerson FERRER MD Unavailable Unavailable YARITZA, Jerson FERRER MD Unavailable Unavailable YARITZA, Jerson FERRER MD Unavailable Unavailable YARITZA, Jerson FERRER MD Unavailable Unavailable YARITZA, Jerson FERRER MD Unavailable Unavailable YARITZA, Jerson FERRER MD Unavailable Unavailable YARITZA, Jerson FERRER MD Unavailable Unavailable YARITZA, Jerson FERRER MD Unavailable Unavailable YARITZA, Jerson FERRER MD Unavailable Unavailable YARITZA, Jerson FERRER MD Unavailable Unavailable YARITZA, Jerson FERRER MD Unavailable Unavailable YARITZA, Jerson FERRER MD Unavailable Unavailable YARITZA, Jerson FERRER MD Unavailable Unavailable YARITZA, Jerson FERRER MD Unavailable Unavailable YARITZA, Jerson FERRER MD Unavailable Unavailable YARITZA, Jerson FERRER MD Unavailable Unavailable YARITZA, Jerson FERRER MD Unavailable Unavailable YARITZA, Jerson FERRER MD Unavailable Unavailable YARITZA, Jerson FERRER MD Unavailable Unavailable YARITZA, Jersno FERRER MD Unavailable Unavailable YARITZA, Jerson FERRER MD Unavailable Unavailable YARITZA, Jerson FERRER MD Unavailable Unavailable YARITZA, Jerson FERRER MD Unavailable Unavailable YARITZA, Jerson FERRER MD Unavailable Unavailable YARITZA, Jerson FERRER MD Unavailable Unavailable YARITZA, Jerson FERRER MD Unavailable Unavailable YARITZA, Jerson FERRER MD Unavailable Unavailable YARITZA, Jerson FERRER MD Unavailable Unavailable YARITZA, Jerson FERRER MD Unavailable Unavailable YARITZA, Jerson FERRER MD Unavailable Unavailable YARITZA, Jerson FERRER MD Unavailable Unavailable YARITZA, Jerson FERRER MD Unavailable Unavailable YARITZA, Jerson FERRER MD Unavailable Unavailable YARITZA, Jerson FERRER MD Unavailable Unavailable YARITZA, Jerson FERRER MD Unavailable Unavailable YARITZA, Jerson FERRER MD Unavailable Unavailable YARITZA, Jerson FERRER MD Unavailable Unavailable YARITZA, Jerson FERRER MD Unavailable Unavailable YARITZA, Jerson FERRER MD Unavailable Unavailable Scozzari, K Shelby PA Unavailable Unavailable Scozzari, K Shelby PA Unavailable Unavailable Scozzari, K Shelby PA Unavailable Unavailable Scozzari, K Shelby PA Unavailable Unavailable Scozzari, K Shelby PA Unavailable Unavailable Scozzari, K Shelby PA Unavailable Unavailable Scozzari, K Shelby PA Unavailable Unavailable Scozzari, K Shelby PA Unavailable Unavailable Scozzari, K Shelby PA Unavailable Unavailable Scozzari, K Shelby PA Unavailable Unavailable Scozzari, K Shelby PA Unavailable Unavailable Scozzari, K Shelby PA Unavailable Unavailable Scozzari, K Shelby PA Unavailable Unavailable Scozzari, K Shelby PA Unavailable Unavailable Scozzari, K Shelby PA Unavailable Unavailable Scozzari, K Shelby PA Unavailable Unavailable Scozzari, K Shelby PA Unavailable Unavailable Scozzari, K Shelby PA Unavailable Unavailable Scozzari, K Shelby PA Unavailable Unavailable Scozzari, K Shelby PA Unavailable Unavailable Scozzari, K Shelby PA Unavailable Unavailable Scozzari, K Shelby PA Unavailable Unavailable Scozzari, K Shelby PA Unavailable Unavailable Scozzari, K Shelby PA Unavailable Unavailable Scozzari, K Shelby PA Unavailable Unavailable Scozzari, K Shelby PA Unavailable Unavailable Scozzari, K Shelby PA Unavailable Unavailable Scozzari, K Shelby PA Unavailable Unavailable Scozzari, K Shelby PA Unavailable Unavailable Scozzari, K Shelby PA Unavailable Unavailable Scozzari, K Shelby PA Unavailable Unavailable Scozzari, K Shelby PA Unavailable Unavailable Scozzari, K Shelby PA Unavailable Unavailable Scozzari, K Shelby PA Unavailable Unavailable Scozzari, K Shelby PA Unavailable Unavailable Scozzari, K Shelby PA Unavailable Unavailable Scozzari, K Shelby PA Unavailable Unavailable Scozzari, K Shelby PA Unavailable Unavailable Scozzari, K Shelby PA Unavailable Unavailable Scozzari, K Shelby PA Unavailable Unavailable Scozzari, K Shelby PA Unavailable Unavailable Scozzari, K Shelby PA Unavailable Unavailable Scozzari, K Shelby PA Unavailable Unavailable Scozzari, K Shelby PA Unavailable Unavailable Scozzari, K Shelby PA Unavailable Unavailable Scozzari, K Shelby PA Unavailable Unavailable Scozzari, K Shelby PA Unavailable Unavailable Luis Felipe Reddy MD, FACS Unavailable Unavailable Luis Felipe Reddy MD, FACS Unavailable Unavailable Luis Felipe Reddy MD, FACS Unavailable Unavailable Luis Felipe Reddy MD FACS Unavailable Unavailable Luis Felipe Reddy MD, FACS Unavailable Unavailable Luis Felipe Reddy MD FACS Unavailable Unavailable Luis Felipe Reddy MD FACS Unavailable Unavailable Luis Felipe Reddy MD FACS Unavailable Unavailable Luis Felipe Reddy MD FACS Unavailable Unavailable Luis Felipe Reddy MD, FACS Unavailable Unavailable Luis Felipe Reddy MD, FACS Unavailable Unavailable Luis Felipe Reddy MD, FACS Unavailable Unavailable Luis Felipe Reddy MD FACS Unavailable Unavailable Luis Felipe Reddy MD, FACS Unavailable Unavailable Luis Felipe Reddy MD, FACS Unavailable Unavailable Alaniz Lima, Luis Felipe Rubio MD, FACS Unavailable Unavailable Alaniz Lima, Luis Felipe Rubio MD, FACS Unavailable Unavailable Alaniz Lima, Luis Felipe Rubio MD, FACS Unavailable Unavailable Alaniz Lima, Luis Felipe Rubio MD, FACS Unavailable Unavailable Alaniz Lima, Luis Felipe Rubio MD, FACS Unavailable Unavailable Alaniz Lima, Luis Felipe Rubio MD, FACS Unavailable Unavailable Alaniz Lima, Luis Felipe Rubio MD, FACS Unavailable Unavailable Alaniz Lima, Luis Felipe Rubio MD, FACS Unavailable Unavailable Alaniz Lima, Luis Felipe Rubio MD, FACS Unavailable Unavailable Alaniz Lima, Luis Felipe Rubio MD, FACS Unavailable Unavailable Alaniz Lima, Luis Felipe Rubio MD, FACS Unavailable Unavailable Alaniz Lima, Luis Felipe Rubio MD, FACS Unavailable Unavailable Alaniz Lima, Luis Felipe Rubio MD, FACS Unavailable Unavailable Alaniz Lima, Luis Felipe Rubio MD, FACS Unavailable Unavailable Alaniz Lima, Luis Felipe Rubio MD, FACS Unavailable Unavailable Alaniz Lima, Luis Felipe Rubio MD, FACS Unavailable Unavailable Alaniz Lima, Luis Felipe Rubio MD, FACS Unavailable Unavailable Alaniz Lima, Luis Felipe Rubio MD, FACS Unavailable Unavailable Alaniz Lima, Luis Felipe Rubio MD, FACS Unavailable Unavailable Alaniz Lima, Luis Felipe Rubio MD, FACS Unavailable Unavailable Alaniz Lima, Luis Felipe Rubio MD, FACS Unavailable Unavailable Alaniz Lima, Luis Felipe Rubio MD, FACS Unavailable Unavailable Alaniz Lima, Luis Felipe Rubio MD, FACS Unavailable Unavailable Alainz Lima, Luis Felipe Rubio MD, FACS Unavailable Unavailable JACQUI, 0000{ Unavailable Unavailable ARIEL (MACI), Marcus TIDWELL MD Unavailable Unavailab le ARIEL (MACI), Marcus TIDWELL MD Unavailable Unavailab le ARIEL (MACI), Marcus TIDWELL MD Unavailable Unavailab le ARIEL (MACI), Marcus TIDWELL MD Unavailable Unavailab le ARIEL (MACI), Marcus TIDWELL MD Unavailable Unavailab le ARIEL (MACI), Marcus TIDWELL MD Unavailable Unavailab le ARIEL (MACI), Marcus TIDWELL MD Unavailable Unavailab le ARIEL (MACI), Marcus TIDWELL MD Unavailable Unavailab le ARIEL (MACI), Marcus TIDWELL MD Unavailable Unavailab le ARIEL (MACI), Marcus TIDWELL MD Unavailable Unavailab le ARIEL (MACI), Marcus TIDWELL MD Unavailable Unavailab le ARIEL (MACI), Marcus TIDWELL MD Unavailable Unavailab le ARIEL (MACI), Marcus TIDWELL MD Unavailable Unavailab le ARIEL (MACI), Marcus TIDWELL MD Unavailable Unavailab le ARIEL (MACI), Marcus ITDWELL MD Unavailable Unavailab le ARIEL (MACI), Marcus TIDWELL MD Unavailable Unavailab le ARIEL (MACI), Marcus TIDWELL MD Unavailable Unavailab le ARIEL (MACI), Marcus TIDWELL MD Unavailable Unavailab le ARIEL (MACI), Marcus TIDWELL MD Unavailable Unavailab le ARIEL (MACI), Marcus TIDWELL MD Unavailable Unavailab le ARIEL (MACI), Marcus TIDWELL MD Unavailable Unavailab le ARIEL (MACI), Marcus TIDWELL MD Unavailable Unavailab le ARIEL (MACI), Marcus TIDWELL MD Unavailable Unavailab le ARIEL (MACI), Marcus TIDWELL MD Unavailable Unavailab le ARIEL (MACI), Marcus TIDWELL MD Unavailable Unavailab le ARIEL (MACI), Marcus TIDWELL MD Unavailable Unavailab le ARIEL (MACI), Marcus TIDWELL MD Unavailable Unavailab le ARIEL (MACI), Marcus TIDWELL MD Unavailable Unavailab le ARIEL (MACI), Marcus TIDWELL MD Unavailable Unavailab le ARIEL (MACI), Marcus TIDWELL MD Unavailable Unavailab le ARIEL (MACI), Marcus TIDWELL MD Unavailable Unavailab le ARIEL (MACI), Marcus TIDWELL MD Unavailable Unavailab le ARIEL (MACI), Marcus TIDWELL MD Unavailable Unavailab le ARIEL (MACI), Marcus TIDWELL MD Unavailable Unavailab le ARIEL (MACI), Marcus TIDWELL MD Unavailable Unavailab le ARIEL (MACI), Marcus TIDWELL MD Unavailable Unavailab le ARIEL (MACI), Marcus TIDWELL MD Unavailable Unavailab le ARIEL (MACI), Marcus TIDWELL MD Unavailable Unavailab le ARIEL (MACI), Marcus TIDWELL MD Unavailable Unavailab le ARIEL (MACI), Marcus TIDWELL MD Unavailable Unavailab le ARIEL (MACI), Marcus TIDWELL MD Unavailable Unavailab le ARIEL (MACI), Marcus TIDWELL MD Unavailable Unavailab le ARIEL (MACI), Marcus TIDWELL MD Unavailable Unavailab le ARIEL (MACI), Marcus TIDWELL MD Unavailable Unavailab le ARIEL (MACI), Marcus TIDWELL MD Unavailable Unavailab le ARIEL (MACI), Marcus TIDWELL MD Unavailable Unavailab le ARIEL (MACI), Marcus TIDWELL MD Unavailable Unavailab le ARIEL (MACI), Marcus TIDWELL MD Unavailable Unavailab le ARIEL (MACI), Marcus TIDWELL MD Unavailable Unavailab le ARIEL (MACI), Marcus TIDWELL MD Unavailable Unavailab le ARIEL (MACI), Marcus TIDWELL MD Unavailable Unavailab le ARIEL (MACI), Marcus TIDWELL MD Unavailable Unavailab le ARIEL (MACI), Marcus TIDWELL MD Unavailable Unavailab le ARIEL (MACI), Marcus TIDWELL MD Unavailable Unavailab le ARIEL (MACI), Marcus TIDWELL MD Unavailable Unavailab le ARIEL (MACI), Marcus TIDWELL MD Unavailable Unavailab le ARIEL (MACI), Marcus TIDWELL MD Unavailable Unavailab le ARIEL (MACI), Marcus TIDWELL MD Unavailable Unavailab le ARIEL (MACI), Marcus TIDWELL MD Unavailable Unavailab le ARIEL (MACI), Marcus TIDWELL MD Unavailable Unavailab le ARIEL (MACI), Marcus TIDWELL MD Unavailable Unavailab le ARIEL (MACI), Marcus TIDWELL MD Unavailable Unavailab le ARIEL (MACI), Marcus TIDWELL MD Unavailable Unavailab le ARIEL (MACI), Marcus TIDWELL MD Unavailable Unavailab le ARIEL (MACI), Marcus TIDWELL MD Unavailable Unavailab le ARIEL (MACI), Marcus TIDWELL MD Unavailable Unavailab le ARIEL (MACI), Marcus TIDWELL MD Unavailable Unavailab le ARIEL (MACI), Marcus TIDWELL MD Unavailable Unavailab le ARIEL (MACI), Marcus TIDWELL MD Unavailable Unavailab le ARIEL (MACI), Marcus TIDWELL MD Unavailable Unavailab le ARIEL (MACI), Marcus TIDWELL MD Unavailable Unavailab le ARIEL (MACI), Marcus TIDWELL MD Unavailable Unavailab le ARIEL (MACI), Marcus TIDWELL MD Unavailable Unavailab le ARIEL (MACI), Marcus TIDWELL MD Unavailable Unavailab le ARIEL (MACI), Marcus TIDWELL MD Unavailable Unavailab le ARIEL (MACI), Marcus TIDWELL MD Unavailable Unavailab le ARIEL (MACI), Marcus TIDWELL MD Unavailable Unavailab le ARIEL (MACI), Marcus TIDWELL MD Unavailable Unavailab le ARIEL (MACI), Marcus TIDWELL MD Unavailable Unavailab le ARIEL (MACI), Marcus TIDWELL MD Unavailable Unavailab le ARIEL (MACI), Marcus TIDWELL MD Unavailable Unavailab le ARIEL (MACI), Marcus TIDWELL MD Unavailable Unavailab le ARIEL (MACI), Marcus TIDWELL MD Unavailable Unavailab le ARIEL (MACI), Marcus TIDWELL MD Unavailable Unavailab le ARIEL (MACI), Marcus TIDWELL MD Unavailable Unavailab le ARIEL (MACI), Marcus TIDWELL MD Unavailable Unavailab le ARIEL (MACI), Marcus TIDWELL MD Unavailable Unavailab le ARIEL (MACI), Marcus TIDWELL MD Unavailable Unavailab le ARIEL (MACI), Marcus TIDWELL MD Unavailable Unavailab le HOUSEL, C JUSTIN PA-C Unavailable Unavailable HOUSEL, C JUSTIN PA-C Unavailable Unavailable HOUSEL, C JUSTIN PA-C Unavailable Unavailable TORRES, Robert RIVAS MD Unavailable Unavailable TORRES, Robert IRVAS MD Unavailable Unavailable TORRES, Robert RIVAS MD Unavailable Unavailable TORRES, Robert RIVAS MD Unavailable Unavailable TORRES, Robert RIVAS MD Unavailable Unavailable TORRES, Robert RIVAS MD Unavailable Unavailable TORRES, Robert RIVAS MD Unavailable Unavailable TORRES, Robert RIVAS MD Unavailable Unavailable TORRES, Robert RIVAS MD Unavailable Unavailable TORRES, Robert RIVAS MD Unavailable Unavailable TORRES, Robert RIVAS MD Unavailable Unavailable TORRES, Robert RIVAS MD Unavailable Unavailable TORRES, Robert RIVAS MD Unavailable Unavailable TORRES, Robert RIVAS MD Unavailable Unavailable TORRES, Robert RIVAS MD Unavailable Unavailable TORRES, Robert RIVAS MD Unavailable Unavailable TORRES, Robert RIVAS MD Unavailable Unavailable TORRES, Robert RIVAS MD Unavailable Unavailable TORRES, Robert RIVAS MD Unavailable Unavailable TORRES, Robert RIVAS MD Unavailable Unavailable TORRES, Robert RIVAS MD Unavailable Unavailable TORRES, Robert RIVAS MD Unavailable Unavailable TORRES, Robert RIAVS MD Unavailable Unavailable TORRES, Robert RIVAS MD Unavailable Unavailable TORRES, Robert RIVAS MD Unavailable Unavailable TORRES, Robert RIVAS MD Unavailable Unavailable TORRES, Robert RIVAS MD Unavailable Unavailable TORRES, Robert RIVAS MD Unavailable Unavailable TORRES, Robert RIVAS MD Unavailable Unavailable TORRES, Robert RIVAS MD Unavailable Unavailable TORRES, Robert RIVAS MD Unavailable Unavailable TORRES, Robert RIVAS MD Unavailable Unavailable TORRES, Robert RIVAS MD Unavailable Unavailable TORRES, Robert RIVAS MD Unavailable Unavailable TORRES, Robert RIVAS MD Unavailable Unavailable TORRES, Robert RIVAS MD Unavailable Unavailable TORRES, Robert RIVAS MD Unavailable Unavailable TORRES, Robert RIVAS MD Unavailable Unavailable TORRES, Robert RIVAS MD Unavailable Unavailable TORRES, Robert RIVAS MD Unavailable Unavailable TORRES, Robert RIVAS MD Unavailable Unavailable TORRES, Robert RIVAS MD Unavailable Unavailable TORRES, Robert RIVAS MD Unavailable Unavailable TORRES, Robert RIVAS MD Unavailable Unavailable TORRES, Robert RIVAS MD Unavailable Unavailable TORRES, Robert RIVAS MD Unavailable Unavailable TORRES, Robert RIVAS MD Unavailable Unavailable TORERS, Robert RIVAS MD Unavailable Unavailable TORRES, Robert RIVAS MD Unavailable Unavailable TORRES, Robert RIVAS MD Unavailable Unavailable TORRES, Robert RIVAS MD Unavailable Unavailable TORRES, Robert RIVAS MD Unavailable Unavailable TORRES, Robert RIVAS MD Unavailable Unavailable TORRES, Robert RIVAS MD Unavailable Unavailable TORRES, Robert RIVAS MD Unavailable Unavailable TORRES, Robert RIVAS MD Unavailable Unavailable TORRES, Robert RIVAS MD Unavailable Unavailable TORRES, Robert RIVAS MD Unavailable Unavailable TORRES, Robert RIVAS MD Unavailable Unavailable TORRES, Robert RIVAS MD Unavailable Unavailable TORRES, Robert RIVAS MD Unavailable Unavailable TORRES, Robert RIVAS MD Unavailable Unavailable TORRES, Robert RIVAS MD Unavailable Unavailable TORRES, Robert RIVAS MD Unavailable Unavailable TORRES, Robert RIVAS MD Unavailable Unavailable TORRES, Robert RIVAS MD Unavailable Unavailable TORRES, Robert RIVAS MD Unavailable Unavailable TORRES, Robert RIVAS MD Unavailable Unavailable TORRES, Robert RIVAS MD Unavailable Unavailable TORRES, Robert RIVAS MD Unavailable Unavailable TORRES, Robert RIVAS MD Unavailable Unavailable TORRES, Robert RIVAS MD Unavailable Unavailable TORRES, Robert RIVAS MD Unavailable Unavailable TORRES, Robert RIVAS MD Unavailable Unavailable TORRES, Robert RIVAS MD Unavailable Unavailable TORRES, Robert RIVAS MD Unavailable Unavailable TORRES, Robert RIVAS MD Unavailable Unavailable TORRES, Robert RIVAS MD Unavailable Unavailable TORRES, Robert RIVAS MD Unavailable Unavailable TORRES, Robert RIVAS MD Unavailable Unavailable TORRES, Robert RIVAS MD Unavailable Unavailable TORRES, Robert RIVAS MD Unavailable Unavailable TORRES, Robert RIVAS MD Unavailable Unavailable TORRES, Robert RIVAS MD Unavailable Unavailable TORRES, Robert RIVAS MD Unavailable Unavailable TORRES, Robert RIVAS MD Unavailable Unavailable TORRES, Robert RIVAS MD Unavailable Unavailable TORRES, Robert RIVAS MD Unavailable Unavailable TORRES, Robert RIVAS MD Unavailable Unavailable TORRES, Robert RIVAS MD Unavailable Unavailable TORRES, Robert RIVAS MD Unavailable Unavailable TORRES, Robert RIVAS MD Unavailable Unavailable TORRES, Robert RIVAS MD Unavailable Unavailable TORRES, Robert RIVAS MD Unavailable Unavailable TORRES, Robert RIVAS MD Unavailable Unavailable TORRES, Robert RIVAS MD Unavailable Unavailable TORRES, Robert RIVAS MD Unavailable Unavailable TORRES, Robert RIVAS MD Unavailable Unavailable TORRES, Robert RIVAS MD Unavailable Unavailable TORRES, Robert RIVAS MD Unavailable Unavailable TORRES, Robert RIVAS MD Unavailable Unavailable TORRES, Robert RIVAS MD Unavailable Unavailable TORRES, Robert RIVAS MD Unavailable Unavailable TORRES, Robert RIVAS MD Unavailable Unavailable TORRES, Robert RIVAS MD Unavailable Unavailable TORRES, Robert RIVAS MD Unavailable Unavailable TORRES, Robert RIVAS MD Unavailable Unavailable TORRES, Robert RIVAS MD Unavailable Unavailable TORRES, Robert RIVAS MD Unavailable Unavailable TORRES, Robert RIVAS MD Unavailable Unavailable TORRES, Robert RIVAS MD Unavailable Unavailable TORRES, Robert RIVAS MD Unavailable Unavailable TORRES, Robert RIVAS MD Unavailable Unavailable TORRES, Robert RIVAS MD Unavailable Unavailable TORRES, Robert RIVAS MD Unavailable Unavailable TORRES, Robert RIVAS MD Unavailable Unavailable TORRES, Robert RIVAS MD Unavailable Unavailable WeaMarcus MD Unavailable Unavailable Ewa, Marcus Roman MD Unavailable Unavailable Ewa, Marcus Roman MD Unavailable Unavailable Ewa, Marcus Roman MD Unavailable Unavailable EwaMarcus ulloa MD Unavailable Unavailable EwaMarcus MD Unavailable Unavailable EwaMarcus jackson MD Unavailable Unavailable EwaMarcus MD Unavailable Unavailable EwaMarcus MD Unavailable Unavailable EwaMarcus MD Unavailable Unavailable EwaMarcus MD Unavailable Unavailable EwaMarcus ulloa MD Unavailable Unavailable EwaMarcus MD Unavailable Unavailable EwaMarcus MD Unavailable Unavailable EwaMarcus MD Unavailable Unavailable EwaMarcus MD Unavailable Unavailable EwaMarcus MD Unavailable Unavailable EwaMarcus MD Unavailable Unavailable EwaMarcus MD Unavailable Unavailable EwaMarcus MD Unavailable Unavailable EwaMarcus MD Unavailable Unavailable EwaMarcus jackson MD Unavailable Unavailable EwaMarcus ulloa MD Unavailable Unavailable Marcus Mcneil MD Unavailable Unavailable Marcus Mcneil MD Unavailable Unavailable Marcus Mcneil MD Unavailable Unavailable Marcus Mcneil MD Unavailable Unavailable Marcus Mcneil MD Unavailable Unavailable Marcus Mcneil MD Unavailable Unavailable Marcus Mcneil MD Unavailable Unavailable Marcus Mcneil MD Unavailable Unavailable Marcus Mcneil MD Unavailable Unavailable EwaMarcus jackson MD Unavailable Unavailable Marcus Mcneil MD Unavailable Unavailable Marcus Mcneil MD Unavailable Unavailable Marcus Mcneil MD Unavailable Unavailable Marcus Mcneil MD Unavailable Unavailable Marcus Mcneil MD Unavailable Unavailable Marcus Mcneil MD Unavailable Unavailable Marcus Mcneil MD Unavailable Unavailable Marcus Mcneil MD Unavailable Unavailable Marcus Mcneil MD Unavailable Unavailable Marcus Mcneil MD Unavailable Unavailable Marcus Mcneil MD Unavailable Unavailable Marcus Mcneil MD Unavailable Unavailable Marcus Mcneil MD Unavailable Unavailable Marcus Mcneil MD Unavailable Unavailable Marcus Mcneil MD Unavailable Unavailable Marcus Mcneil MD Unavailable Unavailable Marcus Mcneil MD Unavailable Unavailable Marcus Mcneil MD Unavailable Unavailable Marcus Mcneil MD Unavailable Unavailable EwaMarcus MD Unavailable Unavailable EwaMarcus MD Unavailable Unavailable Marcus Mcneil MD Unavailable Unavailable Marcus Mcneil MD Unavailable Unavailable Marcus Mcneil MD Unavailable Unavailable Marcus Mcneil MD Unavailable Unavailable Marcus Mcneil MD Unavailable Unavailable Marcus Mcneil MD Unavailable Unavailable Marcus Mcneil MD Unavailable Unavailable Marcus Mcneil MD Unavailable Unavailable Marcus Mcneil MD Unavailable Unavailable Marcus Mcneil MD Unavailable Unavailable Marcus Mcneil MD Unavailable Unavailable Marcus Mcneil MD Unavailable Unavailable Marcus Mcneil MD Unavailable Unavailable Marcus Mcneil MD Unavailable Unavailable Marcus Mcneil MD Unavailable Unavailable Marcus Mcneil MD Unavailable Unavailable Marcus Mcneil MD Unavailable Unavailable Marcus Mcneil MD Unavailable Unavailable Marcus Mcneil MD Unavailable Unavailable Marcus Mcneil MD Unavailable Unavailable Marcus Mcneil MD Unavailable Unavailable Marcus Mcneil MD Unavailable Unavailable Marcus Mcneil MD Unavailable Unavailable Marcus Mcneil MD Unavailable Unavailable Marcus Mcneil MD Unavailable Unavailable Marcus Mcneil MD Unavailable Unavailable Marcus Mcneil MD Unavailable Unavailable Marcus Mcneil MD Unavailable Unavailable Marcus Mcneil MD Unavailable Unavailable Marcus Mcneil MD Unavailable Unavailable Marcus Mcneil MD Unavailable Unavailable EARLE, YANPING Unavailable Unavailable Hill, A Angelique CLAIMS ADJUSTER CROP Unavailable Unavailable Hill, A Angelique CLAIMS ADJUSTER CROP Unavailable Unavailable Hill, A Angelique CLAIMS ADJUSTER CROP Unavailable Unavailable Hill, A Angelique CLAIMS ADJUSTER CROP Unavailable Unavailable Hill, A Angelique CLAIMS ADJUSTER CROP Unavailable Unavailable Hill, A Angelique CLAIMS ADJUSTER CROP Unavailable Unavailable Hill, A Angelique CLAIMS ADJUSTER CROP Unavailable Unavailable Hill, A Angelique CLAIMS ADJUSTER CROP Unavailable Unavailable Hill, A Angelique CLAIMS ADJUSTER CROP Unavailable Unavailable Hill, A Angelique CLAIMS ADJUSTER CROP Unavailable Unavailable Hill, A Angelique CLAIMS ADJUSTER CROP Unavailable Unavailable Hill, A Angelique CLAIMS ADJUSTER CROP Unavailable Unavailable Hill, A Angelique CLAIMS ADJUSTER CROP Unavailable Unavailable Hill, A Angelique CLAIMS ADJUSTER CROP Unavailable Unavailable Hill, A Angelique CLAIMS ADJUSTER CROP Unavailable Unavailable Hill, A Angelique CLAIMS ADJUSTER CROP Unavailable Unavailable Hill, A Angelique CLAIMS ADJUSTER CROP Unavailable Unavailable Hill, A Angelique CLAIMS ADJUSTER CROP Unavailable Unavailable Hill, A Angelique CLAIMS ADJUSTER CROP Unavailable Unavailable Hill, A Angelique CLAIMS ADJUSTER CROP Unavailable Unavailable Hill, A Angelique CLAIMS ADJUSTER CROP Unavailable Unavailable Hill, A Angelique CLAIMS ADJUSTER CROP Unavailable Unavailable Hill, A Angelique CLAIMS ADJUSTER CROP Unavailable Unavailable Hill, A Angelique CLAIMS ADJUSTER CROP Unavailable Unavailable Hill, A Angelique CLAIMS ADJUSTER CROP Unavailable Unavailable YARITZA, Jerson FERRER MD Unavailable Unavailable YARITZA, Jerson FERRER MD Unavailable Unavailable YARITZA, Jerson FERRER MD Unavailable Unavailable YARITZA, Jerson FERRER MD Unavailable Unavailable YARITZA, Jerson FERRER MD Unavailable Unavailable YARITZA, Jerson FERRER MD Unavailable Unavailable YARITZA, Jerson FERRER MD Unavailable Unavailable YARITZA, Jerson FERRER MD Unavailable Unavailable YARITZA, Jerson FERRER MD Unavailable Unavailable YARITZA, Jerson FERRER MD Unavailable Unavailable YARITZA, Jerson FERRER MD Unavailable Unavailable YARITZA, Jerson FERRER MD Unavailable Unavailable YARITZA, Jerson FERRER MD Unavailable Unavailable YARITZA, Jerson FERRER MD Unavailable Unavailable YARITZA, Jerson FERRER MD Unavailable Unavailable YARITZA, Jerson FERRER MD Unavailable Unavailable YARITZA, Jerson FERRER MD Unavailable Unavailable YARITZA, Jerson FERRER MD Unavailable Unavailable YARITZA, Jerson FERRER MD Unavailable Unavailable YARITZA, Jerson FERRER MD Unavailable Unavailable YARITZA, Jerson FERRER MD Unavailable Unavailable YARITZA, Jerson FERRER MD Unavailable Unavailable YARITZA, Jerson FERRER MD Unavailable Unavailable YARITZA, Jerson FERRER MD Unavailable Unavailable YARITZA, Jerson FERRER MD Unavailable Unavailable YARITZA, Jerson FERRER MD Unavailable Unavailable YARITZA, Jerson FERRER MD Unavailable Unavailable YARITZA, Jerson FERRER MD Unavailable Unavailable YARITZA, Jerson FERRER MD Unavailable Unavailable YARITZA, Jerson FERRER MD Unavailable Unavailable YARITZA, Jerson FERRER MD Unavailable Unavailable YARITZA, Jerson FERRER MD Unavailable Unavailable YARITZA, Jerson FERRER MD Unavailable Unavailable YARITZA, Jerson FERRER MD Unavailable Unavailable YARITZA, Jerson FERRER MD Unavailable Unavailable YARITZA, Jerson FERRER MD Unavailable Unavailable YARITZA, Jerson FERRER MD Unavailable Unavailable YARITZA, Jerson FERRER MD Unavailable Unavailable YARITZA, Jerson FERRER MD Unavailable Unavailable YARITZA, Jerson FERRER MD Unavailable Unavailable YARITZA, Jerson FERRER MD Unavailable Unavailable YARITZA, Jerson FERRER MD Unavailable Unavailable YARITZA, Jerson FERRER MD Unavailable Unavailable YARITZA, Jerson FERRER MD Unavailable Unavailable YARITZA, Jerson FERRER MD Unavailable Unavailable YARITZA, Jerson FERRER MD Unavailable Unavailable YARITZA, Jerson FERRER MD Unavailable Unavailable YARITZA, Jerson FERRER MD Unavailable Unavailable YARITZA, Jerson FERRER MD Unavailable Unavailable YARITZA, Jerson FERRER MD Unavailable Unavailable YARITZA, Jerson FERRER MD Unavailable Unavailable YARITAZ, Jerson FERRER MD Unavailable Unavailable YRAITZA, Jerson FERRER MD Unavailable Unavailable YARITZA, Jerson FERRER MD Unavailable Unavailable YARITZA, Jerson FERRER MD Unavailable Unavailable YARITZA, Jerson FERRER MD Unavailable Unavailable YARITZA, Jerson FERRER MD Unavailable Unavailable YARITZA, Jerson FERRER MD Unavailable Unavailable YARITZA, Jerson FERRER MD Unavailable Unavailable YARITZA, Jerson FERRER MD Unavailable Unavailable YARITZA, Jerson FERRER MD Unavailable Unavailable YARITZA, Jerson FERRER MD Unavailable Unavailable YARITZA, Jerson FERRER MD Unavailable Unavailable YARITZA, Jerson FERRER MD Unavailable Unavailable YARITZA, Jerson FERRER MD Unavailable Unavailable YARITZA, Jerson FERRER MD Unavailable Unavailable YARITZA, Jerson FERRER MD Unavailable Unavailable YARITZA, Jerson FERRER MD Unavailable Unavailable YARITZA, Jerson FERRER MD Unavailable Unavailable YARITZA, Jerson FERRER MD Unavailable Unavailable YARITZA, Jerson FERRER MD Unavailable Unavailable YARITZA, Jerson FERRER MD Unavailable Unavailable YARITZA, Jerson FERRER MD Unavailable Unavailable YARITZA, Jerson FERRER MD Unavailable Unavailable YARITZA, Jerson FERRER MD Unavailable Unavailable YARITZA, Jerson FERRER MD Unavailable Unavailable YARITZA, Jerson FERRER MD Unavailable Unavailable YARITZA, Jerson FERRER MD Unavailable Unavailable YARITZA, Jerson FERRER MD Unavailable Unavailable YARITZA, Jerson FERRER MD Unavailable Unavailable YARITZA, Jerson FERRER MD Unavailable Unavailable YARITZA, Jerson FERRER MD Unavailable Unavailable YARITZA, Jerson FERRER MD Unavailable Unavailable YARITZA, Jerson FERRER MD Unavailable Unavailable YARITZA, Jerson FERRER MD Unavailable Unavailable YARITZA, Jerson FERRER MD Unavailable Unavailable YARITZAJerson MD Unavailable Unavailable YARITZA, Jerson FERRER MD Unavailable Unavailable YARITZA, Jerson FERRER MD Unavailable Unavailable YARITZA, Jerson FERRER MD Unavailable Unavailable YARITZA, Jerson FERRER MD Unavailable Unavailable Marianna, Mercedes TEACHER ASSOCIATE Unavailable Unavailable Marianna, Mercedes TEACHER ASSOCIATE Unavailable Unavailable Marianna, Mercedes TEACHER ASSOCIATE Unavailable Unavailable Marianna, Mercedes TEACHER ASSOCIATE Unavailable Unavailable Marianna, Mercedes TEACHER ASSOCIATE Unavailable Unavailable Marianna, Mercedes TEACHER ASSOCIATE Unavailable Unavailable Marianna, Mercedes TEACHER ASSOCIATE Unavailable Unavailable Marianna, Mercedes TEACHER ASSOCIATE Unavailable Unavailable Marianna, Mercedes TEACHER ASSOCIATE Unavailable Unavailable Marianna, Mercedes TEACHER ASSOCIATE Unavailable Unavailable Marianna, Mercedes TEACHER ASSOCIATE Unavailable Unavailable Marianna, Mercedes TEACHER ASSOCIATE Unavailable Unavailable Marianna, Mercedes TEACHER ASSOCIATE Unavailable Unavailable Marianna, Mercedes TEACHER ASSOCIATE Unavailable Unavailable Marianna, Mercedes TEACHER ASSOCIATE Unavailable Unavailable Marianna, Mercedes TEACHER ASSOCIATE Unavailable Unavailable Marianna, Mercedes TEACHER ASSOCIATE Unavailable Unavailable Marianna, Mercedes TEACHER ASSOCIATE Unavailable Unavailable Marianna, Mercedes TEACHER ASSOCIATE Unavailable Unavailable Marianna, Mercedes TEACHER ASSOCIATE Unavailable Unavailable Marianna, Mercedes TEACHER ASSOCIATE Unavailable Unavailable Marianna, Mercedes TEACHER ASSOCIATE Unavailable Unavailable Marianna, Mercedes TEACHER ASSOCIATE Unavailable Unavailable Marianna, Mercedes TEACHER ASSOCIATE Unavailable Unavailable Marianna, Mercedes TEACHER ASSOCIATE Unavailable Unavailable Marianna, Mercedes TEACHER ASSOCIATE Unavailable Unavailable Marianna, Mercedes TEACHER ASSOCIATE Unavailable Unavailable Marianna, Mercedes TEACHER ASSOCIATE Unavailable Unavailable Marianna, Mercedes TEACHER ASSOCIATE Unavailable Unavailable Marianna, Mercedes TEACHER ASSOCIATE Unavailable Unavailable Marianna, Mercedes TEACHER ASSOCIATE Unavailable Unavailable Marianna, Mercedes TEACHER ASSOCIATE Unavailable Unavailable Marianna, Mercedes TEACHER ASSOCIATE Unavailable Unavailable Marianna, Mercedes TEACHER ASSOCIATE Unavailable Unavailable Marianna, Mercedes TEACHER ASSOCIATE Unavailable Unavailable Marianna, Mercedes TEACHER ASSOCIATE Unavailable Unavailable Donald, Shirley TEACHER ASSOCIATE Unavailable Unavailable Donald, Shirley TEACHER ASSOCIATE Unavailable Unavailable Donald, Shirley TEACHER ASSOCIATE Unavailable Unavailable Donald, Shirley TEACHER ASSOCIATE Unavailable Unavailable Donald, Shirley TEACHER ASSOCIATE Unavailable Unavailable Donald, Shirley TEACHER ASSOCIATE Unavailable Unavailable Donald, Shirley TEACHER ASSOCIATE Unavailable Unavailable Donald, Shirley TEACHER ASSOCIATE Unavailable Unavailable Donald, Shirley TEACHER ASSOCIATE Unavailable Unavailable Donald, Shirley TEACHER ASSOCIATE Unavailable Unavailable Donald, Shirley TEACHER ASSOCIATE Unavailable Unavailable Donald, Shirley TEACHER ASSOCIATE Unavailable Unavailable Donald, Shirley TEACHER ASSOCIATE Unavailable Unavailable Donald, Shirley TEACHER ASSOCIATE Unavailable Unavailable Donald, Shirley TEACHER ASSOCIATE Unavailable Unavailable Donald, Shirley TEACHER ASSOCIATE Unavailable Unavailable Donald, Shirley TEACHER ASSOCIATE Unavailable Unavailable Donald, Shirley TEACHER ASSOCIATE Unavailable Unavailable Donald, Shirley TEACHER ASSOCIATE Unavailable Unavailable Donald, Shirley TEACHER ASSOCIATE Unavailable Unavailable Donald, Shirley TEACHER ASSOCIATE Unavailable Unavailable Donald, Shirley TEACHER ASSOCIATE Unavailable Unavailable Donald, Shirley TEACHER ASSOCIATE Unavailable Unavailable Donald, Shirley TEACHER ASSOCIATE Unavailable Unavailable Donald, Shirley TEACHER ASSOCIATE Unavailable Unavailable Donald, Shirley TEACHER ASSOCIATE Unavailable Unavailable Donald, Shirley TEACHER ASSOCIATE Unavailable Unavailable Donald, Shirley TEACHER ASSOCIATE Unavailable Unavailable Donald, Shirley TEACHER ASSOCIATE Unavailable Unavailable Donald, Shirley TEACHER ASSOCIATE Unavailable Unavailable Donald, Shirley TEACHER ASSOCIATE Unavailable Unavailable Donald, Shirley TEACHER ASSOCIATE Unavailable Unavailable Donald, Shirley TEACHER ASSOCIATE Unavailable Unavailable Donald, Shirley TEACHER ASSOCIATE Unavailable Unavailable Donald, Shirley TEACHER ASSOCIATE Unavailable Unavailable Donald, Shirley TEACHER ASSOCIATE Unavailable Unavailable Donald, Shirley TEACHER ASSOCIATE Unavailable Unavailable Donald, Shirley TEACHER ASSOCIATE Unavailable Unavailable Donald, Shirley TEACHER ASSOCIATE Unavailable Unavailable Donald, Shirley TEACHER ASSOCIATE Unavailable Unavailable Donald, Shirley TEACHER ASSOCIATE Unavailable Unavailable Donald, Shirley TEACHER ASSOCIATE Unavailable Unavailable Donald, Shirley TEACHER ASSOCIATE Unavailable Unavailable Donald, Shirley TEACHER ASSOCIATE Unavailable Unavailable Donald, Shirley TEACHER ASSOCIATE Unavailable Unavailable Donald, Shirley TEACHER ASSOCIATE Unavailable Unavailable Donald, Shirley TEACHER ASSOCIATE Unavailable Unavailable Donald, Shirley TEACHER ASSOCIATE Unavailable Unavailable Donald, Shirley TEACHER ASSOCIATE Unavailable Unavailable Donald, Shirley TEACHER ASSOCIATE Unavailable Unavailable Donald, Shirley TEACHER ASSOCIATE Unavailable Unavailable HANIFIN, M ZOHAIB PA Unavailable Unavailable HANIFIN, M ZOHAIB PA Unavailable Unavailable HANIFIN, M ZOHAIB PA Unavailable Unavailable HANIFIN, M ZOHAIB PA Unavailable Unavailable HANIFIN, M ZOHAIB PA Unavailable Unavailable HANIFIN, M ZOHAIB PA Unavailable Unavailable HANIFIN, M ZOHAIB PA Unavailable Unavailable HANIFIN, M ZOHAIB PA Unavailable Unavailable HANIFIN, M ZOHAIB PA Unavailable Unavailable HANIFIN, M ZOHAIB PA Unavailable Unavailable HANIFIN, M ZOHAIB PA Unavailable Unavailable HANIFIN, M ZOHAIB PA Unavailable Unavailable HANIFIN, M ZOHAIB PA Unavailable Unavailable HANIFIN, M ZOHAIB PA Unavailable Unavailable HANIFIN, M ZOHAIB PA Unavailable Unavailable HANIFIN, M ZOHAIB PA Unavailable Unavailable HANIFIN, M ZOHAIB PA Unavailable Unavailable HANIFIN, M ZOHAIB PA Unavailable Unavailable HANIFIN, M ZOHAIB PA Unavailable Unavailable HANIFIN, M ZOHAIB PA Unavailable Unavailable HANIFIN, M ZOHAIB PA Unavailable Unavailable HANIFIN, M ZOHAIB PA Unavailable Unavailable HANIFIN, M ZOHAIB PA Unavailable Unavailable HANIFIN, M ZOHAIB PA Unavailable Unavailable HANIFIN, M ZOHAIB PA Unavailable Unavailable HANIFIN, M ZOHAIB PA Unavailable Unavailable HANIFIN, M ZOHAIB PA Unavailable Unavailable HANIFIN, M ZOHAIB PA Unavailable Unavailable HANIFIN, M ZOHAIB PA Unavailable Unavailable HANIFIN, M ZOHAIB PA Unavailable Unavailable HANIFIN, M ZOHAIB PA Unavailable Unavailable HANIFIN, M ZOHAIB PA Unavailable Unavailable HANIFIN, M ZOHAIB PA Unavailable Unavailable HANIFIN, M ZOHAIB PA Unavailable Unavailable HANIFIN, M ZOHAIB PA Unavailable Unavailable HANIFIN, M ZOHAIB PA Unavailable Unavailable HANIFIN, M ZOHAIB PA Unavailable Unavailable HANIFIN, M ZOHAIB PA Unavailable Unavailable HANIFIN, M ZOHAIB PA Unavailable Unavailable HANIFIN, M ZOHAIB PA Unavailable Unavailable HANIFIN, M ZOHAIB PA Unavailable Unavailable HANIFIN, M ZOHAIB PA Unavailable Unavailable HANIFIN, M ZOHAIB PA Unavailable Unavailable HANIFIN, M ZOHAIB PA Unavailable Unavailable HANIFIN, M ZOHAIB PA Unavailable Unavailable HANIFIN, M ZOHAIB PA Unavailable Unavailable HANIFIN, M ZOHAIB PA Unavailable Unavailable HANIFIN, M ZOHAIB PA Unavailable Unavailable HANIFIN, M ZOHAIB PA Unavailable Unavailable HANIFIN, M ZOHAIB PA Unavailable Unavailable HANIFIN, M ZOHAIB PA Unavailable Unavailable HANIFIN, M ZOHAIB PA Unavailable Unavailable HANIFIN, M ZOHAIB PA Unavailable Unavailable HANIFIN, M ZOHAIB PA Unavailable Unavailable DRAZEK, I CHERISE PA Unavailable Unavailable DRAZEK, I CHERISE PA Unavailable Unavailable DRAZEK, I CHERISE PA Unavailable Unavailable DRAZEK, I CHERISE PA Unavailable Unavailable DRAZEK, I CHERISE PA Unavailable Unavailable DRAZEK, I CHERISE PA Unavailable Unavailable DRAZEK, I CHERISE PA Unavailable Unavailable DRAZEK, I CHERISE PA Unavailable Unavailable DRAZEK, I CHERISE PA Unavailable Unavailable DRAZEK, I CHERISE PA Unavailable Unavailable DRAZEK, I CHERISE PA Unavailable Unavailable DRAZEK, I CHERISE PA Unavailable Unavailable DRAZEK, I CHERISE PA Unavailable Unavailable DRAZEK, I CHERISE PA Unavailable Unavailable DRAZEK, I CHERISE PA Unavailable Unavailable DRAZEK, I CHERISE PA Unavailable Unavailable DRAZEK, I CHERISE PA Unavailable Unavailable DRAZEK, I CHERISE PA Unavailable Unavailable DRAZEK, I CHERISE PA Unavailable Unavailable DRAZEK, I CHERISE PA Unavailable Unavailable DRAZEK, I CHERISE PA Unavailable Unavailable DRAZEK, I CHERISE PA Unavailable Unavailable DRAZEK, I CHERISE PA Unavailable Unavailable DRAZEK, I CHERISE PA Unavailable Unavailable DRAZEK, I CHERISE PA Unavailable Unavailable DRAZEK, I CHERISE PA Unavailable Unavailable DRAZEK, I CHERISE PA Unavailable Unavailable DRAZEK, I CHERISE PA Unavailable Unavailable DRAZEK, I CHERISE PA Unavailable Unavailable DRAZEK, I CHERISE PA Unavailable Unavailable Robert AMIN MD Unavailable Unavailable Robert AMIN MD Unavailable Unavailable Robert AMIN MD Unavailable Unavailable Robert AMIN MD Unavailable Unavailable Robert AMIN MD Unavailable Unavailable Robert AMIN MD Unavailable Unavailable Robert AMIN MD Unavailable Unavailable Robert AMIN MD Unavailable Unavailable Robert AMIN MD Unavailable Unavailable Robert AMIN MD Unavailable Unavailable Robert AMIN MD Unavailable Unavailable Robert AMIN MD Unavailable Unavailable Robert AMIN MD Unavailable Unavailable Robert AMIN MD Unavailable Unavailable Robert AMIN MD Unavailable Unavailable Robert AMIN MD Unavailable Unavailable Robert AMIN MD Unavailable Unavailable Robert AMIN MD Unavailable Unavailable Robert AMIN MD Unavailable Unavailable Robert AMIN MD Unavailable Unavailable Robert AMIN MD Unavailable Unavailable Robert AMIN MD Unavailable Unavailable Robert AMIN MD Unavailable Unavailable Robert AMIN MD Unavailable Unavailable Robert AMIN MD Unavailable Unavailable Robert AMIN MD Unavailable Unavailable Robert AMIN MD Unavailable Unavailable Robert AMIN MD Unavailable Unavailable Robert AMIN MD Unavailable Unavailable Robert AMIN MD Unavailable Unavailable Robert AMIN MD Unavailable Unavailable Robert AMIN MD Unavailable Unavailable Robert AMIN MD Unavailable Unavailable Robert AMIN MD Unavailable Unavailable Robert AMIN MD Unavailable Unavailable Robert AMIN MD Unavailable Unavailable Robert AMIN MD Unavailable Unavailable Robert AMIN MD Unavailable Unavailable Robert AMIN MD Unavailable Unavailable Robert AMIN MD Unavailable Unavailable Robert AMIN MD Unavailable Unavailable Robert AMIN MD Unavailable Unavailable Robert AMIN MD Unavailable Unavailable Robert AMIN MD Unavailable Unavailable Robert AMIN MD Unavailable Unavailable Robert AMIN MD Unavailable Unavailable Marcus Mcneil MD Unavailable Unavailable Marcus Mcneil MD Unavailable Unavailable Marcus Mcneil MD Unavailable Unavailable Marcus Mcneil MD Unavailable Unavailable Marcus Mcneil MD Unavailable Unavailable Marcus Mcneil MD Unavailable Unavailable Marcus Mcneil MD Unavailable Unavailable Marcus Mcneil MD Unavailable Unavailable Marcus Mcneil MD Unavailable Unavailable Marcus Mcneil MD Unavailable Unavailable Marcus Mcneil MD Unavailable Unavailable Marcus Mcneil MD Unavailable Unavailable Marcus Mcneil MD Unavailable Unavailable Marcus Mcneil MD Unavailable Unavailable Marcus Mcneil MD Unavailable Unavailable Marcus Mcneil MD Unavailable Unavailable Marcus Mcneil MD Unavailable Unavailable Marcus Mcneil MD Unavailable Unavailable Marcus Mcneil MD Unavailable Unavailable Marcus Mcneil MD Unavailable Unavailable Marcus Mcneil MD Unavailable Unavailable Marcus Mcneil MD Unavailable Unavailable Marcus Mcneil MD Unavailable Unavailable Marcus Mcneil MD Unavailable Unavailable Marcus Mcneil MD Unavailable Unavailable EwaMarcus ulloa MD Unavailable Unavailable EwaMarcus MD Unavailable Unavailable EwaMarcus jackson MD Unavailable Unavailable EwaMarcus MD Unavailable Unavailable EwaMarcus MD Unavailable Unavailable EwaMarcus MD Unavailable Unavailable EwaMarcus MD Unavailable Unavailable EwaMarcus ulloa MD Unavailable Unavailable EwaMarcus MD Unavailable Unavailable EwaMarcus MD Unavailable Unavailable EwaMarcus MD Unavailable Unavailable EwaMarcus MD Unavailable Unavailable EwaMarcus MD Unavailable Unavailable EwaMarcus MD Unavailable Unavailable EwaMarcus MD Unavailable Unavailable EwaMarcus MD Unavailable Unavailable EwaMarcus MD Unavailable Unavailable EwaMarcus jackson MD Unavailable Unavailable EwaMarcus ulloa MD Unavailable Unavailable Marcus Mcneil MD Unavailable Unavailable Marcus Mcneil MD Unavailable Unavailable Marcus Mcneil MD Unavailable Unavailable Marcus Mcneil MD Unavailable Unavailable Marcus Mcneil MD Unavailable Unavailable Marcus Mcneil MD Unavailable Unavailable Marcus Mcneil MD Unavailable Unavailable Marcus Mcneil MD Unavailable Unavailable Marcus Mcneil MD Unavailable Unavailable EwaMarcus jackson MD Unavailable Unavailable Marcus Mcneil MD Unavailable Unavailable Marcus Mcneil MD Unavailable Unavailable Marcus Mcneil MD Unavailable Unavailable Marcus Mcneil MD Unavailable Unavailable Marcus Mcneil MD Unavailable Unavailable Marcus Mcneil MD Unavailable Unavailable Marcus Mcneil MD Unavailable Unavailable Marcus Mcneil MD Unavailable Unavailable Mracus Mcneil MD Unavailable Unavailable Marcus Mcneil MD Unavailable Unavailable Marcus Mcneil MD Unavailable Unavailable Marcus Mcneil MD Unavailable Unavailable Marcus Mcneil MD Unavailable Unavailable Marcus Mcneil MD Unavailable Unavailable Marcus Mcneil MD Unavailable Unavailable Marcus Mcneil MD Unavailable Unavailable Marcus Mcneil MD Unavailable Unavailable Marcus Mcneil MD Unavailable Unavailable Marcus Mcneil MD Unavailable Unavailable EwaMarcus MD Unavailable Unavailable EwaMarcus MD Unavailable Unavailable Ewa, M Jessie KRAMER Unavailable Unavailable Ewa, M Jessie KRAMER Unavailable Unavailable Ewa, M Jessie KRAMER Unavailable Unavailable Ewa, M Jessie KRAMER Unavailable Unavailable Ewa, M Jessie KRAMER Unavailable Unavailable Ewa, M Jessie KRAMER Unavailable Unavailable Ewa, M Jessie KRAMER Unavailable Unavailable Ewa, M Jessie KRAMER Unavailable Unavailable Wea, M Jessie KRAMER Unavailable Unavailable Ewa, M Jessie KRAMER Unavailable Unavailable DEMARCHE, FLORENCIA PA Unavailable Unavailable DEMARCHE, FLORENCIA PA Unavailable Unavailable DEMARCHE, FLORENCIA PA Unavailable Unavailable DEMARCHE, FLORENCIA PA Unavailable Unavailable DEMARCHE, FLORENCIA PA Unavailable Unavailable DEMARCHE, FLORENCIA PA Unavailable Unavailable DEMARCHE, FLORENCIA PA Unavailable Unavailable DEMARCHE, FLORENCIA PA Unavailable Unavailable DEMARCHE, FLORENCIA PA Unavailable Unavailable DEMARCHE, FLORENCIA PA Unavailable Unavailable DEMARCHE, FLORENCIA PA Unavailable Unavailable DEMARCHE, FLORENCIA PA Unavailable Unavailable Re-disclosure Warning The records that you are about to access may contain information from federally-assisted alcohol or drug abuse programs. If such information is present, then the following federally mandated warning applies: This information has been disclosed to you from records protected by federal confidentiality rules (42 CFR part 2). The federal rules prohibit you from making any further disclosure of this information unless further disclosure is expressly permitted by the written consent of the person to whom it pertains or as otherwise permitted by 42 CFR part 2. A general authorization for the release of medical or other information is NOT sufficient for this purpose. The Federal rules restrict any use of the information to criminally investigate or prosecute any alcohol or drug abuse patient.The records that you are about to access may contain highly sensitive health information, the redisclosure of which is protected by Article 27-F of the [facility] Public Health law. If you continue you may have access to information: Regarding HIV / AIDS; Provided by facilities licensed or operated by the [facility] Office of Mental Health; or Provided by the [facility] Office for People With Developmental Disabilities. If such information is present, then the following [facility] mandated warning applies: This information has been disclosed to you from confidential records which are protected by state law. State law prohibits you from making any further disclosure of this information without the specific written consent of the person to whom it pertains, or as otherwise permitted by law. Any unauthorized further disclosure in violation of state law may result in a fine or long-term sentence or both. A general authorization for the release of medical or other information is NOT sufficient authorization for further disc losure. Allergies and Adverse Reactions Type Description Substance Reaction Status Data Source(s ) Propensity to adverse reactions NO KNOWN ALLERGIES NO KNOWN ALLERGIES [facility] Allergy to substance No Known Allergies No known allergies (situation ) CHARLIE (Ramiro Lima MD [facility]) Allergy to substance No Known Allergies No known allergies (situation ) CHARLIE (Ramiro Lima MD [facility]) Family History Family Member Name Family Member Gender Family Member Status Date o f Status Description Data Source(s) Unknown Unknown Problem [facility] ([facility]) Unknown Female Problem [facility] ([facility] ) Unknown Female Problem [facility] ([facility]) Encounters Encounter Providers Location Date Indications Data Source(s ) Outpatient Attender: EYAL Colemanerrer: ESA Moreira MD 03/27/2021 08:19:34 AM EST [facility] Outpatient Attender: ZOHAIB Larkiner: ESA RAMIREZ MD 02/08/2021 12:21:42 PM EDT [facility] Outpatient Attender: EYAL Hooper: ESA Moreira MD 01/16/2021 12:42:22 PM EDT [facility] Outpatient Attender: EYAL VIGIL MD MOB-MOB.PAT 2020 12:00:00 AM EDT - 01/11/2021 02:03:19 PM EDT [facility] Outpatient Attender: Jessie Ervin 10:00:00 AM EDT [facility] ([facility] ) Recurring Patient Attender: Shelby Gonzalez: ESA VALENZUELA MD 12/27/2020 08:21:11 AM EDT [facility] Outpatient Attender: Diana Ventura [facility] Main Office 12/19/2020 08:15:00 AM EDT [facility] ([facility]) Outpatient Attender: CHERISE LATHAM Physical Therapy 12/14/2020 0 3:45:00 PM EDT [facility] ([facility]) Office Visit Attender: CHERISE LATHAM [facility] 2020 04:30:00 PM EDT [facility] ([facility]) Inpatient Attender: JUSTIN SIMPSONCA ttender: EYAL VIGIL MDAdmitter: EYAL VIGIL MD [id number] 11/11/2020 11:30:27 AM EDT - 01/25/2021 12:57:00 PM EDT [facility] Patient discharged. Office Visit Attender: CHERISE LATHAM Physical Therapy 2020 02:15:00 PM EDT [facility] ([facility]) Office Visit Attender: CHERISE LATHAM Physical Therapy 2020 02:30:00 PM EDT [facility] ([facility]) Outpatient Attender: EYAL VIGIL MDReferrer: Jessie jackson MD 09/15/2020 10:29:49 AM EDT [facility] Outpatient Attender: CHERISE LATHAM Physical Therapy 09/14/2020 0 2:00:00 PM EDT [facility] ([facility]) Recurring Patient Attender: Shelby Skinnererrer: ESA VALENZUELA MD 09/12/2020 02:36:57 PM EDT [facility] Out[facility] Attender: Shelby ALICEAeferrer: Jessie pagan MD 09/08/2020 11:04:45 AM EDT [facility] Recurring Patient Attender: Shelby Skinnererrer: ESA VALENZUELA MD 09/06/2020 01:33:19 PM EDT [facility] Outpatient Attender: GODFREY OG [id number] 09/06/2020 12:00:0 0 AM EDT Personal history of other endocrine, nutritional and metabolic disease [facility] Personal history of other endocrine, nut ritional and metabolic disease Recurring Patient Referrer: ROB TORRES MD 08/24/2020 0 3:37:49 PM EDT [facility] Recurring Patient Attender: Shelby Mtz PAReferrer: ESA VALENZUELA MD 08/16/2020 12:59:00 PM EDT [facility] Recurring Patient Referrer: ROB TORRES MD 08/10/2020 0 8:23:35 AM EDT [facility] Outpatient Attender: ESA AMIN MDReferrer: Jessie romero MD 08/09/2020 08:06:50 AM EDT [facility] Outpatient Attender: Genet Patel [facility] Karlee Ervin 07:00:00 AM EST [facility] ([facility] ) Outpatient Attender: LIZ MONTGOMERY MD [facility] media relations coordinator 08/2020 07:45:00 AM EST [facility] ([facility]) Attender: YAW VYAS) MDReferrer: Tara Bennett [facility] 06/15/2020 08:21:02 PM EST [facility] Attender: YAW VYAS) MDReferrer: Tara Bennett [facility] 06/15/2020 08:21:02 PM EST [facility] Attender: YAW VYAS) MDReferrer: Tara Bennett [facility] 06/15/2020 08:21:02 PM EST [facility] Attender: YAW VYAS) MDReferrer: Tara Bennett [facility] 06/15/2020 08:21:02 PM EST [facility] Attender: YAW VYAS) MDReferrer: Tara Bennett [facility] 05/26/2020 08:21:02 PM EST [facility] Attender: YAW VYAS) MDReferrer: Tara Bennett [facility] 05/26/2020 08:21:02 PM EST [facility] Attender: YAW VYAS) MDReferrer: Tara Bennett [facility] 05/26/2020 08:21:02 PM EST [facility] Attender: YAW VYAS) MDReferrer: Tara anahikacey Bennett [facility] 05/26/2020 08:21:02 PM EST [facility] Outpatient Attender: Bucky OSMAN 05/06/2020 12:27:00 PM E [facility] Outpatient Attender: FLORENCIA LATHAM 05/06/2020 12: 27:00 PM EST [facility]IFIC[facility] ARTIFICIAL HIP JOINT M25.551 PAIN IN [facility] Recurring Patient Referrer: ROB TORRES MD 05/03/2020 0 4:53:28 PM EST [facility] Outpatient Attender: ROB TORRES MDReferrer: Jessie romero MD 05/03/2020 08:33:42 AM EST [facility] Outpatient Attender: ESA AMIN MDReferrer: Jessie romero MD 04/27/2020 04:16:15 PM EST [facility] Recurring Patient Referrer: ROB TORRES MD 04/27/2020 1 0:21:30 AM EST [facility] Recurring Patient Attender: Shelby ALICEAeferrer: Jsesie lam MD 04/27/2020 10:21:12 AM EST [facility] Recurring Patient Referrer: ROB TORRES MD 04/27/2020 1 0:20:48 AM EST [facility] Recurring Patient Referrer: ROB TORRES MD 04/27/2020 1 0:18:17 AM EST [facility] Recurring Patient Referrer: ROB TORRES MD 04/27/2020 0 9:28:57 AM EST [facility] Recurring Patient Attender: Shelby Skinnererrer: Jessie lam MD 04/26/2020 08:53:29 AM EST [facility] <td ID="encounterTypeDescriptionID0">1 Y ear Follow-Up</td><td>Ramiro Lima MD, FACS</td><td>Ramiro Cedeno MD [facility]</td><td>04/08/2020</td><td>7:24AM</td><td>7:49AM</td><td><content ID="encounterDiagnosisID0-0">Conjunctivitis Chronic Allergic</content>, <content ID="encounterDiagnosisID0-1">Pinguecula</content>, <content ID="encounterDiagnosisID0-2">Dry Eye Syndrome</content></td>Outpatient Attender: Ramiro Lima MD, FACS Ramiro Cedeno MD [facility] 04/08/2020 07:24:00 AM EST - 04/08/2020 07:49:00 AM EST Conjunctivitis Chronic AllergicConjuncti vitis Chronic AllergicDry Eye SyndromeDry Eye SyndromePingueculaPinguecula CHARLIE (Ramiro Lima MD [facility]) 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 Dry Eye Syndrome Pinguecula P[facility] Outpatient Attender: Angelique Bill NPReferrer: Jessie Mcneil MD 03/14/2020 11:15:00 AM EST [facility] Outpatient Attender: Shelby Mtz PAReferrer: Jessie pagan MD 03/02/2020 02:00:55 PM EST [facility] Immunizations Vaccine Date Status Description Data Source(s) 09/03/2020 12:00:00 AM EDT completed <td I D="[id number]">Covid-19 (Moderna)</td><td>09/03/2020, 08/06/2020</td><td></td> [facility] COVID-19 VACCINE Moderna 09/03/2020 12:00:00 AM EDT completed [employer] Vaccine Series Complete: YESThis Data wa s Submitted to [facility] Via [employer]. 08/06/2020 12:00:00 AM EDT completed <td I D="[id number]">Covid-19 (Moderna)</td><td>09/03/2020, 08/06/2020</td><td></td> [facility] COVID-19 VACCINE Moderna 08/06/2020 12:00:00 AM EDT completed [facility] Vaccine Series Complete: NOThis Data was Submitted to [facility] Via [employer]. Medications Medication Brand Name Start Date Product Form Dose Route Admi nistrative Instructions Pharmacy Instructions Status Indications Reaction Description Data Source(s) 25 mg 02/07/2021 12:00:00 AM EDT capsule 60 TAKE ONE CAPSULE BY MOUTH TWICE A DAY MAXIMUM DAILY DOSE = 2 TAKE ONE CAPSULE BY MOUTH TWICE A DAY MA XIMUM DAILY DOSE = 2 SOLD: 02/07/2021 [facility] 5 mg 02/07/2021 12:00:00 AM EDT tablet 30 TAKE ONE TABLET BY MOUTH TWICE A DAY NEEDED FOR PAIN MAXIMUM DAILY DOSE = 2 TAKE ONE TABLET BY MOUTH TWICE A DAY NEEDED FOR PAIN MAXIMUM DAILY DOSE = 2 SOLD: 02/07/2021 [facility] Bisacodyl 10 MG Rectal Suppository bisacodyl (DULCOLAX ) suppository 10 mg bisacodyl (DULCOLAX) suppository 10 mg 01/26/2021 07:00:00 PM EDT 10 mg Rectal active 10 mg, Rectal, Once, On Sindi 01/26/21 at 1900, For 1 dose, Post-op
Post-op day #2 Hold for BM
[facility] Medication administered onsite Fluoxetine 20 MG Oral Capsule FLUoxetine (PROzac) caps ule 40 mg FLUoxetine (PROzac) capsule 40 mg 01/25/2021 09:00:00 AM EDT 40 mg Oral active 40 mg, Oral, Daily, First dose on Sat01/25/21 at 0900, Post-op [facility] Medication administered onsite 24 HR Propranolol Hydrochloride 60 MG Ex tended Release Oral Capsule propranolol (INDERAL LA) 24 hr capsule 60 mg propranolol (INDERAL LA) 24 hr capsule 60 mg 01/25/2021 09:00:00 AM EDT 60 mg Oral active 60 mg, Oral, Daily, First dose on Sat01/25/21 at 0900, Post-op [facility] Medication administered onsite POLYETHYLENE GLYCOL 3350 142 MG/ML Oral Solution polyethylene glycol (GLYCOLAX) packet 17 g polyethylene glycol (GLYCOLAX) packet 17 g 01/25/2021 09:00:00 AM EDT 17 g Oral active 17 g, Or al, Daily, First dose on Sat01/25/21 at 0900, Post-op
Start POD #1
[facility] Medication administered onsite ferrous sulfate 325 MG Oral Tablet ferrous sulfate tab let 325 mg ferrous sulfate tablet 325 mg 01/25/2021 07:00:00 AM EDT 325 mg Oral acti ve 325 mg, Oral, Daily with breakfast, First dose on Sat01/25/21 at 0700, Post- op
Separate from antacids as far as possible. Take with food, do not crush
[facility] Medication administered onsite Magnesium Hydroxide 80 MG/ML Oral Suspen panfilo magnesium hydroxide (MILK OF MAGNESIA) 400 MG/5ML suspension 30 mL magnesium hydroxide (MILK OF MAGNESIA) 4 00 MG/5ML suspension 30 mL 01/25/2021 12:00:00 AM EDT 30 mL Oral active 30 mL, Oral, Daily PRN, constipation, Starting on Sat01/25/21 at 0000, Post- op
Start Post-op day #1. Hold for BM
[facility] Medication administered onsite Bisacodyl 10 MG Rectal Suppository bisacodyl (DULCOLAX ) suppository 10 mg bisacodyl (DULCOLAX) suppository 10 mg 01/25/2021 12:00:00 AM EDT 10 mg Rectal active 10 mg, Rectal, Daily PRN, constipation, for constipation unrelieved by miralax/MOM, Starting on Sat01/25/21 at 0000, For 4 days, Post- op
For post-op day #1, #3, and #4 Hold for BM
[facility] Medication administered onsite Oxycodone Hydrochloride 5 MG Oral Tablet oxyCODONE (ROXICODONE) 5 MG immediate release tablet oxyCODONE (ROXICODONE) 5 MG immediate release tablet 1 12:00:00 AM EDT 5 mg Oral active Take 1 tablet (5 mg total) by mouth every 4 (four) hours as needed for pain Max Daily Amount: 30 mg [facility] Docusate Sodium 50 MG / sennosides, [facility] 8.6 MG Oral Tablet senna-docusate (PERICOLACE) 8.6-50 MG senna-docusate (PERICOLACE) 8.6-50 MG 01/25/2021 12:00 :00 AM EDT 2 {tbl} Oral active Take 2 tablets b y mouth nightly [facility] Acetaminophen 500 MG Oral Tablet acetaminophen (TYLENO L) 500 MG tablet acetaminophen (TYLENOL) 500 MG tablet 01/25/2021 12:00:00 AM EDT 50 0 mg Oral active Take 1 tablet ( 500 mg total) by mouth every 4 (four) hours as needed for pain [facility] 5 mg 01/25/2021 12:00:00 AM EDT tablet 40 TAKE 1 TABLET BY MOUTH EVERY 4 HOURS NEEDED FOR PAIN MAXIMUM DAILY DOSE = 6 TAKE 1 TABLET BY MOUTH EVERY 4 HOURS NEEDED FOR PAIN MAXIMUM DAILY DOSE = 6 SOLD: 01/25/2021 [employer] normal saline flush 0.9 % injection 3 mL [id number] 01/24/2021 09:00:00 PM EDT 3 mL Intravenous active 3 mL , Intravenous, PROTOCOL, First dose on Sat01/24/21 at 2100, Post-op
When PO taken well
[facility] Medication administered onsite Docusate Sodium 50 MG / sennosides, [facility] 8.6 MG Oral Tablet senna-docusate (PERICOLACE) 8.6-50 MG 2 tablet senna-docusate (PERICOLACE) 8.6-50 MG 2 tablet 01/24/2021 09:00:00 PM EDT 2 {tbl} Oral active 2 tablet, Oral, Nightly, First dose on Sat01/24/21 at 2100, Post-op
hold for loose stools
[facility] Medication administered onsite Cefazolin 1000 MG Injection ceFAZolin (ANCEF) injectio n 1 g ceFAZolin (ANCEF) injection 1 g 01/24/2021 06:00:00 PM EDT 1 g Intravenous completed Perioperative Pharmacoprophylaxis 1 g, Intravenous, Ev lazara 8 hours (relative), First dose on Sat01/24/21 at 1800, For 3 doses, Post-op
Start 4 hours after pre-op dose, then every 8 hours x 2 doses. Time pre-op dose hun R econstitute with 10 ml sterile water for injection. Administer IV push over 3 minutes. Use within 1 hour of reconstitution
[facility] Perioperative Pharmacoprophylaxis Medication administered onsite sodium chloride 0.9% (NS) infusion 2721-7865-47 01/24/2021 05:00:00 P M EDT Intravenous active at 100 mL/hr, Intravenous, Continuous, Starting on Sat01/24/21 at 1700, Post-op [facility] Medication administered onsite Acetaminophen 500 MG Oral Tablet acetaminophen (TYLENO L) tablet 1,000 mg acetaminophen (TYLENOL) tablet 1,000 mg 01/24/2021 05:00:00 PM EDT 1000 mg Oral active 1,000 mg, Oral , Every 6 hours (scheduled), First dose on Sat01/24/21 at 1700, Post-op [facility] Medication administered onsite ondansetron (ZOFRAN) injection 4 mg [id number] 01/24/2021 04:20:2 9 PM EDT 4 mg Intravenous active 4 mg, In travenous, Every 4 hours PRN, nausea, vomiting, Starting on Sat01/24/21 at 1620, Post-op
If unable to take PO
[facility] Medication administered onsite oxyCODONE (ROXICODONE) immediate release tablet 2.5 mg [id number] 01/24/2021 04:20:29 PM EDT 2.5 mg Oral active 2.5 mg, Oral, Every 4 hours PRN, moderate pain (4-6), Starting on Sat01/24/21 at 1620, For 7 days, Post-op [facility] Medication administered onsite 2 ML Metoclopramide 5 MG/ML Prefilled Sy ringe metoclopramide (REGLAN) injection 10 mg metoclopramide (REGLAN) injection 10 mg 01/24/2021 04:20:29 PM E DT 10 mg Intravenous active 10 mg, I ntravenous, Every 6 hours PRN, for nausea not relieved by Zofran, Starting on Sat01/24/21 at 1620, For 24 hours, Post- op
Renal dosing per pharmacy
[facility] Medication administered onsite Oxycodone Hydrochloride 5 MG Oral Tablet oxyCODONE (ROXICODONE) immediate release tablet 5 mg oxyCODONE (ROXICODONE) immediate release tablet 5 mg 01/24/2021 04:20:29 PM EDT 5 mg Oral active 5 mg, Oral, Every 4 hours PRN, severe pain (7-10), Starting on Sat01/24/21 at 1620, For 7 days, Post-op [facility] Medication administered onsite Mineral Oil 1000 MG/ML Enema mineral oil enema 1 enema mineral oil enema 1 enema 01/24/2021 04:20:29 PM EDT 1 {enema} Rectal active 1 enema, Rectal, Daily PRN, constipation, if unrelieved by dulcolax, Starting on Sat01/24/21 at 1620, Post-op
hold for loose stools
[facility] Medication administered onsite fentaNYL Citrate (PF) (SUBLIMAZE) injection 25 mcg [id number] 01/24/2021 04:20:29 PM EDT 25 ug Intravenous active 25 mcg, Intravenous, Every 3 hours PRN, for severe breakthrough pain (7-10) if oral opioid ineffective within one hour, Starting on Sat01/24/21 at 1620, For 7 days, Post-op [facility] Medication administered onsite Methocarbamol 500 MG Oral Tablet methocarbamol (ROBAXI N) tablet 500 mg methocarbamol (ROBAXIN) tablet 500 mg 01/24/2021 04:20:29 PM EDT 50 0 mg Oral active 500 mg, Oral, 4 times daily PRN, muscle spasms, Starting on Sat01/24/21 at 1620, Post-op [facility] Medication administered onsite Calcium Carbonate 500 MG Chewable Tablet calcium carbonate (TUMS) chewable tablet 500-1,000 mg calcium carbonate (TUMS) chewable tablet 500-1,000 mg 01/24/2021 04:20:29 PM EDT mg Oral active 500-1,000 mg, Oral, Every 4 hours PRN, indigestion, moderate or severe, Starting on Sat01/24/21 at 1620, Post-op [facility] Medication administered onsite Ondansetron 4 MG Disintegrating Oral Tab let ondansetron (ZOFRAN-ODT) disintegrating tablet 4 mg ondansetron (ZOFRAN-ODT) disintegrating tablet 4 mg 01/24/2021 04:20:29 PM EDT 4 mg Oral active 4 mg, Oral, Every 4 hours PRN, nausea, vomiting, Starting on Sat01/24/21 at 1620, Post-op [facility] Medication administered onsite Aluminum Hydroxide 40 MG/ML / Magnesium Hydroxide 40 MG/ML / Simethicone 4 MG/ML Oral Suspension alum & mag hydroxide-simeth 200-200-20 MG/5ML suspension 30 mL alum & mag hydroxide-simeth 200-200-20 MG/5ML suspension 30 mL 01/24/2021 04:20:28 PM EDT 30 mL Oral active 30 mL, Oral, Every 4 hours PRN, indigestion, Starting on Sat01/24/21 at 1620, Post-op [facility] Medication administered onsite Acetaminophen 500 MG Oral Tablet acetaminophen (TYLENO L) tablet 1,000 mg acetaminophen (TYLENOL) tablet 1,000 mg 01/24/2021 09:00:00 AM EDT 1000 mg Oral completed 1,000 mg, Oral , scalloper, On Sat01/24/21 at 0900, For 1 dose, Pre-op
To be administered just prior to to transport to operating room
[facility] Medication administered onsite chlorhexidine gluconate 1.2 MG/ML Mouthw deysi chlorhexidine (PERIDEX) 0.12 % oral solution 15 mL chlorhexidine (PERIDEX) 0.12 % oral solution 15 mL 08/2020 09:00:00 AM EDT 15 mL Mouth/Throat completed 15 mL, Mouth/Throat, scalloper, On Sat01/24/21 at 0900, For 1 dose, Pre-op
Swish for 30 seconds and spit in pre-induction unit
[facility] Medication administered onsite dexamethasone (DECADRON) injection 4 mg [id number] 01/25/20 09:00:00 AM EDT 4 mg Intravenous completed 4 mg, Intr avenous, scalloper, On Sat01/24/21 at 0900, For 1 dose, Pre-op
To be administered just prior to to transport to operating room. Hold if patient is diabetic or if stress dose aure roids are ordered
[facility] Medication administered onsite 2 ML Metoclopramide 5 MG/ML Prefilled Sy ringe metoclopramide (REGLAN) injection 10 mg metoclopramide (REGLAN) injection 10 mg 01/24/2021 09:00:00 AM E DT 10 mg Intravenous completed 10 mg, I ntravenous, scalloper, On Sat01/24/21 at 09, For 1 dose, Pre-op
To be administered just prior to to transport to operating room
[facility] Medication administered onsite Magnesium Chloride 0.95944 MEQ/ML / Pota ssium Chloride 0.0497 MEQ/ML / Sodium Acetate 0.0163 MEQ/ML / Sodium Chloride 0.0899 MEQ/ML / Sodium gluconate 5.02 MG/ML Injectable Solution [Normosol-R] electrolyte-R (NORMOSOL-R/PLASMALYTE-R) solution electrolyte-R (NORMOSOL-R/PLASMALYTE-R) solution 01/24 09:00:00 AM EDT Intravenous aborted at 1 00 mL/hr, Intravenous, Continuous, Starting on Sat01/24/21 at 0900, Pre-op [facility] Medication administered onsite ondansetron (ZOFRAN) injection 4 mg [id number] 01/24/2021 09:00:0 0 AM EDT 4 mg Intravenous completed 4 mg, In travenous, scalloper, On Sat01/24/21 at 0900, For 1 dose, Pre-op
To be administered just prior to to transport to operating room
[facility] Medication administered onsite sennosides, [facility] 8.6 MG Oral Tablet Senna Lax 12/29/2020 12:00:00 AM EDT ORAL active [facility] ([facility]) ferrous sulfate 325 MG Oral Tablet Ferrous Sulfate 12/29/2020 12:00 :00 AM EDT ORAL active [facility] ([facility]) Covid-19 vaccine, Unspecified 09/03/2020 12:00:00 AM EDT completed [facility] ([facility]) Medication administered onsite 17.5-3.13-1.6 gram 07/11/2020 12:00:00 AM EDT recon soln 354 USE DIRECTED BY [facility] USE DIRECTED BY [facility] SOLD: 07/11/2020 [facility] valacyclovir 1000 MG Oral Tablet VALACYCLOVIR HCL 07/01/2020 12: 00:00 AM EST tablet 12 TAKE TWO TABLETS BY MOUTH TWICE A DAY FOR 1 DAY NEEDED TAKE TWO TABLETS BY MOUTH TWICE A DAY FOR 1 DAY NEEDED SOLD: 07/11/2020 [facility] 2.5-1 % 06/16/2020 12:00:00 AM EST cream 30 APPLY A SMALL AMOUNT RECTALLY TWO TIMES A DAY NEEDED APPLY A SMALL AMOUNT RECTALLY TWO TIMES A DAY NEEDED SOLD: 06/18/2020 [facility] 500 mg 05/26/2020 12:00:00 AM EST tablet 12 TAKE 4 TABLETS BY MOUTH 1 HOUR PRIOR TO PROCEDURE TAKE 4 TABLETS BY MOUTH 1 HOUR PRIOR TO PROCEDURE SOLD : 05/31/2020 [facility] 4 mg 04/26/2020 12:00:00 AM EST tablets,dose pack 42 USE DIRECTED BY PRESCRIBER USE DIRECTED BY PRESCRIBER SOLD: 04/28/2020 [facility] Insurance Providers Payer name Policy type / Coverage type Policy ID Covered republican ID Covered republican's relationship to henriquez Policy Henriquez Plan Information Danny/Jadyn GOVEA (pr) Medigap Part B [id number] Self [id number] [place] Med[employer] Part B [id number] Self [id number] [employer] (pr) Commercial [id number] Self [id number] MVP (pr) Commercial [id number] Self [id number] [facility] [id number] [employer] Commercial [id number] Self [id number] FLORENCIA J RONY [id number] [employer] [facility] [place] [id number] Self L [employer] HDHP State Ins Fund () Workers Compensation [id number] Self State Ins Fund () Workers Compensation [id number] Self [id number] [employer] Health Maintenance Organization (HMO) [id number] Self [id number] [employer] [facility] [id number] SP [id number] [employer] [facility] C[facility] [id number] SP [id number] [facility] C[facility] [id number] SP [id number] MVP H [id number] Self [id number] MVP H [id number] Self [id number] MVP Healthcare F [id number] SELF [id number] MVP Healthcare F [id number] SELF [id number] MVP Healthcare F [id number] SELF [id number] MVP Healthcare F [id number] SELF [id number] [employer] PPO POS [id number] Blue Cross Blue Shield P [id number] SELF [id number] Blue Cross Blue Shield P [id number] SELF [id number] Blue Cross Blue Shield P [id number] SELF [id number] BCBS ANDRY HMO [id number] SP [id number] Blue Cross Blue Shield P [id number] SELF [id number] EXCELLUS BCBS MEDICAID [id number] EXCELLUS C [id number] Self [id number] Blue Cross Blue Shield P [id number] SELF [id number] EXCELLUS BCBS MEDICAID [id number] Jeanine [id number] STATE INSURANCE FUND [id number] SP [id number] STATE INSURANCE FUND [id number] SP [id number] STATE INSURANCE FUND [id number] SP [id number] STATE INSURANCE FUND [id number] SP [id number] [facility] P [id number] S [id number] BRO[employer] WORK COMP [id number] SP [id number] 000 BCBS ANDRY HMO [id number] SP [id number] [place] PPO 302/307 [id number] SP [id number] [place] PPO 302/307 [id number] SP [id number] EXCELLUS BCBS B [id number] S [id number] EXCELLUS BLUE CROSS BLUE [employer]IELD HEA [id number] S [id number] BCBS ANDRY HMO [id number] SP [id number] Blue Cross Blue Shield P [id number] SELF [id number] Blue [facility] Employee Program [id number] SELF [id number] [facility] [id number] SP [id number] P HEALTH CARE O [id number] S [id number] P HEALTH CARE HEA [id number] S [id number] MVP (pr) Commercial [id number] Self [id number] MVP (pr) Commercial [id number] Self [id number] MVP (pr) Commercial [id number] Self [id number] MVP (pr) Commercial [id number] Self [id number] MVP (pr) Commercial [id number] Self [id number] MVP (pr) Commercial [id number] Self [id number] MVP (pr) Commercial [id number] Self [id number] [employer] O [id number] S [id number] [facility] [id number] SP [id number] [facility] [id number] S [id number] SELECTIVE INS WORKER COMP [id number] SP [id number] SELECTIVE INS WC O [id number] S [id number] SELECTIVE INS WC O [id number] S [id number] SELECTIVE INS WORKER COM O [id number] S [id number] SELECTIVE INS WORKER COMP [id number] SP [id number] SELECTIVE INS WORKER COMP - SP - ONE CALL CARE MANAGEMENT O [id number] S [id number] [facility] [id number] SP [id number] Problems, Conditions, and Diagnoses Code Display Name Description Problem Type Effective Dates Data Source(s) M41.86 Other forms of scoliosis, lumbar region Other forms of scoliosis, lumbar region Diagnosis 01/24/2021 07:20:00 AM EDT [facility] M48.062 Spinal stenosis, lumbar region with neur ogenic claudication Spinal stenosis, lumbar region with neur Diagnosis 01/24/2021 07:20:00 AM EDT [facility] F32.A Depression Depression [id number] 01/24/2021 12:00:00 AM ED T [facility] E16.2 Hypoglycemia Hypoglycemia [id number] 01/24/2021 12:00:00 A M EDT [facility] M48.062 Spinal stenosis of lumbar region with ne urogenic claudication Spinal stenosis of lumbar region with neurogenic claudication [id number] 01/24/2021 12:00:00 AM EDT [facility] Surgeries/Procedures Procedure Description Date Indications Data Source(s) BLOOD COUNT COMPLETE AUTOMATED <td>CBC</td><td>Routine </td><td>01/25/2021 4:52 AM EDT</td><td></td><td> </td> 01/25/2021 04:52:00 AM EDT [facility] BASIC METABOLIC PANEL CALCIUM TOTAL <td>BASIC METABOLI C PANEL</td><td>Routine</td><td>01/25/2021 4:52 AM EDT</td><td></td><td> </td> 01/25/2021 04:52:00 AM EDT [facility] FLUOROSCOPY SPX <1 HOUR PHYSICIAN TIME <td>XR OR SPINE LUMBAR</td><td>STAT</td><td>01/24/2021 1:11 PM EDT</td><td></td><td> </td> 01/24/2021 01:11:45 PM EDT [facility] FUSION, SPINE, LUMBAR, DIRECT LATERAL INTERBODY FUSION (DLIF) <td>FUSION, SPINE, LUMBAR, DIRECT LATERAL INTERBODY FUSION (DLIF)</td><td></td><td>01/24/2021 11:08 AM EDT</td><td> Spinal stenosis of lumbar region with neurogenic claudication Other forms of scoliosis, lumbar region</td><td></td> 01/24/2021 11:08:00 AM EDT - 01/24/2021 01:51:00 PM EDT Other forms of scoliosis, lumbar regionS krista stenosis of lumbar region with neurogenic claudication [facility] Other forms of scoliosis, lumbar region Spinal stenosis of lumbar region with ne urogenic claudication GLUC BLD GLUC MNTR DEV CLEARED FDA SPEC HOME USE <td>P OCT GLUCOSE</td><td>Routine</td><td>01/24/2021 8:13 AM EDT</td><td></td><td> </td> 01/24/2021 08:13:00 AM EDT [facility] BLOOD TYPING ABO <td>PREPARE RBC</td><td>Rout ine</td><td>01/24/2021 12:01 AM EDT</td><td></td><td> </td> 01/24/2021 12:01:00 AM EDT [facility] THROMBOPLASTIN TIME PARTIAL PLASMA/WHOLE BLOOD <td>APTT</td><td>Routine</td><td>01/11/2021 1:50 PM EDT</td><td> Spinal stenosis of lumbar region with neurogenic claudication Other forms of scoliosis, lumbar region</td><td> </td> 01/11/2021 01:50:00 PM EDT Other forms of scoliosis, lumbar regionS krista stenosis of lumbar region with neurogenic claudication [facility] Other forms of scoliosis, lumbar region Spinal stenosis of lumbar region with ne urogenic claudication PROTHROMBIN TIME <td>PROTIME-INR</td><td>Rout ine</td><td>01/11/2021 1:50 PM EDT</td><td> Spinal stenosis of lumbar region with neurogenic claudication Other forms of scoliosis, lumbar region</td><td> </td> 01/11/2021 01:50:00 PM EDT Other forms of scoliosis, lumbar regionS krista stenosis of lumbar region with neurogenic claudication [facility] Other forms of scoliosis, lumbar region Spinal stenosis of lumbar region with ne urogenic claudication BLOOD TYPING ABO <td>TYPE AND SCREEN</td><td> Routine</td><td>01/11/2021 1:50 PM EDT</td><td> Spinal stenosis of lumbar region with neurogenic claudication Other forms of scoliosis, lumbar region</td><td> </td> 01/11/2021 01:50:00 PM EDT Other forms of scoliosis, lumbar regionS krista stenosis of lumbar region with neurogenic claudication [facility] Other forms of scoliosis, lumbar region Spinal stenosis of lumbar region with ne urogenic claudication COMPREHENSIVE METABOLIC PANEL <td>COMPREHENSIVE METABO LIC PANEL</td><td>Routine</td><td>01/11/2021 1:50 PM EDT</td><td> Spinal stenosis of lumbar region with neurogenic claudication Other forms of scoliosis, lumbar region</td><td> </td> 01/11/2021 01:50:00 PM EDT Other forms of scoliosis, lumbar regionS krista stenosis of lumbar region with neurogenic claudication [facility] Other forms of scoliosis, lumbar region Spinal stenosis of lumbar region with ne urogenic claudication ECG ROUTINE ECG W/LEAST 12 LDS W/I&R 12/27/2020 12:00: 00 AM EDT [facility] ([facility]) OFFICE OUTPATIENT VISIT 25 MINUTES 12/27/2020 12:00:00 AM EDT [facility] ([facility]) OFFICE OUTPATIENT VISIT 25 MINUTES 12/19/2020 12:00:00 AM EDT [facility] ([facility]) RADEX FOOT COMPLETE MINIMUM 3 VIEWS 12/14/2020 12:00:0 0 AM EDT [facility] ([facility]) OFFICE OUTPATIENT VISIT 10 MINUTES 12/14/2020 12:00:00 AM EDT [facility] ([facility] ) RADEX FOOT COMPLETE MINIMUM 3 VIEWS 11/15/2020 12:00:0 0 AM EDT [facility] ([facility] ) RADEX FOOT COMPLETE MINIMUM 3 VIEWS 10/14/2020 12:00:0 0 AM EDT [facility] ([facility]) RADEX FOOT COMPLETE MINIMUM 3 VIEWS 09/28/2020 12:00:0 0 AM EDT [facility] ([facility]) FX Metatarsal W/O Manipulation 09/14/2020 12:00:00 AM EDT [facility] ([facility]) RADEX FOOT COMPLETE MINIMUM 3 VIEWS 09/14/2020 12:00:0 0 AM EDT [facility] ([facility]) OFFICE OUTPATIENT VISIT 25 MINUTES 09/14/2020 12:00:00 AM EDT [facility] ([facility]) Colonoscopy 07/14/2020 12:00:00 AM EDT M [facility] ([facility]) PERIODIC PREVENTIVE MED EST PATIENT 40-64YRS 12:00:00 AM EST [facility] ([facility]) Intermediate Eye Exam Established Patient Intermediate Eye Exam Established Patient 04/08/2020 12:00:00 AM EST CHARLIE (Elijah id A Corbin Lima MD [facility]) Intermediate Eye Exam Established Patient Intermediate Eye Exam Established Patient 04/08/2020 12:00:00 AM EST CHARLIE (Elijah id Luis Felipe Lima MD [facility]) Results ID Date Data Source [id number] 03/23/2021 10:10:00 AM EST [facility] Name Value Range Interpretation Code Description Data Kelle rce(s) Supporting Document(s) SARS-COV 2 PCR (NASAL SWAB) NEGATIVE [place] [facility] This lab was ordered by [facility] #15 and reported by [employer]. ID Date Data Source [id number] 03/23/2021 12:00:00 AM EST [facility] Name Value Range Interpretation Code Description Data Kelle rce(s) Supporting Document(s) SARS-CoV-2 (COVID-19) RNA [Presence] in Respiratory specimen by PADMINI with probe detection Not detected [facility] This lab was ordered by [facility] and r eported by [employer]. ID Date Data Source [id number] 03/27/2021 08:19:34 AM EST [facility] PC[facility]: Florencia TrevinOB: 1955Provider: Sienna Vigil: 03/22/2021 Reason For VisitKryssa Benjamín is here today for cervical + lumbar spine. Florencia had her second Covid vaccine on 09/03/20. Florencia Butts is an established patient here for follow up. Other DOI/DOO: 08/2018 w/o /27/21. Surgery DOS: 01/24/21. Surgery Description: (Left L4/5 DLIF. globus. neuromonitoring). Patient states the injury occurred after a fall. The patient has not had a course of physical therapy for greater than 4 weeks. The patient has not had a course of NSAIDs for greater than 4 weeks. The patient was notified that the office visit was recorded to enhance documentation accuracy. 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 History of Present IllnessCHIEF COMPLAINTFollow-up of lumbar spine.HISTORY OF PRESENT ILLNESSThe patient is a 65-year-old female who returns for a follow-up of the lumbar spine. She is here for her second postoperative visit. She is status post DLIF at L4-5 by myself on 01/24/2021.The patient states that she is feeling pretty good as well as making progress with regards to her low back pain. She states that the nerve pain has improved, but she continues to have mild pain in her right lower extremity. She denies any numbness at this time. The pain and weakness in her right lower extremity was severe prior to surgery, and it has mostly resolved at this time. The patient states that prior to surgery she was limping due to issues with her gait. She is not doing any physical therapy at this time. She is using a cane for ambulation.The patient complains of chest pain today. She states that she had a fall in her living room at home and slammed her chest on her hardwood floors. She did not undergo any x-rays of her chest, but mentions that her lumbar spine x-rays showed no concerning findings.The patient returned to work last week and currently works for a couple of hours daily with her sister. She lives in [place]. AssessmentASSESSMENTPostsurgical arthrodesis status, lumbar spine. Plan X-Ray I Lumbosacral - 2 views (XRays were ordered, obtained and interpreted today inthe office. Indication: pain/dysfunction.); Status:Complete; Done: [id number] Perform:SOS22; Due:[id number]; Last Updated By:Janay Veloz; 03/22/2021 11:24:29 AM;Ordered; For:Lower back pain; Ordered By:Eyal Vigil; Mynor patient presents for her second postoperative follow-up of the lumbar spine with symptoms of mild to moderate low back pain and mild right lower extremity pain. The patient is status post lumbar spine surgery. She is quite happy with the outcome of surgery. I explained to her that any surgery takes 1-2 years to achieve maximum result with 90% progress potentially made 1 year postoperatively. We discussed the diagnosis as well as treatment options including conservative treatment following surgical treatment. I explained to her that her lumbar spine x-rays look good and she is making progress. I informed her that her right hip is mildly weak as it drops during ambulation and that her muscles can get weak from nerve compression. I am quite happy with her progress and we discussed that she is still early in her recovery phase and she should see more improvement as time goes on. I informed her that she may resume physical activity with no restrictions. I informed her that she can start increasing her activities. She can lift, bend, twist, and walk as tolerated at this point.We will provide her a prescription for 3 to 6 visits of physical therapy with home exercises to work on hip strengthening. The patient will follow up with me in 6 months. The patient understands and agrees with the plan. Disclaimers Scribed by Adrien on 03/23/2021 at 02:16 PM for Eyal Vigil Signatures Electronically signed by : Adrien Quintero MA; Mar 23 2021 2:16PM EST (Author) Electronically signed by : Eyal Vigil M.D.; Mar 27 2021 8:19AM EST Name Value Range Interpretation Code Description Data Kelle rce(s) Supporting Document(s) ID Date Data Source [id number] 02/08/2021 12:21:42 PM EDT [facility] PC[facility]: Florencia LopezOB: 1955Provider: Nancy Blackwell: 02/07/2021 Reason For VisitFlorencia Butts is here today for cervical + lumbar spine. Patient denies any symptoms of or pending results for COVID 19 or contact with anyone with COVID 19. Florencia had her second Covid vaccine on 09/03/20. Florencia Butts is here for first post-op appointment. Post Op #1 Left L4/5 DLIF. globus. neuromonitoring 01/24/21, taking oxycodone for pain and does need this refilled, reports pain BLE R>L which is worse at night, ambulates with cane Other DOI/DOO: 08/2018. Surgery DOS: 01/24/21. Surgery Description: (Left L4/5 DLIF. globus. neuromonitoring). Chronic w/o injury. The patient has not had a course of physical therapy for greater than 4 weeks. The patient has not had a course of NSAIDs for greater than 4 weeks. 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 History of Present Illness This is a 65-year-old female complaining of lower back pain with fairly diffuse right leg pain down the lateral aspect of the right leg as well as pain into the left quadricep. She is 2 weeks status post direct lateral interbody fusion L4-5. She is using oxycodone with minimal relief. No drainage or fevers. Pain worsens with increased physical activity. Plan Start: oxyCODONE HCl - 5 MG Oral Tablet; TAKE 1 TABLET TWICE DAILY NEEDEDFOR PAIN. Reference #:[id number] MDD:2 Rx By: Zohaib Blackwell; Dispense: 0 Days ; #:30 Tablet; Refill: 0;For: Aftercare following surgery of the musculoskeletal system, Lower back pain; SOFÍA = N; Sent To: [facility]; Last Updated By: Farheen Price; 02/07/2021 2:34:41 PM Start: Pregabalin 25 MG Oral Capsule (Lyrica); TAKE 1 CAPSULE TWICE DAILY. Reference #:[id number] MDD:2 Rx By: Zohaib Blackwell; Dispense: 0 Days ; #:60 Capsule; Refill: 0;For: Aftercare following surgery of the musculoskeletal system, Lower back pain; SOFÍA = N; Sent To: [facility] #[facility]; Last Updated By: Farheen Price; 02/07/2021 2:32:22 PM X-Ray I Lumbosacral - 2 views (XRays were ordered, obtained and interpreted today inthe office. Indication: pain/dysfunction.); Status:Complete; Done: 07Feb2021 Perform:SOS22; Due:21Feb2021; Last Updated By:Jessie Islas; 02/07/2021 2:03:26 PM;Ordered; For:Lower back pain; Ordered By:Zohaib Blackwell; Plan, Assessment and Recommendation(s) Assessment: Low back pain, lumbar radiculopathy, status post lumbar arthrodesis. Plan: I did refill her oxycodone and I also started her on Lyrica 25 mg twice daily for radicular pain. She will continue some light stretching and walking at home. She deferred formal physical therapy but at this point I think she just needs some more time and rest. Follow-up next month with Dr. Vigil as scheduled. No evidence of infection. Work / School NoteThe patient is not working at this time. Florencia Keenantab is on total disability until next visit. DisclaimersThis document was dictated and electronically signed using [employer] software. A reasonable attempt at proof reading has been made to minimize errors. Please call with any questions. Signatures Electronically signed by : Augustine Villegas; Feb 07 2021 4:33PM EST (Author) Electronically signed by : Eayl Vigil M.D.; Feb 08 2021 12:21PM EST Name Value Range Interpretation Code Description Data Kelle rce(s) Supporting Document(s) ID Date Data Source [id number] 01/27/2021 03:42:06 PM EDT [facility] ClinicPATIE NT INFORMATIONPatient MRN Name Date of Age Gend*PT [id number] Florencia Butts 1955 65 years F IPPT Location Admission Date/Time Visit ID Attending [id number] 01/24/21 0720 --- --- EPI ID CSN Admitting Provider [id number] Eyal Vigil MD([id number]) [place] [address] OPERATIVE REPORT OPNAME: FLORENCIA BUTTS#: [id number] #: [id number] ADMISSION DATE: 01/24/2021OB: 1955 SEX: F PT TYPE: I OrthACCT #: [id number] CARE PHYSICIAN: JESSIE SAUNDERS OF OPERATION: URGEON:ROSALIA BassISTANT:NOA Beckman.PREOPERATIVE DIAGNOSES:1. Lumbar stenosis with neurogenic claudication.2. Lumbar degenerative scoliosis.POSTOPERATIVE DIAGNOSES:1. Lumbar stenosis with neurogenic claudication.2. Lumbar degenerative scoliosis.PROCEDURES:1. Left- sided direct lateral interbody fusion, L4-L5.2. Anterior arthrodesis, L4-L5, via left retroperitoneal approach.3. Anterior arthrodesis with instrumentation, L4-L5, DLIF.4. Insertion of biomechanical device, titanium interbody cage with plateand screw construct, L4-L5.5. Allograft 1 extra small Infuse with 2.5 mL of Boyd for arthrodesis.COMPLICATIONS:None.ANESTHESIA:General.ESTIMATED BLOOD LOSS:Minimal.IMPLANTS:Alphatec titanium 10 x 55 DLIF cage with plate and screw construct.INDICATIONS FOR PROCEDURE:The patient is a 65-year-old female with symptoms of right lower extremityradiculopathy secondary to her severe foraminal stenosis at L4-L5, whounderwent and failed nonsurgical care and elected for [facility]. I discussedthe risks of surgery with her, specifically gave no guarantees, chronicpain, permanent nerve injury, hip weakness, injury to the nerves within thepsoas or about the psoas, injury to the retroperitoneal structures,infection, nonunion, need for further surgery, hardware complications,medical complications, informed consent was obtained.DESCRIPTION OF PROCEDURE:The patient was identified preoperatively. Her left abdomen was markedwith indelible ink. She was transferred to the operating suite.Anesthesia was administered. She was placed in the lateral position. Allbony prominences were well padded. Preoperative antibiotics were given andverified. Kefzol was given within one hour of surgical incision. Surgicaltimeout was performed. We then began the case. An incision was made overthe left flank, taken down through skin. Soft tissues dissected. Webluntly dissected through the abdominal musculature and bluntly dissectedinto the retroperitoneum, sweeping away the psoas from the disk space of L5and docking our retractors at the L4-L5 disk space.We then sequentially dilated multiple retractors using neuro monitoring toensure there was no nerve structures within our surgical field. We thenplaced our retractors and used a ball-tipped probe to again monitor insidethe surgical field for any nerve structures. Once we had reasonableexposure, we performed an annulotomy with a 15 blade and then used multiplerotating amos and ring curettes to remove all disk material and preparethe endplates with a rasp. We used straight pituitary to remove the diskmaterial from within the disk space and again verified everything to beappropriately positioned on our lateral and AP fluoroscopy. Once we hadprepared the disk space, we trialled and sized it to a 10 x 55 mm implant.We then placed our Infuse and Boyd putty into the implant, attached a2-hole plate to the implant and placed it into the disk space withoutissue. We then placed one 35 mm screw through each screw hole in theplate, one in L5 and one in L4 without complication.We then removed our retractors, performed final radiographs, irrigated thewound, closed the wound and transferred the patient back to her hospitalbed in stable condition.ATTESTATION STATEMENT:I attest I was present for the entire procedure including wound closure.All sponge and needle counts were correct at the end of procedure. Therewas no orthopedic resident available for the procedure; therefore, it didnecessitate use of a physician funeral director's assistant for protection and retraction ofneurologic structures.JAMAL Bass/NABEEL Job #: [id number] DOC #: [id number] Name Value Range Interpretation Code Description Data Kelle rce(s) Supporting Document(s) ID Date Data Source [id number] 01/27/2021 03:42:01 PM EDT [facility] ClinicPATIE NT INFORMATIONPatient MRN Name Date of Age Gend*PT [id number] Florencia Butts 1955 65 years F IPPT Location Admission Date/Time Visit ID Attending [id number] 01/24/21 0720 --- --- EPI ID CSN Admitting Provider [id number] Eyal Vigil MD([id number]) Attestation signed by Eyal Vigil MD at 01/27/2021 3:41 PMChart reviewed, I agree with the findings and plan of care as communicated tothe Midlevel provider.Signature: Eyal Vigil MDDate: January 27, 2021Time: 3:41 PM ORTHOPEDIC DISCHARGE SUMMARYPatient Name: Florencia Butts of : 1955 Age 65 yearsPrimary Physician: JESSIE MCNEIL MD PCP [id number] Date: 01/24/2021 Discharge Date: 01/25/2021dmission Provider: Eyal Vigil MD Discharge Provider: Norm Lindsey, PADischarge Diagnoses:Active Problems: Spinal stenosis of lumbar region with neurogenic claudication DepressionResolved Problems: * No resolved hospital problems. *Surgical Procedures:Procedure(s) with comments:LEFT LUMBAR 4 5 DIRECT LATERAL INTERBODY FUSION (Left) [facility]INGALPHATECHBrief Hospital Course:Patient was admitted through ambulatory unit. Patient underwent procedurewithout any complications. Postoperatively, patient had DVT prophylaxis withMechanical means. Hospital course was uneventful. Patient had physical therapywhile in the hospital. Pain control was maintained with IV and oral painmedications initially and transitioned to only oral when tolerating pain withoutany IV medications. Once discharge criteria was met, the patient was found to bestable for discharge. Please see discharge instructions and medicatio ns forfurther details.Discharge disposition: She will be discharged [facility] to home in stable condition.Discharge Weight Bearing Status:WBATDischarge Medications:Patient was instructed to refrain from driving or operating machinery untilcleared by surgeon.Current Discharge Medication ListSTART taking these medications Details!! acetaminophen (TYLENOL) 500 MG tablet Take 1 tablet (500 mg total) by mouthevery 4 (four) hours as needed for painQty: 50 tablet, Refills: 1oxyCODONE (ROXICODONE) 5 MG immediate release tablet Take 1 tablet (5 mg total)by mouth every 4 (four) hours as needed for pain Max Daily Amount: 30 mgQty: 40 tablet, Refills: 0senna-docusate (PERICOLACE) 8.6-50 MG Take 2 tablets by mouth nightly !! - Potential duplicate medications found. Please discuss with provider.CONTINUE these medications which have NOT CHANGED Details!! acetaminophen (TYLENOL) 500 MG tablet Take 1,000 mg by mouth daily as neededfor xoqyG-Nmuhvbh-N TABS Take 1 tablet by mouth dailyEPINEPHrine (EpiPen 2-John) 0.3 MG/0.3ML SOAJ Inject 1 Package into the shoulder,thigh, or buttocks once Inject into thigh once for severe allergic reactionferrous sulfate 325 (65 FE) MG tablet Take 325 mg by mouth daily with breakfastFLUoxetine (PROzac) 20 MG capsule Take 40 mg by mouth dailypropranolol (INDERAL LA) 60 MG 24 hr capsule Take 60 mg by mouth daily !! - Potential duplicate medications found. Please discuss with provider.Follow Up Instructions:An After Visit Summary was printed and given to the patient.Items needing special attention: noneDischarge Exam:Blood Pressure: BP: 108/67 Pulse: Heart Rate: 56Temperature: Temp: 98.6 F Respirations: Resp: 16Admission Weight: Weight: 78.9 kg (174 lb) O2 Saturation: SpO2: 95 %Discharge Weight: Weight: 78.9 kg (174 lb) BMI: Body mass index is 31.83 kg/m .Physical ExamGeneral: A/O x 3, NAD.Respiratory: Breathing unlaboredOrthopedic: lumbar spine exam: Dressing clean, dry and intact. Sensation intactbilaterally. Strength intact bilaterally, 5/5 DF/PF joey aterally.Diagnostics:Lab ResultsComponent Value Date WBC 7.5 01/25/2021 HGB 10.0 (L) 01/25/2021 HCT 29.6 (L) 01/25/2021 MCV 89.2 01/25/2021 PLT 261 01/25/2021ab ResultsComponent Value Date INR 1.01 01/11/2021 PROTIME 10.8 01/11/2021ab ResultsComponent Value Date CREATININE 0.56 (L) 01/25/2021 BUN 13 01/25/2021 NA 143 01/25/2021 K 4.3 01/25/2021 CL 108 01/25/2021 CO2 28 01/25/2021 GLU 92 01/25/2021ignificant Imaging:multiple OR xraysConsults:noneSignature: [phone]: January 25, 2021Time: 8:32 AM Name Value Range Interpretation Code Description Data Kelle rce(s) Supporting Document(s) ID Date Data Source [id number] 01/25/2021 06:16:20 AM EDT [facility] Name Value Range Interpretation Code Description Data Kelle rce(s) Supporting Document(s) SODIUM 143 mmol/L (136-145) [facility] POTASSIUM 4.3 mmol/L (3.6-5.2) [facility] CHLORIDE 108 mmol/L (100-108) [facility] CO2 28 mmol/L (22-31) [facility] ANION GAP 7 mmol/L (7-16) [facility] UREA NITROGEN 13 mg/dL (7-24) [facility] CREATININE 0.56 mg/dL (0.60-1.00) L [facility] BUN/CREAT RATIO 23.2 RATIO (10.0-20.0) H [facility] GLUCOSE 92 mg/dL (70-99) [facility] CALCIUM 8.3 mg/dL (8.4-10.2) L [facility] GFR >60 ml/min/1.73m2 (>59) [facility] GFR ( AMER) >60 ml/min/1.73m2 (>59) [facility] GFR INTERPRETATION [facility] --NORMAL KIDNEY FUNCTION OR MILD DISEASE - GFR >OR= 60CHRONIC KIDNEY DISEASE - GFR 15 - 59RENAL FAILURE - GFR <15 Est. GFR calculation based on the MDRDstudy equation, which assumes a steadystate for creatinine. Est. GFR should notbe used for medication dosing. ID Date Data Source [id number] 01/25/2021 05:40:25 AM EDT [facility] Name Value Range Interpretation Code Description Data Kelle rce(s) Supporting Document(s) WBC 7.5 10*3/uL (4.1-11.0) [facility] [place] RBC 3.32 10*6/uL (4.00-5.40) L [facility] HGB 10.0 g/dL (12.0-16.0) L [facility] HCT 29.6 % (36.0-47.0) L [facility] MCV 89.2 fL (80.0-95.0) [facility] MCH 30.2 pg (27.0-32.0) [facility] MCHC 33.8 g/dL (32.0-36.0) [facility] RDW 14.6 % (10.5-14.5) H [facility] PLT 261 10*3/uL (150-450) [facility] MPV 6.9 fL (7.1-10.7) L [facility] ID Date Data Source [id number] 01/24/2021 01:43:22 PM EDT [address] [address]Qstlqoi Name: FLORENCIA LOPEZOB: 1955Sex: FOrdering Provider: EYAL Urbina Prov: EYAL Hansen Provider: Procedure Performed: / XR OR SPINE LUMBARExam Date: 01/24/2021 13:11MRN: [id number] Number: [id number] Class: InpatientAccount #: [id number] for Exam: Spinal stenosis of lumbar region with neurogenic claudication [M48.062]Other forms of scoliosis, lumbar region [M41.86]Technique: AP and lateral views obtained.Comparison: NoneFindings: Multiple intraoperative images are obtained during spinal fusion at L4-L5. There is good alignment of the disc spacer and adjacent vertebra.IMPRESSION: Good alignment status post spinal fusion.Report electronically signed by: ASHLEY COHEN On 01/24/2021 1:43 PMWorkstation ID: [id number] Name Value Range Interpretation Code Description Data Kelle rce(s) Supporting Document(s) ID Date Data Source [id number] 01/24/2021 11:21:05 AM EDT [facility] ClinicPATIE NT INFORMATIONPatient MRN Name Date of Age Gend*PT [id number] Florencia Butts 1955 65 years F SDAPT Location Admission Date/Time Visit ID Attending Provider --- --- --- --- EPI ID CSN Admitting Provider [id number] ---AirwayPatient location during procedure: ORUrgency: electiveDifficult airway: noAdvanced airway equipment used: yesStaffingPerformed by: Juan Gurrola CRNAAnesthesiologist: Lexi Schultz MDIndications and Patient ConditionIndications for airway management: anesthesiaPreoxygenated: yesPatient position: sniffingIn-line stabilization: noMask ventilation: 0 - not attemptedFinal Airway/ApproachesFinal airway type: ETTNumber of attempts at final approach: 1Number of other approaches attempted: 0Final Airway DetailsFinal ETT airway: ETT - singleCuffed: yesTechnique used for successful ETT placement: GlidescopeCricoid pressure: noRSI: noInsertion site: oralBlade type/size: MAC 3.5ETT size: 7.5 mmMeasured from: lipsETT to lips: 21 cmPlacement verified by: chest auscultation and + [id number]: equal breath sounds bilateralGrade view: grade I - full view of glottisAdditional NotesIntubated using glidescope due to previous cranial procedures. Neck wasmaintained in neutral position and not oral or dental trauma was noted. Name Value Range Interpretation Code Description Data Kelle rce(s) Supporting Document(s) ID Date Data Source [id number] 01/24/2021 08:15:41 AM EDT [facility] Name Value Range Interpretation Code Description Data Kelle rce(s) Supporting Document(s) POC NOVA GLU 78 mg/dL (70-99) [facility] PERFORMED BY [facility] CLINICAL STAFF ID Date Data Source [id number] 01/25/2021 08:13:59 AM EDT [facility] SPEC EXP DATE 01/27/2021TEST ING SITE PERFORMED AT [address] [place] [id number] NUMBER [id number] COMPONENT TYPE LEUKOPOOR RED CELLSUNIT DIVISION 00STATUS OF UNIT REL FROM ALLOCTRANSFUSION STATUS OK TO TRANSFUSECROSSMATCH RESULT COMPATIBLEUNIT NUMBER [id number] COMPONENT TYPE LEUKOPOOR RED CELLSUNIT DIVISION 00STATUS OF UNIT REL FROM ALLOCTRANSFUSION STATUS OK TO TRANSFUSECROSSMATCH RESULT COMPATIBLE Name Value Range Interpretation Code Description Data Kelle rce(s) Supporting Document(s) TRANSFUSE RED CELLS [facility] TESTING SITE PERFORMED AT [address] [place] [address] ID Date Data Source [id number] 01/20/2021 11:45:00 AM EDT [facility] ([facility]) Name Value Range Interpretation Code Description Data Kelle rce(s) Supporting Document(s) Coronavirus 2019 Nasopharygeal Laboratory test result [facility] ASSAY INFORMATION: Real Time RT-PCR NOTE: The COVID-19 assay has been cleared by the U.S. Food and Drug Administration under the Emergency Use Authorization (EUA). [facility] and [facility] are designated as high complexity laboratories by the Clinical Laboratory Improvement Amendments of 1988(CLIA) and are qualified to perform this test. Not Detected ID Date Data Source [id number] 01/11/2021 03:39:46 PM EDT [facility] ClinicPATIE NT INFORMATIONPatient MRN Name Date of Age Gend*PT [id number] Florencia Butts 1955 65 years F OPPT Location Admission Date/Time Visit ID Attending Provider --- --- --- Eyal Vigil MD([id number]) EPI ID CSN Admitting Provider [id number] ---HISTORY PHYSICALName: Florencia Butts : 1955 Sex: female Care Provider: Noni CORDEROending Physician: Dr. AdkinsoInformant: The patient who is reliable.Chief Complaint: "I will have back surgery".HISTORY OF PRESENT ILLNESS: 65 years old white female with a history of spinalstenosis who has been complaining of low back pain for many years. The painprogressively worsened and became more severe for the past 2 years. The backpain radiates to right anterior thigh with RLE weakness. She reports multiplefalls, states her leg gives out. Denies any numbness or tingling. Denies bowelor bladder control issues. Denies back injury in the past. Denies use ofassistive devices for ambulation. The pain aggravates with prolonged standing.She gets a measure of relief with rest. Patient had spinal injections whichgave her short lasting pain relief. The patient met with Dr. Vigil, op tionswere discussed and they have elected to under go LEFT LUMBAR 4 5 DIRECT LATERALINTERBODY FUSION on 01/24/2021.PAST MEDICAL HISTORY:Past Medical History:Diagnosis Date Depression Falls frequently Headache disorder [place] (hard of hearing) Hydrocephalus s/p head injury Hypoglycemia Osteoarthritis Other forms of scoliosis, lumbar region Spinal stenosis of lumbar region with neurogenic claudication TinnitusPAST SURGICAL HISTORY:Past Surgical History:Procedure Laterality Date BRAIN SURGERY x6 status post head injury Breast augmentation with implants Bilateral COLONOSCOPY CSF SHUNT HIP ARTHROPLASTY Right PANENDOSCOPY TURNER-EN-Y PROCEDURE 2008 TONSILLECTOMYALLERGIES: No Known Drug AllergiesMEDICATIONS:Prior to Admission medicationsMedication Sig Start Date End Date Taking? Authorizing Provideracetaminophen (TYLENOL) 500 MG tablet Take 1,000 mg by mouth daily as needed forpain Historical Provider, KLK-Lvwzwnx-B TABS Take 1 tablet by mouth daily Historical ProviderMDEPINEPHrine (EpiPen 2-John) 0.3 MG/0.3ML SOAJ Inject 1 Package into the shoulder,thigh, or buttocks once Inject into thigh once for severe allergic reactionHistorical Provider, ferrous sulfate 325 (65 FE) MG tablet Take 325 mg by mouth daily with breakfastHistorical Provider, FLUoxetine (PROzac) 20 MG capsule Take 40 mg by mouth daily HistoricalProvider, MDpropranolol (INDERAL LA) 60 MG 24 hr capsule Take 60 mg by mouth dailyHistorical Provider, JASONocial HistoryTobacco Use Smoking status: Never Smoker Smokeless tobacco: Never UsedVaping Use Vaping Use: Never usedSubstance Use Topics Alcohol use: Yes Comment: rare Drug use: NeverFamily HistoryProblem Relation Age of Onset Dementia Mother Lung cancer Father Malig Hyperthermia Neg HxREVIEW OF SYSTEMS:Constitution: Weight stable, Denies fatigue, fever or chills. Caffeine intake:3-4 cups/day.HEENT: She uses reading glasses. Denies any blurred vision, double vision,dizziness, tinnitus, dysphagia or headaches.Respiratory: Denies any shortness of breath, cough, yellow sputum production orwheezing.Cardiovascular: Denies any chest pain, pressure or tightness. Denies anyparoxysmal nocturnal dyspnea or orthopnea.Muscle/Skeletal System: Denies any muscle ache, joint ache or weakness.Neurologic: Denies any numbness, tingling, tremors or syncope.GI: Denies any nausea, vomiting, diarrhea, constipation or melena.: Denies any dysuria, hematuria or nocturia.Endocrine: Denies polyuria, polydipsia or polyphagia. Denies any heat or coldintolerance, or night sweats.Hematology: Denies any bleeding or bruising tendencies.DNR Status: Full Code per the patient.HCP: No per patient.PHYSICAL EXAM:General: She is a 65 years old, pleasant white female, in no acute distress attime of examination. Vitals on arrival to the office are BP 114/60 (BP Location:Left upper arm, Patient Position: Sitting) | Pulse 60 | Temp 96.8 F | Resp17 | Ht 1.575 m (5' 2") | Wt 78.9 kg (174 lb) | SpO2 98% | BMI 31.83 kg/m Body mass index is 31.83 kg/m ..Skin is pink warm and dry.HEENT: She is normocephalic, atraumatic. [place] conjunctivae. Anicteric sclerae.Pupils are equal, round, reactive to light and accommodation. Extraocularmovements are intact. Ears: Without drainage or lesion. Mouth: Dentition is ingood repair. She has a grade 41 airway. Neck is supple midline without cervicaladenopathy. There is no tonsillo pharyngeal congestion. Mucous membranes aremoist. There are no oral lesions. No jugular di stention. No carotid bruit.CHEST/BREAST: A/P less than transverse. Breast exam declined.LUNGS: Clear to auscultation. No wheezes, rhonchi or crackles.HEART: Rate rhythm regular. S1, S2. No murmur, rub or gallop.ABDOMEN: Bowel sounds positive times four. Soft, non tender. No reboundtenderness. No hepatosplenomegaly. Negative CVAT.GENITAL/RECTAL: Deferred.MUSCLE/SKELETAL: Strength is 5/5. Haircutter are equal.NEUROLOGICALLY: Cranial nerves II through XII are grossly intact.VASCULAR: Pulses are symmetrical. No edema.Anesthesia complications: deniesSteroid use: She denies any oral steroid therapy for three weeks or greaterwithin the last 3 months.CSHA Frailty Scale :: 4/10 Vulnerable (while not dependent on others for dailyhelp, often symptoms limit activities. A common complaint is being "slowed up",and /or being tired during the day).Stop Bang Questionnaire - Total Score:STOP-Bang Total Score: 2IMPRESSION and PLAN:Primary Diagnosis: Spinal stenosis of lumbar region with neurogenicclaudication. Other forms of scoliosis, lumbar region. Surgery as perDr. Vigil.Secondary Diagnosis and Plan:1. GI prophylaxis Per surgeon2. DVT prophylaxis Early ambulation. Pneumatic compression d evice.Subcutaneous Heparin or LMW Heparin if clinically indicated3. Hydrocephalus.4. Depression.Based on above medical co morbidities, length of stay may be prolonged greaterthan previously anticipated.ALLERGIES:Patient has no known drug allergies.01/11/2021 3:39 PMLyudmiquinton Man, NPThis document or parts of this document, were dictated using Edyn software. A reasonable attempt at proofreading has beenmade to minimize errors. Please call with any questions or corrections. Name Value Range Interpretation Code Description Data Kelle rce(s) Supporting Document(s) ID Date Data Source [id number] 01/11/2021 09:54:55 PM EDT [facility] SPE[facility] EXP DATE 1PATI ENT ABO/Rh B POSITIVEANTIBODY SCREEN NEGATIVETESTING SITE PERFORMED AT [address] [place], [place] [id number] BANK COMMENT BLOOD TYPE CONFIRMED. Name Value Range Interpretation Code Description Data Kelle rce(s) Supporting Document(s) TYPE AND SCREEN [facility] ID Date Data Source [id number] 01/11/2021 07:13:19 PM EDT [facility] Name Value Range Interpretation Code Description Data Kelle rce(s) Supporting Document(s) APTT 23.6 s (22.0-34.3) [facility] ID Date Data Source [id number] 01/11/2021 07:13:19 PM EDT [facility] Name Value Range Interpretation Code Description Data Kelle rce(s) Supporting Document(s) PT 10.8 s (9.2-11.9) [facility] INR 1.01 [facility] SUGGESTED THERAPEUTIC RANGES USING INR F ORSTABILIZED ANTICOAGULATED PATIENTS:STANDARD DOSE THERAPY INR 2.0-3.0 DVT, PE, PREVENT DVT OR EMBOLISMHIGH DOSE THERAPY INR 2.5-3.5 PREVENT EMBOLISM FROM MECHANICAL HEART VALVE ID Date Data Source [id number] 01/11/2021 06:53:40 PM EDT [facility] Name Value Range Interpretation Code Description Data Kelle rce(s) Supporting Document(s) SODIUM 142 mmol/L (136-145) [facility] POTASSIUM 4.1 mmol/L (3.6-5.2) [facility] CHLORIDE 113 mmol/L (100-108) H [facility] CO2 23 mmol/L (22-31) [facility] ANION GAP 6 mmol/L (7-16) L [facility] UREA NITROGEN 17 mg/dL (7-24) [facility] CREATININE 0.62 mg/dL (0.60-1.00) [facility] BUN/CREAT RATIO 27.4 RATIO (10.0-20.0) H [facility] GLUCOSE 87 mg/dL (70-99) [facility] CALCIUM 9.1 mg/dL (8.4-10.2) [facility] TOTAL PROTEIN 6.9 g/dL (6.4-8.2) [facility] ALBUMIN 3.3 g/dL (3.2-4.5) [facility] GLOBULIN 3.6 g/dL (2.7-4.3) [facility] ALB/GLOB RATIO 0.9 RATIO [facility] ALKALINE PHOSPHATASE 104 U/L (45-117) [facility] BILIRUBIN,TOTAL 0.2 mg/dL (0.0-1.0) [facility] PLEASE NOTE:Total bilirubin results may be falselyelevated in patients taking Eltrombopag. AST (SGOT) 12 U/L (11-39) [facility] ALT (SGPT) 21 U/L (12-78) [facility] GFR >60 ml/min/1.73m2 (>59) [facility] GFR ( AMER) >60 ml/min/1.73m2 (>59) [facility] GFR INTERPRETATION [facility] --NORMAL KIDNEY FUNCTION OR MILD DISEASE - GFR >OR= 60CHRONIC KIDNEY DISEASE - GFR 15 - 59RENAL FAILURE - GFR <15 Est. GFR calculation based on the MDRDstudy equation, which assumes a steadystate for creatinine. Est. GFR should notbe used for medication dosing. ID Date Data Source [id number] 01/12/2021 12:58:21 PM EDT [facility] Name Value Range Interpretation Code Description Data Kelle rce(s) Supporting Document(s) SPECIMEN DESCRIPTION [facility] STAPH SCREEN RESULTS (ONEGSA) [facility] COMMENT [facility] GENE TO DETECT STAPH AUREUS. (2) RT-P CR WAS PERFORMED FOR THE mecA AND SCCmec GENES TO DETECT METHICILLIN RESISTANCE IN STAPH AUREUS. ID Date Data Source [id number] 01/17/2021 01:53:38 PM EDT [facility], PCName: Florencia LopezOB: 1955Provider: Dawit VigilOS: 01/11/2021 Reason For VisitFlorencia Butts is here today for cervical + lumbar spine. Florencia had her second Covid vaccine on 09/03/20. Florencia Butts is an established patient here for follow up. Other DOI/DOO: 08/2018. Surgery Description: (Left L4/5 DLIF. globus. neuromonitoring). Expected DOS: 01/24/21. Chronic w/o injury. The patient has not had a course of physical therapy for greater than 4 weeks. The patient has not had a course of NSAIDs for greater than 4 weeks. The patient was notified that the office visit was recorded to enhance documentation accuracy. 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 History of Present IllnessCHIEF COMPLAINTPreoperative follow-up of lumbar spine.HISTORY OF PRESENT ILLNESSThe patient is a 65-year-old female who returns for a preoperative follow-up of the lumbar spine. She is scheduled for L4-5 DLIF on 01/24/2021 at [facility]. The patient is accompanied by an adult female. She states that she has pain on the right side. The patient notes that she has pain from her right thigh with radiation to her knee for a couple of years. She has received a lot of injections by Dr. Amin. She has pain below her knee with ambulation. She denies any left leg pain. The patient reports that she wobbles with walking. The patient underwent a right hip arthroplasty by Dr. 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 She is working at this time. AssessmentASSESSMENTLumbar stenosis with claudication. PlanPLANTkathy noa alvarenga presents for a preoperative follow-up of the lumbar spine with symptoms of low back and right lower extremity pain. The patient has tried and failed conservative treatment. I explained the perioperative course. I explained to her that she has some arthritis above at L2-3 and L3-4 which causes some left-sided leg pain but she does not have symptoms on the left side now. I explained to her that the 1st couple of weeks after surgery can be rough with pain from the surgery which will get better as time goes on and she would likely improve over the next 6 weeks. I emphasized to her that any surgery can take up 1-2 years to reach maximum benefit. I explained that the recovery process is variable from patient to patient. The estimated duration of surgery would be 2 hours. She would likely be required to stay overnight in the hospital. She would likely be discharged home the next day. She can shower the day after she is discharged to home. She can get the incision wet in the shower. I informed her that guarantees cannot be given with surgery. I explained there is about an 80% chance of improvement of leg pain with surgery; however, improvement of the low back pain is unpredictable with surgery. She would likely be required to remain active and be independent postoperatively. I informed her that she can do stairs as it causes her to be active with ambulation. She would likely need to be on pain medications with the first couple of weeks being on a fair amount and then wean off of it and she would likely be doing pretty well at 6 weeks. I informed her that the nerve pain will likely improve by 6 weeks. I informed her that she can expect her left side to be weak. We discussed that she will have a restriction of lifting no more than 10 pounds for 1 month and she can remain weight-bearing as tolerated. I informed her that she can move, bend, twist, sit, and walk as tolerated. I informed her that she probably has some weakness in her right hip which can cause instability. I informed her that she can try physical therapy for her right hip as well. We discussed the risks and benefits of surgery including thigh weakness, numbness, infection, soft tissue dissection, injury to blood vessels etc. There may also be issues at adjacent levels, which require additional surgery.The patient is scheduled for left L4-5 DLIF on 01/24/2021. Risks and benefits were discussed. All questions were answered.The patient desires to proceed, and informed consent was obtained. Scribed by Cr CABELLO on 01/11/2021 at 09:00 PM for Eyal Vigil Signatures Electronically signed by : Eyal Vigil M.D.; Jan 16 2021 12:42PM EST (Author) Electronically signed by : Adrien Quintero MA; Jan 17 2021 1:44PM EST (Author) Electronically signed by : Eyal Vigil M.D.; Jan 17 2021 1:53PM EST Name Value Range Interpretation Code Description Data Kelle rce(s) Supporting Document(s) ID Date Data Source [id number] 12/27/2020 10:52:00 AM EDT [facility] ([facility]) Name Value Range Interpretation Code Description Data Kelle rce(s) Supporting Document(s) Bacteria identified in Urine by Culture Laboratory test result [facility]) FULL REPORT IN LAB NOTES ([facility] and [facility] ). NO GROWTH ID Date Data Source [id number] 12/27/2020 10:52:00 AM EDT [facility] ([facility]) Name Value Range Interpretation Code Description Data Kelle rce(s) Supporting Document(s) Color, Urine Laboratory test result [facility] NT ([facility]) Appearance, Urine Laboratory test result [facility]) Specific [place] Urine Auto 1.024 1.002-1.035 [facility]) PH,Urine 6.0 units 5.0-9.0 [facility]) Protein, Urine Auto Laboratory test result [facility]) Urobilinogen, Urine Auto 2.0 mg/dL 0.0-2.0 [facility] T ([facility]) Glucose, Urine (Ua) Auto Laboratory test result [facility] ([facility]) Ketone, Urine Auto Laboratory test result [facility]) Bilirubin, Urine Auto Laboratory test result [facility] ([facility]) Nitrite, Urine Auto Laboratory test result [facility]) Leukocyte Esterase, Urine Auto Laboratory test result [facility]) Blood, Urine Blood Laboratory test result [facility]) WBC, Urine Auto 1 /HPF 0-3 [facility] ([facility]) RBC, Urine Auto 2 /HPF 0-3 [facility] ([facility]) Bacteria, Urine Auto Laboratory test result [facility] ([facility]) Squamous Epithelial Cell Ur AU 0 /HPF 0-6 [facility] ([facility]) Mucus, Urine Laboratory test result [facility] NT ([facility]) Hyaline Cast, Urine Auto 0 /LPF 0-1 [facility] T ([facility]) ID Date Data Source [id number] 12/27/2020 10:49:00 AM EDT [facility] Name Value Range Interpretation Code Description Data Kelle rce(s) Supporting Document(s) Vitamin B12 Level 442 pg/mL [facility] ([facility]) VITAMIN B12 NORMAL RANGE NORMAL 247 - 911 PG/ML INDETERMINATE 211 - 246 PG/ML DEFICIENT LESS THAN 211 PG/ML Folate Laboratory test result [facility]) FOLATE NORMAL RANGE NORMAL GREATER THAN 5.4 NG/ML INDETERMINATE 3.4-5.4 NG/ML DEFICIENT LESS THAN 3.4 NG/ML ID Date Data Source [id number] 12/27/2020 10:49:00 AM EDT [facility] ([facility]) Name Value Range Interpretation Code Description Data Kelle rce(s) Supporting Document(s) Total Iron Binding Capacity 245 ug/dL 250-450 [facility] ([facility]) Percent Saturation 28.6 % 13.2-45.0 [facility] Iron (Fe) 70 ug/dL 50-170 [facility]) ID Date Data Source [id number] 12/27/2020 10:49:00 AM EDT [facility] ([facility]) Name Value Range Interpretation Code Description Data Kelle rce(s) Supporting Document(s) Ferritin [Mass/volume] in Serum or Plasma 7 ng/mL 8-252 [facility] ([facility]) ID Date Data Source [id number] 12/27/2020 10:49:00 AM EDT [facility] ([facility]) Name Value Range Interpretation Code Description Data Kelle rce(s) Supporting Document(s) Calcidiol [Mass/volume] in Serum or Plasma 34.5 ng/mL 24.0-80.0 [facility] ([facility]) This test was performed using Fast[employer] I P Vitamin D immunoassay kit. Values obtained with different assay methods should not be used interchangeably. ID Date Data Source [id number] 12/27/2020 10:49:00 AM EDT [facility] Name Value Range Interpretation Code Description Data Kelle rce(s) Supporting Document(s) Hemoglobin A1c/Hemoglobin.total in Blood 6.0 % [facility] ([facility]) Lab Result Notes: Pre-Diabetes 5.7 - 6.4 % Diabetes = or > 6.5% Glucose mean value [Mass/volume] in Blood Estimated fr om glycated hemoglobin 125 mg/dL 60-110 [facility] ([facility] ) ID Date Data Source [id number] 12/27/2020 10:49:00 AM EDT [facility] Name Value Range Interpretation Code Description Data Kelle rce(s) Supporting Document(s) Urea nitrogen [Mass/volume] in Serum or Plasma 17 mg/dL 7-18 [facility] Glucose [Mass/volume] in Serum or Plasma 89 mg/dL 74-99 [facility] ([facility]) 100-125 mg/dL PRE-DIABETES/FASTING >126 mg/dL DIABETES/FASTING Creatinine 0.7 mg/dL 0.6-1.3 [facility]) Sodium [Moles/volume] in Serum or Plasma 143 meq/L 136-145 [facility]) Potassium [Moles/volume] in Serum or Plasma 4.5 meq/L 3.5-5.1 [facility] ([facility]) Chloride [Moles/volume] in Serum or Plasma 107 meq/L 98-107 [facility] Carbon dioxide, total [Moles/volume] in Serum or Plasma 29 meq/L 21 -32 [facility]) Glomerular filtration rate/1.73 sq M pre dicted among non-blacks [Volume Rate/Area] in Serum or Plasma by Creatinine-based formula (MDRD) Laboratory test result [facility] Calcium [Mass/volume] in Serum or Plasma 8.9 mg/dL 8.5-10.1 [facility] ([facility]) Glomerular filtration rate/1.73 sq M pre dicted among blacks [Volume Rate/Area] in Serum or Plasma by Creatinine-based formula (MDRD) Laboratory test result [facility] ([facility]) <content>CHRONIC KIDNEY DISEASE STAGING PER NKF</content>
<content></content>
<content>STAGE I & II GFR >= 60 NORMAL TO MILDLY DECREASED</content>
<content>STAGE III GFR 30-59 MODERATELY DECREASED</content>
<content>STAGE IV GFR 15-29 SEVERELY DECREASED</content>
<content>STAGE V GFR <15 VERY LITTLE GFR LEFT</content>
<content>ESRD GFR <15 ON ADULT BASIC EDUCATION TEACHER</content>
<content></content> ID Date Data Source [id number] 12/27/2020 10:49:00 AM EDT [facility] ([facility]) Name Value Range Interpretation Code Description Data Kelle rce(s) Supporting Document(s) Leukocytes [#/volume] in Blood by Automated count 4.7 x10*3/UL 4.1-10 .9 [facility] ([facility]) NOTE: CBC VERIFIED Hematocrit [Volume Fraction] of Blood by Automated count 32.3 % 3 7.0-51.0 [facility] ([facility]) Hemoglobin [Mass/volume] in Blood 10.9 g/dL 12.0-18.0 [facility] ([facility]) Erythrocytes [#/volume] in Blood by Automated count 3.73 x10*6/UL 4.2 0-6.30 [facility] ([facility]) MCH 29.3 pg 26.0-32.0 [facility]) MCHC 33.9 g/dL 31.0-38.0 [facility] MCV 86.5 fL 80.0-97.0 [facility] Platelets [#/volume] in Blood by Automated count 378 x10*3/UL 140-440 [facility] ([facility]) MPV 7.1 FL 7.8-11.0 [facility]) Erythrocyte distribution width [Ratio] by Automated count 13.8 % 11.6-13.7 [facility] ([facility]) Mid % 7.4 % 1.7-9.3 [facility] Neut % 51.7 % 37.0-92.0 [facility] Lymph % 40.9 % 10.0-58.5 [facility]) Mid # 0.4 x10*3/UL 0.1-0.6 [facility] ([facility]) Neut # 2.4 x10*3/UL 2.0-7.8 [facility] ([facility]) Lymph # 1.9 x10*3/UL 0.6-4.1 [facility] ([facility]) ID Date Data Source [id number] 09/15/2020 10:29:49 AM EDT [facility]: Florencia LopezOB: 1955Provider: Sienna Vigil: 09/12/2020 Reason For VisitFlorencia Butts is here today for cervical + lumbar spine. Florencia had her second Covid vaccine on 09/03/20. Florencia Butts is a new patient. mri lsp 05/13/20 imported; xr lsp 12/01/19 with sos; emg le's 01/13/20 scanned in chart. Other DOI/DOO: 08/2018. Patient states their pain is a 7 out of 10. Chronic w/o injury. The patient has not had a course of physical therapy for greater than 4 weeks. The patient has not had a course of NSAIDs for greater than 4 weeks. The patient was notified that the office visit was recorded to enhance documentation accuracy. 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 History of Present IllnessCHIEF COMPLAINTRight leg pain and weakness.HISTORY OF PRESENT ILLNESSThe patient is a 65-year-old female who presents for an initial evaluation regarding the lumbar spine. She complains of pain and weakness in the right leg despite a hip arthr oplasty about 2 years ago. She had a psoas injection which did not really help.The patient is accompanied by an adult female. She has undergone right hip surgery. She complains of low back pain that radiates down her right lower extremity to her knee. She notes that she has been falling a lot and suffering. The patient states that she has no pain at rest but if she stands for a while she has low back pain. She has severe pain in her back when she lies down. She walks with a wobble. She denies any left lower extremity pain. The patient denies any buttock pain. She has been seen by Dr. Lujan and his PA. She has been seeing Dr. Amin for over 1 year. She has received injections to her right hip and the numbing medication helped for a couple of days. The patient has not received any injections to her back. She takes Tylenol for pain. She has not had any physical therapy. She was seen by her primary care physician who obtained x-rays and referred her to me.The patient complains of numbness in her right arm for more than a month. She has pain in her right arm. She had pain in her bilateral arms on one day. She states that the pain is intermittent. The patient notes that she has numbness in her arms especially if she holds her arms up at a certain angle. 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 Results/DataX-rays with 4 views of the cervical spine including AP, lateral, flexion, and extension were ordered, obtained, and interpreted in the office today. These show degenerative disc disease from C4 to C7.X-rays of the lumbar spine previously obtained on 12/01/2019 were reviewed and show lumbar degenerative scoliosis and degenerative disc disease at L2-3, L3-4, and L4-5. Results/Data OtherMRI of the lumbar spine dated 05/13/2020 was reviewed and shows lumbar degenerative scoliosis. There is some moderate to severe left L2-3 and L3-4 and severe right L4-5 foraminal stenosis. AssessmentASSESSMENT1. Lumbar degenerative scoliosis.2. Lumbar stenosis with claudication. Plan X-Ray I Cervical Spine - 4 views (XRays were ordered, obtained and interpreted today inthe office. Indication: pain/dysfunction.); Status:Complete; Done: [id number] Perform:SOS22; Due:[id number]; Last Updated By:Joaquín Verde; 09/12/2020 3:07:25 PM;Ordered; For:Neck pain; Ordered By:Eyal Vigil; Mynor patient presents for evaluation of the lumbar spine with symptoms of low back and right lower extremity pain. The patient notes aggravation of symptoms with standing. We reviewed the imaging findings which show lumbar degenerative scoliosis and degenerative disc disease at L2-3, L3-4, and L4-5, as well as some moderate to severe left L2-3 and L3-4 and severe right L4-5 foraminal stenosis. We discussed the diagnosis as well as treatment options. I explained to her that I believe part of her pain is coming from the L4-5 disc. I informed her that the fact that the injection helped her for 2 days indicates that it is probably where her pain is coming from. We discussed about surgical intervention. I explained to her that surgery helps with nerve pain down the legs. The patient has an L4 radiculopathy on the right which significantly improved after the injection with pain management. She in my opinion would make a good surgical candidate. We discussed the options and my suggestion would be an L4-5 DLIF from the left. Surgery has a 70-80% chance of helping with the nerve pain. She is going to think about it and call me. By doing the DLIF again, she would have indirect decompression of her severe foraminal stenosis which in my opinion would hopefully help with the right leg pain. The patient understands and agrees with the plan. Scribed by Adrien on 09/13/2020 at 03:33 PM for Eyal Vigil Signatures Electronically signed by : Adrien Quintero MA; Sep 13 2020 3:33PM EST (Author) Electronically signed by : Eyal Vigil M.D.; Sep 15 2020 10:29AM EST Name Value Range Interpretation Code Description Data Kelle rce(s) Supporting Document(s) ID Date Data Source [id number] 09/20/2020 09:19:29 AM EDT [facility] Lucas: 1955Provider: Paige Mtz: 09/06/2020 Reason For VisitFlorencia Butts is here today for Right Hip. Florencia had her second Covid vaccine on 09/03/20. Florencia Butts is an established patient here for follow up. Surgery DOS: 10/06/18. Surgery Description: Right Hip Replacement. ([employer] ). Patient is working at this time at regular duty. History of Present IllnessPatient follows up today for her right hip, she is status post total hip replacement which was done just about 2 years ago. Patient continues to have pain and weakness in her right leg. She does have issues with her lumbar spine. She had a psoas tendon injection previously which really did not help her groin pain. She also is complaining of pain in her knee when she walks. Results/DataXRays were ordered, obtained and interpreted today in the office. Indication: pain/dysfunction. Side: Right Site: Hip, Pelvis Views: 3 Views, and Pelvis, 1 View, AP Pelvis Standing Findings: no new fractures or dislocations. No evidence of bearing wear, osteolysis, implant migration or loosening. the joint remains reduced. hardware/implant is in good position. AssessmentPatient is status post right total hip replacement Plan<OBX.5.1><OBX.5.1.1> X-Ray I Hip-Uni </OBX.5.1.1><OBX.5.1.2> Pelvis - 2 or 3 views (XRays were ordered, obtained and interpreted</OBX.5.1.2></OBX.5.1> today in the office. Indication: pain/dysfunction.); Status:Complete; Done: 06Sep2020 Perform:SOS14 (General); Due:20Sep2020; Last Updated By:Rachelle Ramos; 09/06/2020 2:12:43 PM;Ordered; For:Joint pain, hip; Ordered By:Shelby Mtz;Weight Bearing Status : Weight bearing Patient really did not see much relief from the cortisone injection that she had into the psoas tendon. Clinically I do not think her pain is coming from her hip. I think her knee pain that she experiences coming from her knee either. My reasoning for this is that her exam findings for both of these joints is unremarkable. I cannot reproduce her pain on palpation or range of motion. She does have issues with her lumbar spine which I think is contributing to her symptoms. She is scheduled to see Dr. Vigil next week and I told her to ask him if he feels that her right leg issues are coming from her lumbar spine. I also told her to ask him if her weakness could be related to some nerve entrapment. If it is not then the only thing that I can recommend for the patient is some physical therapy to work on generalized strengthening of the right leg. I had her make an appointment for years time. We will update x-rays at that visit. Work / School NoteThe percentage of temporary impairment is 0%. The patient is working at this time. This document was dictated and electronically signed using [employer] software. A reasonable attempt at proof reading has been made to minimize errors. Please call with any questions. Signatures Electronically signed by : Shelby Mtz PA-C; Sep 06 2020 2:38PM EST (Author) Electronically signed by : Rob Torres M.D.; Sep 08 2020 11:04AM EST (Author) Electronically signed by : Shelby Mtz PA-C; Sep 14 2020 10:33AM EST (Author) Electronically signed by : Rob Torres M.D.; Sep 20 2020 9:19AM EST (Author) Name Value Range Interpretation Code Description Data Kelle rce(s) Supporting Document(s) ID Date Data Source [id number] 09/06/2020 10:48:22 AM EDT [facility] Name Value Range Interpretation Code Description Data Kelle rce(s) Supporting Document(s) Progress Note [facility] AFMMSh8uIzDFJsEw61/IIYnzCOKva4HlQQgeYUu3JCapVNZeA6OfGCQ3mH2nENM3BRbJDtQlPkGoYTY6 lbm [file] CLAIMS ADJUSTER CROP/6GIscrbVYYhoGEINLCf0wSPWmRaYL+qEszrPA8Z [file] FLV3ROPe== ID Date Data Source [id number] 09/06/2020 10:48:17 AM EDT [facility] Name Value Range Interpretation Code Description Data Kelle rce(s) Supporting Document(s) Progress Note [facility] RZLPQy4jYgSRBuKc28/VVEgfQXKhm7MiGYbkDWz7VIaeIWQpU8DaSVR1dZ4kIYY9RVkVXtMkMuGfYEF1 lbm [file] ICAgICAgICAgICAgICAgICAgICAgICAgICAgICAgICAgICAgICAgICAgICAgICAgICAgICAgICAgICAg ICAgICAgICAgICAgICAgICAgICAgICAgICAgICAgIC KpKK4QHGDeUMAwBTXbAMLxLGSdUPWxWCGmJMMiYGBdCFStETFtGQBiOMQgMWZzTCNfWOZvVHYxWERpPH WsUHKuWMSdQFUzUUPhWTVyASAzTRFdQCCfUVXrXTDqNIFxHIShGUMxADXgRV1NFZQbIDFsZPVlNCWmGH AgICAgICAgICAgICAgICAgICAgICAgICAgICAgICAg DYTxOWAdBGJiQKLtBENrPRFcJKEmPPYqPFGzTSFkRXIgFZVqOEYrXVZkPMItFQUiJRPlHVUfVR7XKVCm ICAgICAgICAgICAgICAgICAgICAgICAgICAgICAgICAgICAgICAgICAgICAgICAgICAgICAgICAgICAg ICAgICAgICAgICAgICAgICAgICAgICAgICAgICAgIC KfVJZmGA4MGVRxYZYoUKJgVUTqSBRrEAHwNAAeZPXzYWOtWTAfTBAxDJExENWpCDDrHMXzVIPrZFIuFB XtZJUrTOKhULSyKKXoVOKdPEJpEFYhZXZuBDSkNFDcUNWfPLOwYHNgYRZvWLWfJR6JBFFvFPWuYRKzXZ AgICAgICAgICAgICAgICAgICAgICAgICAgICAgICAg DEWtLCDqNTNfAEKrOXWuTLQuNBRlZJOhBFVbMCHjALHmWSZoYOKfVWLyRWDhITGjBAUtASCjCKWuBO6X ICAgICAgICAgICAgICAgICAgICAgICAgICAgICAgICAgICAgICAgICAgICAgICAgICAgICAgICAgICAg ICAgICAgICAgICAgICAgICAgICAgICAgICAgICAgIC GyYPEhZYCuMJ9BRGYrVFRbDRPxPBEjOIWbGGOlXTIgNHUyRQUtFEAuVLUmCGRlQMEpCZUeOTNwASHrWJ XjWCYcPSCqYDTlVATrCUYcCXSdSBQwJQKhMSWoXBDlPEUnVTHiYJOuHDGdLLBkHHFwGZ5BCYRtDXHeBL AgICAgICAgICAgICAgICAgICAgICAgICAgICAgICAg ICAgICAgICAgICAgICAgICAgICAgICAgICAgICAgICAgICAgICAgICAgICAgICAgICAgICAgICAgICAg CW5FNQEjINHfCIKaINNfCWJhLGPwOMLbGPYvCVPcAIMeIXBjTTAqQPFsPBGmNCPtPLIxTTEzFWZvVGId ICAgICAgICAgICAgICAgICAgICAgICAgICAgICAgIC VrJLSzDCIeCCOkQO6KFD18qMLqq9O1XODtNQ1ymkh/Ih3WEIykhpEhdNMsNY6ZNpVcZT6rsb1HRpBdBD 6yys8USQaSPpRpM0H5xMCfXKVoIUJTBaNhT07lEGtpUl06EGujFJNnQcLrQNf0Ph2ZOzBkC0qaEYXvBz E3RESeFaNuOOuwPC6Mg0SbkKYaUXk+Mc3ZMO0fy5Vk OJysQYMuWK5mxm6CUBoZUgBwJ2JasjF7IPAmNKVbSf0NJBXnZEBmiUAbKXPoPSRQVvFpA2MvlK08HXYC Cj4+NDahouGbVmjAVaFrVPAkb9KwLOf2DS5MRDLdHRm4zIWjNMQeV9Ujx2QePo35WSXwIryoDQyiGFSY LWr2koM3ZLWKAI7nSNHaYE6wPF4zLXYeVUYsMuUrLV MGAL2QIHAvHLGenEBsTNDwAWBCZK6QINxlDIM4TEMfrzGngJYzNHesMF9WTJSuygPyXIgoDRDONPj+Pg 9IMT5ul2FaTZhnQEWoAV3kwo9FMVhFSmVfB9D5nHZyP5J5AYeeVv9UECZjRZVfYVxrJFPZIYuhIY6ZBA 8micZ0XD8MaDImSBRwRKOopEPnKTw8B85ydQNvYJbh GR3PEDJ+Lola+Li2YDKDnOMBnCQZtQiTrVFXCNjRfN3TiD8ZId2LcD8FsWG88bBopdxDwTCveCI5GFZ8m UKUiHITUJR6JcKJzuG0kolZiOMYeJVURVrUeQ88vzQVcQFGhWRF9ORHqUh9BITPmN7NqvdZsfQpxayCk TQFbUGCAPD4EOTxvnpGdmIDakPloRK04sYefEG6QOi 8RZkIiPZ1foq2AeWIhIl1VCUPoUq7KJYOaHUDaYEVdWWQ6AUBiMnPaYHkmUQYcUKYmWWV4SQGfTIEtYB 2RUmVzRMHtYVswQwYfTHUpAESnbf2XDBXnCOWeGQg4JkDpHBHcBBFyQEkfWOFxIZRlMRT4KCTtIPEePB 8NPcCxZGIoBAHtFPTpTJTyRXAhpn6JIRPvSWGbCbPt UPDzTUIkVDCeJIyvSXDqRJVnWcS4VIRqBIXhPE1NTmYuEBHaDIR5ZwBbCYEtBWKoss7MWKZnEPTlJhL4 GPBsZICaGTGkWHxaPSGvEOB5FZa4QSGyFVYpDV4XJmJnGRPnAJJ7PJJzYUNsNZXtek1ETAFlYYZrVNq3 BtDhKUDgVEGvKNlrNYVmDVD7FxNvBQLpKAQyEZ5UYk QlGFBzWLH3ZFlyGDKtKNOpux2HLRXvSDUrMqm1RgLjSAEfRNFtSQnzPBIjVLO7TDX3FCJfUYOjMW9SGz HoNFXdBSfhOQSyGKXaNEMukz3QXIRyLBEyKqI8LfMgTXOkZVPdIDrkWIWqJJI6AMoeDFLjMXYpVN9VTu LcBRYgNFwqVrIwGNHkQQHedk7ZZXNkJIHbWROdGSUm ZIWnRAEvAPg8qsKmnEMiEDs2YJ2ZU0OdvcJxRhXZSw3Wh216JQKxJOOiIm7QO7hyOv2rDTEgACZEUg7X IVr0HYNnXBX9ZRS7JlCqVRc4BcQyI2G4HDU2LjGqXYFyTYp+ZXdiFCC3RsItQdxdG6FyGmzmCKDkPlVa LXK1WaH4IRArCG6wPYHGNy4+QIyepHFafArvXHEGDxV8SMN4QLirSUQJSz3D ID Date Data Source [id number] 08/09/2020 08:06:50 AM EDT [facility] PCName: Dawn orlando RenziDOB: 1955Provider: Letty Amin: 08/08/2020 Right lower extremity pain. MA completing section: Emmie SARAVIA Patient was asked and denies having any tests since their last visit Patient was asked and denies seeing any physicians since their last visit. At today's visit patient presents with their Sibling and Self . Patient is currently working. Implanted Devices The patient has the following implanted device(s): brain shunt. Glucose Monitor Device The patient does not have a glucose monitoring device. The patient is being seen for a follow-up with MD. Interval History: The patient is a 65-year-old female with intermittent neurogenic claudication due to lumbar spinal stenosis that is manifesting mostly as right-sided buttock and anterior thigh radicular symptoms that is worse when she is standing and walking and vastly improved when she is sitting, although it is still present when she is sitting. She underwent a total hip arthroplasty in the past year and has been through physical therapy for that and is still experiencing some right groin pain, but this is nothing compared to the anterior thigh pain that she goes through. The patient has been catching her foot at times due to pain and has fallen because of this. Her quality of life is suffering at this point and she is here today to discuss next steps. The MILD procedure was denied for her. She does endorse some subjective weakness in her right lower extremity but nothing in the left lower extremity and no bowel or bladder incontinence. She does not take any medications for the pain. The patient does have a history of brain surgery multiple times. Pain Location: The patient localizes their pain to the right lower extremity. Pain Quality: The pain is described as aching, stabbing, and shooting. Pain Score: Today's pain is a 5/10. On a good day it is a 2/10. On a bad day it is a 10/10. 1. Chronic low back pain (724.2,338.29) (M54.5,G89.29) 2. Lumbar radiculopathy (724.4) (M54.16) 3. Lumbar stenosis with neurogenic claudication (724.03) (M48.062) 4. Neuroforaminal stenosis of lumbar spine (724.02) (M48.061) NSAIDs bariatric surgery; Recorded By: Israel Beth; 08/07/2019 10:00:30 AMDenied Adhesive Tape Recorded By: Israel Beth; 08/07/2019 10:00:30 AM Iodinated Contrast Media Recorded By: Israel Beth; 08/07/2019 10:00:30 AM Latex Recorded By: Israel Beth; 08/07/2019 10:00:30 AM Propranolol HCl - 60 MG Oral Tablet;Therapy: (Recorded:[id number]) to Recorded PROzac 40 MG Oral Capsule;Therapy: (Recorded:62Eek6672) to Recorded Tylenol TABS;Therapy: (Recorded:79Hqe3348) to Recorded Vitamin B Complex TABS;Therapy: (Recorded:20Aaz8914) to Recorded History of anemia (V12.3) (Z86.2) Denied: History of anticoagulant therapy History of arthritis (V13.4) (Z87.39) Denied: History of coagulation defect History of degenerative disc disease (V13.59) (Z87.39) History of depression (V11.8) (Z86.59) History of hydrocephalus (V12.49) (Z86.69) has a shunt History of hypoglycemia (V12.29) (Z86.39) History of hypotension (V12.59) (Z86.79) History of mental disorder (V11.9) (Z86.59) History of scoliosis (V13.59) (Z87.39) History of Severe headache (784.0) (R51.9) History of TIA (transient ischemic attack) (435.9) (G45.9) History of Brain surgery x6 History of Breast augmentation Denied: History of Cardioverter defibrillator insertion History of Carpal tunnel surgery RT History of Gastric bypass surgery History of Hip replacement 10/06/18-RT Denied: History of Pacemaker insertion History of Tonsillectomy Vital Signs Recorded: 08Aug2020 03:10PM Height: 5 ft 1.5 inWeight: 173 lb BMI Calculated: 32.16BSA Calculated: 1.79Systolic: 120, SittingDiastolic: 80, SittingHeart Rate: 68Respiration: 16Temperature: 97.2 FHeight measured w/wo shoes: w/shoesPain Scale: 5Depression: 5 General: The patient is a well nourished/well developed, female, who is in no acute distress and appears stated age. Lungs are clear to auscultation bilaterally Cardiovascular: Extremities without peripheral edema, auscultation of heart reveals S1, S2 regular rate and rhythm, without murmur.Lumbosacral Spine: - ROM Extension: There is some pain rising from a seated to a standing position and pain with ambulation. This is mostly over the anterior right thigh. This gets better when she sits back down.Right Lower Extremity Motor:- Hip: 5/5 flexion, 5/5 extension- Knee: 5/5 flexion, 5/5 extension- Foot: 5/5 Plantar , 5/5 DorsiFlexionLeft Lower Extremity Motor:- Hip: 5/5 flexion, 5/5 extension- Knee: 5/5 flexion, 5/5 extension- Foot: 5/5 Plantar , 5/5 DorsiFlexionNeurological:. Psychological: Alert and oriented to person, place and time. Mood and affect are pleasant and appropriate. Judgement intact. Insight normal without delusions or hallucinations. MRI of the lumbar spine was performed on 05/13/2020 is remarkable for some svzn-wa-zwtwlohh central canal stenosis at the L3-4 and L4-5 levels due in part to ligamentum flavum hypertrophy but mostly diffuse degenerative changes. There is right-sided neural foraminal narrowing at L4-5 due to facet hypertrophy. This is essentially unchanged since 07/2019. 1. Lumbar stenosis with neurogenic claudication (724.03) (M48.062) 2. Lumbar radiculopathy (724.4) (M54.16) 3. Chronic low back pain (724.2,338.29) (M54.5,G89.29) 1. Block (Transforaminal) ([facility]) Referral Procedure Procedure Status: Hold For - Scheduling Requested for: [id number] try to make this injection for 08/29 to be a week before her next Covid-19 vaccination on 09/05.Request Type : Authorization (Private)Is patient currently on a biologic? : NoIs your patient taking aspirin for cardiac or stroke prevention...? : NoIs patient taking Aspirin > 81 mg...? : NoIs your patient on an Anticoagulant -OR- have Coagulopathy...? : NoReminder: : Place o rder for Anticoag: Aspirin Products Transforam-InterlamSedation : NoLaterality : RTArea : LumbarEducate pt. on Covid Vaccine : Educate pt. that procedure w/steroid cannot be done within 14 days of Covid vaccine and to avoid vaccine 7 days after procedure.Block : Transforaminal (steroid)Professional Applications Instructor needed for block? : NoFront Desk Reminder: : Schedule the Status Post BlockPt weight: SODS: </= 450 lbs. HODS: </= 400 lbs. ENTER WEIGHT: : 173IF PT has Thrombocytopenia are platelets >/= 100,000 ? : NAAre you ordering pyhsical therapy...? : NoDoes patient require a Tracey lift? : NoIs this an urgent request? : No - This is not an urgent requestCovid Risk : Low Risk 2. MIPS - Merit-based Incentive Payment System Evaluation Evaluation Status: Complete Done: 08Aug2020). Annual Depression Screening - Patient's PHQ-9 score is: : 5 - 9 Mild ...FUP plan required). Have you EVER received a Pneumococcal Vaccine...? : No - Patient has never received a Pneumococcal vaccination). F CAROLINE - Have you received a flu shot in 2020 ? : No - Influenza not previously received due to patient declined or other patient reasons). BMI for Patients 18 and over : 25 or greater, BMI above normal parameters, follow-up plan documented). Do you use any kind of Tobacco? (smokes or uses smokeless tobacco): : Patient identified as a NON-Tobacco User<OBX.5.1><OBX.5.1.1>A): WOMEN </OBX.5.1.1><OBX.5.1.2> ANYONE >/= 65 - How many times in the past year have you had 4 or more</OBX.5.1.2></OBX.5.1> drinks in a day? : Zero). MEN < 65 - How many times in the past year have you had 5 or more drinks in a day? : N/A 3. Orthopedic Spine Surgery ([facility]) Referral Evaluation Evaluation Status: Hold For - Scheduling Requested for: [id number] get stenosis procedures approved through private insurance. Considering SCS but need to rule out roll for surgery.Request Surgical opinion: : Provider's RequestPrevious spine surgery : Patient has not had previous spine surgeryAvi KRAMER's ([facility]): : Eyal Vigil MD Patient was counseled on all of the following: Medications: We will not start any new medications today. BOX ESTIMATOR was consulted by my designee and I have reviewed the information presented to me and find no aberrant compliance issues. Patient has been informed. Nerve Blocks: An order was placed for a right-sided transforaminal epidural steroid injection at the L4-5 level. Clearance, no. NSAIDs, no. Sedation, no. There are no medical risk factors. NERVE BLOCK: The material risks, benefits, alternatives have been discussed with the patient, including no treatment. They include, but are not limited to, bleeding, bruising, infection, damage to targeted and non-targeted tissue, increased pain, nerve injury or other reaction, if severe, could lead to CVA, arrhythmias or . The patient was given procedure instructions and educational material for this specific procedure at the time of the visit. Patient denies current treatment with anti-coagulation therapy. Education / Health Promotion: MIPS: 1. N/A 2. Tobacco use: none 3. The patient's BMI is 32.16. Weight loss was discussed and encouraged. 4. The patient's PHQ-9 score was 5 which is between 5 and 9 suggesting a mild level of depression. Symptoms were discussed with the patient and treatment options were reviewed. We will follow up on the depression symptom level at the next visit and determine if the patient requires a behavioral health follow-up at that time. Referral to a specialist: I am referring her to Dr. Eyal Vigil at [facility] for a surgical consultation. This is a 65-year-old female patient with lumbar radicular pain in the setting of lumbar spinal stenosis both centrally and in the lateral recesses worst at the L4-5 level. Ligamentum flavum hypertrophy does contribute to her stenosis but most of her symptomatology is only in an L4 distribution over the right thigh with some subjective weakness that comes with pain flares. At this point, I would like to bring her back for a transforaminal epidural ster oid injection at the L4-5 level as a precursor to potentially getting approval for an interspinous spacer at the L4-5 level. If this gets denied as the MILD procedure had been through her private insurance, she may be a candidate for a trial of spinal cord stimulation. I am going to refer to Dr. Eyal Vigil at [facility] to prognosticate and see if surgery is even an option for her. She had her first COVID-19 vaccination this past weekend and will be having her second one on 09/05/2020, hence we will hopefully be able to get this done approximately 1 week before the 09/05/2020 vaccination date as she is suffering quite a bit at this point. The risks and benefits of the transforaminal epidural steroid injection were discussed with her and her sister at length and all their questions were answered to their fullest extent. I will see her back following the transforaminal epidural steroid injection and we will make a plan from there. Per the COVID-19 risk stratification table, the patient is at low risk. [facility] Scribe Detail Form: [facility] De Santiago . [facility] Electronically signed by : Esa Amin MD; Aug 09 2020 8:06AM EST (Author) Name Value Range Interpretation Code Description Data Kelle rce(s) Supporting Document(s) ID Date Data Source [id number] 07/14/2020 08:30:00 AM EDT [facility] Name Value Range Interpretation Code Description Data Kelle rce(s) Supporting Document(s) Colon[facility] HFFSCi7bIqKZGiIzOWEuWuyYWIlrWLnqVQRhZ1X0FSfyRh6QPXejrvOiIDLqWt2+PHWhNA2vwe6pYVBr gMy [file] h8ECwYi2bjkdcQVAzxz5FOPsGXqZKNq4TLJxI6BSBuNXg/5k/gkJUDkjEwT8PTr/motor vehicle escort driver+Q08I7Ewb2+33 [file] Financial Analysis Advisor+g9ZrnhbbGqnJH3Bp83yiEo9aRs03eyQrrCmTLjSUxlDMenppwz3GrbdO28LZcnuOMDGWH32Yf3nwA [file] RPyNRMfg/SCLb40kmwZ3x2d3pPaLBl5q/BpfZhuZ9XSof+K7qpBbOZSwq/Chloé/k4mLs2oZ+Ciy7tbnRA [file] svp digital sales food & cooking/CMczUdS1OMH6fmy4GgMliD5DbvzF7ms0ZKlDSRq [file] stamp operator [file] FV0qfneEGApdGFEe7H/eloT1LUB81QnvMkm04WZxWZs6V8i+jlkKa2Mk/Tati/0lcpsbx6//A5oqbaEHJk SrAOJ9xbFenJ5eevMsWuzUUCPfLCToTdbWXElgFHNv J2NuFMEeEt5snXZiBO9QMgGIKhFgCPGzJAF5FUAnMNNoVFZhEc3LaFzqTSDhVdCZNrRqPEU7ckDjlU1h ziZtJvbIUJZcZCGnEqdFCLogPxpdvXVkZY6WrWA8QSNyX60lLL9WWW9lmCfzFgZuSKVzJws3V8ZfYqG3 OCX4VsT8SuW0BKjHPMGGE9XLSJQ9KPV8Rb0lXDcQSL ISLNlZOSkBPIyiBQPVQRKFKHH0EFC9GGB7EEw5Kt6qYh3grVSuCLZsYd3LmmTvPJIuKVWWP0BjscUgDF DqFQgrPAApHJBdYf5LBGixNLJoBT8+OmO5nuViwY1GeEqrCZVo0ODsVIOgCTNFYR7InDcYKXF7tDL3wE IQzdMPqwGKuw3bBTc55uQVhUIg9hYB5YStQNXhugzu TIgzeaGimQUpSS6QGbWhGQ0ftd1QQhE9ATR3bWBcAl8NAXq0DFS6KCthSEWITj== ID Date Data Source [id number] 07/01/2020 08:30:00 AM EST [facility] ([facility]) Name Value Range Interpretation Code Description Data Kelle rce(s) Supporting Document(s) Cholesterol [Mass/volume] in Serum or Plasma 245 mg/dL 131-200 [facility] ([facility]) Cholesterol in HDL [Mass/volume] in Serum or Plasma 113 mg/dL 35-60 [facility] ([facility]) Triglyceride [Mass/volume] in Serum or Plasma 46 mg/dL 30-150 [facility] ([facility]) Cholesterol in LDL [Mass/volume] in Serum or Plasma by calcu lation 123 CALC 50-159 [facility] ([facility]) ID Date Data Source [id number] 07/01/2020 08:30:00 AM EST [facility] ([facility]) Name Value Range Interpretation Code Description Data Kelle rce(s) Supporting Document(s) Glucose [Mass/volume] in Serum or Plasma 88 mg/dL 74-99 [facility] ([facility]) 100-125 mg/dL PRE-DIABETES/FASTING >126 mg/dL DIABETES/FASTING Urea nitrogen [Mass/volume] in Serum or Plasma 19 mg/dL 7-18 [facility] ([facility]) Creatinine 0.6 mg/dL 0.6-1.3 [facility] Sodium [Moles/volume] in Serum or Plasma 141 meq/L 136-145 [facility] ([facility]) Potassium [Moles/volume] in Serum or Plasma 4.7 meq/L 3.5-5.1 [facility] ([facility]) Carbon dioxide, total [Moles/volume] in Serum or Plasma 28 meq/L 21 -32 [facility] ([facility]) Chloride [Moles/volume] in Serum or Plasma 104 meq/L 98-107 [facility] Calcium [Mass/volume] in Serum or Plasma 8.9 mg/dL 8.5-10.1 [facility] ([facility]) Glomerular filtration rate/1.73 sq M pre dicted among non-blacks [Volume Rate/Area] in Serum or Plasma by Creatinine-based formula (MDRD) Laboratory test result [facility] ([facility] ) Glomerular filtration rate/1.73 sq M pre dicted among blacks [Volume Rate/Area] in Serum or Plasma by Creatinine-based formula (MDRD) Laboratory test result [facility] ([facility]) <content>CHRONIC KIDNEY DISEASE STAGING PER NKF</content>
<content></content>
<content>STAGE I & II GFR >= 60 NORMAL TO MILDLY DECREASED</content>
<content>STAGE III GFR 30-59 MODERATELY DECREASED</content>
<content>STAGE IV GFR 15-29 SEVERELY DECREASED</content>
<content>STAGE V GFR <15 VERY LITTLE GFR LEFT</content>
<content>ESRD GFR <15 ON ADULT BASIC EDUCATION TEACHER</content>
<content></content> ID Date Data Source [id number] 07/01/2020 08:30:00 AM EST [facility]) Name Value Range Interpretation Code Description Data Kelle rce(s) Supporting Document(s) Hemoglobin A1c/Hemoglobin.total in Blood 6.1 % [facility] ([facility]) Lab Result Notes: Pre-Diabetes 5.7 - 6.4 % Diabetes = or > 6.5% Glucose mean value [Mass/volume] in Blood Estimated fr om glycated hemoglobin 128 mg/dL 60-110 [facility] ([facility] ) ID Date Data Source [id number] 07/01/2020 08:30:00 AM EST [facility]) Name Value Range Interpretation Code Description Data Kelle rce(s) Supporting Document(s) Leukocytes [#/volume] in Blood by Automated count 4.5 x10*3/UL 4.1-10 .9 [facility] ([facility]) Erythrocytes [#/volume] in Blood by Automated count 3.84 x10*6/UL 4.2 0-6.30 [facility] Hemoglobin [Mass/volume] in Blood 11.3 g/dL 12.0-18.0 [facility]) NOTE: RESULT VERIFIED. MCV 87.1 fL 80.0-97.0 [facility] ([facility]) Hematocrit [Volume Fraction] of Blood by Automated count 33.5 % 3 7.0-51.0 [facility] ([facility]) MCH 29.3 pg 26.0-32.0 [facility] ([facility]) Platelets [#/volume] in Blood by Automated count 328 x10*3/UL 140-440 [facility] MCHC 33.7 g/dL 31.0-38.0 [facility] ([facility]) Erythrocyte distribution width [Ratio] by Automated count 13.3 % 11.6-13.7 [facility] ([facility]) Lymph % 41.8 % 10.0-58.5 [facility] ([facility]) MPV 7.2 FL 7.8-11.0 [facility] ([facility]) Mid % 8.7 % 1.7-9.3 [facility] ([facility]) Neut % 49.5 % 37.0-92.0 [facility] ([facility]) Neut # 2.2 x10*3/UL 2.0-7.8 [facility] ([facility]) Lymph # 1.8 x10*3/UL 0.6-4.1 [facility] ([facility]) Mid # 0.5 x10*3/UL 0.1-0.6 [facility] ([facility]) ID Date Data Source [id number] 07/01/2020 08:30:00 AM EST [facility] ([facility]) Name Value Range Interpretation Code Description Data Kelle rce(s) Supporting Document(s) Hemoglobin A1c/Hemoglobin.total in Blood Laboratory test result [facility] ([facility]) ID Date Data Source [id number] 06/24/2020 12:00:00 PM EST [facility] ([facility]) Name Value Range Interpretation Code Description Data Kelle rce(s) Supporting Document(s) TP Reflex HPV ASCUS Laboratory test result [facility] ([facility]) SPECIMEN PART------ A. Cervical, Endocervical, ThinPrep Pap (Fly Maker) CYTOLOGY HX-------- Date of Last Menstrual Period: POST MENOPAUSAL Other Information: Post-menopausal HPV Positive: 11/11/19 Previous Pap ASC-US: 11/11/19 FINAL DIAGNOSIS---- INTERPRETATION: Negative for Intraepithelial Lesion or Malignancy. SPECIMEN ADEQUACY:Satisfactory for evaluation. Endocervical/transformation zone component present. TP Reflex HPV ASCUS Laboratory test result [facility] ([facility]) ID Date Data Source [id number] 06/15/2020 10:45:00 AM EST [facility] Name Value Range Interpretation Code Description Data Kelle rce(s) Supporting Document(s) Follow Up [facility] ILKKMi3cRtNDYgGkYTMtEtuJLCtrLNbbRHJtP0S3YCtcDt3LJZkcziPeWDYkMd8+QDDvCY5wna6bBBLf y [file] BvKTCi9CG5ITkuWLjtpnNvtBlYgFtpC1KwY4mK8dK6EE3tcVi0W43/camp coordinator//IoQhpjKw0cv2aDTETaz3/ [file] Mary Ann/mczYP55i+aB0omMqTlbCw+ePEvwsWKh7fQBZ+rYd2PPIaZxZnPN3x7hCg81kb2m57eguCYHMfrm qyWzQ4xwEXEbe8wEx3HxwF2QBGu7mbX/BgkcnmsqkBXMSiXSfD960OgQDG7/YlB5c3U7VxLuLk0+9PrO MQhseBd0eG1PgOvsxkUQj34cZ8DAPKm2baRdJlDERN 4ERPScltW8qys/r+ACoYLMUy9msVQieUh2/xKd8gecJ1RTV8A69DuMFelcs/ES8upw152O/L9c9BxW40 M5fEg1wBbllS7WTqaV+staff nurse icu resource team+Rzh0OFC/uJKtKJRmRqCnmmbSGG3vX3NTgs4ESWj3OWNylhgVlS4PsoY57 [file] 8kCoqLAIqNc5GgQJ/hkBXeyOLAqWtZu+nuclear physics professor/+OApk2onM1W/jXbZluAiu+ZjJF+xIQLnWlmZ4gHbBrL Zk1pmikdLXfjxWfK9bonLltyZ7TqgiA75nB4NB1xXBBJUqCRNkPl9+8iFS7YNf3Ta2q72XWaFbY27CPE WUBMvWiHoqrfkthFEYddxisqz+9yogH6D5sB37mrv+ YE35uryRQVffZBeL05CH3CT/UQHkq+GazSrxOF/5DDLwczfErGrMC5lBAz04X9dxW0QIe+RKr6qMjbQ3 Z+ytwQtdWl8MGeC6MoS8l4hSo/cf/OEws2I5b5QrwmTVvIDxcewnO9SZItjhmsXWcI2cc9TVq+ra6QpB c34c5HRoZutEtkp8YmSbVgGXqyb1YCyO7HJzo4iiJP lMH0NRIIsa8utGP/ILQQepU6c36zDO7/H4ppasv6F/Cz+wd/5Qi9XFqzuv7tacdaDFPiEx0RY8uyNjfR HPgZNnwu30ctxMq8y5BHrlFzsLRhdENpOlhqmFdTvQZyWHARDAtBgoGR452PKS5jGAV9X18i9Ir/Andriy [file] vice president of compliance+R2yuZU4FsHIzxSrw3dbiUzcoGNf2CnLwO02feVLPrpzciBjJyh79B58QT/exrcg6UYlhPocbcZM4 [file] p+Kr84w90Re9O2p+D2Na2JTX8t5W1Uo9gSUDZ4e44d TCwqg9AjFRPG0YyAio+RJC74ltKFbz2OiH9tYGNyxH+Fg/y7fI9ZEk9Z+oJNEdZnfs2m3zT+RX+7x+8+ EfGPXEKjztU5JRJiQNN4tP1TXkZ3/nyPW4HJa2hNHCEWXnu8uylAqGCoFJtAIiq47T08/r+a7mTBGHxx ySwopfhPE53G9qUxpEs3GdyZyLpWPi9cuGv888UtD/ 7KFZ+HDHw/CFEMfd73BwhlkDP42i4PUWsalNjMIhTXYXW0ILlzqJcmm+iKYTbgfXCuBTlg5YVdcTe7Ig gpobdF35GWEpuQbjPvHa32lbfvE+1ld+KIQJ0X4rnIS244ZESNmvfXIf8PehRruHsdpIBvh4vmxaCzh7 Qld03voHHPq5hFZEzsm9S0Z31P7tIuw+VXS5BXs0Gy zVyBV2RapEGlx+Sj97/po5nJkf6aL8akJRpE+cAb3LthZN9mxtFzi7kAzfKkMwtrym0ZJTz/GAKvIN9n yX0pbLpBcBhFzblU/hRPjcxv4p90DCpDuPygI/BPO/N0GyDeMfpvRZhYxJAde7JQS+Q0aqYR/JhnNnBc 5qQZ2Zux/1BEMG6U+GzUs1Q8m9R89tkZYt0+Tatum+si yl+m+v43i5ByEtmwleqmoyoV5BlUquG9bszoh4tBYB4UaL8ZawYN6bKyUTON4dvaGQYyEXc3+JOpYiPE YkTGaD9IntqO/22jo/BoAyRcUfMhQeH6XheFTvYYze6un3dGH6j2Ykx+FNFc6rZgI4vgVXD56L7sf86l oRsT2FPOwWKBoq835u8Ski0jrZiGx3lvSHB+YGRszW PBWYdWZI3S9KQIX9mXr5tiQtbiRB1Udl+txwrdCyzDOtcXnTOc+sRb8hACd+eRsz2vxa3fTgRiiHukWu pa0p/3Updu5o0zyutywaKYHzY0ItyhgqaqoxeGtkJR2TG9klYQ/5ONddPumldz82hJ6RM7UlW6ACcypU sgM/QCn8MbsFmehJpI9Kn3epVjt7BDcV8sclAoFMiT amv3LInHTNt2ZFVofF8q6dZ3E/FMwgNhhxC+kErAEWf964bddkIoCpRMBKp1vjkdBYAamDEckqhMOVvo +tF292GBAcWpdBQX31+JajN0Q1EjayL4wgvQKyPnS1Fs+QRgMjRl5a1e7EhAkh8GdZuL2c9HTst8kSzT +gWQj4PC5xjZy/Fqkc5HCBuCa/HtUlDRuodj1jyhxm bz4a03yLPHnG2NvwVR8FVzXHXkJvJSQS8Rl9Fp76kIvMVnc87VEBeVqZxIqVwQCxHXcic1l5akgyUJtp qqbVAhv4CU+msVXMYpqqZ7r7i8nt4TtjUvW4iXy4xod3cEFlNJm+AZ2hPC+/OXf+dulce maria/eKONtaWvhIx [file] +/J+74iA1x3j+Financial Analysis Advisor+yPl1BivsROk1fQtPQfvjTbjJ49tYrUhjksiWzWdMOXN092FXiFwwYRbvmC8ZZKTT [file] dross puller/7U2svoa78/h9BWvo/UlL2jTof149GbICUjHI5F5me0v47KqnE/i/4v+D/gv8L/i/4/wnw/x0sNK jkXAtom5baies1aOVRb5VH+GpNOo3RFdwpuNLNfjbw 2Qfh37+3UA0d54h+Rw59/JGcXlPuZzIJK+EYE5cwEcxDkU0zHwRKctD5kl1oC2vtc+Wi5TlZZVpwUiCE WPz8K4Bqni4YuFN0AolR5OTVfT/ZreCOE6/FQ9TftCE32ffeG3gD1Vat8NomzrdyLNnfSxFGCKA4gV28 btCiBY+Jnw91O7iOsdwGeiLksnrM1g1EWBo7lIeaWC 3Z7ZsheZXuVqJlCb3AQbBAfLrJv0aPVDnnsG4Msl291oKWizH35/RP6d1uGxoJ15PeLWQDwY+YX5Yqcg iki+a0OmhIFCrL8V8zGkes8LV7yoQn4jlNHPTJdvq+T63f7rn68ZiX1edx7uKu1WSHgqzqMaJKDxHVc3 i7R6l3WJjATYINXrRaF37cA1fiZNqRBZDvlU24N78y NcYs1wfxWkCGSMMYfoMrL5gePdOZGy6p0YvAIvcLzOagyEJWpDwFiaxLItyqtEalmIcpX5X5MpuKWUCx F/8Hhm8W2oOHLSphqWp/2z7i185WeCVTOYeHLgMDPsCLL4X1DPvQQMikjjsrIstQMmPn+rvP+D8Tu9C0 22wEAoqZRIhND0fV3oACi99Ol44bgX+4uitzfKY4kk ZRJEO/Cmlk2ILsiIXiYL55PNdgVCl/AW5p6rrRShs9Yco0W1+X6V+6Km2mGeXHasc20r5aNZshh3o/43 mjS0W1V+x5L1HP30Do2cwIymfuUlWfa7CztNyJoPmPdQHYi9jcDfXZABoGixNJXfNaI20tAwgRhjvvhx B+52m7RXA6t85/Wv+2m95Fs9isLnlCqj1vE254i2v2 [file] MHrEFSt21FB5Vkr/Industrial Trainer/9u6nxG9C6/nIHcAD/+vXp/D [file] +DfToORo4kBBIvqZaNtDDgqDI4m3NZbXkq/CAA [file] CsqAZAlipBOgtBxwDCLWGzc9IfC7Rn9YMBLDW0W= ID Date Data Source [id number] 05/10/2020 03:03:00 PM EST [facility] DATE OF EXAM: 05/06/2020ULTRASOUND GUIDE D PSOAS STEROID INJECTION INDICATION: Chronic groin pain Informed consent for the procedure was obtained by explaining the possible benefits and risks, including bleeding and infection. All elements of routine sterile technique were employed to prevent catheter-related infection including hand hygiene, skin preparation, and sterile ultrasound techniques if applicable. PROCEDURE: Preliminary scan was performed. The right psoas tendon sheath was localized and the groin is prepped and draped in normal sterile fashion. The skin is anesthetized with 1% lidocaine. A 22 gauge needle was directed into this space under ultrasound guidance and used to introduce 80 mg Depo-Medrol mixed in 4 cc bupivacaine. No immediate complications. IMPRESSION: Uneventful ultrasound-guided therapeutic injection of right psoas tendon sheath. [facility] Professional interpretation performed by [facility] at [facility] .End of diagnostic report for accession: [id number] Interpreted: Ayad Ceron MDTranscribed: 05/10/2020 12:18 PMSigned: 05/10/2020 03:03 PM Ayad Ceron MD ------- [facility] # [id number] BILL # [id number] 2[facility] Name Value Range Interpretation Code Description Data Kelle rce(s) Supporting Document(s) ID Date Data Source [id number] 04/27/2020 04:16:15 PM EST [facility], PCName: aDwn LopezOB: 1955Provider: Letty Amin: 04/27/2020 Chief ComplaintLow back and right lower extremity pain. Chief Complaint 2 MA completing section: Robert Yoder CNA Established IntakePatient was asked and denies having any tests since their last visit Patient was asked and denies seeing any physicians since their last visit. At today's visit patient presents with their Self . Patient is currently working. Implanted Devices The patient does not have any implanted devices. Glucose Monitor Device The patient does not have a glucose monitoring device. The patient is being seen for a follow-up with MD. History of Present IllnessPain Location: The patient localizes their pain to the low back and the right lower extremity. Pain Quality: The pain is described as aching in the back and shooting in the right lower extremity. Progression: The patient feels her condition has been worsening and ambulation has been becoming progressively more difficult since Spring 2019. Pain Score: Today's pain is a 7/10, on a good day it is a 4/10, on a bad day it is a 10/10. <OBX.5.1><OBX.5.1.1>Associated Signs </OBX.5.1.1><OBX.5.1.2> Symptoms: Associated symptoms include dragging of the right lower extremity. </OBX.5.1.2></OBX.5.1>Past Treatment Effectiveness: Effective treatments: The patient underwent transforaminal epidural steroid injections at the L3-4 and L4-5 levels on the right side, which provided near 100 percent benefit for approximately 24 hours. Interval History: This is a 64-year-old female with lumbar spinal stenosis who experiences right hip and low back pain while standing and with ambulation for prolonged periods of time. She also experiences pain while she is seated, which only affects the right medial groin and radiates into the medial aspect of the right thigh. The patient is status post right total hip arthroplasty. She was seen by Dr. Torres on 04/26/2020, who suggested she be put on oral steroids, and is requesting a psoas injection, which Ms. Butts will be obtaining through [facility]. She denies any true lower extremity weakness; however, she does feel she is dragging the right lower extremity, although this goes unnoticed until she realizes the right foot is dragging. She denies any bowel or bladder incontinence. Review of SystemsConstitutional: Normal. Eyes: Normal. ENT: normal. Cardiovascular: Normal. Respiratory: Normal. Gastrointestinal: Normal. Genitourinary: Normal. Musculoskeletal: lower back pain and limb pain. Integumentary: Normal. Neurological: Normal. Psychiatric: Normal. Endocrine: Normal. Hematologic/Lymphatic: Normal. I reviewed the above with the patient and I feel the ROS to be negative/normal other than she does endorse depression.. Active Problems 1. Chronic low back pain (724.2,338.29) (M54.5,G89.29) 2. Lumbar radiculopathy (724.4) (M54.16) 3. Lumbar stenosis with neurogenic claudication (724.03) (M48.062) 4. Neuroforaminal stenosis of lumbar spine (724.02) (M48.061) Allergies NSAIDs bariatric surgery; Recorded By: Israel Beth; 08/07/2019 10:00:30 AMDenied Adhesive Tape Recorded By: Israel Beth; 08/07/2019 10:00:30 AM Iodinated Contrast Media Recorded By: Israel Beth; 08/07/2019 10:00:30 AM Latex Recorded By: Israel Beth; 08/07/2019 10:00:30 AM Current Meds Propranolol HCl - 60 MG Oral Tablet;Therapy: (Recorded:[id number]) to Recorded PROzac 40 MG Oral Capsule;Therapy: (Recorded:66Pjo6155) to Recorded Tylenol TABS;Therapy: (Recorded:10Hqm6132) to Recorded Vitamin B Complex TABS;Therapy: (Recorded:[id number]) to Recorded Past Medical History History of anemia (V12.3) (Z86.2) Denied: History of anticoagulant therapy History of arthritis (V13.4) (Z87.39) Denied: History of coagulation defect History of degenerative disc disease (V13.59) (Z87.39) History of depression (V11.8) (Z86.59) History of hydrocephalus (V12.49) (Z86.69) has a shunt History of hypoglycemia (V12.29) (Z86.39) History of hypotension (V12.59) (Z86.79) H istory of mental disorder (V11.9) (Z86.59) History of scoliosis (V13.59) (Z87.39) History of Severe headache (784.0) (R51.9) History of TIA (transient ischemic attack) (435.9) (G45.9) Surgical History History of Brain surgery x6 History of Breast augmentation Denied: History of Cardioverter defibrillator insertion History of Carpal tunnel surgery RT History of Gastric bypass surgery History of Hip replacement 10/06/18-RT Denied: History of Pacemaker insertion History of Tonsillectomy Family History Family history of cardiac disorder (V17.49) (Z82.49) Family history of arthritis (V17.7) (Z82.61) Family history of hypertension (V17.49) (Z82.49) Family history of malignant neoplasm (V16.9) (Z80.9) Social History Consumes alcohol (V49.89) (Z72.89) (V61.03) (Z63.5) Never a smoker No illicit drug use Part-time employment [employer] Recorded: 27Apr2020 09:33AM Height: 5 ft 3 inWeight: 170 lb BMI Calculated: 30.11BSA Calculated: 1.8Systolic: 124, SittingDiastolic: 70, SittingHeart Rate: 66Respiration: 16Temperature: 96.9 FHeight measured w/wo shoes: w/shoesPain Scale: 7 Physical ExamGeneral: The patient is a well nourished/well developed, female, who is in no acute distress and appears stated age. Eyes: Lids are atraumatic, no lesions, sclerae are anicteric. Ears, Nose, Mouth, Throat: external ears and nose without trauma. Patient wearing a mask due to COVID-19. Respiratory: Normal chest expansion and respiratory effort. Gait and Station: Gait was normal. Lungs are clear to auscultation bilaterally Cardiovascular: Extremities without peripheral edema, auscultation of heart reveals S1, S2 regular rate and rhythm, without murmur.Lumbosacral Spine:- Inspection: normal appearance. No deformity, ecchymosis, erythema or swelling noted. Normal Lordosis..- Palpation/Tenderness: No SI, paraspinous, or sciatic notch tenderness. - ROM Flexion: was painful (Tenderness with right hip flexion against resistance. ). - ROM Extension: was painful (Some pain with back exten panfilo. ) Minimal pain with rising from a seated to a standing position.Right Lower Extremity Motor:- Hip: 5/5 flexion, 5/5 extension- Knee: 5/5 flexion, 5/5 extension- Foot: 5/5 Plantar , 5/5 DorsiFlexionSpecial Tests: flip test was negative, Tenderness with palpation along the medial aspect of the right thigh.Left Lower Extremity Motor:- Hip: 5/5 flexion, 5/5 extension- Knee: 5/5 flexion, 5/5 extension- Foot: 5/5 Plantar , 5/5 DorsiFlexionSpecial Tests: flip test was negativeNeurological:Sensation Left Lower: normalSensation Right Lower: normal. Skin: Warm, dry, acyanotic. Psychological: Alert and oriented to person, place and time. Mood and affect are pleasant and appropriate. Judgement intact. Insight normal without delusions or hallucinations. Denies suicidal/homicidal ideation. Results/DataAn EMG/nerve conduction study performed in 12/2019 reveals a mild right mid-lumbar L3-4 radiculopathy, which does not meet the criteria for a full diagnosis. MRI scan of the lumbar spine obtained in 07/2019 reveals mild central canal stenosis at L3-4. At L4-5, there is moderate central canal stenosis due in part to ligamentum flavum hypertrophy with mild right-sided foraminal narrowing. Assessment 1. Lumbar stenosis with neurogenic claudication (724.03) (M48.062) 2. Lumbar radiculopathy (724.4) (M54.16) Plan 1. Block (MILD) ([facility]) Referral Procedure Procedure Status: Hold For - Scheduling Requested for: [id number] patient currently on a biologic? : NoIs your patient on an Anticoagulant -OR- have Coagulopathy...? : NoDoes patient take aspirin, aspirin products and/or NSAIDs.....? : NoSedation : YesLaterality : BilateralArea: : LumbarProcedure : MILDProfessional Applications Instructor needed for block? : NoFront Desk Reminder: : Schedule SP MILD 4-5 weeks with perf MDDo you need more time than 30 minutes? : Add 10 minutesChoose : Esa Amin weight: SODS: </= 450 lbs. HODS: </= 400 lbs. ENTER WEIGHT: : 170IF PT has Thrombocytopenia are platelets >/= 100,000 ? : NARequest Type : Authorization (Private)Are you ordering pyhsical therapy...? : NoRequest Authorization : Request Auth through privateIs the patient >/= 66, on Medicare for 12 months? : NoDoes patient require a Tracey lift? : NoCovid Risk : Low Risk 2. MRI MILD ([facility]) Referral Treatment Treatment Status: Hold For - Scheduling Requested for: [id number] MRI at: : SOSDoes Patient have SCS...? : NoFront Desk Reminder: : I will call pt with results.Is this to rule out a mass? : NoHas the patient had Lumbar surgery? : NoContrast : Without ContrastRe quest Type : Authorization (Private)MRI Body Part : L-Spine Patient was counseled on all of the following: Medications: The patient will not begin any new medications today. BOX ESTIMATOR was consulted by my designee and I have reviewed the information presented to me and find no aberrant compliance issues. Patient has been informed. Nerve Blocks: The patient will be scheduled for the MILD procedure. She denies a bleeding disorder and anticoagulant use. No clearance needed. NSAIDs, no. Sedation, yes. ASIPP Risk Stratification of Patients presenting for Interventional Pain Procedures: Decreasing Morbidity of COVID-19 According to the Covid-19 ASIPP guidelines and the medical history as relayed to me by the patient, the Covid-19 risk stratification is low . NERVE BLOCK: The material risks, benefits, alternatives have been discussed with the patient, including no treatment. They include, but are not limited to, bleeding, bruising, infection, damage to targeted and non-targeted tissue, increased pain, nerve injury or other reaction, if severe, could lead to CVA, arrhythmias or . The patient was given procedure instructions and educational material for this specific procedure at the time of the visit. Patient denies current treatment with anti-coagulation therapy. <OBX.5.1><OBX.5.1.1>Xrays </OBX.5.1.1><OBX.5.1.2> Scans: An updated MRI scan of the lumbar spine will be ordered to be performed at one of our local scanners so I am able to assess the images more accurately, as the patient feels as though her condition is worsening since undergoing her last MRI scan in 07/2019. </OBX.5.1.2></OBX.5.1> Discussion/SummaryThigarett is a 64-year-old female patient with multilevel lumbar spinal stenosis and chronic back pain, which is worse while she is standing. This also includes right lower extremity pain with prolonged upright posturing; however, this pain also persists while she is sitting. Ms. Butts is status post a right total hip arthroplasty, which Dr. Torres reports is intact and not contributing to her right lower extremity pain. He is putting the patient on a course of oral steroids, as well as sending her for a psoas injection at [facility]. We will obtain an updated MRI scan of the lumbar spine and bring her back for the MILD procedure to decompress the posterior ligaments at the L4-5 level and potentially at the L3-4 level as well. My hope is that this will at least relieve some of the patient's back pain and potentially some aspect of her right lower extremity pain while we figure out what the pain in the right lower extremity with flexion is stemming from. She may be a future candidate for an interspinous spacer implant; however, given how uncomfortable she is in a flexed position currently, this is not an ideal therapy to pursue for the time being. The risks and the benefits of the MILD procedure were discussed with the patient at length today, and all of her questions were answered to their fullest extent with a pamphlet and a teaching sheet provided. I will review the MRI scan results when they are accessible; at which point we can move forward with scheduling the MILD procedure. Per the COVID-19 risk stratification table, Ms. Butts is low risk. ScribeNYSW Scribe Detail Form: Aishwarya Green . (iScribes) Signatures Electronically signed by : Esa Amin MD; Apr 27 2020 4:16PM EST (Author) Name Value Range Interpretation Code Description Data Kelle rce(s) Supporting Document(s) ID Date Data Source [id number] 05/03/2020 08:33:42 AM EST [facility] PCName: Florencia LopezOB: 1955Provider: Mega Torres: 04/26/2020 Reason For VisitFlorencia Butts is here today for right hip. Florencia Butts is an established patient here for follow up. Surgery DOS: 10/06/2018. Surgery Description: right hip replacement. The patient has not had a course of physical therapy for greater than 4 weeks. The patient has not had a course of NSAIDs for greater than 4 weeks. 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 Plan Start: methylPREDNISolone 4 MG Oral Tablet Therapy Pack (Medrol); Take as directed ,please label ONE package A, the other package B Rx By: Rob Torres; Dispense: 0 Days ; #:2 X 21 Tablet Pack; Refill: 0;For: Pain of right hip, Status post right hip replacement; SOFÍA = N; Verified Transmission to [facility]15; Last Updated By: Elpidio Junior; 04/26/2020 9:12:47 AM Fluoroscopic Guided Procedure (SOS) Referral Treatment Treatment Status: NeedInformation - Financial Authorization Requested for: 26Apr2020 Ordered;For: Pain of right hip, Status post right hip replacement; Ordered By: Rob Torres Performed: Order Comments: Psoas Injection at [place] Due: 10May2020; Last Updated By: Nai Morel; 04/26/2020 9:14:48 AMMedication and Quantity: : 1 cc Depomedrol with 2 cc Lidocaine 1%Laterality: : Right Assessment:Right leg pain.Florencia continues to have right leg pain. She has lumbar disc disease and has been seen by a spinal surgeon and it was recommended she had surgical intervention. She is keen to avoid this.On exam today, her hip generally examined well without significant issues but she does have some thigh irritation. As a last ditch resort, I think we should try double Depo-Medrol Dosepak and do a psoas guided injection into the right hip at [facility] on the off chance some of her pain is coming from the hip and not the back.We will set this up. Signatures Electronically signed by : Florencia Diaz, ; Apr 27 2020 4:53PM EST Electronically signed by : Rob Torres M.D.; May 03 2020 8:33AM EST (Author) Name Value Range Interpretation Code Description Data Kelle rce(s) Supporting Document(s) ID Date Data Source [id number] 03/14/2020 11:15:00 AM EST [facility] PCName: Dawn orlando RenziDOB: 1955Provider: Humera Bill: 03/10/2020 Chief ComplaintPatient is here for right anterior thigh and low back pain Chief Complaint 2Hip pain NYSW VAS PAIN Established: MA completing section: [place] History of Present IllnessRecent test/procedures: Patient has had the following tests/procedures since their last visit: Xray on hip at [facility]. The patient was last seen by a [facility] provider on 01/13/2020. At today's visit patient presents with their Self Implanted Devices The patient does not have any implanted devices. The patient does not have a glucose monitoring device. Patient is currently working. 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 The patient is being seen for a post block examination. The date of onset of symptoms is approximately Years. INTERVAL EVENTS: include . Patient today for follow-up of right anterior thigh and low back pain. She was also seen at [facility] on 03/01/2024 hip pain. Total right hip replacement. She had tripped a week before her appointment and ran into the wall in the garage and fell to the ground. She has had some groin pain. X-rays were obtained and reviewed and there was no evidence of fractures or dislocations. The joint remains reduced and the hardware and implant is in good position. They believe that her pain is consistent with soft tissue irritation rather than a joint issue. They offered physical therapy but she deferred. As far as her low back and right anterior thigh pain she describes this pain is an achy, dull, burning constant pain that is alleviated by sitting and aggravated by standing and walking. On 01/13/2020 she underwent an EMG of her lower extremity which was inconclusive however was mildly suggestive of her right mid lumbar L3-L4 radiculopathy but did not meet full criteria for diagnosis. It was suggested that we repeat the right L3-L4 lumbar transforaminal injection versus sending to speak with our doctor robert SMALL. Had right-sided lumbar transforaminal injection targeting L3-L4 without sedation with Dr. Amin completed on 02/04/2020 which she reported 90% relief for 1 day. Review of SystemsConstitutional: Normal. Eyes: Normal. ENT: normal. Cardiovascular: Normal. Respiratory: Normal. Gastrointestinal: Normal. Genitourinary: Normal. Musculoskeletal: arthralgias, lower back pain, joint pain and limb pain. Integumentary: Normal. Neurological: Normal. Psychiatric: Normal. Endocrine: Normal. Hematologic/Lymphatic: Normal. Patient maintains at today's visit there has been no change in his/her hematologic history. Active Problems 1. Chronic low back pain (724.2,338.29) (M54.5,G89.29) 2. Lumbar radiculopathy (724.4) (M54.16) 3. Lumbar stenosis with neurogenic claudication (724.03) (M48.062) 4. Neuroforaminal stenosis of lumbar spine (724.02) (M99.73) Allergies NSAIDs bariatric surgery; Recorded By: Israel Beth; 08/07/2019 10:00:30 AMDenied Adhesive Tape Recorded By: Israel Beth; 08/07/2019 10:00:30 AM Iodinated Contrast Media Recorded By: Israel Beth; 08/07/2019 10:00:30 AM Latex Recorded By: Israel Beth; 08/07/2019 10:00:30 AM Current Meds Propranolol HCl - 60 MG Oral Tablet;Therapy: (Recorded:[id number]) to Recorded PROzac 40 MG Oral Capsule;Therapy: (Recorded:[id number]) to Recorded Tylenol TABS;Therapy: (Recorded:[id number]) to Recorded Vitamin B Complex TABS;Therapy: (Recorded:[id number]) to Recorded Past Medical History History of anemia (V12.3) (Z86.2) Denied: History of anticoagulant therapy History of arthritis (V13.4) (Z87.39) Denied: History of coagulation defect History of degenerative disc disease (V13.59) (Z87.39) History of depression (V11.8) (Z86.59) History of hydrocephalus (V12.49) (Z86.69) has a shunt History of hypoglycemia (V12.29) (Z86.39) History of hypotension (V12.59) (Z86.79) History of mental disorder (V11.9) (Z86.59) History of scoliosis (V13.59) (Z87.39) History of Severe headache (784.0) (R51) History of TIA (transient ischemic attack) (435.9) (G45.9) Surgical History History of Brain surgery x6 History of Breast augmentation Denied: History of Cardioverter defibrillator insertion History of Carpal tunnel surgery RT History of Gastric bypass surgery History of Hip replacement 10/06/18-RT Denied: History of Pacemaker insertion History of Tonsillectomy Family History Family history of cardiac disorder (V17.49) (Z82.49) Family history of arthritis (V17.7) (Z82.61) Family history of hypertension (V17.49) (Z82.49) Family history of malignant neoplasm (V16.9) (Z80.9) Social History Consumes alcohol (V49.89) (Z72.89) (V61.03) (Z63.5) Never a smoker No illicit drug use Part-time employment VitalsVital Signs Recorded: 10Mar2020 09:35AM Height: 5 ft 3 inWeight: 170 lb BMI Calculated: 30.11BSA Calculated: 1.8Systolic: 122, SittingDiastolic: 78, SittingHeart Rate: 64Respiration: 16Temperature: 96.8 F, TemporalHeight measured w/wo shoes: w/shoesPain Scale: 8 Physical ExamGeneral: The patient is a well nourished/well developed, female, heavy set, who is in moderate distress and appears stated age. Eyes: Lids are atraumatic, no lesions, sclerae are anicteric. Ears, Nose, Mouth, Throat: external ears and nose without trauma. Respiratory: Normal chest expansion and respiratory effort. Gait and Station: Gait was antalgic. Skin: Warm, dry, acyanotic. Psychological: Alert and oriented to person, place and time. Mood and affect are pleasant and appropriate. Judgement intact. Insight normal without delusions or hallucinations. Denies suicidal/homicidal ideation. Assessment 1. Chronic low back pain (7 24.2,338.29) (M54.5,G89.29) 2. Neuroforaminal stenosis of lumbar spine (724.02) (M99.73) 3. Lumbar stenosis with neurogenic claudication (724.03) (M48.062) 4. Lumbar radiculopathy (724.4) (M54.16) Plan 1. Follow-up with MD Follow Up Follow-up Status: Hold For - Scheduling Requested for: [id number] apt w/ dr amin after 04/22/2019 d/t ins changing. Angelique Bill FNProfessional Applications Instructor Needed? : NoType of Follow-up needed: : LSS FMD: FMDLSS (if MILD remind PT to bring CD of most recent Lumbar MRI) Medication:. The patient does not receive any medication prescriptions from this office. Treatment includes: PROCEDURE(S): The patient defers blocks/procedures at this time THERAPIES: Therapy Treatment Plan: Deferred: All Therapies: Deferred: per patient request. FOLLOW UP: The patient should have a follow up visit with MD. CONTINUE TREATMENT: Florencia will continue with the following:. Patient will follow up with Surgeon. Florencia is participating in a home exercise program and is encouraged to continue. - CASE RESOLUTION SPECIALIST: The patient was counseled on the following: treatment plan and future treatment options. Discussion/SummaryPatient today for follow-up of right anterior thigh and low back pain. Seen at [facility] on 03/01/2020 for hip pain. Had right totalhip replacement. Reports She tripped a week before her SOS appointment when she ran into the wall in the garage and fell to the ground. She has had some groin pain. X-rays were obtained and reviewed and there was no evidence of fractures or dislocations. The joint remained reduced and the hardware and implant is in good position. They believe that her pain is consistent with soft tissue irritation rather than a joint issue. They offered physical therapy but she deferred. As far as her low back and right anterior thigh pain she describes this pain is an achy, dull, burning constant pain that is alleviated by sitting and aggravated by standing and walking. On 01/13/2020 she underwent an EMG of her lower extremity which was inconclusive however was mildly suggestive of her right mid lumbar L3-L4 radiculopathy but did not meet full criteria for diagnosis. It was suggested that we repeat the right L3-L4 lumbar transforaminal injection versus sending to speak with our doctor regarding ISSI. Had right-sided lumbar transforaminal injection targeting L3-L4 without sedation with Dr. Amin completed on 02/04/2020 which she reported 90% relief for 1 day. At this point she has an appointment with Dr. Torres. She will also meet with Dr. Amin for ISSI consideration as she did not receive any substantial benefit from the epidural steroid injections. Her insurance will be changing in April so she wishes to meet with him after the first of the year. We did discuss the possibility of gabapentin but she defers. Also offered L1/2 PHILL - defers. Bárbara DisclaimerNYSWC [employer] Disclaimer: This document was dictated and electronically signed using [employer] Speaking software. A reasonable attempt at proof reading has been made to minimize errors. Please call with any questions. Signatures Electronically signed by : Angelique Bill NP; Mar 10 2020 10:06AM EST (Author) Electronically signed by : Nubia Perkins MD; Mar 14 2020 11:14AM EST Name Value Range Interpretation Code Description Data Kelle rce(s) Supporting Document(s) ID Date Data Source [id number] 03/02/2020 02:00:55 PM EST [facility] PC[facility]: Florencia LopezOB: 1955Provider: BibiBamGarett: 03/01/2020 Reason For VisitFlorencia Butts is here today for Right hip. Florencia Butts is an established patient here for follow up. Surgery DOS: 10/06/2018. Surgery Description: right hip replacement. The patient has not had a course of physical therapy for greater than 4 weeks. The patient has not had a course of NSAIDs for greater than 4 weeks. 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 History of Present IllnessPatient follows up today for her right hip, she is status post total hip replacement. Last time she was seen by us she was having a lot of thigh pain. She went to pain management had some injections into her back which did help the thigh pain but they did not last long. She is here for new issue. She states on Saturday last week she tripped and ran into the wall in the garage she did not fall to the ground level. Since then she has had some groin pain. She has difficulty with any type of hip flexion activities. She uses her hands to lift her leg in and out of the car. She has difficulty putting on her pants because of this. Results/DataXRays were ordered, obtained and interpreted today in the office. Indication: pain/dysfunction. Side: Right Site: Hip, Pelvis Views: 3 Views, and Pelvis Findings: no new fractures or dislocations. No evidence of bearing wear, osteolysis, implant migration or loosening. the joint remains reduced. hardware/implant is in good position. Assessment Status post right hip replacement (V43.64) (Z96.641) Patient is status post right total hip replacement Plan<OBX.5.1><OBX.5.1.1> X-Ray I Hip-Uni </OBX.5.1.1><OBX.5.1.2> Pelvis - 2 or 3 views (XRays were ordered, obtained and interpreted</OBX.5.1.2></OBX.5.1>today in the office. Indication: pain/dysfunction.); Status:Complete; Done: 01Mar2020 Perform:SOS14 (General); Due:15Mar2020; Last Updated By:Natalia Lopez; 03/01/2020 9:23:33 AM;Ordered; For:Joint pain, hip; Ordered By:Shelby Mtz;Weight Bearing Status : Weight bearing Patient symptoms are more consistent with soft tissue irritation than a joint issue. X-rays do not show any issues. She has a lot of pain with hip flexion activities so she most likely aggravated her hip flexors when she tripped. She is hoping that things will improve with time. We discussed physical therapy but she will hold off for now. She cannot take anti-inflammatories due to her history of bariatric surgery. We will have her make an appointment for a month or so. I told her if her symptoms worsen between now and then she can let me know. Work / School NoteThe percentage of temporary impairment is 0%. The patient is working at this time. This document was dictated and electronically signed using [employer] Speaking software. A reasonable attempt at proof reading has been made to minimize errors. Please call with any questions. Signatures Electronically signed by : Shelby Mtz PA-C; Mar 01 2020 10:02AM EST (Author) Electronically signed by : Rob Torres M.D.; Mar 02 2020 2:00PM EST (Author) Name Value Range Interpretation Code Description Data Kelle rce(s) Supporting Document(s) ID Date Data Source [id number] 02/01/2020 12:30:00 PM EDT [facility] Name Value Range Interpretation Code Description Data Kelle rce(s) Supporting Document(s) SARS coronavirus 2 RNA [Presence] in Res piratory specimen by PADMINI with probe detection [facility] This lab was ordered by [facility] and reported by [facility]. Procedure Social History Code Duration Value Status Description Data Source(s ) Smoking 03/17/2021 05:06:23 PM EST Never smoked tobacco (findi ng) completed Never smoked tobacco (finding) CHARLIE (Ramiro Lima MD [facility]) Alcohol intake 01/25/2021 12:00:00 AM EDT Current drinker of al cohol (finding) completed Current drinker of alcohol (finding) [facility] Tobacco use and exposure 01/11/2021 12:00:00 AM EDT Never used co mpleted Never used [facility] Smoking 01/11/2021 12:00:00 AM EDT Never smoker completed Never s moker [facility] Alcohol intake 01/11/2021 12:00:00 AM EDT Current drinker of al cohol (finding) completed Current drinker of alcohol (finding) [facility] Smoking 06/24/2020 12:00:00 AM EST Patient has never smoked co mpleted Patient has never smoked MEDENT ([facility] FASHION ADVIS[facility]) Smoking 04/08/2020 08:26:45 AM EST Never smoked tobacco (findi ng) completed Never smoked tobacco (finding) CHARLIE (Ramiro iLma MD [facility]) Vital Signs ID Date Data Source UNK Name Value Range Interpretation Code Description Data Source(s) Systolic blood pressure 104 mm[Hg] 104 mm[Hg] [facility] Diastolic blood pressure 63 mm[Hg] 63 mm[Hg] [facility] Heart rate 55 /min 55 /min [facility] Body temperature 36.83 Vira 36.83 Vira [facility] Respiratory rate 16 /min 16 /min [facility] Oxygen saturation in Arterial blood by Pulse oximetry 96 % 96 % [facility] Body weight 78.926 kg 78.926 kg [facility] Body height 157.5 cm 157.5 cm [facility] Body mass index (BMI) [Ratio] 31.83 kg/m2 31.83 kg/m2 [facility] Systolic blood pressure 114 mm[Hg] 114 mm[Hg] [facility] Diastolic blood pressure 60 mm[Hg] 60 mm[Hg] [facility] Heart rate 60 /min 60 /min [facility] Body temperature 36 Vira 36 Vira [facility] Respiratory rate 17 /min 17 /min [facility] Body height 157.5 cm 157.5 cm [facility] Body weight 78.926 kg 78.926 kg [facility] Body mass index (BMI) [Ratio] 31.83 kg/m2 31.83 kg/m2 [facility] Oxygen saturation in Arterial blood by Pulse oximetry 98 % 98 % [facility] Systolic blood pressure 128 mm[Hg] 128 mm[Hg] M EDENT ([facility]) RT Arm Diastolic blood pressure 76 mm[Hg] 76 mm[Hg] MEDENT ([facility]) RT Arm Heart rate 51 /min 51 /min [facility] ([facility]) Body height 61.75 [in_i] 61.75 [in_i] MED[facility] ([facility]) 5'1.75" Body weight 175.50 [lb_av] 175.50 [lb_av] MEDEN T ([facility]) Oxygen saturation in Arterial blood by Pulse oximetry --post exerci se 91 % 91 % [facility] ([facility]) RM Air Body mass index (BMI) [Ratio] 32.4 kg/m2 32.4 k g/m2 [facility] ([facility]) Systolic blood pressure 134 mm[Hg] 134 mm[Hg] M EDENT ([facility]) Diastolic blood pressure 78 mm[Hg] 78 mm[Hg] [facility] ([facility]) Heart rate 66 /min 66 /min MED[facility] ([facility]) Body weight 170.00 [lb_av] 170.00 [lb_av] MEDEN T ([facility]) Body height 61.75 [in_i] 61.75 [in_i] MEDENT ([facility]) 5'1.75" Body weight 171.12 [lb_av] 171.12 [lb_av] MEDEN T ([facility]) Body mass index (BMI) [Ratio] 31.5 kg/m2 31.5 k g/m2 MEDENT ([facility]) Body temperature 97.5 [degF] 97.5 [degF] MEDENT ([facility]) Body mass index (BMI) [Ratio] 31.7 kg/m2 31.7 k g/m2 MEDENT ([facility]) Diastolic blood pressure 64 mm[Hg] 64 mm[Hg] MEDENT ([facility]) RT Arm Heart rate 64 /min 64 /min MEDENT ([facility]) Body height 61.75 [in_i] 61.75 [in_i] MEDENT ( [facility]) 5'1.75" Systolic blood pressure 102 mm[Hg] 102 mm[Hg] M EDCRISTINE ([facility]) RT Arm Body weight 172.00 [lb_av] 172.00 [lb_av] MARGARITA Jones ([facility]) Patient Treatment Plan of Care Planned Activity Planned Date Details Description Data Source (s) Bisacodyl 10 MG Rectal Suppository 01/26/2021 07:00:00 PM EDT [facility] Magnesium Hydroxide 80 MG/ML Oral Suspension 01/25/2021 12:00:00 AM EDT [facility] Bisacodyl 10 MG Rectal Suppository 01/25/2021 12:00:00 AM EDT [facility] Acetaminophen 500 MG Oral Tablet 01/25/2021 12:00:00 AM EDT [facility] Oxycodone Hydrochloride 5 MG Oral Tablet 01/25/2021 12:00:00 AM EDT [facility] Docusate Sodium 50 MG / sennosides, [facility] 8.6 MG Oral Ta blet 01/25/2021 12:00:[address] [facility] Ondansetron 4 MG Disintegrating Oral Tablet 01/24/2021 04:20:29 PM EDT [facility] ondansetron (ZOFRAN) injection 4 mg 01/24/2021 04:20:29 PM EDT [facility] 2 ML Metoclopramide 5 MG/ML Prefilled Syringe 01/24/2021 04:20:29 P M EDT [facility] Mineral Oil 1000 MG/ML Enema 01/24/2021 04:20:29 PM EDT [facility] fentaNYL Citrate (PF) (SUBLIMAZE) injection 25 mcg 01/24/2021 04 :20:29 PM EDT [facility] Calcium Carbonate 500 MG Chewable Tablet 01/24/2021 04:20:29 PM EDT [facility] Aluminum Hydroxide 40 MG/ML / Magnesium Hydroxide 40 MG/ML / Simethicone 4 MG/ML Oral Suspension 01/24/2021 04:20:28 PM EDT [facility]
[2021-04-01] MEDS ORDERED: ONDANSETRON 4MG/2ML VIAL IV ONE (21:10)
[2021-04-01] MEDS ORDERED: MORPHINE 2 MG/ML 1ML VIAL (J2270) IV ONE (21:10)
[2021-04-01 21:42] LABS: BASO % 0.6 % (0.0-1.0); EOS # 0.1 10^3/uL (0.0-0.5); EOS % 2.2 % (0.0-3.0); HEMATOCRIT 32.1 % (36.0-47.0); HEMOGLOBIN 10.2 g/dl (12.0-15.5); LYMPH # 2.1 10^3/uL (1.5-5.0); LYMPH % 33.4 % (24.0-44.0); MEAN CORPUSCULAR HEMOGLOBIN 29.2 pg (27.0-33.0); MEAN CORPUSCULAR HGB CONC 31.8 g/dl (32.0-36.5); MONO # 0.5 10^3/uL (0.0-0.8); MONO % 8.3 % (2.0-8.0); NEUTROPHILS # 3.4 10^3/uL (1.5-8.5); NEUTROPHILS % 54.2 % (36.0-66.0); PLATELET COUNT, AUTOMATED 332 10^3/uL (150-450); RED BLOOD COUNT 3.49 10^6/uL (4.00-5.40); WHITE BLOOD COUNT 6.4 10^3/uL (4.0-10.0)
[2021-04-01 22:00] LABS: BLOOD UREA NITROGEN 14 MG/DL (7-18); CALCIUM LEVEL 8.8 MG/DL (8.8-10.2); CARBON DIOXIDE LEVEL 26 MEQ/L (21-32); CHLORIDE LEVEL 107 MEQ/L (98-107); CREATININE FOR GFR 0.71 MG/DL (0.55-1.30); GLOMERULAR FILTRATION RATE > 60.0 (>45); GLUCOSE, FASTING 114 MG/DL (70-100); MAGNESIUM LEVEL 2.3 MG/DL (1.8-2.4); POTASSIUM SERUM 4.1 MEQ/L (3.5-5.1); SODIUM LEVEL 140 MEQ/L (136-145)
--- NOTE | 2021-04-01 22:25 | REPVR ---
PROCEDURE INFORMATION: Exam: CT Cervical Spine Without Contrast Exam date and time: 04/01/2021 9:51 PM Age: 65 years old Clinical indication: Injury or trauma; Fall; Additional info: Mechanical fall TECHNIQUE: Imaging protocol: Computed tomography images of the cervical spine without contrast. Radiation optimization: All CT scans at this facility use at least one of these dose optimization techniques: automated exposure control; mA and/or kV adjustment per patient size (includes targeted exams where dose is matched to clinical indication); or iterative reconstruction. COMPARISON: MRI-Brain W/O FOLL BY WITH 01/20/2021 1:43 PM FINDINGS: Tubes, catheters and devices: Occipital craniectomy changes are present and there is a catheter in the 4th ventricle and cervical epidural space, unchanged since the prior MRI in position Bones/joints: No traumatic segmental malalignment of cervical spine or craniocervical junction. Vertebral body height is maintained at all levels. No acute fracture. No destructive or blastic cervical spine osseous lesion. Discs/Spinal canal/Neural foramina: Intervertebral disc height is decreased at multiple levels, with typical degenerative pattern and associated endplate, articular pillar and uncovertebral spurs. Lungs: No concerning abnormality of the imaged lung apices. Soft tissues: Soft tissues show no concerning abnormality or asymmetry. IMPRESSION: 1. No acute fracture or traumatic subluxation of the cervical spine. 2. Multilevel degenerative disc and articular pillar arthropathy. Electronically signed by: Rico Abbasi On 04/01/2021 22:25:15 PM
--- NOTE | 2021-04-01 22:25 | REPVR ---
PROCEDURE INFORMATION: Exam: CT Lumbar Spine Without Contrast Exam date and time: 04/01/2021 9:51 PM Age: 65 years old Clinical indication: Injury or trauma; Fall; Additional info: Mechanical fall TECHNIQUE: Imaging protocol: Computed tomography images of the lumbar spine without contrast. Radiation optimization: All CT scans at this facility use at least one of these dose optimization techniques: automated exposure control; mA and/or kV adjustment per patient size (includes targeted exams where dose is matched to clinical indication); or iterative reconstruction. COMPARISON: MRI-Spine, L.S. without con 05/13/2020 11:42 AM FINDINGS: Vertebrae: Minimal thoracic dextroscoliosis centered at L2-L3. No acute fracture or compression. Superior endplate irregularity of L4 anteriorly which is unchanged from a prior study. L1-L2: Mild interspace narrowing with diffuse bulge and minimal posterior osteophytes. There is mild facet arthropathy with no spinal stenosis. There is borderline foraminal stenosis. L2-L3: Moderate interspace narrowing with endplate sclerosis and minimal posterior osteophytes with mild facet arthropathy. No spinal stenosis. There are left posterolateral osteophytes with mild left neural foraminal stenosis. L3-L4: Prominent interspace narrowing with minimal diffuse bulge of the disc and mild facet arthropathy. The spinal canal is of adequate size. There are left posterolateral osteophytes with mild left neural foraminal stenosis. L4-L5: Fusion with moderate residual hypertrophic changes of the facets and mild secondary spinal stenosis. There is borderline right neural foraminal stenosis. Status post fusion at L4-L5 with interspace device and screws and plates along the left lateral aspect. L5-S1: The disc is within normal limits with mild facet arthropathy and no significant spinal or foraminal stenosis. Soft tissues: Unremarkable. IMPRESSION: 1. Status post fusion at L4-L5. 2. Degenerative disc changes and facet arthropathy with no significant spinal stenosis. There are varying degrees of multilevel neural foraminal stenosis. 3. Otherwise negative CT lumbar spine. No acute fracture or subluxation. Electronically signed by: Anthony Perales On 04/01/2021 22:24:30 PM
--- OUTSIDE RECORDS SUMMARY | 2021-04-01 22:50 | CCD ---
Author Author [facility] Organization [facility] Address Unknown Phone Unavailable Care Team Providers Care Retail Experience Specialist Name Role Phone Jorge, Genet VARIETY PERFORMER Unavailable Unavailable Jorge, Genet VARIETY PERFORMER Unavailable Unavailable Jorge, Genet VARIETY PERFORMER Unavailable Unavailable Jorge, Genet VARIETY PERFORMER Unavailable Unavailable Jogre, Genet VARIETY PERFORMER Unavailable Unavailable Jorge, Genet VARIETY PERFORMER Unavailable Unavailable Jorge, Genet VARIETY PERFORMER Unavailable Unavailable Jorge, Genet VARIETY PERFORMER Unavailable Unavailable Jorge, Genet VARIETY PERFORMER Unavailable Unavailable Jorge, Genet VARIETY PERFORMER Unavailable Unavailable Jorge, Genet VARIETY PERFORMER Unavailable Unavailable Jorge, Genet VARIETY PERFORMER Unavailable Unavailable Jorge, Genet VARIETY PERFORMER Unavailable Unavailable Jorge, Genet VARIETY PERFORMER Unavailable Unavailable Jorge, Genet VARIETY PERFORMER Unavailable Unavailable Jorge, Genet VARIETY PERFORMER Unavailable Unavailable Jorge, Genet VARIETY PERFORMER Unavailable Unavailable Jorge, Genet VARIETY PERFORMER Unavailable Unavailable Jorge, Genet VARIETY PERFORMER Unavailable Unavailable Jorge, Genet VARIETY PERFORMER Unavailable Unavailable Jorge, Genet VARIETY PERFORMER Unavailable Unavailable Jorge, Genet VARIETY PERFORMER Unavailable Unavailable Jorge, Genet VARIETY PERFORMER Unavailable Unavailable Jorge, Genet VARIETY PERFORMER Unavailable Unavailable Jorge, Genet VARIETY PERFORMER Unavailable Unavailable Jorge, Genet VARIETY PERFORMER Unavailable Unavailable Jorge, Genet VARIETY PERFORMER Unavailable Unavailable Jorge, Geent VARIETY PERFORMER Unavailable Unavailable Jorge, Genet VARIETY PERFORMER Unavailable Unavailable Jorge, Genet VARIETY PERFORMER Unavailable Unavailable Jorge, Genet VARIETY PERFORMER Unavailable Unavailable Jorge, Genet VARIETY PERFORMER Unavailable Unavailable Jorge, Genet VARIETY PERFORMER Unavailable Unavailable Jorge, Genet VARIETY PERFORMER Unavailable Unavailable Jorge, Genet VARIETY PERFORMER Unavailable Unavailable Jorge, Genet VARIETY PERFORMER Unavailable Unavailable [place], L LIZ KRAMER Unavailable [...] L LIZ KRAMER Unavailable Unavailable [place], L ILZ KRAMER Unavailable Unavailable [place], L LIZ KRAMER [...] Unavailable [place], L LIZ KRAMER Unavailable Unavailable [place], L LIZ KRAMER Unavailable Unavailable [place], L [...] FACS Unavailable Unavailable Alaniz Lima, Luis Felipe Rbuio MD, FACS Unavailable Unavailable Alaniz Lima, Luis [...] Robert RIVAS MD Unavailable Unavailable TORRES, Robert RVIAS MD Unavailable Unavailable TORRES, Robert RIVAS MD [...] TORRES, Robert RIVAS MD Unavailable Unavailable TORRES, Robetr RIVAS MD Unavailable Unavailable TORRES, Robert RIVAS [...] Unavailable TORRES, Robert RIVAS MD Unavailable Unavailable EwaMarcus MD Unavailable Unavailable Ewa, Marcus Roman MD [...] EARLE, YANPING Unavailable Unavailable Hill, A Angelique KITCHEN CHEF Unavailable Unavailable Hill, A Angelique KITCHEN CHEF Unavailable Unavailable Hill, A Angelique KITCHEN CHEF Unavailable Unavailable Hill, A Angelique KITCHEN CHEF Unavailable Unavailable Hill, A Angelique KITCHEN CHEF Unavailable Unavailable Hill, A Angelique KITCHEN CHEF Unavailable Unavailable Hill, A Angelique KITCHEN CHEF Unavailable Unavailable Hill, A Angelique KITCHEN CHEF Unavailable Unavailable Hill, A Angelique KITCHEN CHEF Unavailable Unavailable Hill, A Angelique KITCHEN CHEF Unavailable Unavailable Hill, A Angelique KITCHEN CHEF Unavailable Unavailable Hill, A Angelique KITCHEN CHEF Unavailable Unavailable Hill, A Angelique KITCHEN CHEF Unavailable Unavailable Hill, A Angelique KITCHEN CHEF Unavailable Unavailable Hill, A Angelique KITCHEN CHEF Unavailable Unavailable Hill, A Angelique KITCHEN CHEF Unavailable Unavailable Hill, A Angelique KITCHEN CHEF Unavailable Unavailable Hill, A Angelique KITCHEN CHEF Unavailable Unavailable Hill, A Angelique KITCHEN CHEF Unavailable Unavailable Hill, A Angelique KITCHEN CHEF Unavailable Unavailable Hill, A Angelique KITCHEN CHEF Unavailable Unavailable Hill, A Angelique KITCHEN CHEF Unavailable Unavailable Hill, A Angelique KITCHEN CHEF Unavailable Unavailable Hill, A Angelique KITCHEN CHEF Unavailable Unavailable Hill, A Angelique KITCHEN CHEF Unavailable Unavailable YARITZA, Jerson FERRER MD Unavailable [...] Unavailable YARITZA, Jerson FERRER MD Unavailable Unavailable AYRITZA, Jerson FERRER MD Unavailable Unavailable YARITZA, Jerson [...] Unavailable YARITZA, Jerson FERRER MD Unavailable Unavailable [place], Mercedes VARIETY PERFORMER Unavailable Unavailable [place], Mercedes VARIETY PERFORMER Unavailable Unavailable [place], Mercedes VARIETY PERFORMER Unavailable Unavailable [place], Mercedes VARIETY PERFORMER Unavailable Unavailable [place], Mercedes VARIETY PERFORMER Unavailable Unavailable [place], Mercedes VARIETY PERFORMER Unavailable Unavailable [place], Mercedes VARIETY PERFORMER Unavailable Unavailable [place], Mercedes VARIETY PERFORMER Unavailable Unavailable [place], Mercedes VARIETY PERFORMER Unavailable Unavailable [place], Mercedes VARIETY PERFORMER Unavailable Unavailable [place], Mercedes VARIETY PERFORMER Unavailable Unavailable [place], Mercedes VARIETY PERFORMER Unavailable Unavailable [place], Merecdes VARIETY PERFORMER Unavailable Unavailable [place], Mercedes VARIETY PERFORMER Unavailable Unavailable [place], Mercedes VARIETY PERFORMER Unavailable Unavailable [place], Mercedes VARIETY PERFORMER Unavailable Unavailable [place], Mercedes VARIETY PERFORMER Unavailable Unavailable [place], Mercedes VARIETY PERFORMER Unavailable Unavailable [place], Mercedes VARIETY PERFORMER Unavailable Unavailable [place], Mercedes VARIETY PERFORMER Unavailable Unavailable [place], Mercedes VARIETY PERFORMER Unavailable Unavailable [place], Mercedes VARIETY PERFORMER Unavailable Unavailable [place], Mercedes VARIETY PERFORMER Unavailable Unavailable [place], Mercedes VARIETY PERFORMER Unavailable Unavailable [place], Mercedes VARIETY PERFORMER Unavailable Unavailable [place], Mercedes VARIETY PERFORMER Unavailable Unavailable [place], Mercedes VARIETY PERFORMER Unavailable Unavailable [place], Mercedes VARIETY PERFORMER Unavailable Unavailable [place], Mercedes VARIETY PERFORMER Unavailable Unavailable [place], Mercedes VARIETY PERFORMER Unavailable Unavailable [place], Mercedes VARIETY PERFORMER Unavailable Unavailable [place], Mercedes VARIETY PERFORMER Unavailable Unavailable [place], Mercedes VARIETY PERFORMER Unavailable Unavailable [place], Mercedes VARIETY PERFORMER Unavailable Unavailable [place], Mercedes VARIETY PERFORMER Unavailable Unavailable [place], Mercedes VARIETY PERFORMER Unavailable Unavailable Donald, Shirley VARIETY PERFORMER Unavailable Unavailable Donald, Shirley VARIETY PERFORMER Unavailable Unavailable Donald, Shirley VARIETY PERFORMER Unavailable Unavailable Donald, Shirley VARIETY PERFORMER Unavailable Unavailable Donald, Shirley VARIETY PERFORMER Unavailable Unavailable Donald, Shirley VARIETY PERFORMER Unavailable Unavailable Donald, Shirley VARIETY PERFORMER Unavailable Unavailable Donald, Shirley VARIETY PERFORMER Unavailable Unavailable Donald, Shirley VARIETY PERFORMER Unavailable Unavailable Donald, Shirley VARIETY PERFORMER Unavailable Unavailable Donald, Shirley VARIETY PERFORMER Unavailable Unavailable Donald, Shirley VARIETY PERFORMER Unavailable Unavailable Donald, Shirley VARIETY PERFORMER Unavailable Unavailable Donald, Shirley VARIETY PERFORMER Unavailable Unavailable Donald, Shirley VARIETY PERFORMER Unavailable Unavailable Donald, Shirley VARIETY PERFORMER Unavailable Unavailable Donald, Shirley VARIETY PERFORMER Unavailable Unavailable Donald, Shirley VARIETY PERFORMER Unavailable Unavailable Donald, Shirley VARIETY PERFORMER Unavailable Unavailable Donald, Shirley VARIETY PERFORMER Unavailable Unavailable Donald, Shirley VARIETY PERFORMER Unavailable Unavailable Donald, Shirley VARIETY PERFORMER Unavailable Unavailable Donald, Shirley VARIETY PERFORMER Unavailable Unavailable Donald, Shirley VARIETY PERFORMER Unavailable Unavailable Donald, Shirley VARIETY PERFORMER Unavailable Unavailable Donald, Shirley VARIETY PERFORMER Unavailable Unavailable Donald, Shirley VARIETY PERFORMER Unavailable Unavailable Donald, Shirley VARIETY PERFORMER Unavailable Unavailable Donald, Shirley VARIETY PERFORMER Unavailable Unavailable Donald, Shirley VARIETY PERFORMER Unavailable Unavailable Donald, Shirley VARIETY PERFORMER Unavailable Unavailable Donald, Shirley VARIETY PERFORMER Unavailable Unavailable Donald, Shirley VARIETY PERFORMER Unavailable Unavailable Donald, Shirley VARIETY PERFORMER Unavailable Unavailable Donald, Shirley VARIETY PERFORMER Unavailable Unavailable Donald, Shirley VARIETY PERFORMER Unavailable Unavailable Donald, Shirley VARIETY PERFORMER Unavailable Unavailable Donald, Shirley VARIETY PERFORMER Unavailable Unavailable Donald, Shirley VARIETY PERFORMER Unavailable Unavailable Donald, Shirley VARIETY PERFORMER Unavailable Unavailable Donald, Shirley VARIETY PERFORMER Unavailable Unavailable Donald, Shirley VARIETY PERFORMER Unavailable Unavailable Donald, Shirley VARIETY PERFORMER Unavailable Unavailable Donald, Shirley VARIETY PERFORMER Unavailable Unavailable Donald, Shirley VARIETY PERFORMER Unavailable Unavailable Donald, Shirley VARIETY PERFORMER Unavailable Unavailable Donald, Shirley VARIETY PERFORMER Unavailable Unavailable Donald, Shirley VARIETY PERFORMER Unavailable Unavailable Donald, Shirley VARIETY PERFORMER Unavailable Unavailable Donald, Shirley VARIETY PERFORMER Unavailable Unavailable Donald, Shirley VARIETY PERFORMER Unavailable Unavailable HANIFIN, M ZOHAIB PA Unavailable [...] M ZOHAIB PA Unavailable Unavailable HANIFIN, M ZOAHIB PA Unavailable Unavailable HANIFIN, M ZOHAIB PA [...] Unavailable Robert AMIN MD Unavailable Unavailable Robert AIMN MD Unavailable Unavailable Robert AMIN MD Unavailable Unavailable Robert AMIN MD Unavailable Unavailable Robert AMIN MD Unavailable Unavailable Robert AMIN MD Unavailable Unavailable Robert AMIN MD Unavailable Unavailable Robert AMIN MD Unavailable Unavailable Robert AMIN MD Unavailable Unavailable Robert AMIN MD Unavailable Unavailable Robert AMIN MD Unavailable Unavailable Robert AMIN MD Unavailable Unavailable Robert AMIN MD Unavailable Unavailable Robert AIMN MD Unavailable Unavailable Robert AMIN MD Unavailable [...] Unavailable Marcus Mcneil MD Unavailable Unavailable Marcus Mcneli MD Unavailable Unavailable Marcus Mcneil MD Unavailable [...] is protected by Article 27-F of the [facility] Public Health law. If you continue you may have access to information: Regarding HIV / AIDS; Provided by facilities licensed or operated by the [facility] Office of Mental Health; or Provided by the [facility] Office for People With Developmental Disabilities. If such information is present, then the following [facility] mandated warning applies: This information has [...] law may result in a fine or assisted sentence or both. A general authorization for the release of medical or other information is NOT sufficient authorization for further disc losure. Allergies and Adverse Reactions Type Description Substance Reaction Status Data Source(s ) Propensity to adverse reactions NO KNOWN ALLERGIES NO KNOWN ALLERGIES [facility] Allergy to substance No Known Allergies No known allergies (situation ) CHARLIE (Ramiro Lima MD [facility]) Allergy to substance No Known Allergies No known allergies (situation ) CHARLIE (Ramiro Lima MD [facility]) Family History Family Member Name Family Member Gender Family Member Status Date o f Status Description Data Source(s) Unknown Unknown Problem MEDENT ([facility]) Unknown Female Problem MEDENT ([facility] ) Unknown Female Problem MEDENT ([facility]) Encounters Encounter Providers Location Date Indications Data Source(s ) Outpatient Attender: EYAL Colemanerrer: ESA Moreira MD 03/27/2021 08:19:34 AM EST [facility] Outpatient Attender: ZOHAIB Larkiner: ESA RAMIREZ MD 02/08/2021 12:21:42 PM EDT [facility] Outpatient Attender: EYAL Hooper: ESA Moreira MD 01/16/2021 12:42:22 PM EDT [facility] Outpatient Attender: EYAL VIGIL MD MOB-MOB.PAT 2020 12:00:00 AM EDT - 01/11/2021 02:03:19 PM EDT [facility] Outpatient Attender: Jessie Ervin 10:00:00 AM EDT MEDENT ([facility] ) Recurring Patient Attender: Shelby Gonzalez: ESA VALENZUELA MD 12/27/2020 08:21:11 AM EDT [facility] Outpatient Attender: Diana Ventura [facility] Main Office 12/19/2020 08:15:00 AM EDT MEDENT ([facility]) Outpatient Attender: CHERISE LATHAM Physical Therapy 12/14/2020 0 3:45:00 PM EDT MEDENT ([facility]) Office Visit Attender: CHERISE LATHAM [facility] 2020 04:30:00 PM EDT [facility] ([facility]) Inpatient Attender: JUSTIN SIMPSONCA ttender: EYAL VIGIL MDAdmitter: EYAL VIGIL MD [id number] 11/11/2020 11:30:27 AM EDT - 01/25/2021 12:57:[address] [facility] Patient discharged. Office Visit Attender: CHERISE LATHAM Physical Therapy 2020 02:15:00 PM EDT [facility] ([facility]) Office Visit Attender: CHERISE LATHAM Physical Therapy 2020 02:30:00 PM EDT [facility] ([facility]) Outpatient Attender: EYAL VIGIL MDReferrer: Jessie jackson MD 09/15/2020 10:29:49 AM EDT [facility] Outpatient Attender: CHERISE LATHAM Physical Therapy 09/14/2020 0 2:00:00 PM EDT [facility] ([facility]) Recurring Patient Attender: Shelby Skinnererrer: ESA VALENZUELA MD 09/12/2020 02:36:57 PM EDT [facility] Out[facility] Attender: Shelby ALICEAeferrer: Jessie pagan MD 09/08/2020 11:04:45 AM EDT [facility] Recurring Patient Attender: Shelby Skinnererrer: ESA VALENZUELA MD 09/06/2020 01:33:19 PM EDT [facility] Outpatient Attender: GODFREY OG [id number] 09/06/2020 12:00:0 0 AM EDT Personal history of other endocrine, nutritional and metabolic disease [facility] Personal history of other endocrine, nut ritional and metabolic disease Recurring Patient Referrer: ROB TORRES MD 08/24/2020 0 3:37:49 PM EDT [facility] Recurring Patient Attender: Shelby Mtz PAReferrer: ESA VALENZUELA MD 08/16/2020 12:59:00 PM EDT [facility] Recurring Patient Referrer: ROB TORRES MD 08/10/2020 0 8:23:35 AM EDT [facility] Outpatient Attender: ESA AMIN MDReferrer: Jessie romero MD 08/09/2020 08:06:50 AM EDT [facility] Outpatient Attender: Genet Patel [facility] Karlee Ervin 07:00:00 AM EST MEDENT ([facility] ) Outpatient Attender: LIZ MONTGOMERY MD [facility] blueprint clerk 08/2020 07:45:00 AM EST [facility] ([facility]) Attender: YAW VYAS) MDReferrer: Tara Bennett [facility] 06/15/2020 08:21:02 PM EST [facility] Attender: YAW VYAS) MDReferrer: Tara Bennett [facility] 06/15/2020 08:21:02 PM EST [facility] Attender: YAW VYAS) MDReferrer: Tara Bennett [facility] 06/15/2020 08:21:02 PM EST [facility] Attender: YAW VYAS) MDReferrer: Tara Bennett [facility] 06/15/2020 08:21:02 PM EST [facility] Attender: YAW VYAS) MDReferrer: Tara Bennett [facility] 05/26/2020 08:21:02 PM EST [facility] Attender: YAW VYAS) MDReferrer: Tara Bennett [facility] 05/26/2020 08:21:02 PM EST [facility] Attender: YAW VYAS) MDReferrer: Tara Bennett [facility] 05/26/2020 08:21:02 PM EST [facility] Attender: YAW VYAS) MDReferrer: Tara anahikacey Bennett [facility] 05/26/2020 08:21:02 PM EST [facility] Outpatient Attender: Bucky OSMAN 05/06/2020 12:27:00 PM E [facility] Outpatient Attender: FLORENCIA LATHAM 05/06/2020 12: 27:00 PM EST [id number] OF RIGHT ARTIFICIAL HIP JOINT [id number] PAIN IN [facility] Recurring Patient Referrer: ROB TORRES MD 05/03/2020 0 4:53:28 PM EST [facility] Outpatient Attender: ROB TORRES MDReferrer: Jessie romero MD 05/03/2020 08:33:42 AM EST [facility] Outpatient Attender: ESA AMIN MDReferrer: Jessie romero MD 04/27/2020 04:16:15 PM EST [facility] Recurring Patient Referrer: ROB TORRES MD 04/27/2020 1 0:21:30 AM EST [facility] Recurring Patient Attender: Shelby ALICEAeferrer: Jessie lam MD 04/27/2020 10:21:12 AM EST [facility] Recurring Patient Referrer: ROB TORRES MD 04/27/2020 1 0:20:48 AM EST [facility] Recurring Patient Referrer: ROB TORRES MD 04/27/2020 1 0:18:17 AM EST [facility] Recurring Patient Referrer: ROB TORRES MD 04/27/2020 0 9:28:57 AM EST [facility] Recurring Patient Attender: Shelby Skinnererrer: Jessie lam MD 04/26/2020 08:53:29 AM EST [facility] <td ID="encounterTypeDescriptionID0">1 Y ear Follow-Up</td><td>Ramiro Lima MD, FACS</td><td>Ramiro Cedeno MD [facility]</td><td>04/08/2020</td><td>7:24AM</td><td>7:49AM</td><td><content ID="encounterDiagnosisID0-0">Conjunctivitis Chronic Allergic</content>, <content ID="encounterDiagnosisID0-1">Pinguecula</content>, <content ID="encounterDiagnosisID0-2">Dry Eye Syndrome</content></td>Outpatient Attender: Ramiro Lima MD, FACS Ramiro Cedeno MD [facility] 04/08/2020 07:24:00 AM EST - 04/08/2020 07:49:00 AM EST Conjunctivitis Chronic AllergicConjuncti vitis Chronic AllergicDry Eye SyndromeDry Eye SyndromePingueculaPinguecula CHARLIE (Ramiro Lima MD [facility]) 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 COVID-19 VACCINE Moderna 09/03/2020 12:00:00 AM EDT completed [employer] Vaccine Series Complete: YESThis Data wa s Submitted to [facility] Via [employer]. 08/06/2020 12:00:00 AM EDT completed <td I D="[id number]">Covid-19 (Moderna)</td><td>09/03/2020, 08/06/2020</td><td></td> [facility] COVID-19 VACCINE Moderna 08/06/2020 12:00:00 AM EDT completed [employer] Vaccine Series Complete: NOThis Data was Submitted to [facility] Via [employer]. Medications Medication Brand Name Start Date Product Form Dose Route Admi nistrative Instructions Pharmacy Instructions Status Indications Reaction Description Data Source(s) 25 mg 02/07/2021 12:00:00 AM EDT capsule 60 TAKE ONE CAPSULE BY MOUTH TWICE A DAY MAXIMUM DAILY DOSE = 2 TAKE ONE CAPSULE BY MOUTH TWICE A DAY MA XIMUM DAILY DOSE = 2 SOLD: 02/07/2021 [facility] 5 mg 02/07/2021 12:00:00 AM [...] Post-op
Post-op day #2 Hold for BM
[facility] Medication administered onsite Fluoxetine 20 MG Oral Capsule FLUoxetine (PROzac) caps ule 40 mg FLUoxetine (PROzac) capsule 40 mg 01/25/2021 09:00:00 AM EDT 40 mg Oral active 40 mg, Oral, Daily, First dose on Sat01/25/21 at 0900, Post-op [facility] Medication administered onsite 24 HR Propranolol Hydrochloride 60 MG Ex tended Release Oral Capsule propranolol (INDERAL LA) 24 hr capsule 60 mg propranolol (INDERAL LA) 24 hr capsule 60 mg 01/25/2021 09:00:00 AM EDT 60 mg Oral active 60 mg, Oral, Daily, First dose on Sat01/25/21 at 0900, Post-op [facility] Medication administered onsite POLYETHYLENE GLYCOL 3350 142 MG/ML Oral Solution polyethylene glycol (GLYCOLAX) packet 17 g polyethylene glycol (GLYCOLAX) packet 17 g 01/25/2021 09:00:00 AM EDT 17 g Oral active 17 g, Or al, Daily, First dose on Sat01/25/21 at 0900, Post-op
Start POD #1
[facility] Medication administered onsite ferrous sulfate 325 MG Oral Tablet ferrous sulfate tab let 325 mg ferrous sulfate tablet 325 mg 01/25/2021 07:00:00 AM EDT 325 mg Oral acti ve 325 mg, Oral, Daily with breakfast, First dose on Sat01/25/21 at 0700, Post- op
Separate from antacids as far as possible. Take with food, do not crush
[facility] Medication administered onsite Magnesium Hydroxide 80 MG/ML Oral Suspen panfilo magnesium hydroxide (MILK OF MAGNESIA) 400 MG/5ML suspension 30 mL magnesium hydroxide (MILK OF MAGNESIA) 4 00 MG/5ML suspension 30 mL 01/25/2021 12:00:00 AM EDT 30 mL Oral active 30 mL, Oral, Daily PRN, constipation, Starting on Sat01/25/21 at 0000, Post- op
Start Post-op day #1. Hold for BM
[facility] Medication administered onsite Bisacodyl 10 MG Rectal Suppository bisacodyl (DULCOLAX ) suppository 10 mg bisacodyl (DULCOLAX) suppository 10 mg 01/25/2021 12:00:00 AM EDT 10 mg Rectal active 10 mg, Rectal, Daily PRN, constipation, for constipation unrelieved by miralax/MOM, Starting on Sat01/25/21 at 0000, For 4 days, Post- op
For post-op day #1, #3, and #4 Hold for BM
[facility] Medication administered onsite Oxycodone Hydrochloride 5 MG Oral Tablet oxyCODONE (ROXICODONE) 5 MG immediate release tablet oxyCODONE (ROXICODONE) 5 MG immediate release tablet 1 12:00:00 AM EDT 5 mg Oral active Take 1 tablet (5 mg total) by mouth every 4 (four) hours as needed for pain Max Daily Amount: [address] [facility] Docusate Sodium 50 MG / sennosides, GROUP HOME 8.6 MG Oral Tablet senna-docusate (PERICOLACE) 8.6-50 MG senna-docusate (PERICOLACE) 8.6-50 MG 01/25/2021 12:00 :00 AM EDT 2 {tbl} Oral active Take 2 tablets b y mouth nightly [facility] Acetaminophen 500 MG Oral Tablet acetaminophen (TYLENO L) 500 MG tablet acetaminophen (TYLENOL) 500 MG tablet 01/25/2021 12:00:00 AM EDT 50 0 mg Oral active Take 1 tablet ( 500 mg total) by mouth every 4 (four) hours as needed for pain [facility] 5 mg 01/25/2021 12:00:00 AM EDT tablet 40 TAKE 1 TABLET BY MOUTH EVERY 4 HOURS NEEDED FOR PAIN MAXIMUM DAILY DOSE = 6 TAKE 1 TABLET BY MOUTH EVERY 4 HOURS NEEDED FOR PAIN MAXIMUM DAILY DOSE = 6 SOLD: 01/25/2021 [facility] normal saline flush 0.9 % injection 3 mL 14980-657-54 01/24/2021 09:00:00 PM EDT 3 mL Intravenous active 3 mL , Intravenous, PROTOCOL, First dose on Sat01/24/21 at 2100, Post-op
When PO taken well
[facility] Medication administered onsite Docusate Sodium 50 MG / sennosides, GROUP HOME 8.6 MG Oral Tablet senna-docusate (PERICOLACE) 8.6-50 MG 2 tablet senna-docusate (PERICOLACE) 8.6-50 MG 2 tablet 01/24/2021 09:00:00 PM EDT 2 {tbl} Oral active 2 tablet, Oral, Nightly, First dose on Sat01/24/21 at 2100, Post-op
hold for loose stools
[facility] Medication administered onsite Cefazolin 1000 MG [...] minutes. Use within 1 hour of reconstitution
[facility] Perioperative Pharmacoprophylaxis Medication administered onsite sodium chloride 0.9% (NS) infusion 6476-1693-74 01/24/2021 05:00:00 P M EDT Intravenous active at 100 mL/hr, Intravenous, Continuous, Starting on Sat01/24/21 at 1700, Post-op [facility] Medication administered onsite Acetaminophen 500 MG Oral Tablet acetaminophen (TYLENO L) tablet 1,000 mg acetaminophen (TYLENOL) tablet 1,000 mg 01/24/2021 05:00:00 PM EDT 1000 mg Oral active 1,000 mg, Oral , Every 6 hours (scheduled), First dose on Sat01/24/21 at 1700, Post-op [facility] Medication administered onsite ondansetron (ZOFRAN) injection 4 mg [id number] 01/24/2021 04:20:2 9 PM EDT 4 mg Intravenous active 4 mg, In travenous, Every 4 hours PRN, nausea, vomiting, Starting on Sat01/24/21 at 1620, Post-op
If unable to take PO
[facility] Medication administered onsite oxyCODONE (ROXICODONE) immediate release tablet 2.5 mg 0406- [id number] 01/24/2021 04:20:29 PM EDT 2.5 mg Oral active 2.5 mg, Oral, Every 4 hours PRN, moderate pain (4-6), Starting on Sat01/24/21 at 1620, For 7 days, Post-op [facility] Medication administered onsite 2 ML Metoclopramide 5 MG/ML Prefilled Sy ringe metoclopramide (REGLAN) injection 10 mg metoclopramide (REGLAN) injection 10 mg 01/24/2021 04:20:29 PM E DT 10 mg Intravenous active 10 mg, I ntravenous, Every 6 hours PRN, for nausea not relieved by Zofran, Starting on Sat01/24/21 at 1620, For 24 hours, Post- op
Renal dosing per pharmacy
[facility] Medication administered onsite Oxycodone Hydrochloride 5 MG Oral Tablet oxyCODONE (ROXICODONE) immediate release tablet 5 mg oxyCODONE (ROXICODONE) immediate release tablet 5 mg 01/24/2021 04:20:29 PM EDT 5 mg Oral active 5 mg, Oral, Every 4 hours PRN, severe pain (7-10), Starting on Sat01/24/21 at 1620, For 7 days, Post-op [facility] Medication administered onsite Mineral Oil 1000 MG/ML Enema mineral oil enema 1 enema mineral oil enema 1 enema 01/24/2021 04:20:29 PM EDT 1 {enema} Rectal active 1 enema, Rectal, Daily PRN, constipation, if unrelieved by dulcolax, Starting on Sat01/24/21 at 1620, Post-op
hold for loose stools
[facility] Medication administered onsite fentaNYL Citrate (PF) (SUBLIMAZE) injection 25 mcg [id number] 01/24/2021 04:20:29 PM EDT 25 ug Intravenous active 25 mcg, Intravenous, Every 3 hours PRN, for severe breakthrough pain (7-10) if oral opioid ineffective within one hour, Starting on Sat01/24/21 at 1620, For 7 days, Post-op [facility] Medication administered onsite Methocarbamol 500 MG Oral Tablet methocarbamol (ROBAXI N) tablet 500 mg methocarbamol (ROBAXIN) tablet 500 mg 01/24/2021 04:20:29 PM EDT 50 0 mg Oral active 500 mg, Oral, 4 times daily PRN, muscle spasms, Starting on Sat01/24/21 at 1620, Post-op [facility] Medication administered onsite Calcium Carbonate 500 MG Chewable Tablet calcium carbonate (TUMS) chewable tablet 500-1,000 mg calcium carbonate (TUMS) chewable tablet 500-1,000 mg 01/24/2021 04:20:29 PM EDT mg Oral active 500-1,000 mg, Oral, Every 4 hours PRN, indigestion, moderate or severe, Starting on Sat01/24/21 at 1620, Post-op [facility] Medication administered onsite Ondansetron 4 MG Disintegrating Oral Tab let ondansetron (ZOFRAN-ODT) disintegrating tablet 4 mg ondansetron (ZOFRAN-ODT) disintegrating tablet 4 mg 01/24/2021 04:20:29 PM EDT 4 mg Oral active 4 mg, Oral, Every 4 hours PRN, nausea, vomiting, Starting on Sat01/24/21 at 1620, Post-op [facility] Medication administered onsite Aluminum Hydroxide 40 MG/ML / Magnesium Hydroxide 40 MG/ML / Simethicone 4 MG/ML Oral Suspension alum & mag hydroxide-simeth 200-200-20 MG/5ML suspension 30 mL alum & mag hydroxide-simeth 200-200-20 MG/5ML suspension 30 mL 01/24/2021 04:20:28 PM EDT 30 mL Oral active 30 mL, Oral, Every 4 hours PRN, indigestion, Starting on Sat01/24/21 at 1620, Post-op 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
To be administered just prior to to transport to operating room
[facility] Medication administered onsite chlorhexidine gluconate 1.2 MG/ML Mouthw deysi chlorhexidine (PERIDEX) 0.12 % oral solution 15 mL chlorhexidine (PERIDEX) 0.12 % oral solution 15 mL 08/2020 09:00:00 AM EDT 15 mL Mouth/Throat completed 15 mL, Mouth/Throat, sheet cutting operator, On Sat01/24/21 at 0900, For 1 dose, Pre-op
Swish for 30 seconds and spit in pre-induction unit
[facility] Medication administered onsite dexamethasone (DECADRON) injection 4 mg [id number] 01/25/20 09:00:00 AM EDT 4 mg Intravenous completed 4 mg, Intr avenous, sheet cutting operator, On Sat01/24/21 at 0900, For 1 dose, Pre-op
To be administered just prior to to transport to operating room. Hold if patient is diabetic or if stress dose aure roids are ordered
[facility] Medication administered onsite 2 ML Metoclopramide 5 MG/ML Prefilled Sy ringe metoclopramide (REGLAN) injection 10 mg metoclopramide (REGLAN) injection 10 mg 01/24/2021 09:00:00 AM E DT 10 mg Intravenous completed 10 mg, I ntravenous, sheet cutting operator, On Sat01/24/21 at 09, For 1 dose, Pre-op
To be administered just prior to to transport to operating room
[facility] Medication administered onsite Magnesium Chloride 0.19971 MEQ/ML / Pota ssium Chloride 0.0497 MEQ/ML / Sodium Acetate 0.0163 MEQ/ML / Sodium Chloride 0.0899 MEQ/ML / Sodium gluconate 5.02 MG/ML Injectable Solution [Normosol-R] electrolyte-R (NORMOSOL-R/PLASMALYTE-R) solution electrolyte-R (NORMOSOL-R/PLASMALYTE-R) solution 01/24 09:00:00 AM EDT Intravenous aborted at 1 00 mL/hr, Intravenous, Continuous, Starting on Sat01/24/21 at 0900, Pre-op [facility] Medication administered onsite ondansetron (ZOFRAN) injection 4 mg [id number] 01/24/2021 09:00:0 0 AM EDT 4 mg Intravenous completed 4 mg, In travenous, sheet cutting operator, On Sat01/24/21 at 0900, For 1 dose, Pre-op
To be administered just prior to to transport to operating room
[facility] Medication administered onsite sennosides, GROUP HOME 8.6 MG Oral Tablet Senna Lax 12/29/2020 12:00:00 AM EDT ORAL active [facility] ([facility]) ferrous sulfate 325 MG Oral Tablet Ferrous Sulfate 12/29/2020 12:00 :00 AM EDT ORAL active [facility] ([facility]) Covid-19 vaccine, Unspecified 09/03/2020 12:00:00 AM EDT completed [facility] ([facility]) Medication administered onsite 17.5-3.13-1.6 gram 07/11/2020 12:00:00 AM EDT recon soln 354 USE DIRECTED BY [facility] USE DIRECTED BY [facility] SOLD: 07/11/2020 [facility] valacyclovir 1000 MG [...] type / Coverage type Policy ID Covered alliance party ID Covered alliance party's relationship to henriquez Policy Henriquez Plan Information Danny/Jadyn GOVEA (pr) Medigap Part B [id number] Self [id number] [place] Medigap Part B [id number] Self [id number] MVP (pr) Commercial [id number] Self [id number] MVP (pr) Commercial [id number] Self [id number] [facility] [id number] [employer] [facility] Commercial [id number] Self [id number] FLORENCIA J RONY [id number] [place] [id number] Self L iber[place] HDHP State Ins Fund () Workers Compensation [id number] Self State Ins Fund () Workers Compensation [id number] Self [id number] MVP Health Maintenance Organization (HMO) [id number] Self [id number] [facility] C[facility] [id number] SP [id number] [facility] [id number] SP [id number] [facility] [id number] SP [id number] MVP H [id number] Self [id number] MVP H [id number] Self [id number] MVP Healthcare F [id number] SELF [id number] MVP Healthcare F [id number] SELF [id number] MVP Healthcare F [id number] SELF [id number] MVP Healthcare F [id number] SELF [id number] [employer] HMO PPO POS [id number] Blue Cross Blue Shield P [id number] SELF [id number] Blue Cross Blue Shield P [id number] SELF [id number] Blue Cross Blue Shield P [id number] SELF [id number] BCBS ANDRY HMO [id number] SP [id number] Blue Cross Blue Shield P [id number] SELF [id number] EXCELLUS BCBS MEDICAID [id number] EXCELLUS C [id number] Self [id number] Blue Cross Blue Shield P [id number] SELF [id number] EXCELLUS BCBS MEDICAID [id number] Jeanine [id number] [facility] [id number] SP [id number] STATE INSURANCE FUND [id number] SP [id number] STATE INSURANCE FUND [id number] SP [id number] STATE INSURANCE FUND [id number] SP [id number] STATE INSURANCE FUND [id number] SP [id number] [facility] ([facility]) P [id number] S [id number] SELF PAY ONLY [id number] SP [id number] [employer] WORK COMP [id number] SP [id number] BCBS ANDRY HMO [id number] SP [id number] [place] PPO 302/307 [id number] SP [id number] [place] PPO 302/307 [id number] SP [id number] EXCELLUS BCBS B [id number] S [id number] EXCELLUS BLUE CROSS BLUE SHIELD HEA [id number] S [id number] BCBS ANDRY HMO [id number] SP [id number] Blue Cross Blue Shield P [id number] SELF [id number] Blue [facility][Note 3] Employee Program J [id number] SELF [id number] P HEALTH CARE [id number] SP [id number] P HEALTH CARE O [id number] S [id number] P HEALTH CARE HEA [id number] S [id number] MVP (pr) Commercial [id number] Self [id number] MVP (pr) Commercial [id number] Self [id number] MVP (pr) Commercial [id number] Self [id number] MVP (pr) Commercial [id number] Self [id number] MVP (pr) Commercial [id number] Self [id number] MVP (pr) Commercial [id number] Self [id number] MVP (pr) Commercial [id number] Self [id number] [employer] O [id number] S [id number] [facility] [id number] SP [id number] [facility] [id number] S [id number] SELECTIVE INS WORKER COMP [id number] SP [id number] SELECTIVE INS WC O [id number] S [id number] SELECTIVE INS WC O [id number] S [id number] SELECTIVE INS WORKER COM O [id number] S [id number] SELECTIVE INS WORKER COMP [id number] SP [id number] SELECTIVE INS WORKER COMP - SP - ONE CALL CARE MANAGEMENT O [id number] S [id number] Problems, Conditions, and Diagnoses Code Display Name Description Problem Type Effective Dates Data Source(s) M41.86 Other forms of scoliosis, lumbar region Other forms of scoliosis, lumbar region Diagnosis 01/24/2021 07:20:[address] [facility] M48.062 Spinal stenosis, lumbar region with neur ogenic claudication Spinal stenosis, lumbar region with neur Diagnosis 01/24/2021 07:20:[address] [facility] F32.A Depression Depression [id number] 01/24/2021 12:00:[address] [facility] E16.2 Hypoglycemia Hypoglycemia [id number] 01/24/2021 12:00:[address] [facility] M48.062 Spinal stenosis of lumbar region with ne urogenic claudication Spinal stenosis of lumbar region with neurogenic claudication [id number] 01/24/2021 12:00:[address] [facility] Surgeries/Procedures Procedure Description Date Indications Data Source(s) BLOOD COUNT COMPLETE AUTOMATED <td>CBC</td><td>Routine </td><td>01/25/2021 4:52 AM EDT</td><td></td><td> </td> 01/25/2021 04:52:[address] [facility] BASIC METABOLIC PANEL CALCIUM TOTAL <td>BASIC METABOLI C PANEL</td><td>Routine</td><td>01/25/2021 4:52 AM EDT</td><td></td><td> </td> 01/25/2021 04:52:[address] [facility] FLUOROSCOPY SPX <1 HOUR PHYSICIAN TIME <td>XR OR SPINE LUMBAR</td><td>STAT</td><td>01/24/2021 1:11 PM EDT</td><td></td><td> </td> 01/24/2021 01:11:[address] [facility] FUSION, SPINE, LUMBAR, DIRECT LATERAL INTERBODY FUSION (DLIF) <td>FUSION, SPINE, LUMBAR, DIRECT LATERAL INTERBODY FUSION (DLIF)</td><td></td><td>01/24/2021 11:08 AM EDT</td><td> Spinal stenosis of lumbar region with neurogenic claudication Other forms of scoliosis, lumbar region</td><td></td> 01/24/2021 11:08:00 AM EDT - 01/24/2021 01:51:00 PM EDT Other forms of scoliosis, lumbar regionS krista stenosis of lumbar region with neurogenic claudication [facility] Other forms of scoliosis, lumbar region Spinal stenosis of lumbar region with ne urogenic claudication GLUC BLD GLUC MNTR DEV CLEARED FDA SPEC HOME USE <td>P OCT GLUCOSE</td><td>Routine</td><td>01/24/2021 8:13 AM EDT</td><td></td><td> </td> 01/24/2021 08:13:[address] [facility] BLOOD TYPING ABO <td>PREPARE RBC</td><td>Rout ine</td><td>01/24/2021 12:01 AM EDT</td><td></td><td> </td> 01/24/2021 12:01:[address] [facility] THROMBOPLASTIN TIME PARTIAL PLASMA/WHOLE BLOOD <td>APTT</td><td>Routine</td><td>01/11/2021 1:50 PM EDT</td><td> Spinal stenosis of lumbar region with neurogenic claudication Other forms of scoliosis, lumbar region</td><td> </td> 01/11/2021 01:50:00 PM EDT Other forms of scoliosis, lumbar regionS krista stenosis of lumbar region with neurogenic claudication [facility] Other forms of scoliosis, lumbar region Spinal stenosis of lumbar region with ne urogenic claudication PROTHROMBIN TIME <td>PROTIME-INR</td><td>Rout ine</td><td>01/11/2021 1:50 PM EDT</td><td> Spinal stenosis of lumbar region with neurogenic claudication Other forms of scoliosis, lumbar region</td><td> </td> 01/11/2021 01:50:00 PM EDT Other forms of scoliosis, lumbar regionS krista stenosis of lumbar region with neurogenic claudication [facility] Other forms of scoliosis, lumbar region Spinal stenosis of lumbar region with ne urogenic claudication BLOOD TYPING ABO <td>TYPE AND SCREEN</td><td> Routine</td><td>01/11/2021 1:50 PM EDT</td><td> Spinal stenosis of lumbar region with neurogenic claudication Other forms of scoliosis, lumbar region</td><td> </td> 01/11/2021 01:50:00 PM EDT Other forms of scoliosis, lumbar regionS krista stenosis of lumbar region with neurogenic claudication [facility] Other forms of scoliosis, lumbar region Spinal stenosis of lumbar region with ne urogenic claudication COMPREHENSIVE METABOLIC PANEL <td>COMPREHENSIVE METABO LIC PANEL</td><td>Routine</td><td>01/11/2021 1:50 PM EDT</td><td> Spinal stenosis of lumbar region with neurogenic claudication Other forms of scoliosis, lumbar region</td><td> </td> 01/11/2021 01:50:00 PM EDT Other forms of scoliosis, lumbar regionS krista stenosis of lumbar region with neurogenic claudication [facility] Other forms of scoliosis, lumbar region Spinal stenosis of lumbar region with ne urogenic claudication ECG ROUTINE ECG W/LEAST 12 LDS W/I&R 12/27/2020 12:00: 00 AM EDT [facility] ([facility]) OFFICE OUTPATIENT VISIT 25 MINUTES 12/27/2020 12:00:00 AM EDT [facility] ([facility]) OFFICE OUTPATIENT VISIT 25 MINUTES 12/19/2020 12:00:00 AM EDT [facility] ([facility]) RADEX FOOT COMPLETE MINIMUM 3 VIEWS 12/14/2020 12:00:0 0 AM EDT [facility] ([facility] ) OFFICE OUTPATIENT VISIT 10 MINUTES 12/14/2020 12:00:00 AM EDT [facility] ([facility] ) RADEX FOOT COMPLETE MINIMUM 3 VIEWS 11/15/2020 12:00:0 0 AM EDT [facility] ([facility] ) RADEX FOOT COMPLETE MINIMUM 3 VIEWS 10/14/2020 12:00:0 0 AM EDT [facility] ([facility]) RADEX FOOT COMPLETE MINIMUM 3 VIEWS 09/28/2020 12:00:0 0 AM EDT [facility] ([facility]) FX Metatarsal W/O Manipulation 09/14/2020 12:00:00 AM EDT [facility] ([facility]) RADEX FOOT COMPLETE MINIMUM 3 VIEWS 09/14/2020 12:00:0 0 AM EDT [facility] ([facility]) OFFICE OUTPATIENT VISIT 25 MINUTES 09/14/2020 12:00:00 AM EDT [facility] ([facility]) Colonoscopy 07/14/2020 12:00:00 AM EDT M [facility] ([facility]) PERIODIC PREVENTIVE MED EST PATIENT 40-64YRS 12:00:00 AM EST [facility] ([facility]) Intermediate Eye Exam Established Patient Intermediate Eye Exam Established Patient 04/08/2020 12:00:00 AM EST CHARLIE (Elijah id A Corbin Lima MD [facility]) Intermediate Eye Exam Established Patient Intermediate Eye Exam Established Patient 04/08/2020 12:00:00 AM EST CHARLIE (Elijah id A Corbin Lima MD [facility]) Results ID Date Data Source [id number] 03/23/2021 10:10:00 AM EST [facility] Name Value Range Interpretation Code Description Data Kelle rce(s) Supporting Document(s) SARS-COV 2 PCR (NASAL SWAB) NEGATIVE [place] This lab was ordered by [facility] #15 and reported by [employer]. ID Date Data Source [id number] 03/23/2021 12:00:00 AM EST [facility] Name Value Range Interpretation Code Description Data Kelle rce(s) Supporting Document(s) SARS-CoV-2 (COVID-19) RNA [Presence] in Respiratory specimen by PADMINI with probe detection Not detected [facility] This lab was ordered by [employer] and r eported by [employer]. ID Date Data Source [id number] 03/27/2021 08:19:34 AM EST [facility]: Florencia LopezOB: 1955Provider: Sienna Vigil: 03/22/2021 Reason For VisitLisa Benjamín is here today for cervical + lumbar spine. Florencia had her second Covid vaccine on 09/03/20. Florencia Butts is an established patient here for follow up. Other DOI/DOO: 08/2018 w/o [email or web address]/27/21. Surgery DOS: 01/24/21. Surgery Description: (Left L4/5 DLIF. globus. neuromonitoring). Patient states the injury occurred after a fall. The patient has not had a course of physical therapy for greater than 4 weeks. The patient has not had a course of NSAIDs for greater than 4 weeks. The patient was notified that the office visit was recorded to enhance documentation accuracy. 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 Patient is working [...] daily with her sister. She lives in [place]. AssessmentASSESSMENTPostsurgical arthrodesis status, lumbar spine. Plan X-Ray I Lumbosacral - 2 views (XRays were ordered, obtained and interpreted today inthe office. Indication: pain/dysfunction.); Status:Complete; Done: [id number] Perform:SOS22; Due:[id number]; Last Updated By:Janay Veloz; 03/22/2021 11:24:29 AM;Ordered; [...] rce(s) Supporting Document(s) ID Date Data Source [id number] 02/08/2021 12:21:42 PM EDT [facility] PC[facility]: Florencia LopezOB: 1955Provider: Nancy [...] NSAIDs for greater than 4 weeks. 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 [...] 1 TABLET TWICE DAILY NEEDEDFOR PAIN. Reference #:[id number] MDD:2 Rx By: Zohaib Blackwell; Dispense: 0 Days ; #:30 Tablet; Refill: 0;For: Aftercare following surgery of the musculoskeletal system, Lower back pain; SOFÍA = N; Sent To: [facility]; Last Updated By: Farheen Price; 02/07/2021 2:34:41 PM Start: Pregabalin 25 MG Oral Capsule (Lyrica); TAKE 1 CAPSULE TWICE DAILY. Reference #:[id number] MDD:2 Rx By: Zohaib Blackwell; Dispense: 0 Days ; #:60 Capsule; Refill: 0;For: Aftercare following surgery of the musculoskeletal system, Lower back pain; SOFÍA = N; Sent To: [facility]; Last Updated By: Farheen Price; 02/07/2021 [...] is not working at this time. Florencia Butts is on total disability until next visit. DisclaimersThis document was dictated and electronically signed using [employer] software. A reasonable attempt at proof reading has been made to minimize errors. Please call with any questions. Signatures Electronically signed by : Augustine Villegas; Feb 07 2021 4:33PM EST (Author) Electronically signed by : yEal Vigil M.D.; Feb 08 2021 12:21PM EST Name Value Range Interpretation Code Description Data Kelle rce(s) Supporting Document(s) ID Date Data Source [id number] 01/27/2021 03:42:06 PM [facility]T [facility] INFORMATIONPatient MRN Name Date of Age Gend*PT [id number] Florencia Butts 1955 65 years F IPPT Location Admission Date/Time Visit ID Attending [id number] 01/24/21 0720 --- --- EPI ID CSN Admitting Provider [id number] Eyal Vigil MD([id number]) [place] [address] OPERATIVE REPORT OPNAME: FLORENCIA BUTTS#: [id number] #: [id number] ADMISSION DATE: 01/24/2021OB: 1955 SEX: F PT TYPE: I OrthACCT #: [id number] CARE PHYSICIAN: JESSIE SAUNDERS OF OPERATION: URGEON:ROSALIA [...] extra small Infuse with 2.5 mL of Marybel for arthrodesis.COMPLICATIONS:None.ANESTHESIA:General.ESTIMATED BLOOD LOSS:Minimal.IMPLANTS:Alphatec titanium 10 x 55 DLIF cage with plate and screw construct.INDICATIONS FOR PROCEDURE:The patient is a 65-year-old female with symptoms of right lower extremityradiculopathy secondary to her severe foraminal stenosis at L4-L5, whounderwent and failed nonsurgical care and [facility]. I discussedthe risks of surgery with her, [...] mm implant.We then placed our Infuse and Hawthorne putty into the implant, attached a2-hole plate [...] therefore, it didnecessitate use of a physician medication assistant for protection and retraction ofneurologic structures.JAMAL Bass/NABEEL Job #: [id number] DOC #: [id number] Name Value Range Interpretation Code Description Data Kelle rce(s) Supporting Document(s) ID Date Data Source [id number] 01/27/2021 03:42:01 PM EDT [facility]FORMATIONPatient MRN Name Date of Age Gend*PT [id number] Florencia Butts 1955 65 years F IPPT Location Admission Date/Time Visit ID Attending [id number] 01/24/21 0720 --- --- EPI ID CSN Admitting Provider [id number] Eyal Vigil MD([id number]) Attestation signed by Eyal Vigil MD at 01/27/2021 3:41 PMChart reviewed, I agree with the findings and plan of care as communicated tothe Midlevel provider.Signature: REJI Bassate: January 27, 2021Time: 3:41 PM ORTHOPEDIC DISCHARGE SUMMARYPatient Name: Florencia Butts of : 1955 Age 65 yearsPrimary Physician: JESSIE MCNEIL MD PCP [id number] Date: 01/24/2021 Discharge Date: 01/25/2021dmission Provider: Eyal Vigil MD Discharge Provider: Norm Lindsey, PADischarge Diagnoses:Active Problems: Spinal stenosis of lumbar region with neurogenic claudication DepressionResolved Problems: * No resolved hospital problems. *Surgical Procedures:Procedure(s) with comments:LEFT LUMBAR 4 5 DIRECT LATERAL INTERBODY FUSION (Left) [facility] NEUROMONITORINGALPHATECHBrief Hospital Course:Patient was admitted through [...] details.Discharge disposition: [facility].Discharge Weight [...] 1,000 mg by mouth daily as neededfor qjtlD-Fopuvdk-U TABS Take 1 tablet by mouth dailyEPINEPHrine [...] 01/25/2021ignificant Imaging:multiple OR xraysConsults:noneSignature: [phone]: January 25, 2021Time: 8:32 AM Name Value Range Interpretation Code Description Data Kelle rce(s) Supporting Document(s) ID Date Data Source [id number] 01/25/2021 06:16:20 AM EDT [facility] Name Value Range Interpretation Code Description Data Kelle rce(s) Supporting Document(s) SODIUM 143 mmol/L (136-145) [facility] POTASSIUM 4.3 mmol/L (3.6-5.2) [facility] CHLORIDE 108 mmol/L (100-108) [facility] CO2 28 mmol/L (22-31) [facility] ANION GAP 7 mmol/L (7-16) [facility] UREA NITROGEN 13 mg/dL (7-24) [facility] CREATININE 0.56 mg/dL (0.60-1.00) L [facility] BUN/CREAT RATIO 23.2 RATIO (10.0-20.0) [facility] GLUCOSE 92 mg/dL (70-99) [facility] CALCIUM 8.3 mg/dL (8.4-10.2) [facility] GFR >60 ml/min/1.73m2 (>59) [facility] GFR ( AMER) >60 ml/min/1.73m2 (>59) [facility] GFR INTERPRETATION [facility] --NORMAL KIDNEY FUNCTION OR MILD DISEASE - GFR >OR= 60CHRONIC KIDNEY DISEASE - GFR 15 - 59RENAL FAILURE - GFR <15 Est. GFR calculation based on the MDRDstudy equation, which assumes a steadystate for creatinine. Est. GFR should notbe used for medication dosing. ID Date Data Source [id number] 01/25/2021 05:40:25 AM EDT [facility] Name Value Range Interpretation Code Description Data Kelle rce(s) Supporting Document(s) WBC 7.5 10*3/uL (4.1-11.0) [facility] [place] RBC 3.32 10*6/uL (4.00-5.40) L [facility] HGB 10.0 g/dL (12.0-16.0) [facility] HCT 29.6 % (36.0-47.0) [facility] MCV 89.2 fL (80.0-95.0) [facility] MCH 30.2 pg (27.0-32.0) [facility] MCHC 33.8 g/dL (32.0-36.0) [facility] RDW 14.6 % (10.5-14.5) [facility] PLT 261 10*3/uL (150-450) [facility] MPV 6.9 fL (7.1-10.7) L [facility] ID Date Data Source [id number] 01/24/2021 01:43:22 PM EDT [address] [address]Tkzfqih Name: FLORENCIA LOPEZOB: 1955Sex: FOrdering Provider: EYAL Urbina Prov: EYAL Hansen Provider: Procedure Performed: / XR OR SPINE LUMBARExam Date: 01/24/2021 13:11MRN: [id number] Number: [id number] Class: InpatientAccount #: [id number] for Exam: Spinal stenosis of lumbar region with neurogenic claudication [M48.062]Other forms of scoliosis, lumbar region [M41.86]Technique: AP and lateral views obtained.Comparison: NoneFindings: Multiple intraoperative images are obtained during spinal fusion at L4-L5. There is good alignment of the disc spacer and adjacent vertebra.IMPRESSION: Good alignment status post spinal fusion.Report electronically signed by: ASHLEY COHEN On 01/24/2021 1:43 PMWorkstation ID: [id number] Name Value Range Interpretation Code Description Data Kelle rce(s) Supporting Document(s) ID Date Data Source [id number] 01/24/2021 11:21:05 AM EDT [facility] INFORMATIONPatient MRN Name Date of Age Gend*PT [id number] Florencia Butts 1955 65 years F SDAPT Location Admission Date/Time Visit ID Attending Provider --- --- --- --- EPI ID CSN Admitting Provider [id number] ---AirwayPatient location during procedure: ORUrgency: electiveDifficult airway: [...] cmPlacement verified by: chest auscultation and + [id number]: equal breath sounds bilateralGrade view: grade I - full view of glottisAdditional NotesIntubated using glidescope due to previous cranial procedures. Neck wasmaintained in neutral position and not oral or dental trauma was noted. Name Value Range Interpretation Code Description Data Kelle rce(s) Supporting Document(s) ID Date Data Source [id number] 01/24/2021 08:15:41 AM EDT [facility] Name Value Range Interpretation Code Description Data Kelle rce(s) Supporting Document(s) POC NOVA GLU 78 mg/dL (70-99) [facility] PERFORMED BY [facility] ST[facility]FF ID Date Data Source [id number] 01/25/2021 08:13:59 AM EDT [facility]AMEET[facility] SPEC EXP DATE 01/27/2021TEST ING SITE PERFORMED AT [address] [place] [id number] NUMBER [id number] COMPONENT TYPE LEUKOPOOR RED CELLSUNIT DIVISION 00STATUS OF UNIT REL FROM ALLOCTRANSFUSION STATUS OK TO TRANSFUSECROSSMATCH RESULT COMPATIBLEUNIT NUMBER [id number] COMPONENT TYPE LEUKOPOOR RED CELLSUNIT DIVISION 00STATUS OF UNIT REL FROM ALLOCTRANSFUSION STATUS OK TO TRANSFUSECROSSMATCH RESULT COMPATIBLE Name Value Range Interpretation Code Description Data Kelle rce(s) Supporting Document(s) TRANSFUSE RED CELLS [facility] TESTING SITE PERFORMED AT [address] [place] [address] ID Date Data Source [id number] 01/20/2021 11:45:00 AM EDT [facility] ([facility]) Name Value Range Interpretation Code Description Data Kelle rce(s) Supporting Document(s) Coronavirus 2019 Nasopharygeal Laboratory test result [facility] ([facility]) ASSAY INFORMATION: Real Time RT-PCR NOTE: The COVID-19 assay has been cleared by the U.S. Food and Drug Administration under the Emergency Use Authorization (EUA). [facility] and [facility] are designated as high complexity laboratories by the Clinical Laboratory Improvement Amendments of 1988(CLIA) and are qualified to perform this test. Not Detected ID Date Data Source [id number] 01/11/2021 03:39:46 PM EDT [facility] CenterPAT[facility] NT INFORMATIONPatient MRN Name Date of Age Gend*PT [id number] Florencia Butts 1955 65 years F OPPT Location Admission Date/Time Visit ID Attending Provider --- --- --- Eyal Vigil MD([id number]) EPI ID CSN Admitting Provider [id number] ---HISTORY PHYSICALName: Florencia Butts : 1955 Sex: female Care Provider[facility]IE MCNEIL [facility]: Dr. AdkinsoInformant: The patient who is [...] History:Diagnosis Date Depression Falls frequently Headache disorder OMAHA (hard of hearing) Hydrocephalus s/p head injury [...] mouth daily as needed forpain Historical Provider, TWE-Gjmdfyn-P TABS Take 1 tablet by mouth daily Historical Provider, EPINEPHrine (EpiPen 2-John) 0.3 MG/0.3ML SOAJ Inject 1 [...] warm and dry.HEENT: She is normocephalic, atraumatic. Planada conjunctivae. Anicteric sclerae.Pupils are equal, round, reactive [...] hepatosplenomegaly. Negative CVAT.GENITAL/RECTAL: Deferred.MUSCLE/SKELETAL: Strength is 5/5. Lead Tinner are equal.NEUROLOGICALLY: Cranial nerves II through XII [...] anticipated.ALLERGIES:Patient has no known drug allergies.01/11/2021 3:39 RAMONAyyamilet Man, REMIThis document or parts of this document, were dictated using Bl[employer] Ramp software. A reasonable attempt at proofreading has beenmade to minimize errors. Please call with any questions or corrections. Name Value Range Interpretation Code Description Data Kelle rce(s) Supporting Document(s) ID Date Data Source [id number] 01/11/2021 09:54:55 PM EDT [facility] SPEC EXP DATE 01/25/2021ATI ENT ABO/Rh B POSITIVEANTIBODY SCREEN NEGATIVETESTING SITE PERFORMED AT [address] [place], [place] [address]OOD BANK COMMENT BLOOD TYPE CONFIRMED. Name Value Range Interpretation Code Description Data Kelle rce(s) Supporting Document(s) TYPE AND SCREEN [facility] ID Date Data Source [id number] 01/11/2021 07:13:19 PM EDT [facility] Name Value Range Interpretation Code Description Data Kelle rce(s) Supporting Document(s) APTT 23.6 s (22.0-34.3) [facility] ID Date Data Source [id number] 01/11/2021 07:13:19 PM EDT [facility] Name Value Range Interpretation Code Description Data Kelle rce(s) Supporting Document(s) PT 10.8 s (9.2-11.9) [facility] INR 1.01 [facility] SUGGESTED THERAPEUTIC RANGES USING INR F ORSTABILIZED ANTICOAGULATED PATIENTS:STANDARD DOSE THERAPY INR 2.0-3.0 DVT, PE, PREVENT DVT OR EMBOLISMHIGH DOSE THERAPY INR 2.5-3.5 PREVENT EMBOLISM FROM MECHANICAL HEART VALVE ID Date Data Source [id number] 01/11/2021 06:53:40 PM EDT [facility] Name Value Range Interpretation Code Description Data Kelle rce(s) Supporting Document(s) SODIUM 142 mmol/L (136-145) [facility] POTASSIUM 4.1 mmol/L (3.6-5.2) [facility] CHLORIDE 113 mmol/L (100-108) H [facility] CO2 23 mmol/L (22-31) [facility] ANION GAP 6 mmol/L (7-16) L [facility] UREA NITROGEN 17 mg/dL (7-24) [facility] CREATININE 0.62 mg/dL (0.60-1.00) [facility] BUN/CREAT RATIO 27.4 RATIO (10.0-20.0) H [facility] GLUCOSE 87 mg/dL (70-99) [facility] CALCIUM 9.1 mg/dL (8.4-10.2) [facility] TOTAL PROTEIN 6.9 g/dL (6.4-8.2) [facility] ALBUMIN 3.3 g/dL (3.2-4.5) [facility] GLOBULIN 3.6 g/dL (2.7-4.3) [facility] ALB/GLOB RATIO 0.9 RATIO [facility] ALKALINE PHOSPHATASE 104 U/L (45-117) [facility] BILIRUBIN,TOTAL 0.2 mg/dL (0.0-1.0) [facility] PLEASE NOTE:Total bilirubin results may be falselyelevated in patients taking Eltrombopag. AST (SGOT) 12 U/L (11-39) [facility] ALT (SGPT) 21 U/L (12-78) [facility] GFR >60 ml/min/1.73m2 (>59) [facility] GFR ( AMER) >60 ml/min/1.73m2 (>59) [facility] GFR INTERPRETATION [facility] --NORMAL KIDNEY FUNCTION OR MILD DISEASE - GFR >OR= 60CHRONIC KIDNEY DISEASE - GFR 15 - 59RENAL FAILURE - GFR <15 Est. GFR calculation based on the MDRDstudy equation, which assumes a steadystate for creatinine. Est. GFR should notbe used for medication dosing. ID Date Data Source [id number] 01/12/2021 12:58:21 PM EDT [facility] Name Value Range Interpretation Code Description Data Kelle rce(s) Supporting Document(s) SPECIMEN DESCRIPTION [facility] STAPH SCREEN RESULTS (ONEGSA) [facility] COMMENT [facility] GENE TO DETECT STAPH AUREUS. (2) RT-P CR WAS PERFORMED FOR THE mecA AND [employer] GENES TO DETECT METHICILLIN RESISTANCE IN STAPH AUREUS. ID Date Data Source [id number] 01/17/2021 01:53:38 PM EDT [facility], PCName: Florencia LopezOB: 1955Provider: Sienna Vigil: 01/11/2021 Reason For VisitFlorencia Butts is here [...] was recorded to enhance documentation accuracy. 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 History of Present IllnessCHIEF COMPLAINTPreoperative follow-up of lumbar spine.HISTORY OF PRESENT ILLNESSThe patient is a 65-year-old female who returns for a preoperative follow-up of the lumbar spine. She is scheduled for L4[facility]5 DLIF on 01[facility]24/[facility]. 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 She is working at this time. AssessmentASSESSMENTLumbar stenosis with claudication. PlanPLANTkathy latham lyle presents for a preoperative follow-up of the [...] rce(s) Supporting Document(s) ID Date Data Source [id number] 12/27/2020 10:52:00 AM EDT [facility] ([facility]) Name Value Range Interpretation Code Description Data Kelle rce(s) Supporting Document(s) Bacteria identified in Urine by Culture Laboratory test result [facility] ([facility]) FULL REPORT IN LAB NOTES (eCW and [facility] ). NO GROWTH ID Date Data Source [id number] 12/27/2020 10:52:00 AM EDT [facility] ([facility]) Name Value Range Interpretation Code Description Data Kelle rce(s) Supporting Document(s) Color, Urine Laboratory test result MEDE NT ([facility]) Appearance, Urine Laboratory test result [facility] Specific [place] Urine Auto 1.024 1.002-1.035 [facility] ([facility]) PH,Urine 6.0 units 5.0-9.0 [facility]) Protein, Urine Auto Laboratory test result [facility] Urobilinogen, Urine Auto 2.0 mg/dL 0.0-2.0 [facility] T ([facility]) Glucose, Urine (Ua) Auto Laboratory test result [facility] ([facility]) Ketone, Urine Auto Laboratory test result [facility] ([facility]) Bilirubin, Urine Auto Laboratory test result [facility] ([facility]) Nitrite, Urine Auto Laboratory test result [facility] ([facility]) Leukocyte Esterase, Urine Auto Laboratory test result [facility] Blood, Urine Blood Laboratory test result [facility] WBC, Urine Auto 1 /HPF 0-3 [facility] ([facility]) RBC, Urine Auto 2 /HPF 0-3 [facility] ([facility]) Bacteria, Urine Auto Laboratory test result [facility] ([facility]) Squamous Epithelial Cell Ur AU 0 /HPF 0-6 [facility] ([facility]) Mucus, Urine Laboratory test result [facility] Hyaline Cast, Urine Auto 0 /LPF 0-1 [facility] T ([facility]) ID Date Data Source [id number] 12/27/2020 10:49:00 AM EDT [facility] ([facility]) Name Value Range Interpretation Code Description Data Kelle rce(s) Supporting Document(s) Vitamin B12 Level 442 pg/mL [facility] ([facility]) VITAMIN B12 NORMAL RANGE NORMAL 247 - 911 PG/ML INDETERMINATE 211 - 246 PG/ML DEFICIENT LESS THAN 211 PG/ML Folate Laboratory test result [facility] FOLATE NORMAL RANGE NORMAL GREATER THAN 5.4 NG/ML INDETERMINATE 3.4-5.4 NG/ML DEFICIENT LESS THAN 3.4 NG/ML ID Date Data Source [id number] 12/27/2020 10:49:00 AM EDT [facility] ([facility]) Name Value Range Interpretation Code Description Data Kelle rce(s) Supporting Document(s) Total Iron Binding Capacity 245 ug/dL 250-450 [place] [facility] ([facility]) Percent Saturation 28.6 % 13.2-45.0 [facility] Iron (Fe) 70 ug/dL 50-170 [facility]) ID Date Data Source [id number] 12/27/2020 10:49:00 AM EDT [facility] ([facility]) Name Value Range Interpretation Code Description Data Kelle rce(s) Supporting Document(s) Ferritin [Mass/volume] in Serum or Plasma 7 ng/mL 8-252 [facility] ([facility]) ID Date Data Source [id number] 12/27/2020 10:49:00 AM EDT [facility] ([facility]) Name Value Range Interpretation Code Description Data Kelle rce(s) Supporting Document(s) Calcidiol [Mass/volume] in Serum or Plasma 34.5 ng/mL 24.0-80.0 [facility] ([facility]) This test was performed using FastPack I P Vitamin D immunoassay kit. Values obtained with different assay methods should not be used interchangeably. ID Date Data Source [id number] 12/27/2020 10:49:00 AM EDT [facility] Name Value Range Interpretation Code Description Data Kelle rce(s) Supporting Document(s) Hemoglobin A1c/Hemoglobin.total in Blood 6.0 % [facility] ([facility]) Lab Result Notes: Pre-Diabetes 5.7 - 6.4 % Diabetes = or > 6.5% Glucose mean value [Mass/volume] in Blood Estimated fr om glycated hemoglobin 125 mg/dL 60-110 [facility] ([facility] ) ID Date Data Source [id number] 12/27/2020 10:49:00 AM EDT [facility] ([facility]) Name Value Range Interpretation Code Description Data Kelle rce(s) Supporting Document(s) Urea nitrogen [Mass/volume] in Serum or Plasma 17 mg/dL 7-18 [facility] ([facility]) Glucose [Mass/volume] in Serum or Plasma 89 mg/dL 74-99 [facility] 100-125 mg/dL PRE-DIABETES/FASTING >126 mg/dL DIABETES/FASTING Creatinine 0.7 mg/dL 0.6-1.3 [facility] Sodium [Moles/volume] in Serum or Plasma 143 meq/L 136-145 [facility] ([facility]) Potassium [Moles/volume] in Serum or Plasma 4.5 meq/L 3.5-5.1 [facility] ([facility]) Chloride [Moles/volume] in Serum or Plasma 107 meq/L 98-107 [facility] Carbon dioxide, total [Moles/volume] in Serum or Plasma 29 meq/L 21 -32 [facility] Glomerular filtration rate/1.73 sq M pre dicted among non-blacks [Volume Rate/Area] in Serum or Plasma by Creatinine-based formula (MDRD) Laboratory test result [facility] ([facility] ) Calcium [Mass/volume] in Serum or Plasma 8.9 mg/dL 8.5-10.1 [facility] ([facility]) Glomerular filtration rate/1.73 sq M pre dicted among blacks [Volume Rate/Area] in Serum or Plasma by Creatinine-based formula (MDRD) Laboratory test result [facility]) <content>CHRONIC KIDNEY DISEASE STAGING PER NKF</content>
<content></content>
<content>STAGE I & II GFR >= 60 NORMAL TO MILDLY DECREASED</content>
<content>STAGE III GFR 30-59 MODERATELY DECREASED</content>
<content>STAGE IV GFR 15-29 SEVERELY DECREASED</content>
<content>STAGE V GFR <15 VERY LITTLE GFR LEFT</content>
<content>ESRD GFR <15 ON TRANSPORTATION ASSOCIATE</content>
<content></content> ID Date Data Source [id number] 12/27/2020 10:49:00 AM EDT [facility] Name Value Range Interpretation Code Description Data Kelle rce(s) Supporting Document(s) Leukocytes [#/volume] in Blood by Automated count 4.7 x10*3/UL 4.1-10 .9 [facility] ([facility]) NOTE: CBC VERIFIED Hematocrit [Volume Fraction] of Blood by Automated count 32.3 % 3 7.0-51.0 [facility] ([facility]) Hemoglobin [Mass/volume] in Blood 10.9 g/dL 12.0-18.0 [facility] ([facility]) Erythrocytes [#/volume] in Blood by Automated count 3.73 x10*6/UL 4.2 0-6.30 [facility] ([facility]) MCH 29.3 pg 26.0-32.0 [facility]) MCHC 33.9 g/dL 31.0-38.0 [facility] MCV 86.5 fL 80.0-97.0 [facility] Platelets [#/volume] in Blood by Automated count 378 x10*3/UL 140-440 [facility] ([facility]) MPV 7.1 FL 7.8-11.0 [facility]) Erythrocyte distribution width [Ratio] by Automated count 13.8 % 11.6-13.7 [facility] ([facility]) Mid % 7.4 % 1.7-9.3 [facility] Neut % 51.7 % 37.0-92.0 [facility] Lymph % 40.9 % 10.0-58.5 [facility] Mid # 0.4 x10*3/UL 0.1-0.6 [facility] ([facility]) Neut # 2.4 x10*3/UL 2.0-7.8 [facility] ([facility]) Lymph # 1.9 x10*3/UL 0.6-4.1 [facility] ([facility]) ID Date Data Source [id number] 09/15/2020 10:29:49 AM EDT [facility] PCName: Florencia LoepzOB: 1955Provider: Sienna Vigil: 09/12/2020 Reason For VisitFlorencia [...] was recorded to enhance documentation accuracy. 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 Results/DataX-rays with 4 views of the cervical [...] today inthe office. Indication: pain/dysfunction.); Status:Complete; Done: [id number] Perform:SOS22; Due:[id number]; Last Updated By:Joaquín Verde; 09/12/2020 3:07:25 PM;Ordered; For:Neck pain; Ordered By:Eyal Vgiil; Mynor patient presents for evaluation of the [...] rce(s) Supporting Document(s) ID Date Data Source [id number] 09/20/2020 09:19:29 AM EDT [facility] PC[facility]: Florencia LopezOB: 1955Provider: Shelby MtzDOS: 09/06/2020 Reason For VisitFlorencia Butts is here [...] in the office. Indication: pain/dysfunction.); Status:Complete; Done: [id number] Perform:SOS14 (General); Due:20Sep2020; Last Updated By:Rachelle Ramos; [...] document was dictated and electronically signed using V[employer]chercloud software. A reasonable attempt at proof reading [...] rce(s) Supporting Document(s) ID Date Data Source [id number] 09/06/2020 10:48:22 AM T [facility] Name Value Range Interpretation Code Description Data [facility] rce(s) Supporting Document(s) Progress Note [facility] CKCFZo7nSbSCFePv49/ECMhqYXEte1OoHRnsVSr5THjkPZBwP3WsMNE0sK5xRUR3EFvIHhBvEoYnYVB7 [facility] [file] KITCHEN CHEF/7OPgiicNADqhKTQMPIz9aYCMmPiBH+pMqddZG4O [file] [facility]/[id number]H6mJbmhb2aKdnAYogNvIkWq+clWdo2LamWFf5tk1xcjxQ [file] VQZ7YYIn== ID Date Data Source [id number] 09/06/2020 10:48:17 AM EDT [facility] Name Value Range Interpretation Code Description Data Kelle rce(s) Supporting Document(s) Progress Note [facility] RVTHBa3iUoBROlGs55/IACxvAFFtn8QaMKemPVf0CSrdLGMpF8OgGLJ3zM8sIBV7BJkTWbLyNjBjGSJ2 lbm [file] ICAgICAgICAgICAgICAgICAgICAgICAgICAgICAgICAgICAgICAgICAgICAgICAgICAgICAgICAgICAg ICAgICAgICAgICAgICAgICAgICAgICAgICAgICAgIC HfAK3OHTAoCNQrVELgSSIoVVJcJRXlMECbXUIfOYAeRMNtWYEkJADqDLWzTNYvBEGzOCJpBLXxQDNpNQ MtTBVtURFrMCJdMJYoVPMgDNPsMTDyXHBjQQPhUDExSPPtEPFaCNRkSWQiLZ4MZCSgKMOrCYLyBVBbBV AgICAgICAgICAgICAgICAgICAgICAgICAgICAgICAg DDZrRTClTNUuROAsBRLgDNJyWCDmCFRoRJPwXLCsPZCaEANgIFQfLIMsVRGqJMVyHZXlQGHoNQ8RXTVn ICAgICAgICAgICAgICAgICAgICAgICAgICAgICAgICAgICAgICAgICAgICAgICAgICAgICAgICAgICAg ICAgICAgICAgICAgICAgICAgICAgICAgICAgICAgIC IqYBQuUU2TAIDjTMPnZGVvULVuXAVoJEDmLHKzCMEhCXObEMKvUIZpQHEbRRApJDUhAFRnWUIeWLZeJK YeQASdTUDmOPXsLOWkVATdVAXxAPJuUFDwAXPtBLFvIONsTHHnDOGhAIFxMRWfSM1LUFSmGZGzLXAjER AgICAgICAgICAgICAgICAgICAgICAgICAgICAgICAg YQCoEXSxMHBbNRXqNUEtYSIpYCCbZDTrGQQaZSAnZNDwSURrPANpUIIeBLGpEVYuZQQcNILeGZNfER8N ICAgICAgICAgICAgICAgICAgICAgICAgICAgICAgICAgICAgICAgICAgICAgICAgICAgICAgICAgICAg ICAgICAgICAgICAgICAgICAgICAgICAgICAgICAgIC VtATEaNSHuPQ2NKLReTPVyIOQhSFCaOXYfRAFnHFAzNNRxGIOyPOSkFQIeCZSrHGJeTQPhTGNbUXIuMG MeBNAoCDDiMHTbMPIbUMOzCVEzEPYeNPKnAYZfGXIfLWNwNMFmEYKaADSfIXWtGUXmXO6RVECcCRMnLV AgICAgICAgICAgICAgICAgICAgICAgICAgICAgICAg ICAgICAgICAgICAgICAgICAgICAgICAgICAgICAgICAgICAgICAgICAgICAgICAgICAgICAgICAgICAg AH9PGBPtOSAcOUZoXBJeRTKhFTEcOEEdFDLqWCZjZTUyMYHdHNPfHGOzJFJzCQMzSLOkKVHhNIAjAFYp ICAgICAgICAgICAgICAgICAgICAgICAgICAgICAgIC ZyZKUhPZUiZZJdUF0JQR49rNIeo9M5MDDyQF2azlz/Wc7TCEvokoAieBLiGD5JApDkVM6lkc2TXrXsJT 1jsv3NBPxHWsXqR2H1wORtWFGbXQZFZoOuC01wLTreNq46QFmvMCEhQyCcYFi7Ct6HXfBaC2qxUYAtMg D8TQMcFqUnDIspDW0Sa9YfdPRvSLg+Lh1AHF3yx2Du KStySKXaHI5ouq5NDCzBFqQtJ8HyhkB6YLRwTIVaOk6DCWTmAKBweIUuWWIqICFJTbFlV0FssS60TAXE Cj4+WQownzQgIjhFVgEtRQPbg4WjABu3MM1VLTDbPJw4wDJjVJNrF2Aad0OvGt92YERsHvqvHLnkLZSL SKw5ucM5MTXMKW9nBZYuPY3sQV1bMQHtZAJqWrEiTW GBYC2MSQXrQBUixNRqTIPhFDLPJX5DGFfxSND3LSIbyoHspXMuKYvwVC3ASRFfvjYdORyyEKJRXEz+Pg 7QNP8dp8BsOOkqGLJzDN2rrf0WVAmCKaUaH8R4dCVaF8N9LVdvZk4KXSTgCAZsAAxgLWOSWAimAK1SYH 8ccrB0HE9LlZZlULFrQMCggMVtCLz6Z73acMUnJWbb UC8XSRL+Lola+Ym5KVNFqLWHaUFLxWyIjZTVPOmNmD2AwF2AVi6IhA6DwTY72wCgdqrQcHXueYV0FDW6d SEYqIXZLIC8HuTBwtS0siaXoKTDkRMAICvXfN82swURcOWYuVXO0YGDaNb7MAYRqU3OvcbMpdAehwcFx QVUaTQQKKS4IXYogejOzgSCbmBvcZD54hGmkPD7BUk 8FTsUtGD2bzh3GvOGePx3BERPrGg7RHONgDDQoVSCxACS9FJSyVbErYTftQUJcTVNfZZL6HOVjMXNoNB 6ZDqWsMWTcUPvgLgZdJZOgNPBqle7ECTRgZUShWUd6SsCtKNRdISBuVWpiCGFpGJZmCTO0MDEgBWZhFP 3DEgOyBXOkJGElRLWaLVUxTIUsjf4FEFUpITQbEgDs PZZsVWLeDWSfSLlaAEYzIPUqKoE3VTCpHWKzVG4YMePdQWQdQGP5EkXyQLCxOTRgoh9QRWRkEDVeAxK5 EBXtCBBxNPEdNBcjYMDlDDL6GUa8NSUqDHMgNU0HXkKgBCPaILH4CWOdNDDuGWHysg3KDISyZTGoKEc1 CoMaDXNkHLTkVNaeHMUcWYF8IyStMVJtIGWfYE8MYq RyDNDrSKG3VAikLPMvJTIdbj4BZSFcPIEoFnf2XnMlZRGtPODwPMulPCQdGVX3TIN3JSVwWOVoHW5QCs QiBSEmHYewFTZxCWKiCTKpic9KWTQpTUUzZsJ0PsUzDUDlYGAyIAsjDXJlLQZ8EUksCWItDWUoLZ2IBk PoMBIjTAfuCtKpKYNcXWCrkd0UQNGzIONdMUOwDHDe YURwEAGoJPi0bbNneOJiPEl7PX3XD4AdgoGkPoHWSo2Tt357THNdITKkIr9XU0tdRy9bRJYxTVJELr5K IQu4GHYxEYG4NUI7UaBoDKb9GbUpT7E0OXJ8GqQmRUTiXAe+HOgnKJQ0CsVpKberT1QeHvycVWWtVnPw QXB5ZvC8VHTzJQ6jRVMDOb4+TVyjyYCosVrsRWJTYtK9WNB7OVtgXEWCLo4S ID Date Data Source [id number] 08/09/2020 08:06:50 AM EDT [facility], PCName: Dawn LopezOB: 1955Provider: Letty Amin: 08/08/2020 Right lower extremity [...] Propranolol HCl - 60 MG Oral Tablet;Therapy: (Recorded:[id number]) to Recorded PROzac 40 MG Oral Capsule;Therapy: (Recorded:[id number]) to Recorded Tylenol TABS;Therapy: (Recorded:[id number]) to Recorded Vitamin B Complex TABS;Therapy: (Recorded:[id number]) to Recorded History of anemia (V12.3) (Z86.2) [...] performed on 05/13/2020 is remarkable for some wleb-ht-ckvctixq central canal stenosis at the L3-4 and L4-5 levels due in part to ligamentum flavum hypertrophy but mostly diffuse degenerative changes. There is right-sided neural foraminal narrowing at L4-5 due to facet hypertrophy. This is essentially unchanged since 07/2019. 1. Lumbar stenosis with neurogenic claudication (724.03) (M48.062) 2. Lumbar radiculopathy (724.4) (M54.16) 3. Chronic low back pain (724.2,338.29) (M54.5,G89.29) 1. Block (Transforaminal) ([facility]) Referral Procedure Procedure Status: Hold For - Scheduling Requested for: [id number] try to make this injection for 08/29 [...] 7 days after procedure.Block : Transforaminal (steroid)Professional Writer Editor needed for block? : NoFront Desk Reminder: [...] day? : N/A 3. Orthopedic Spine Surgery ([place]) Referral Evaluation Evaluation Status: Hold For - Scheduling Requested for: [id number] get stenosis procedures approved through private insurance. Considering SCS but need to rule out roll for surgery.Request Surgical opinion: : Provider's RequestPrevious spine surgery : Patient has not had previous spine surgeryAvi KRAMER's ([facility]): : Eyal Vigil MD Patient was counseled on all of the following: Medications: We will not start any new medications today. [facility] was consulted by my designee and I [...] referring her to Dr. Eyal Vigil at [facility] for a surgical consultation. This is [...] to refer to Dr. Eyal Vigil at [facility] to prognosticate and see if surgery is [...] table, the patient is at low risk. [facility] Scribe Detail Form: Meena De Santiago . (iScribes) Electronically signed by : Esa Amin MD; Aug 09 2020 8:06AM EST (Author) Name Value Range Interpretation Code Description Data Kelle rce(s) Supporting Document(s) ID Date Data Source [id number] 07/14/2020 08:30:00 AM EDT [facility] Name Value Range Interpretation Code Description Data Kelle rce(s) Supporting Document(s) Colonoscopy [facility] KQYELo6gNcLIUwSyWLOqEmyHXNozIBvfAKBtD1N3TOzsMr8TTHqgskJwZQWbVt7+RNJeYK5zgl6mEEGh gMy [file] v3WHvGh1ndepwQSJlxz4QXPsYEkNLOv7RQFeL0RYSvYNv/5k/efJTQbyNcR4PQk/phone manager+R77S2Bfp7+33 [file] Reliability Engineer+x9VtygdlYsqXU2Bh99aeTi5nRo81udMnlQjNBwVOjsXKfuhmhg0YukxI78VKqqlODPKIO76Ao3miF [file] oBea8BA0cOnELheLhb3BYWQ646B+8c4fNB7Ir7m9MM8+metal finish inspector+57vKLzVu0lJZVpPl6vp3UO6BMwUJ1uRjK [file] RPyNRMfg/PBDk69klxV8u1q6rTwVFr0n/XlyKhaD6WAqi+V5qrQjYJFqg/Chloé/e5xDm1tW+Ztn5lmeQV [file] vp data/XMomMtD4OHY2bay4FbCywR6UqksF3ih2QWeMRKs [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 [file] IX7jmnsVFZblOBVi5E/tbdU4UFB49BiiAsm22KJgGBd6T4s+itaYs3Gt/Tati/7egjzql8//P7jxgdATXs PaVMR9ulSpbY3larLnHskSOQLtTFQpSnqMUIwpHWHy J4NkUGFpBg2idYArMU8FHyOENlDsTIHzBDA9QNRoNVVbNTFwVy1VtBpiRLSwLbYHNzKdZYA1blIyuR6z gvCoDmhIXIKvIXNkQhgVLNffQexkfGTpDZ9HcPM9CMOnF68cOX9MLX9wbJngSbEhNIXkGbw4G6MiWhA9 EZR2XpQ5FoU8GGbNIZRWZ8LSLHN9YFQ3Lp2kOKwDIU WBJDhTWUtMQLvaUZHVVEQSOAL3OEE5MEL8HNm3Ou9tJn4xyQFoSUOmTo7OvoNxIOZsOLLNL9YtvkSxNG KgGQzqIKSxTAJnMw4ILOelDCIaRP4+GvE5eeOghE1RnZgxBTIr7UUzLMUxGMWHFR3PrGlRRFS4aZN6qY JLnyYPorCCiz5xVSf85nZYxMFm3hTJ5CSePLLhkufm UUtjvyNmwDRlPN9IGlRwIA0jfh9ZBwR5LJI2kQZoSt0BXVm4ZXZ9XLqfUJWURa== ID Date Data Source [id number] 07/01/2020 08:30:00 AM EST [facility] ([facility]) Name Value Range Interpretation Code Description Data Kelle rce(s) Supporting Document(s) Cholesterol [Mass/volume] in Serum or Plasma 245 mg/dL 131-200 [facility] ([facility]) Cholesterol in HDL [Mass/volume] in Serum or Plasma 113 mg/dL 35-60 [facility] ([facility]) Triglyceride [Mass/volume] in Serum or Plasma 46 mg/dL 30-150 [facility] ([facility]) Cholesterol in LDL [Mass/volume] in Serum or Plasma by calcu lation 123 CALC 50-159 [facility] ([facility]) ID Date Data Source [id number] 07/01/2020 08:30:00 AM EST [facility] ([facility]) Name Value Range Interpretation Code Description Data Kelle rce(s) Supporting Document(s) Glucose [Mass/volume] in Serum or Plasma 88 mg/dL 74-99 [facility] ([facility]) 100-125 mg/dL PRE-DIABETES/FASTING >126 mg/dL DIABETES/FASTING Urea nitrogen [Mass/volume] in Serum or Plasma 19 mg/dL 7-18 [facility] ([facility]) Creatinine 0.6 mg/dL 0.6-1.3 [facility] Sodium [Moles/volume] in Serum or Plasma 141 meq/L 136-145 [facility] ([facility]) Potassium [Moles/volume] in Serum or Plasma 4.7 meq/L 3.5-5.1 [facility] ([facility]) Carbon dioxide, total [Moles/volume] in Serum or Plasma 28 meq/L 21 -32 [facility] Chloride [Moles/volume] in Serum or Plasma 104 meq/L 98-107 [facility] Calcium [Mass/volume] in Serum or Plasma 8.9 mg/dL 8.5-10.1 [facility] ([facility]) Glomerular filtration rate/1.73 sq M pre dicted among non-blacks [Volume Rate/Area] in Serum or Plasma by Creatinine-based formula (MDRD) Laboratory test result [facility] ([facility] ) Glomerular filtration rate/1.73 sq M pre dicted among blacks [Volume Rate/Area] in Serum or Plasma by Creatinine-based formula (MDRD) Laboratory test result [facility] ([facility]) <content>CHRONIC KIDNEY DISEASE STAGING PER NKF</content>
<content></content>
<content>STAGE I & II GFR >= 60 NORMAL TO MILDLY DECREASED</content>
<content>STAGE III GFR 30-59 MODERATELY DECREASED</content>
<content>STAGE IV GFR 15-29 SEVERELY DECREASED</content>
<content>STAGE V GFR <15 VERY LITTLE GFR LEFT</content>
<content>ESRD GFR <15 ON TRANSPORTATION ASSOCIATE</content>
<content></content> ID Date Data Source [id number] 07/01/2020 08:30:00 AM EST [facility] ([facility]) Name Value Range Interpretation Code Description Data Kelle rce(s) Supporting Document(s) Hemoglobin A1c/Hemoglobin.total in Blood 6.1 % [facility] ([facility]) Lab Result Notes: Pre-Diabetes 5.7 - 6.4 % Diabetes = or > 6.5% Glucose mean value [Mass/volume] in Blood Estimated fr om glycated hemoglobin 128 mg/dL 60-110 [facility] ([facility] ) ID Date Data Source [id number] 07/01/2020 08:30:00 AM EST [facility] ([facility]) Name Value Range Interpretation Code Description Data Kelle rce(s) Supporting Document(s) Leukocytes [#/volume] in Blood by Automated count 4.5 x10*3/UL 4.1-10 .9 [facility] ([facility]) Erythrocytes [#/volume] in Blood by Automated count 3.84 x10*6/UL 4.2 0-6.30 [facility] ([facility]) Hemoglobin [Mass/volume] in Blood 11.3 g/dL 12.0-18.0 [facility] ([facility]) NOTE: RESULT VERIFIED. MCV 87.1 fL 80.0-97.0 [facility]) Hematocrit [Volume Fraction] of Blood by Automated count 33.5 % 3 7.0-51.0 [facility] ([facility]) MCH 29.3 pg 26.0-32.0 [facility] ([facility]) Platelets [#/volume] in Blood by Automated count 328 x10*3/UL 140-440 [facility] ([facility]) MCHC 33.7 g/dL 31.0-38.0 [facility] ([facility]) Erythrocyte distribution width [Ratio] by Automated count 13.3 % 11.6-13.7 [facility] ([facility]) Lymph % 41.8 % 10.0-58.5 [facility] ([facility]) MPV 7.2 FL 7.8-11.0 [facility] ([facility]) Mid % 8.7 % 1.7-9.3 [facility] ([facility]) Neut % 49.5 % 37.0-92.0 [facility] ([facility]) Neut # 2.2 x10*3/UL 2.0-7.8 [facility] ([facility]) Lymph # 1.8 x10*3/UL 0.6-4.1 [facility] ([facility]) Mid # 0.5 x10*3/UL 0.1-0.6 [facility] ([facility]) ID Date Data Source [id number] 07/01/2020 08:30:00 AM EST [facility] ([facility]) Name Value Range Interpretation Code Description Data Kelle rce(s) Supporting Document(s) Hemoglobin A1c/Hemoglobin.total in Blood Laboratory test result [facility] ([facility]) ID Date Data Source [id number] 06/24/2020 12:00:00 PM EST [facility] ([facility]) Name Value Range Interpretation Code Description Data Kelle rce(s) Supporting Document(s) TP Reflex HPV ASCUS Laboratory test result [facility] ([facility]) SPECIMEN PART------ A. Cervical, Endocervical, ThinPrep Pap (Dispatch Specialist) CYTOLOGY HX-------- Date of Last Menstrual Period: POST MENOPAUSAL Other Information: Post-menopausal HPV Positive: 11/11/19 Previous Pap ASC-US: 11/11/19 FINAL DIAGNOSIS---- INTERPRETATION: Negative for Intraepithelial Lesion or Malignancy. SPECIMEN ADEQUACY:Satisfactory for evaluation. Endocervical/transformation zone component present. TP Reflex HPV ASCUS Laboratory test result [facility] ([facility]) ID Date Data Source [id number] 06/15/2020 10:45:00 AM EST [facility] Name Value Range Interpretation Code Description Data Kelle rce(s) Supporting Document(s) Follow Up [facility] VSBNHv6gPxHHWpUnZHRcNnfUULylKQpfRUJgQ5A0IPzdPp9KOAtyriDdUDBtBw9+VYNmYD1uei9dBBXh y [file] LvGGLg4JQ7VTrbFFrxadUrsNuFlIulX8VjU2nH4mQ8RZ9lvHt4R10/silk spooler//WzSfwuFg1ay3eQMKJmh4/ [file] Mary Ann/sygNZ50g+zZ4doOqAhaZt+rUMgnvWZh6dVMW+xOp8YAOzGkOtCV1x5xHo95pn8m03usiEIKOjml lqUwK7aqRMEqd1uHg2DdpJ0OYNj8mnZ/ZjxdgegbmOIEYtULmN643EkFQO7/IbB3e9B2QvVlCb5+9PrO GAfhgXu0tP3ZlXyosbTTl65zB3BIMJs6gcPrQnMJVH 2KCLJtepE3lzy/r+XSvLWYSd4cmDHelWr5/jBo1bmgO9AJA3S78HnGOuwex/AY1bfr143T/E2q6DpZ30 R8cBt0gJjrcH2FNzxG+remote sensing program manager+Fkn1JQN/xMKtKUNlQsYfqlaPDB7sY1IInj6CAKy9CXOpahvUtL6OymG41 [file] revenue cycle consultant+R1avBR0DeGKwmAbj4vocVqecLRt5SdPxC98ydWXHkgrmmCfTtc19D81QO/bpsld9VIonVtgpiVL5 [file] p+Cf25a46Ik2X8g+D6Pr1BWL5f9M8Ai0oGYBS3y44v GNpqx9MdTNQL5CqHbw+BDY48ysIIwj8ZjE1qYCNmsB+Fg/y8cQ1KQr4F+jJLTqVomx2j8oM+RX+7x+8+ KiHIPDVrxaC7WPRxYPT6oT3MWgK2/tkGG2YUs5mTBUIQObh2jqxKvVFuLEaQTxq19C51/r+g6zNXXQyz qHhfzgvBM55X1pSiqGg7VwqIaYrGHr7elOm123MjA/ 7KFZ+HDHw/WLZFhc92WixlzMG04l6MBFcuoWtYOzGDRKG7WXsckMybh+aNRWztyAZrIVqu2EGizPn3Om yayvrV47VRCmlEoeEcPr97gbtcJ+1ld+AWXL4D9rfDE812PXPRzxbWXn5AtdTnjKdagIPyq3gmtzEab0 Qdm09mcXBZk7oCIChqq2S7Q65L9nLvr+WMQ5UPp6Bs iEiFT4RywSKjp+Sj97/sq4xPwg5pH5rhSUnI+kLb7XbqQX2ldfIem4dYywIvXssowl1VCUi/BUDxAK2r xA4iuQdZgFrLbtcS/cNWntmj5v67NFlAxDatR/BPO/Y4UvGyVbawJNgRyAYfh1ZDI+Q0aqYR/JhnNnBc 6mEJ7Gux/1TGZH7S+VvWh8Y3k8N29myOTo4+Tatum+si yl+m+x70t7NsJownldawbfqG2FbLwcM9dzgnw4vJCZ9KrI7WaiNM6lSgAYBG2bgdGGRzMNg2+JOpYiPE BaVAcB7XjxzC/22jo/BcTjTlZdUlIeL2RubCUgQUum3no7qBA1j6Guf+IJPn5tNhG4wbNUV27W8fb90b xXbG5PSHtFBGhi791i2Noc7eaIuNa7myJUV+YGRszW SJCYcPNQ2W2XZGO2zVc2thDmroMM8Phw+txwrdCyzDOtcXnTOc+gCb2yNLh+gOsg4xgt7nKcGfjGdiDq pa0p/2Mmim9n4ocpmcycZYZpL9PzrudiwqysoOlpPU9FY3hhFN/3HCmiBzpumr82pL7OM2NhZ6FRkdiQ sgM/HSd2YxqErvmUiX6Qn8gcGvl0WQpF1xqbIuDWtR vex8ZPvDDYi3FWLhpA7e4nS2A/FMwgNhhxC+hFzDZNo005txjfGuRuXYEPh9esmlPUBqgCWptdqZDTkw +sC951RNPiLgvAUN19+EojW4O4UlhoG1hkaDJzQeD7Ma+VLmKhFi8m2j8ReVqb6MpGhL3p0TOpk9iNhX +pZWk2EQ5uxEb/Jwgc1QJBwZr/VsHqEUodvo2dyhdv xj0l65yFBKfY5WeeLD2OEbEEXdPlYCKI7Yn5Jd99zEsDHpl34FMRbGzYaJmNwLIfNYmvn6k5hopwJLbt fqnWRfq6LY+woWQTBnkqW4i9s3jt9QreUgC1pTw1czj4qKRdZLp+AZ2hPC+/OXf+dulce maria/eKONtaWvhIx [file] +/J+04tW7d8c+Reliability Engineer+dVe6RatwVId6xNqYKqhoMgmV29iEkQcezmfPuCfRLYK633OBdBqvRZfdbB7ZCCFS [file] dry starch operator/7I2nbou09/h9BWvo/LeJ4lVfh988ZdIGHnJY2Q6ay5x83VlaW/i/4v+D/gv8L/i/4/wnw/x0sNK neNOjln1zakkr4zJUBc6IX+GsKWf0GCcknfHVImzbp 2Qfh37+6QX9t11m+Rw59/JGcXlPuZzIJK+FWQ5yiHtyWeW8qXnSWzrM9we5lO0lrc+Fg7LwBPNrqOsGX TZp4S6Tkgo1RlDF7IeeT0YRGjI/ZreCOE6/GL2VhiUO04kqyE3yL3Igr0UdfkluoITqcYcINUYN4iL40 btCiBY+Kpq14Z0uHtlxOztXwargU4x7BPWr1hUzsAN 0R2JxoyYPhCtOvFw8CYgJGdBoBe4pQKLjytN0Mmh556iHYiwZ56/EA9r6pUscS96HuTSITfK+YJ9Evth iki+z1NecXQIhC1O8wIxsv7QR4wgRm5iaDVIEVzxc+H10i8vt32OeN8hnk3hJa8UIArrswXwPIIlHQg8 i1B1n9ILhIHVOJCbWbL81xC5siLRpAAKPnnT65Q54p XwSy1yubGiROATLPgaIdA1saYyEABe4j9ZvVOiaCnCdajTFXhIzInixQOjfekLzkjHemM0T2CvnPJLPb F/3Trk3B6uVAGEorlCz/9m1a519EiFKZCOoSPwHSXjYAU9Y5VGfKBHivvtaaRcuNYfAo+rvP+C5Bm9T3 27wYMwgYTPzTI5uG0nELk67Vs76peZ+0wdzmwGH1mq ZRJEO/Gijg7WGhhXJpZN91NWviFLl/UB5q9zcNRjv0Omu9K8+X6V+2Yn7vYyLEvgz60y5qCBgzv2m/43 dxK7Y6N+k9U9CK79Kt7hkPhgsxJyLlx6EtiYlPlHeLeYMIc5qpKkGPSDqPscNZRsUfU59eSkmZzmctmz B+33u6AWS3m17/Wv+7a99Uu3zkIvyKqa9bN153q3e7 [file] DIsCWBx21FI2Qeg/[employer]/9b6rkO0H9/nIHcAD/+vXp/D [file] +OsKmZLp7gECNljBjFhRIikFZ2z3FNpIbf/CAA [file] XgnLPIenlSKvsYuaJHVAXal9NpU0Uf5JTMBPI2X= ID Date Data Source [id number] 05/10/2020 03:03:00 PM EST [facility] DATE OF EXAM: 05/06/2020ULTRASOUND GUIDE [...] psoas tendon sheath. [facility] Professional interpretation performed by [facility] .End of diagnostic report for accession: [id number] Interpreted: Ayad Ceron MDTranscribed: 05/10/2020 12:18 PMSigned: 05/10/2020 03:03 PM Ayad Ceron MD ------- [facility] ACC # [id number] BILL # [id number] 2MEM Name Value Range Interpretation Code Description Data Kelle rce(s) Supporting Document(s) ID Date Data Source [id number] 04/27/2020 04:16:15 PM [facility], PCName: Dawn LopezOB: 1955Provider: Letty Amin: 04/27/2020 Chief ComplaintLow [...] which Ms. Butts will be obtaining through [facility]. She denies any true lower extremity weakness; [...] Propranolol HCl - 60 MG Oral Tablet;Therapy: (Recorded:93Tls2993) to Recorded PROzac 40 MG Oral Capsule;Therapy: (Recorded:10Jpf6120) to Recorded Tylenol TABS;Therapy: (Recorded:89Ssv7481) to Recorded Vitamin B Complex TABS;Therapy: (Recorded:11Mxg6892) to Recorded Past Medical History History of [...] radiculopathy (724.4) (M54.16) Plan 1. Block (MILD) ([facility]) Referral Procedure Procedure Status: Hold For - Scheduling Requested for: 22Uzr1520Tm patient currently on a biologic? : NoIs your patient on an Anticoagulant -OR- have Coagulopathy...? : NoDoes patient take aspirin, aspirin products and/or NSAIDs.....? : NoSedation : YesLaterality : BilateralArea: : LumbarProcedure : MILDProfessional Writer Editor needed for block? : NoFront Desk Reminder: [...] Risk : Low Risk 2. MRI MILD ([facility]) Referral Treatment Treatment Status: Hold For - Scheduling Requested for: [id number] MRI at: : [place] Patient have SCS...? : NoFront Desk Reminder: : I will call pt with results.Is this to rule out a mass? : NoHas the patient had Lumbar surgery? : NoContrast : Without ContrastRe quest Type : Authorization (Private)MRI Body Part : L-Spine Patient was counseled on all of the following: Medications: The patient will not begin any new medications today. ACADEMIC DIRECTOR was consulted by my designee and I [...] sending her for a psoas injection at [facility]. We will obtain an updated MRI [...] rce(s) Supporting Document(s) ID Date Data Source [id number] 05/03/2020 08:33:42 AM EST [facility] PCName: Florencia KeenanJuanitaOB: 1955Provider: Mega Torres: 04/26/2020 Reason For VisitFlorencia [...] greater than 4 weeks. 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 Plan Start: methylPREDNISolone 4 MG Oral Tablet Therapy Pack (Medrol); Take as directed ,please label ONE package A, the other package B Rx By: Rob Torres; Dispense: 0 Days ; #:2 X 21 Tablet Pack; Refill: 0;For: Pain of right hip, Status post right hip replacement; SOFÍA = N; Verified Transmission to [employer] [facility]; Last Updated By: Elpidio Junior; 04/26/2020 9:12:47 AM Fluoroscopic Guided Procedure (SOS) Referral Treatment Treatment Status: NeedInformation - Financial Authorization Requested for: 26Apr2020 Ordered;For: Pain of right hip, Status post right hip replacement; Ordered By: Rob Torres Performed: Order Comments: Psoas Injection at [facility] Due: 10May2020; Last Updated By: Nai Morel; [...] guided injection into the right hip at [facility] on the off chance some of her pain is coming from the hip and not the back.We will set this up. Signatures Electronically signed by : Florencia Diaz, ; Apr 27 2020 4:53PM EST Electronically signed by : Rob Torres M.D.; May 03 2020 8:33AM EST (Author) Name Value Range Interpretation Code Description Data Kelle rce(s) Supporting Document(s) ID Date Data Source [id number] 03/14/2020 11:15:00 AM EST [facility], PCName: Dawn orlando RenziDOB: 1955Provider: Humera Bill: 03/10/2020 Chief ComplaintPatient is here for right anterior thigh and low back pain Chief Complaint 2Hip pain [place] VAS PAIN Established: MA completing section: [place] History of Present IllnessRecent test/procedures: Patient has had the following tests/procedures since their last visit: Xray on hip at [facility]. The patient was last seen by a [facility] provider on 01/13/2020. At today's visit patient presents with their Self Implanted Devices The patient does not have any implanted devices. The patient does not have a glucose monitoring device. Patient is currently working. 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 The patient is being seen for a post block examination. The date of onset of symptoms is approximately Years. INTERVAL EVENTS: include . Patient today for follow-up of right anterior thigh and low back pain. She was also [facility] at [facility] on 03/01/2024 hip pain. Total [...] Active Problems 1. Chronic low back pain (532.2,338.29) (M54.5,G89.29) 2. Lumbar radiculopathy (724.4) (M54.16) 3. [...] Propranolol HCl - 60 MG Oral Tablet;Therapy: (Recorded:51Dqf4493) to Recorded PROzac 40 MG Oral Capsule;Therapy: (Recorded:46Bdk4627) to Recorded Tylenol TABS;Therapy: (Recorded:28Oxs4941) to Recorded Vitamin B Complex TABS;Therapy: (Recorded:28Dqc8667) to Recorded Past Medical History History of [...] Status: Hold For - Scheduling Requested for: [id number] apt w/ dr amin after 04/22/2019 d/t ins changing. Angelique Bill FNProfessional Writer Editor Needed? : NoType of Follow-up needed: : [...] program and is encouraged to continue. - POKER IN: The patient was counseled on the following: treatment plan and future treatment options. Discussion/SummaryPatient today for follow-up of right anterior thigh and low back pain. [facility]en at [facility] on 03/01/2020 for hip pain. [...] defers. Also offered L1/2 PHILL - defers. SurveyMonkey Disclaimer[facility] [place] SurveyMonkey Disclaimer: This document was dictated and electronically signed using [employer] Naturally Speaking software. A reasonable attempt at proof reading has been made to minimize errors. Please call with any questions. Signatures Electronically signed by : Angelique Bill NP; Mar 10 2020 10:06AM EST (Author) Electronically signed by : Nubia Perkins MD; Mar 14 2020 11:14AM EST Name Value Range Interpretation Code Description Data Kelle rce(s) Supporting Document(s) ID Date Data Source [id number] 03/02/2020 02:00:55 PM EST [facility] PCName: Florencia LopezOB: 1955Provider: Bibi ShelbySALMA: 03/01/2020 Reason For VisitLisa Butts is here today for Right hip. Florencia Butts is an established patient here for follow up. Surgery DOS: 10/06/2018. Surgery Description: right hip replacement. The patient has not had a course of physical therapy for greater than 4 weeks. The patient has not had a course of NSAIDs for greater than 4 weeks. 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 A reasonable attempt at proof reading has been made to minimize errors. Please call with any questions. Signatures Electronically signed by : Shelby Mtz PA-C; Mar 01 2020 10:02AM EST (Author) Electronically signed by : Rob Torres M.D.; Mar 02 2020 2:00PM EST (Author) Name Value Range Interpretation Code Description Data Kelle rce(s) Supporting Document(s) ID Date Data Source [id number] 02/01/2020 12:30:00 PM EDT [facility] Name Value Range Interpretation Code Description Data Kelle rce(s) Supporting Document(s) SARS coronavirus 2 RNA [Presence] in Res piratory specimen by PADMINI with probe detection [facility] This lab was ordered by [facility] and reported by [employer]. Procedure Social History Code Duration Value Status Description Data Source(s ) Smoking 03/17/2021 05:06:23 PM EST Never smoked tobacco (findi ng) completed Never smoked tobacco (finding) CHARLIE (Ramiro Lima MD [facility]) Alcohol intake 01/25/2021 12:00:00 AM EDT Current drinker of al cohol (finding) completed Current drinker of alcohol (finding) [facility] Tobacco use and exposure 01/11/2021 12:00:00 AM EDT Never used co mpleted Never used [facility] Smoking 01/11/2021 12:00:00 AM EDT Never smoker completed Never s moker [facility] Alcohol intake 01/11/2021 12:00:00 AM EDT Current drinker of al cohol (finding) completed Current drinker of alcohol (finding) [facility] Smoking 06/24/2020 12:00:00 AM EST Patient has never smoked co mpleted Patient has never smoked [facility] ([facility]) Smoking 04/08/2020 08:26:45 AM EST Never smoked tobacco (findi ng) completed Never smoked tobacco (finding) CHARLIE (Ramiro Lima MD [facility]) Vital Signs ID Date Data Source UNK Name Value Range Interpretation Code Description Data Source(s) Systolic blood pressure 104 mm[Hg] 104 mm[Hg] [facility] Diastolic blood pressure 63 mm[Hg] 63 mm[Hg] [facility] Heart rate 55 /min 55 /min [facility] Body temperature 36.83 Vira 36.83 Vira [facility] Respiratory rate 16 /min 16 /min [facility] Oxygen saturation in Arterial blood by Pulse oximetry 96 % 96 % [facility] Body weight 78.[address] [facility] Body height 157.[address] [facility] Body mass index (BMI) [Ratio] 31.83 kg/m2 31.83 kg/m2 [facility] Systolic blood pressure 114 mm[Hg] 114 mm[Hg] [facility] Diastolic blood pressure 60 mm[Hg] 60 mm[Hg] [facility] Heart rate 60 /min 60 /min [facility] Body temperature 36 Vira 36 Vira [facility] Respiratory rate 17 /min 17 /min [facility] Body height 157.[address] [facility] Body weight 78.[address] [facility] Body mass index (BMI) [Ratio] 31.83 kg/m2 31.83 kg/m2 [facility] Oxygen saturation in Arterial blood by Pulse oximetry 98 % 98 % [facility] Systolic blood pressure 128 mm[Hg] 128 mm[Hg] M EDENT ([facility]) RT Arm Diastolic blood pressure 76 mm[Hg] 76 mm[Hg] MED[facility] ([facility]) RT Arm Heart rate 51 /min 51 /min [facility] ([facility]) Body height 61.75 [in_i] 61.75 [in_i] [facility] ([facility]) 5'1.75" Body weight 175.50 [lb_av] 175.50 [lb_av] MEDEN T ([facility]) Oxygen saturation in Arterial blood by Pulse oximetry --post exerci se 91 % 91 % [facility] ([facility]) RM Air Body mass index (BMI) [Ratio] 32.4 kg/m2 32.4 k g/m2 [facility] ([facility]) Systolic blood pressure 134 mm[Hg] 134 mm[Hg] M EDENT ([facility]) Diastolic blood pressure 78 mm[Hg] 78 mm[Hg] [facility] ([facility]) Heart rate 66 /min 66 /min [facility] ([facility] Body weight 170.00 [lb_av] 170.00 [lb_av] MEDEN T ([facility]) Body temperature 97.5 [degF] 97.5 [degF] [facility] ([facility]) Body height 61.75 [in_i] 61.75 [in_i] MED[facility] ([facility]) 5'1.75" Body weight 171.12 [lb_av] 171.12 [lb_av] MEDEN T ([facility]) Body mass index (BMI) [Ratio] 31.5 kg/m2 31.5 k g/m2 MEDENT ([facility]) Body mass index (BMI) [Ratio] 31.7 kg/m2 31.7 k g/m2 MEDENT ([facility]) Diastolic blood pressure 64 mm[Hg] 64 mm[Hg] MEDENT ([facility]) RT Arm Heart rate 64 /min 64 /min MEDENT ([facility]) Body height 61.75 [in_i] 61.75 [in_i] MEDENT ([facility]) 5'1.75" Systolic blood pressure 102 mm[Hg] 102 mm[Hg] M EDENT ([facility]) RT Arm Body weight 172.00 [lb_av] 172.00 [lb_av] RULAEN T ([facility]) Patient Treatment Plan of Care Planned Activity Planned Date Details Description Data Source (s) Bisacodyl 10 MG Rectal Suppository 01/26/2021 07:00:[address] [facility] Magnesium Hydroxide 80 MG/ML Oral Suspension 01/25/2021 12:00:[address] [facility] Bisacodyl 10 MG Rectal Suppository 01/25/2021 12:00:[address] [facility] Acetaminophen 500 MG Oral Tablet 01/25/2021 12:00:[address] [facility] Oxycodone Hydrochloride 5 MG Oral Tablet 01/25/2021 12:00:[address] [facility] Docusate Sodium 50 MG / sennosides, [facility] 8.6 MG Oral Ta blet 01/25/2021 12:00:00 AM EDT [facility] Ondansetron 4 MG Disintegrating Oral Tablet 01/24/2021 04:20:[address] [facility] ondansetron (ZOFRAN) injection 4 mg 01/24/2021 04:20:[address] [facility] 2 ML Metoclopramide 5 MG/ML Prefilled Syringe 01/24/2021 04:20:[address] [facility] Mineral Oil 1000 MG/ML Enema 01/24/2021 04:20:[address] [facility] fentaNYL Citrate (PF) (SUBLIMAZE) injection 25 mcg 01/24/2021 04 :20:[address] [facility] Calcium Carbonate 500 MG Chewable Tablet 01/24/2021 04:20:[address] [facility] Aluminum Hydroxide 40 MG/ML / Magnesium Hydroxide 40 MG/ML / Simethicone 4 MG/ML Oral Suspension 01/24/2021 04:20:[address] [facility]
[2021-04-02] MEDS ORDERED: diazePAM 10MG/2ML SYRINGE (J3360 PER 5MG) IV ONE (01:15)
[2021-04-02] MEDS ORDERED: FLUO20CA22 PO (01:18)
[2021-04-02] MEDS ORDERED: PROP60CA PO (01:18)
[2021-04-02] MEDS ORDERED: ACET-683 PO (01:48)
[2021-04-02] MEDS ORDERED: HOME MED LIST COMPLETE! XX SCH (01:50)
[2021-04-02 02:25] LABS: RSV AMPLIFICATION NEGATIVE (NEGATIVE)
[2021-04-02] MEDS ORDERED: MIRALAX *UNIT DOSE* 17GM PACKET PO PRN (03:15)
[2021-04-02] MEDS ORDERED: ACETAMINOPHEN TAB 650MG DOSE (2X325MG) PO PRN (03:15)
[2021-04-02] MEDS ORDERED: MAALOX 30 ML SUSP *UDC PO PRN (03:15)
[2021-04-02] MEDS ORDERED: MOM 30ML SUSPENSION UDC PO PRN (03:15)
--- OUTSIDE RECORDS SUMMARY | 2021-04-02 03:22 | CCD ---
Author Author [facility] Organization [facility] Address Unknown Phone Unavailable Care Team Providers Care Child Welfare Worker Name Role Phone Jorge, Genet [employer] Unavailable Unavailable Jorge, Genet [employer] Unavailable Unavailable Jorge, Genet [employer] Unavailable Unavailable Jorge, Genet [employer] Unavailable Unavailable Jorge, Genet [employer] Unavailable Unavailable Jorge, Genet [employer] Unavailable Unavailable Jorge, Genet [employer] Unavailable Unavailable Jorge, Genet [employer] Unavailable Unavailable Jorge, Genet [employer] Unavailable Unavailable Jorge, Genet [employer] Unavailable Unavailable Jorge, Genet [employer] Unavailable Unavailable Jorge, Genet [employer] Unavailable Unavailable Jorge, Genet [employer] Unavailable Unavailable Jorge, Genet [employer] Unavailable Unavailable Jorge, Genet [employer] Unavailable Unavailable Jorge, Genet [employer] Unavailable Unavailable Jorge, Genet [employer] Unavailable Unavailable Jorge, Genet [employer] Unavailable Unavailable Jorge, Genet [employer] Unavailable Unavailable Jorge, Genet [employer] Unavailable Unavailable Jorge, Genet [employer] Unavailable Unavailable Jorge, Genet [employer] Unavailable Unavailable Jorge, Genet [employer] Unavailable Unavailable Jorge, Genet [employer] Unavailable Unavailable Jorge, Genet [employer] Unavailable Unavailable Jorge, Genet [employer] Unavailable Unavailable Jorge, Genet [employer] Unavailable Unavailable Jorge, Genet [employer] Unavailable Unavailable Jorge, Genet [employer] Unavailable Unavailable Jorge, Genet [employer] Unavailable Unavailable Jorge, Genet [employer] Unavailable Unavailable Jorge, Genet [employer] Unavailable Unavailable Jorge, Genet [employer] Unavailable Unavailable Jorge, Genet [employer] Unavailable Unavailable Jorge, Genet [employer] Unavailable Unavailable Jorge, Genet [employer] Unavailable Unavailable [place], L LIZ KRAMER Unavailable [...] Unavailable [place], L LIZ KRAMER Unavailable Unavailable ARIEL VYAS), Marcus TIDWELL MD Unavailable Unavailab aidan GEORGE (MACI), Marcus TIDWELL MD Unavailable Unavailab le [...] (MACI), Marcus TIDWELL MD Unavailable Unavailab le ARILE (MACI), Marcus TIDWELL MD Unavailable Unavailab le [...] Marcus TIDWELL MD Unavailable Unavailab le ARIEL (AMCI), Marcus TIDWELL MD Unavailable Unavailab le ARIEL [...] (MACI), Marcus TIDWELL MD Unavailable Unavailab le RAIEL (MACI), Marcus TIDWELL MD Unavailable Unavailab le Scozzari, K Shelby PA Unavailable Unavailable Scozzari, [...] Unavailable Scozzari, K Shelby PA Unavailable Unavailable Alaniz Lima, Luis Felipe Rubio [...] Unavailable Unavailable Alaniz Lima, Luis Felipe Rubio MD FACS Unavailable Unavailable Alaniz Lima, Luis Felipe Rubio MD, FACS Unavailable Unavailable Alaniz Lima, Luis Felipe Rubio MD, FACS Unavailable Unavailable Alaniz Lima, Luis Felipe Rubio MD, FACS Unavailable Unavailable Alaniz Lima, Luis Felipe Rubio MD, FACS Unavailable Unavailable Alaniz Lima, Luis Felipe Rubio MD FACS Unavailable Unavailable Alaniz Lima, Luis Felipe Rubio MD, FACS Unavailable Unavailable Alaniz Lima, Luis Felipe Rubio MD FACS Unavailable Unavailable Alaniz Lima, Luis Felipe Rubio MD, FACS Unavailable Unavailable Alaniz Lima, Luis Felipe Rubio MD, FACS Unavailable Unavailable Alaniz Lima, Luis Felipe Rubio MD, FACS Unavailable Unavailable Alaniz Lima, Luis Felipe Rubio MD, FACS Unavailable Unavailable Alaniz Lima, Luis Felipe Rubio MD FACS Unavailable Unavailable Alaniz Lima, Luis Felipe Rubio MD, FACS Unavailable Unavailable Alaniz Lima, Luis Felipe Rubio MD FACS Unavailable Unavailable Alaniz Lima, Luis Felipe Rubio MD, FACS Unavailable Unavailable Alaniz Lima, A Ramiro MD, FACS Unavailable Unavailable Alaniz Lima, Luis [...] Luis Felipe Rubio MD, FACS Unavailable Unavailable Corbin Lima, Luis Felipe Rubio MD, FACS Unavailable Unavailable YARITZA, Jerson FERRER MD Unavailable [...] Unavailable YARITZA, Jerson FERRER MD Unavailable Unavailable YAIRTZA, Jerson FERRER MD Unavailable Unavailable YARITZA, Jerson [...] Jerson FERRER MD Unavailable Unavailable YARITZA, Jerson FERRRE MD Unavailable Unavailable YARITZA, Jerson FERRER MD [...] Unavailable YARITZA, Jerson FERRER MD Unavailable Unavailable JACQUI, 0000{ Unavailable Unavailable Robert TORRES MD Unavailable Unavailable Robert TORRES MD Unavailable Unavailable Robert TORRES MD Unavailable Unavailable Robert TORRES MD Unavailable Unavailable Robert TORRES MD Unavailable Unavailable Robert TORRES MD Unavailable Unavailable Robert TORRES MD Unavailable Unavailable Robert TORRES MD Unavailable Unavailable Robert TORRES MD Unavailable Unavailable Robert TORRES MD Unavailable Unavailable Robert TORRSE MD Unavailable Unavailable Robert TORRES MD Unavailable Unavailable TORRES, Robert RIVAS MD [...] Unavailable TORRES, Robert RIVAS MD Unavailable Unavailable OTRRES, Robert RIVAS MD Unavailable Unavailable TORRES, Robert [...] TORRES, Robert RIVAS MD Unavailable Unavailable TORRES, Rboert RIVAS MD Unavailable Unavailable TORRES, Robert RIVAS [...] Unavailable TORRES, Robert RIVAS MD Unavailable Unavailable HOUSEL, Bella ANDERSON PA-C Unavailable Unavailable HOUSEL, Bella ANDERSON PA-C Unavailable Unavailable HOUSEL, Bella ANDERSON PA-C Unavailable Unavailable TORRES, Robert RIVAS MD [...] TORRES, Robert RIVAS MD Unavailable Unavailable TORRES, T ROB KRAMER Unavailable Unavailable TORRES, Robert RIVAS MD Unavailable [...] TORRES, Robert RIVAS MD Unavailable Unavailable TORRES, T ROB KRAMER Unavailable Unavailable TORRES, T ROB KRAMER Unavailable Unavailable TORRES, T ROB KRAMER Unavailable Unavailable TORRES, Robert RIVAS MD Unavailable [...] Unavailable TORRES, Robert RIVAS MD Unavailable Unavailable TORRESRobert Kaufman MD Unavailable Unavailable TORRESRobert MD Unavailable Unavailable TORRESRobert MD Unavailable Unavailable TORRESRobert MD Unavailable Unavailable TORRESRobert MD Unavailable Unavailable TORRESRobert MD Unavailable Unavailable TORRESRobert MD Unavailable Unavailable TORRESRobert MD Unavailable Unavailable TORRESRobert MD Unavailable Unavailable TORRESRobert MD Unavailable Unavailable TORRESRobert MD Unavailable Unavailable TORRESRobert MD Unavailable Unavailable TORRESRobert MD Unavailable Unavailable TORRESRobert MD Unavailable Unavailable TORRESRobert MD Unavailable Unavailable TORRESRobert MD Unavailable Unavailable TORRESRobert MD Unavailable Unavailable TORRESRobert MD Unavailable Unavailable TORRESRobert MD Unavailable Unavailable TORRESRobert MD Unavailable Unavailable TORRESRobert MD Unavailable Unavailable TORRESRobert MD Unavailable Unavailable TORRESRobert MD Unavailable Unavailable TORRESRobert Kaufman MD Unavailable Unavailable TORRESRobert MD Unavailable Unavailable TORRESRobert MD Unavailable Unavailable TORRESRobert MD Unavailable Unavailable TORRESRobert MD Unavailable Unavailable TORRESRobert MD Unavailable Unavailable TORRESRobert Kaufman MD Unavailable Unavailable TORRESRobert Kaufman MD Unavailable Unavailable TORRESRobert Kaufman MD Unavailable Unavailable TORRESRobert Kaufman MD Unavailable Unavailable TORRESRobert Kaufman MD Unavailable Unavailable TORRESRobert MD Unavailable Unavailable TORRESRobert MD Unavailable Unavailable TORRESRobert MD Unavailable Unavailable TORRESRobert MD Unavailable Unavailable Marcus Mcneil MD Unavailable Unavailable Marcus Mcneil MD Unavailable Unavailable Marcus Mcneil MD Unavailable Unavailable Marcus Mcenil MD Unavailable Unavailable Marcus Mcneil MD Unavailable [...] Unavailable Unavailable EwaMarcus MD Unavailable Unavailable EwaMarcus kaufman MD Unavailable Unavailable EwaMarcus MD Unavailable Unavailable EwaMarcus MD Unavailable Unavailable EwaMarcus MD Unavailable Unavailable EwaMarcus ulloa MD Unavailable Unavailable EwaMarcus MD Unavailable Unavailable EwaMarcus MD Unavailable Unavailable EwaMarcus MD Unavailable Unavailable EwaMarcus kaufman MD Unavailable Unavailable EwaMarcus MD Unavailable Unavailable [...] Unavailable Unavailable Marcus Mcneil MD Unavailable Unavailable Ewa, M Jessie MD Unavailable Unavailable Marcus Mcneil MD Unavailable [...] Unavailable Unavailable Marcus Mcneil MD Unavailable Unavailable EAREL, YANPING Unavailable Unavailable Hill, A Angelique POLYSOMNOGRAPHIC TECHNOLOGIST Unavailable Unavailable Hill, A Angelique POLYSOMNOGRAPHIC TECHNOLOGIST Unavailable Unavailable Hill, A Angelique POLYSOMNOGRAPHIC TECHNOLOGIST Unavailable Unavailable Hill, A Angelique POLYSOMNOGRAPHIC TECHNOLOGIST Unavailable Unavailable Hill, A Angelique POLYSOMNOGRAPHIC TECHNOLOGIST Unavailable Unavailable Hill, A Angelique POLYSOMNOGRAPHIC TECHNOLOGIST Unavailable Unavailable Hill, A Angelique POLYSOMNOGRAPHIC TECHNOLOGIST Unavailable Unavailable Hill, A Angelique POLYSOMNOGRAPHIC TECHNOLOGIST Unavailable Unavailable Hill, A Angelique POLYSOMNOGRAPHIC TECHNOLOGIST Unavailable Unavailable Hill, A Angelique POLYSOMNOGRAPHIC TECHNOLOGIST Unavailable Unavailable Hill, A Angelique POLYSOMNOGRAPHIC TECHNOLOGIST Unavailable Unavailable Hill, A Angelique POLYSOMNOGRAPHIC TECHNOLOGIST Unavailable Unavailable Hill, A Angelique POLYSOMNOGRAPHIC TECHNOLOGIST Unavailable Unavailable Hill, A Angelique POLYSOMNOGRAPHIC TECHNOLOGIST Unavailable Unavailable Hill, A Angelique POLYSOMNOGRAPHIC TECHNOLOGIST Unavailable Unavailable Hill, A Angelique POLYSOMNOGRAPHIC TECHNOLOGIST Unavailable Unavailable Hill, A Angelique POLYSOMNOGRAPHIC TECHNOLOGIST Unavailable Unavailable Hill, A Angelique POLYSOMNOGRAPHIC TECHNOLOGIST Unavailable Unavailable Hill, A Angelique POLYSOMNOGRAPHIC TECHNOLOGIST Unavailable Unavailable Hill, A Angelique POLYSOMNOGRAPHIC TECHNOLOGIST Unavailable Unavailable Hill, A Angelique POLYSOMNOGRAPHIC TECHNOLOGIST Unavailable Unavailable Hill, A Angelique POLYSOMNOGRAPHIC TECHNOLOGIST Unavailable Unavailable Hill, A Angelique POLYSOMNOGRAPHIC TECHNOLOGIST Unavailable Unavailable Hill, A Angelique POLYSOMNOGRAPHIC TECHNOLOGIST Unavailable Unavailable Hill, A Angelique POLYSOMNOGRAPHIC TECHNOLOGIST Unavailable Unavailable [place], Mercedes [employer] Unavailable Unavailable [place], Mercedes [employer] Unavailable Unavailable [place], Mercedes [employer] Unavailable Unavailable [place], Mercedes [employer] Unavailable Unavailable [place], Mercedes [employer] Unavailable Unavailable [place], Mercedes [employer] Unavailable Unavailable [place], Mercedes [employer] Unavailable Unavailable [place], Mercedes [employer] Unavailable Unavailable [place], Mercedes [employer] Unavailable Unavailable [place], Mercedes [employer] Unavailable Unavailable [place], Mercedes [employer] Unavailable Unavailable [place], Mercedes [employer] Unavailable Unavailable [place], Mercedes [employer] Unavailable Unavailable [place], Mercedes [employer] Unavailable Unavailable [place], Mercedes [employer] Unavailable Unavailable [place], Mercedes [employer] Unavailable Unavailable [place], Mercedes [employer] Unavailable Unavailable [place], Mercedes [employer] Unavailable Unavailable [place], Mercedes [employer] Unavailable Unavailable [place], Mercedes [employer] Unavailable Unavailable [place], Mercedes [employer] Unavailable Unavailable [place], Mercedes [employer] Unavailable Unavailable [place], Mercedes [employer] Unavailable Unavailable [place], Mercedes [employer] Unavailable Unavailable [place], Mercedes [employer] Unavailable Unavailable [place], Mercedes [employer] Unavailable Unavailable [place], Mercedes [employer] Unavailable Unavailable [place], Mercedes [employer] Unavailable Unavailable [place], Mercedes [employer] Unavailable Unavailable [place], Mercedes [employer] Unavailable Unavailable [place], Mercedes [employer] Unavailable Unavailable [place], Mercedes [employer] Unavailable Unavailable [place], Mercedes [employer] Unavailable Unavailable [place], Mercedes [employer] Unavailable Unavailable [place], Mercedes [employer] Unavailable Unavailable [place], Mercedes [employer] Unavailable Unavailable Donald, Shirley [employer] Unavailable Unavailable Donald, Shirley [employer] Unavailable Unavailable Donald, Shirley [employer] Unavailable Unavailable Donald, Shirley [employer] Unavailable Unavailable Donald, Shirley [employer] Unavailable Unavailable Donald, Shirley [employer] Unavailable Unavailable Donald, Shirley [employer] Unavailable Unavailable Donald, Shirley [employer] Unavailable Unavailable Donald, Shirley [employer] Unavailable Unavailable Donald, Shirley [employer] Unavailable Unavailable Donald, Shirley [employer] Unavailable Unavailable Donald, Shirley [employer] Unavailable Unavailable Donald, Shirley [employer] Unavailable Unavailable Donald, Shirley [employer] Unavailable Unavailable Donald, Shirley [employer] Unavailable Unavailable Donald, Shirley [employer] Unavailable Unavailable Donald, Shirley [employer] Unavailable Unavailable Donald, Shirley [employer] Unavailable Unavailable Donald, Shirley [employer] Unavailable Unavailable Donald, Shirley [employer] Unavailable Unavailable Donald, Shirley [employer] Unavailable Unavailable Donald, Shirley [employer] Unavailable Unavailable Donald, Shirley [employer] Unavailable Unavailable Donald, Shirley [employer] Unavailable Unavailable Donald, Shirley [employer] Unavailable Unavailable Donald, Shirley [employer] Unavailable Unavailable Donald, Shirley [employer] Unavailable Unavailable Donald, Shirley [employer] Unavailable Unavailable Donald, Shirley [employer] Unavailable Unavailable Donald, Shirley [employer] Unavailable Unavailable Donald, Shirley [employer] Unavailable Unavailable Donald, Shirley [employer] Unavailable Unavailable Donald, Shirley [employer] Unavailable Unavailable Donald, Shirley [employer] Unavailable Unavailable Donald, Shirley [employer] Unavailable Unavailable Donald, Shirley [employer] Unavailable Unavailable Donald, Shirley [employer] Unavailable Unavailable Donald, Shirley [employer] Unavailable Unavailable Donald, Shirley [employer] Unavailable Unavailable Donald, Shirley [employer] Unavailable Unavailable Donald, Shirley [employer] Unavailable Unavailable Donald, Shirley [employer] Unavailable Unavailable Donald, Hsirley [employer] Unavailable Unavailable Donald, Shirley [employer] Unavailable Unavailable Donald, Shirley [employer] Unavailable Unavailable Donald, Shirley [employer] Unavailable Unavailable Donald, Shirley [employer] Unavailable Unavailable Donald, Shirley [employer] Unavailable Unavailable Donlad, Shilrey [employer] Unavailable Unavailable Donald, Shirley [employer] Unavailable Unavailable Donald, Shirley [employer] Unavailable Unavailable HANIFIN, M ZOHAIB PA Unavailable [...] Unavailable Unavailable EwaMarcus MD Unavailable Unavailable EwaMarcus kaufman MD Unavailable Unavailable EwaMarcus MD Unavailable Unavailable EwaMarcus MD Unavailable Unavailable EwaMarcus MD Unavailable Unavailable EwaMarcus ulloa MD Unavailable Unavailable EwaMarcus MD Unavailable Unavailable EwaMarcus MD Unavailable Unavailable EwaMarcus MD Unavailable Unavailable EwaMarcus kaufman MD Unavailable Unavailable EwaMarcus MD Unavailable Unavailable Marcus Mcneil MD Unavailable Unavailable EwaMacrus ulloa MD Unavailable Unavailable Marcus Mcneil MD [...] Unavailable Unavailable Marcus Mcneil MD Unavailable Unavailable Ewa, M Jessie KRAMER [...] is protected by Article 27-F of the [facility] Public Health law. If you continue you may have access to information: Regarding HIV / AIDS; Provided by facilities licensed or operated by the [facility] Office of Mental Health; or Provided by the [facility] Office for People With Developmental Disabilities. If such information is present, then the following [facility] mandated warning applies: This information has [...] law may result in a fine or [place] health care facility sentence or both. A general authorization for the release of medical or other information is NOT sufficient authorization for further disc losure. Allergies and Adverse Reactions Type Description Substance Reaction Status Data Source(s ) Propensity to adverse reactions NO KNOWN ALLERGIES NO KNOWN ALLERGIES [facility] Allergy to substance No Known Allergies No known allergies (situation ) CHARLIE (Ramiro Lima MD [facility]) Allergy to substance No Known Allergies No known allergies (situation ) CHARLIE (Ramiro Lima MD [facility]) Family History Family Member Name Family Member Gender Family Member Status Date o f Status Description Data Source(s) Unknown Unknown Problem [facility] ([facility] Unknown Female Problem [facility] ([facility]) Unknown Female Problem [facility] ([facility]) Encounters Encounter Providers Location Date Indications Data Source(s ) Outpatient Attender: EYAL Colemanerrer: ESA Erazo MD 03/27/2021 08:19:34 AM EST [facility] Outpatient Attender: ZOHAIB Larkiner: ESA RAMIREZ MD 02/08/2021 12:21:42 PM EDT [facility] Outpatient Attender: EYAL Rodgerser: ESA Erazo MD 01/16/2021 12:42:22 PM EDT [facility] Outpatient Attender: EYAL VIGIL MD [email or web address] 2020 12:00:00 AM EDT - 01/11/2021 02:03:[address] [facility]00 AM EDT [facility] ([facility] ) Recurring Patient Attender: Shelby Larkiner: ESA VALENZUELA MD 12/27/2020 08:21:11 AM EDT [facility] Out[facility] Attender: Diana Ventura [employer] Main Office 12/19/2020 08:15:00 AM EDT [facility] ([facility]) Outpatient Attender: CHERISE LATHAM Physical Therapy 12/14/2020 0 3:45:00 PM EDT [facility] ([facility]) Office Visit Attender: CHERISE LATHAM [facility] 2020 04:30:00 PM EDT [facility] ([facility]) Inpatient Attender: JUSTIN SIMPSONCA ttender: EYAL VIGIL MDAdmitter: EYAL VIGIL MD [id number] 11/11/2020 11:30:27 AM EDT - 01/25/2021 12:57:00 PM EDT [facility] Patient discharged. Office Visit Attender: CHERISE LATHAM Physical Therapy 2020 02:15:00 PM EDT [facility] ([facility]) Office Visit Attender: CHERISE LATHAM Physical Therapy 2020 02:30:00 PM EDT [facility] ([facility]) Outpatient Attender: EYAL VIGIL MDReferrer: Jessie kaufman MD 09/15/2020 10:29:49 AM EDT [facility] Outpatient Attender: CHERISE LATHAM Physical Therapy 09/14/2020 0 2:00:00 PM EDT [facility] ([facility]) Recurring Patient Attender: Shelby Larkiner: ESA VALENZUELA MD 09/12/2020 02:36:57 PM EDT [facility] Out[facility] Attender: Shelby Gonzalez: Jessie pagan MD 09/08/2020 11:04:45 AM EDT [facility] Recurring Patient Attender: Shelby Skinnererrer: ESA VALENZUELA MD 09/06/2020 01:33:19 PM EDT [facility] Outpatient Attender: GODFREY OG [id number] 09/06/2020 12:00:0 0 AM EDT Personal history of other endocrine, nutritional and metabolic disease [facility] Personal history of other endocrine, nut ritional and metabolic disease Recurring Patient Referrer: ROB TORRES MD 08/24/2020 0 3:37:49 PM EDT [facility] Recurring Patient Attender: Shelby Larkiner: ESA VALENZUELA MD 08/16/2020 12:59:00 PM EDT [facility] Recurring Patient Referrer: ROB TORRES MD 08/10/2020 0 8:23:35 AM EDT [facility] Outpatient Attender: ESA AMIN MDReferrer: Jessie romero MD 08/09/2020 08:06:50 AM EDT [facility] Outpatient Attender: Genet Patel [facility] Karlee Aziza 07:00:00 AM EST [facility] ([facility] ) Outpatient Attender: LIZ MONTGOMERY MD [place] [employer] driving [employer] 08/2020 07:45:00 AM EST [facility] ([facility]) Attender: YAW VYAS) MDReferrer: Tara Bennett [facility] 06/15/2020 08:21:02 PM EST [facility] Attender: YAW VYAS) MDReferrer: Tara Bennett [facility] 06/15/2020 08:21:02 PM EST [facility] Attender: YAW VYAS) MDReferrer: Tara Bennett [facility] 06/15/2020 08:21:02 PM EST [facility] Attender: YAW VYAS) MDReferrer: Tara Bennett [facility] 06/15/2020 08:21:02 PM EST [facility] Attender: YAW VYAS) MDReferrer: Tara Bennett [facility] 05/26/2020 08:21:02 PM EST [facility] Attender: YAW VYAS) MDReferrer: Tara Bennett [facility] 05/26/2020 08:21:02 PM EST [facility] Attender: YAW VYAS) MDReferrer: Tara Bennett [facility] 05/26/2020 08:21:02 PM EST [facility] Attender: YAW VYAS) MDReferrer: Tara Bennett [facility] 05/26/2020 08:21:02 PM EST [facility] Outpatient Attender: Bucky OSMAN 05/06/2020 12:27:00 PM E [facility] Outpatient Attender: FLORENCIA LATHAM 05/06/2020 12: 27:00 PM EST [facility] H[facility]25.[facility] PRES[facility] OF RIGHT ARTIFICIAL HIP JOINT M25.551 PAIN IN [facility] Recurring Patient Referrer: ROB TORRES MD 05/03/2020 0 4:53:28 PM EST [facility] Outpatient Attender: ROB TORRES MDReferrer: Jessie romero MD 05/03/2020 08:33:42 AM EST [facility] Outpatient Attender: ESA AMIN MDReferrer: Jessie romero MD 04/27/2020 04:16:15 PM EST [facility] Recurring Patient Referrer: ROB TORRES MD 04/27/2020 1 0:21:30 AM EST [facility] Recurring Patient Attender: Shelby ALICEAeferrer: Jessie lam MD 04/27/2020 10:21:12 AM EST [facility] Recurring Patient Referrer: ROB TORRES MD 04/27/2020 1 0:20:48 AM EST [facility] Recurring Patient Referrer: ROB TORRES MD 04/27/2020 1 0:18:17 AM EST [facility] Recurring Patient Referrer: ROB TORRES MD 04/27/2020 0 9:28:57 AM EST [facility] Recurring Patient Attender: Shelby Skinnererrer: Jessie lam MD 04/26/2020 08:53:29 AM EST [facility] <td ID="encounterTypeDescriptionID0">1 Y ear Follow-Up</td><td>Ramiro Lima MD, FACS</td><td>Ramiro Cedeno MD [facility]</td><td>04/08/2020</td><td>7:24AM</td><td>7:49AM</td><td><content ID="encounterDiagnosisID0-0">Conjunctivitis Chronic Allergic</content>, <content ID="encounterDiagnosisID0-1">Pinguecula</content>, <content ID="encounterDiagnosisID0-2">Dry Eye Syndrome</content></td>Outpatient Attender: Ramiro Lima MD, FACS Ramiro Cedeno MD [facility] 04/08/2020 07:24:00 AM EST - 04/08/2020 07:49:00 AM EST Conjunctivitis Chronic AllergicConjuncti vitis Chronic AllergicDry Eye SyndromeDry Eye SyndromePingueculaPinguecula [place] (Ramiro Lima MD [facility]) 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 Dry Eye Syndrome [facility] Outpatient Attender: Angelique Bill NPReferrer: Jessie Mcneil MD 03/14/2020 11:15:00 AM EST [facility] Outpatient Attender: Shelby Mtz PAReferrer: Jessie pagan MD 03/02/2020 02:00:55 PM EST [facility] Immunizations Vaccine Date Status Description Data Source(s) 09/03/2020 12:00:00 AM EDT completed <td I D="[id number]">Covid-19 (Moderna)</td><td>09/03/2020, 08/06/2020</td><td></td> [facility] COVID-19 VACCINE Moderna 09/03/2020 12:00:00 AM EDT completed [facility]SIIS Vaccine Series Complete: YESThis Data wa s Submitted to [facility]. 08/06/2020 12:00:00 AM EDT completed <td I D="[id number]">Covid-19 (Moderna)</td><td>09/03/2020, 08/06/2020</td><td></td> [facility] COVID-19 VACCINE Moderna 08/06/2020 12:00:00 AM EDT completed [facility]IS Vaccine Series Complete: NOThis Data was Submitted to [facility]. Medications Medication Brand Name Start Date Product Form Dose Route Admi nistrative Instructions Pharmacy Instructions Status Indications Reaction Description Data Source(s) 25 mg 02/07/2021 12:00:00 AM EDT capsule 60 TAKE ONE CAPSULE BY MOUTH TWICE A DAY MAXIMUM DAILY DOSE = 2 TAKE ONE CAPSULE BY MOUTH TWICE A DAY YAKOV RUIZ DAILY DOSE = 2 SOLD: 02/07/2021 [facility] 5 mg 02/07/2021 12:00:00 AM EDT tablet 30 TAKE ONE TABLET BY MOUTH TWICE A DAY NEEDED FOR PAIN MAXIMUM DAILY DOSE = 2 TAKE ONE TABLET BY MOUTH TWICE A DAY NEEDED FOR PAIN MAXIMUM DAILY DOSE = 2 SOLD: 02/07/2021 [facility] Bisacodyl 10 MG Rectal Suppository bisacodyl (DULCOLAX ) suppository 10 mg bisacodyl (DULCOLAX) suppository 10 mg 01/26/2021 07:00:00 PM EDT 10 mg Rectal active 10 mg, Rectal, Once, On Sindi 01/26/21 at 1900, For 1 dose, Post-op
Post-op day #2 Hold for BM
[facility] Medication administered onsite Fluoxetine 20 MG Oral Capsule FLUoxetine (PROzac) caps ule 40 mg FLUoxetine (PROzac) capsule 40 mg 01/25/2021 09:00:00 AM EDT 40 mg Oral active 40 mg, Oral, Daily, First dose on Sat01/25/21 at 0900, Post-op [facility] Medication administered onsite 24 HR Propranolol Hydrochloride 60 MG Ex tended Release Oral Capsule propranolol (INDERAL LA) 24 hr capsule 60 mg propranolol (INDERAL LA) 24 hr capsule 60 mg 01/25/2021 09:00:00 AM EDT 60 mg Oral active 60 mg, Oral, Daily, First dose on Sat01/25/21 at 0900, Post-op [facility] Medication administered onsite POLYETHYLENE GLYCOL 3350 142 MG/ML Oral Solution polyethylene glycol (GLYCOLAX) packet 17 g polyethylene glycol (GLYCOLAX) packet 17 g 01/25/2021 09:00:00 AM EDT 17 g Oral active 17 g, Or al, Daily, First dose on Sat01/25/21 at 0900, Post-op
Start POD #1
[facility] Medication administered onsite ferrous sulfate 325 MG Oral Tablet ferrous sulfate tab let 325 mg ferrous sulfate tablet 325 mg 01/25/2021 07:00:00 AM EDT 325 mg Oral acti ve 325 mg, Oral, Daily with breakfast, First dose on Sat01/25/21 at 0700, Post- op
Separate from antacids as far as possible. Take with food, do not crush
[facility] Medication administered onsite Magnesium Hydroxide 80 MG/ML Oral Suspen panfilo magnesium hydroxide (MILK OF MAGNESIA) 400 MG/5ML suspension 30 mL magnesium hydroxide (MILK OF MAGNESIA) 4 00 MG/5ML suspension 30 mL 01/25/2021 12:00:00 AM EDT 30 mL Oral active 30 mL, Oral, Daily PRN, constipation, Starting on Sat01/25/21 at 0000, Post- op
Start Post-op day #1. Hold for BM
[facility] Medication administered onsite Bisacodyl 10 MG Rectal Suppository bisacodyl (DULCOLAX ) suppository 10 mg bisacodyl (DULCOLAX) suppository 10 mg 01/25/2021 12:00:00 AM EDT 10 mg Rectal active 10 mg, Rectal, Daily PRN, constipation, for constipation unrelieved by miralax/MOM, Starting on Sat01/25/21 at 0000, For 4 days, Post- op
For post-op day #1, #3, and #4 Hold for BM
[facility] Medication administered onsite Oxycodone Hydrochloride 5 MG Oral Tablet oxyCODONE (ROXICODONE) 5 MG immediate release tablet oxyCODONE (ROXICODONE) 5 MG immediate release tablet 1 12:00:00 AM EDT 5 mg Oral active Take 1 tablet (5 mg total) by mouth every 4 (four) hours as needed for pain Max Daily Amount: 30 mg [facility] Docusate Sodium 50 MG / sennosides, [facility] 8.6 MG Oral Tablet senna-docusate (PERICOLACE) 8.6-50 MG senna-docusate (PERICOLACE) 8.6-50 MG 01/25/2021 12:00 :00 AM EDT 2 {tbl} Oral active Take 2 tablets b y mouth nightly [facility] Acetaminophen 500 MG Oral Tablet acetaminophen (TYLENO L) 500 MG tablet acetaminophen (TYLENOL) 500 MG tablet 01/25/2021 12:00:00 AM EDT 50 0 mg Oral active Take 1 tablet ( 500 mg total) by mouth every 4 (four) hours as needed for pain [facility] 5 mg 01/25/2021 12:00:00 AM EDT tablet 40 TAKE 1 TABLET BY MOUTH EVERY 4 HOURS NEEDED FOR PAIN MAXIMUM DAILY DOSE = 6 TAKE 1 TABLET BY MOUTH EVERY 4 HOURS NEEDED FOR PAIN MAXIMUM DAILY DOSE = 6 SOLD: 01/25/2021 [facility] normal saline flush 0.9 % injection 3 mL 47086-148-48 01/24/2021 09:00:00 PM EDT 3 mL Intravenous active 3 mL , Intravenous, PROTOCOL, First dose on Sat01/24/21 at 2100, Post-op
When PO taken well
[facility] Medication administered onsite Docusate Sodium 50 MG / sennosides, [facility] 8.6 MG Oral Tablet senna-docusate (PERICOLACE) 8.6-50 MG 2 tablet senna-docusate (PERICOLACE) 8.6-50 MG 2 tablet 01/24/2021 09:00:00 PM EDT 2 {tbl} Oral active 2 tablet, Oral, Nightly, First dose on Sat01/24/21 at 2100, Post-op
hold for loose stools
[facility] Medication administered onsite Cefazolin 1000 MG Injection [...] minutes. Use within 1 hour of reconstitution
[facility] Perioperative Pharmacoprophylaxis Medication administered onsite sodium chloride 0.9% (NS) infusion 5905-2714-47 01/24/2021 05:00:00 P M EDT Intravenous active at 100 mL/hr, Intravenous, Continuous, Starting on Sat01/24/21 at 1700, Post-op [facility] Medication administered onsite Acetaminophen 500 MG Oral Tablet acetaminophen (TYLENO L) tablet 1,000 mg acetaminophen (TYLENOL) tablet 1,000 mg 01/24/2021 05:00:00 PM EDT 1000 mg Oral active 1,000 mg, Oral , Every 6 hours (scheduled), First dose on Sat01/24/21 at 1700, Post-op [facility] Medication administered onsite ondansetron (ZOFRAN) injection 4 mg [id number] 01/24/2021 04:20:2 9 PM EDT 4 mg Intravenous active 4 mg, In travenous, Every 4 hours PRN, nausea, vomiting, Starting on Sat01/24/21 at 1620, Post-op
If unable to take PO
[facility] Medication administered onsite oxyCODONE (ROXICODONE) immediate release tablet 2.5 mg [id number]- [id number] 01/24/2021 04:20:29 PM EDT 2.5 mg Oral active 2.5 mg, Oral, Every 4 hours PRN, moderate pain (4-6), Starting on Sat01/24/21 at 1620, For 7 days, Post-op [facility] Medication administered onsite 2 ML Metoclopramide 5 MG/ML Prefilled Sy ringe metoclopramide (REGLAN) injection 10 mg metoclopramide (REGLAN) injection 10 mg 01/24/2021 04:20:29 PM E DT 10 mg Intravenous active 10 mg, I ntravenous, Every 6 hours PRN, for nausea not relieved by Zofran, Starting on Sat01/24/21 at 1620, For 24 hours, Post- op
Renal dosing per pharmacy
[facility] Medication administered onsite Oxycodone Hydrochloride 5 MG Oral Tablet oxyCODONE (ROXICODONE) immediate release tablet 5 mg oxyCODONE (ROXICODONE) immediate release tablet 5 mg 01/24/2021 04:20:29 PM EDT 5 mg Oral active 5 mg, Oral, Every 4 hours PRN, severe pain (7-10), Starting on Sat01/24/21 at 1620, For 7 days, Post-op [facility] Medication administered onsite Mineral Oil 1000 MG/ML Enema mineral oil enema 1 enema mineral oil enema 1 enema 01/24/2021 04:20:29 PM EDT 1 {enema} Rectal active 1 enema, Rectal, Daily PRN, constipation, if unrelieved by dulcolax, Starting on Sat01/24/21 at 1620, Post-op
hold for loose stools
[facility] Medication administered onsite fentaNYL Citrate (PF) (SUBLIMAZE) injection 25 mcg [id number] 01/24/2021 04:20:29 PM EDT 25 ug Intravenous active 25 mcg, Intravenous, Every 3 hours PRN, for severe breakthrough pain (7-10) if oral opioid ineffective within one hour, Starting on Sat01/24/21 at 1620, For 7 days, Post-op [facility] Medication administered onsite Methocarbamol 500 MG Oral Tablet methocarbamol (ROBAXI N) tablet 500 mg methocarbamol (ROBAXIN) tablet 500 mg 01/24/2021 04:20:29 PM EDT 50 0 mg Oral active 500 mg, Oral, 4 times daily PRN, muscle spasms, Starting on Sat01/24/21 at 1620, Post-op [facility] Medication administered onsite Calcium Carbonate 500 MG Chewable Tablet calcium carbonate (TUMS) chewable tablet 500-1,000 mg calcium carbonate (TUMS) chewable tablet 500-1,000 mg 01/24/2021 04:20:29 PM EDT mg Oral active 500-1,000 mg, Oral, Every 4 hours PRN, indigestion, moderate or severe, Starting on Sat01/24/21 at 1620, Post-op [facility] Medication administered onsite Ondansetron 4 MG Disintegrating Oral Tab let ondansetron (ZOFRAN-ODT) disintegrating tablet 4 mg ondansetron (ZOFRAN-ODT) disintegrating tablet 4 mg 01/24/2021 04:20:29 PM EDT 4 mg Oral active 4 mg, Oral, Every 4 hours PRN, nausea, vomiting, Starting on Sat01/24/21 at 1620, Post-op [facility] Medication administered onsite Aluminum Hydroxide 40 MG/ML / Magnesium Hydroxide 40 MG/ML / Simethicone 4 MG/ML Oral Suspension alum & mag hydroxide-simeth 200-200-20 MG/5ML suspension 30 mL alum & mag hydroxide-simeth 200-200-20 MG/5ML suspension 30 mL 01/24/2021 04:20:28 PM EDT 30 mL Oral active 30 mL, Oral, Every 4 hours PRN, indigestion, Starting on Sat01/24/21 at 1620, Post-op [facility] Medication administered onsite Acetaminophen 500 MG Oral Tablet acetaminophen (TYLENO L) tablet 1,000 mg acetaminophen (TYLENOL) tablet 1,000 mg 01/24/2021 09:00:00 AM EDT 1000 mg Oral completed 1,000 mg, Oral , scallop dredger, On Sat01/24/21 at 0900, For 1 dose, Pre-op
To be administered just prior to to transport to operating room
[facility] Medication administered onsite chlorhexidine gluconate 1.2 MG/ML Mouthw deysi chlorhexidine (PERIDEX) 0.12 % oral solution 15 mL chlorhexidine (PERIDEX) 0.12 % oral solution 15 mL 08/2020 09:00:00 AM EDT 15 mL Mouth/Throat completed 15 mL, Mouth/Throat, scallop dredger, On Sat01/24/21 at 0900, For 1 dose, Pre-op
Swish for 30 seconds and spit in pre-induction unit
[facility] Medication administered onsite dexamethasone (DECADRON) injection 4 mg [id number] 01/25/20 09:00:00 AM EDT 4 mg Intravenous completed 4 mg, Intr avenous, scallop dredger, On Sat01/24/21 at 09, For 1 dose, Pre-op
To be administered just prior to to transport to operating room. Hold if patient is diabetic or if stress dose aure roids are ordered
[facility] Medication administered onsite 2 ML Metoclopramide 5 MG/ML Prefilled Sy ringe metoclopramide (REGLAN) injection 10 mg metoclopramide (REGLAN) injection 10 mg 01/24/2021 09:00:00 AM E DT 10 mg Intravenous completed 10 mg, I ntravenous, scallop dredger, On Sat01/24/21 at 899, For 1 dose, Pre-op
To be administered just prior to to transport to operating room
[facility] Medication administered onsite Magnesium Chloride 0.98576 MEQ/ML / Pota ssium Chloride 0.0497 MEQ/ML / Sodium Acetate 0.0163 MEQ/ML / Sodium Chloride 0.0899 MEQ/ML / Sodium gluconate 5.02 MG/ML Injectable Solution [Normosol-R] electrolyte-R (NORMOSOL-R/PLASMALYTE-R) solution electrolyte-R (NORMOSOL-R/PLASMALYTE-R) solution 01/24 09:00:00 AM EDT Intravenous aborted at 1 00 mL/hr, Intravenous, Continuous, Starting on Sat01/24/21 at 0900, Pre-op [facility] Medication administered onsite ondansetron (ZOFRAN) injection 4 mg [id number] 01/24/2021 09:00:0 0 AM EDT 4 mg Intravenous completed 4 mg, In travenous, scallop dredger, On Sat01/24/21 at 09, For 1 dose, Pre-op
To be administered just prior to to transport to operating room
[facility] Medication administered onsite sennosides, [facility] 8.6 MG Oral Tablet Senna Lax 12/29/2020 12:00:00 AM EDT ORAL active [facility] ([facility]) ferrous sulfate 325 MG Oral Tablet Ferrous Sulfate 12/29/2020 12:00 :00 AM EDT ORAL active [facility] ([facility]) Covid-19 vaccine, Unspecified 09/03/2020 12:00:00 AM EDT completed [facility] Medication administered onsite 17.5-3.13-1.6 gram 07/11/2020 12:00:00 AM EDT recon soln 354 USE DIRECTED BY [facility] USE DIRECTED BY [facility] SOLD: 07/11/2020 [facility] valacyclovir 1000 [...] relationship to henriquez Policy Henriquez Plan Information Ghi/Jadyn HLTH (pr) Medigap Part B [id number] Self [id number] BS [place] Medigap Part B [id number] Self [id number] MVP (pr) Commercial [id number] Self [id number] MVP (pr) Commercial [id number] Self [id number] [facility] [id number] [facility] Commercial [id number] Self [id number] [place] UNAVAILABLE [id number] UNAVAI LABLE [facility] Commercial [place] HDHP [id number] Self L [place] HDHP State Ins Fund () Workers Compensation [id number] Self State Ins Fund () Workers Compensation [id number] Self [id number] MVP Health Maintenance Organization (HMO) [id number] Self [id number] [facility] [id number] SP [id number] [facility] [id number] SP [id number] [facility] [id number] SP [id number] MVP H [id number] Self [id number] MVP H [id number] Self [id number] MVP [facility] F [id number] SELF [id number] MVP [facility] F [id number] SELF [id number] MVP [facility] F [id number] SELF [id number] MVP Healthcare F [id number] SELF [id number] [employer] [place] O PPO POS [id number] Blue Cross Blue Shield P [id number] SELF [id number] Blue Cross Blue Shield P [id number] SELF [id number] Blue Cross Blue Shield P [id number] SELF [id number] BCBS ANDRY HMO [id number] SP [id number] Blue Cross Blue Shield P [id number] SELF [id number] EXCELLUS BCBS MEDICAID [id number] EXCELLUS C [id number] Self [id number] Blue Cross Blue Shield P [id number] SELF [id number] EXCELLUS BCBS MEDICAID [id number] Jeanine [id number] [facility] [id number] SP [id number] STATE INSURANCE FUND [id number] SP [id number] STATE INSURANCE FUND [id number] SP [id number] STATE INSURANCE FUND [id number] SP [id number] STATE INSURANCE FUND [id number] SP [id number] [place] ([facility]) P [id number] S [id number] SELF PAY ONLY [id number] SP [id number] [employer] WORK COMP [id number] SP [id number] BCBS ANDRY HMO [id number] SP [id number] [place]BS [place] PPO 302/307 [id number] SP [id number] [place]BS [place] PPO 302/307 [id number] SP [id number] EXCELLUS BCBS B [id number] S [id number] EXCELLUS BLUE CROSS BLUE SHIELD HEA [id number] S [id number] BCBS ANDRY HMO [id number] SP [id number] Blue Cross Blue Shield P [id number] SELF [id number] Blue [facility] Employee Program J [id number] SELF [id number] P HEALTH CARE [id number] SP [id number] P HEALTH CARE O [id number] S [id number] MVP HEALTH CARE HEA [id number] S [id number] MVP (pr) Commercial [id number] Self [id number] MVP (pr) Commercial [id number] Self [id number] MVP (pr) Commercial [id number] Self [id number] MVP (pr) Commercial [id number] Self [id number] MVP (pr) Commercial [id number] Self [id number] MVP (pr) Commercial [id number] Self [id number] MVP (pr) Commercial [id number] Self [id number] BR[employer]IRE O [id number] S [id number] [facility] [id number] SP [id number] [facility] [id number] S [id number] SELECTIVE INS WORKER COMP [id number] SP [id number] SELECTIVE INS WC O [id number] S [id number] SELECTIVE INS WC O [id number] S [id number] SELECTIVE INS WORKER COM O [id number] S [id number] SELECTIVE INS WORKER COMP [id number] SP [id number] SELECTIVE INS WORKER COMP - SP - ONE CALL CARE MANAGEMENT O [id number] S [id number] Problems, Conditions, and Diagnoses Code Display Name Description Problem Type Effective Dates Data Source(s) M41.86 Other forms of scoliosis, lumbar region Other forms of scoliosis, lumbar region Diagnosis 01/24/2021 07:20:00 AM EDT [facility] M48.062 Spinal stenosis, lumbar region with neur ogenic claudication Spinal stenosis, lumbar region with neur Diagnosis 01/24/2021 07:20:00 AM EDT [facility] F32.A Depression Depression [id number] 01/24/2021 12:00:00 AM ED T [facility] E16.2 Hypoglycemia Hypoglycemia [id number] 01/24/2021 12:00:00 A M EDT [facility] M48.062 Spinal stenosis of lumbar region with ne urogenic claudication Spinal stenosis of lumbar region with neurogenic claudication [id number] 01/24/2021 12:00:00 AM EDT [facility] Surgeries/Procedures Procedure Description Date Indications Data Source(s) BLOOD COUNT COMPLETE AUTOMATED <td>CBC</td><td>Routine </td><td>01/25/2021 4:52 AM EDT</td><td></td><td> </td> 01/25/2021 04:52:00 AM EDT [facility] BASIC METABOLIC PANEL CALCIUM TOTAL <td>BASIC METABOLI C PANEL</td><td>Routine</td><td>01/25/2021 4:52 AM EDT</td><td></td><td> </td> 01/25/2021 04:52:00 AM EDT [facility] FLUOROSCOPY SPX <1 HOUR PHYSICIAN TIME <td>XR OR SPINE LUMBAR</td><td>STAT</td><td>01/24/2021 1:11 PM EDT</td><td></td><td> </td> 01/24/2021 01:11:45 PM EDT [facility] FUSION, SPINE, LUMBAR, DIRECT LATERAL INTERBODY FUSION (DLIF) <td>FUSION, SPINE, LUMBAR, DIRECT LATERAL INTERBODY FUSION (DLIF)</td><td></td><td>01/24/2021 11:08 AM EDT</td><td> Spinal stenosis of lumbar region with neurogenic claudication Other forms of scoliosis, lumbar region</td><td></td> 01/24/2021 11:08:00 AM EDT - 01/24/2021 01:51:00 PM EDT Other forms of scoliosis, lumbar regionS krista stenosis of lumbar region with neurogenic claudication [facility] Other forms of scoliosis, lumbar region Spinal stenosis of lumbar region with ne urogenic claudication GLUC BLD GLUC MNTR DEV CLEARED FDA SPEC HOME USE <td>P OCT GLUCOSE</td><td>Routine</td><td>01/24/2021 8:13 AM EDT</td><td></td><td> </td> 01/24/2021 08:13:00 AM EDT [facility] BLOOD TYPING ABO <td>PREPARE RBC</td><td>Rout ine</td><td>01/24/2021 12:01 AM EDT</td><td></td><td> </td> 01/24/2021 12:01:00 AM EDT [facility] THROMBOPLASTIN TIME PARTIAL PLASMA/WHOLE BLOOD <td>APTT</td><td>Routine</td><td>01/11/2021 1:50 PM EDT</td><td> Spinal stenosis of lumbar region with neurogenic claudication Other forms of scoliosis, lumbar region</td><td> </td> 01/11/2021 01:50:00 PM EDT Other forms of scoliosis, lumbar regionS krista stenosis of lumbar region with neurogenic claudication [facility] Other forms of scoliosis, lumbar region Spinal stenosis of lumbar region with ne urogenic claudication PROTHROMBIN TIME <td>PROTIME-INR</td><td>Rout ine</td><td>01/11/2021 1:50 PM EDT</td><td> Spinal stenosis of lumbar region with neurogenic claudication Other forms of scoliosis, lumbar region</td><td> </td> 01/11/2021 01:50:00 PM EDT Other forms of scoliosis, lumbar regionS krista stenosis of lumbar region with neurogenic claudication [facility] Other forms of scoliosis, lumbar region Spinal stenosis of lumbar region with ne urogenic claudication BLOOD TYPING ABO <td>TYPE AND SCREEN</td><td> Routine</td><td>01/11/2021 1:50 PM EDT</td><td> Spinal stenosis of lumbar region with neurogenic claudication Other forms of scoliosis, lumbar region</td><td> </td> 01/11/2021 01:50:00 PM EDT Other forms of scoliosis, lumbar regionS krista stenosis of lumbar region with neurogenic claudication [facility] Other forms of scoliosis, lumbar region Spinal stenosis of lumbar region with ne urogenic claudication COMPREHENSIVE METABOLIC PANEL <td>COMPREHENSIVE METABO LIC PANEL</td><td>Routine</td><td>01/11/2021 1:50 PM EDT</td><td> Spinal stenosis of lumbar region with neurogenic claudication Other forms of scoliosis, lumbar region</td><td> </td> 01/11/2021 01:50:00 PM EDT Other forms of scoliosis, lumbar regionS krista stenosis of lumbar region with neurogenic claudication [facility] Other forms of scoliosis, lumbar region Spinal stenosis of lumbar region with ne urogenic claudication ECG ROUTINE ECG W/LEAST 12 LDS W/I&R 12/27/2020 12:00: 00 AM EDT [facility] ([facility]) OFFICE OUTPATIENT VISIT 25 MINUTES 12/27/2020 12:00:00 AM EDT [facility] ([facility]) OFFICE OUTPATIENT VISIT 25 MINUTES 12/19/2020 12:00:00 AM EDT [facility] ([facility]) RADEX FOOT COMPLETE MINIMUM 3 VIEWS 12/14/2020 12:00:0 0 AM EDT [facility] ([facility] ) OFFICE OUTPATIENT VISIT 10 MINUTES 12/14/2020 12:00:00 AM EDT [facility] ([facility] ) RADEX FOOT COMPLETE MINIMUM 3 VIEWS 11/15/2020 12:00:0 0 AM EDT [facility] ([facility] ) RADEX FOOT COMPLETE MINIMUM 3 VIEWS 10/14/2020 12:00:0 0 AM EDT [facility] ([facility] ) RADEX FOOT COMPLETE MINIMUM 3 VIEWS 09/28/2020 12:00:0 0 AM EDT [facility] ([facility] ) FX Metatarsal W/O Manipulation 09/14/2020 12:00:00 AM EDT [facility] ([facility]) RADEX FOOT COMPLETE MINIMUM 3 VIEWS 09/14/2020 12:00:0 0 AM EDT [facility] ([facility]) OFFICE OUTPATIENT VISIT 25 MINUTES 09/14/2020 12:00:00 AM EDT [facility] ([facility]) Colonoscopy 07/14/2020 12:00:00 AM EDT M EDENT ([facility]) PERIODIC PREVENTIVE MED EST PATIENT 40-64YRS 12:00:00 AM EST [facility] ([facility]) Intermediate Eye Exam Established Patient Intermediate Eye Exam Established Patient 04/08/2020 12:00:00 AM EST CHARLIE (Elijah id A Corbin Lima MD [facility]) Intermediate Eye Exam Established Patient Intermediate Eye Exam Established Patient 04/08/2020 12:00:00 AM EST CHARLIE (Elijah id A Corbin Lima MD [facility]) Results ID Date Data Source [id number] 03/23/2021 10:10:00 AM EST [place] Name Value Range Interpretation Code Description Data Kelle rce(s) Supporting Document(s) SARS-COV 2 PCR (NASAL SWAB) NEGATIVE [place] This lab was ordered by [facility]i [facility] #15 and reported by [facility]. ID Date Data Source [id number] 03/23/2021 12:00:00 AM EST [place] Name Value Range Interpretation Code Description Data Kelle rce(s) Supporting Document(s) SARS-CoV-2 (COVID-19) RNA [Presence] in Respiratory specimen by PADMINI with probe detection Not detected [place] This lab was ordered by [facility] and r eported by eTMakerBotrt. ID Date Data Source [id number] 03/27/2021 08:19:34 AM EST [facility] PCName: Florencia KeenanJuanitaOB: 1955Provider: Sienna Vigil: 03/22/2021 Reason For VisitFlorencia Butts is here today for cervical + lumbar spine. Florencia had her second Covid vaccine on 09/03/20. Florencia Butts is an established patient here for follow up. Other DOI/DOO: 08/2018 w/o mauffe02/27/21. Surgery DOS: 01/24/21. Surgery Description: (Left L4/5 DLIF. globus. neuromonitoring). Patient states the injury occurred after a fall. The patient has not had a course of physical therapy for greater than 4 weeks. The patient has not had a course of NSAIDs for greater than 4 weeks. The patient was notified that the office visit was recorded to enhance documentation accuracy. 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 Patient is [...] daily with her sister. She [place] in [place]. AssessmentASSESSMENTPostsurgical arthrodesis status, lumbar spine. Plan X-Ray I Lumbosacral - 2 views (XRays were ordered, obtained and interpreted today inthe office. Indication: pain/dysfunction.); Status:Complete; Done: [id number] Perform:SOS22; Due:[id number]; Last Updated By:Janay Veloz; 03/22/2021 11:24:29 AM;Ordered; For:Lower back pain; Ordered By:Erika Vigil patient presents for her second postoperative follow-up [...] rce(s) Supporting Document(s) ID Date Data Source [id number] 02/08/2021 12:21:42 PM EDT [facility] PCName: Florencia KeenanJuanitaOB: 1955Provider: Nancy Blackwell: 02/07/2021 Reason For VisitFlorencia [...] NSAIDs for greater than 4 weeks. 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 Reference #:[id number] MDD:2 Rx By: Zohaib Blackwell; Dispense: 0 Days ; #:30 Tablet; Refill: 0;For: Aftercare following surgery of the musculoskeletal system, Lower back pain; SOFÍA = N; Sent To: [facility]; Last Updated By: Farheen Price; 02/07/2021 2:34:41 PM Start: Pregabalin 25 MG Oral Capsule (Lyrica); TAKE 1 CAPSULE TWICE DAILY. Reference #:[id number] MDD:2 Rx By: Zohaib Blackwell; Dispense: 0 Days ; #:60 Capsule; Refill: 0;For: Aftercare following surgery of the musculoskeletal system, Lower back pain; SOFÍA = N; Sent To: [facility] #15; Last Updated By: Farheen Price; 02/07/2021 [...] document was dictated and electronically signed using SurIDx software. A reasonable attempt at proof reading has been made to minimize errors. Please call with any questions. Signatures Electronically signed by : Augustine Villegas; Feb 07 2021 4:33PM EST (Author) Electronically signed by : Eyal Vigil M.D.; Feb 08 2021 12:21PM EST Name Value Range Interpretation Code Description Data Kelle rce(s) Supporting Document(s) ID Date Data Source [id number] 01/27/2021 03:42:06 PM EDT [facility] INFORMATIONPatient MRN Name Date of Age Gend*PT [id number] Florencia Butts 1955 65 years F IPPT Location Admission Date/Time Visit ID Attending [id number] 01/24/21 0720 --- --- EPI ID CSN Admitting Provider [id number] Eyal Vigil MD([id number]) [place] [address] OPERATIVE REPORT OPNAME: FLORENCIA BUTTS#: [id number] #: [id number] ADMISSION DATE: 01/24/2021OB: 1955 SEX: F PT TYPE: I OrthACCT #: [id number] CARE PHYSICIAN: JESSIE SAUNDERS OF OPERATION: URGEON:Eyal Vigil [facility] HOSPITALVALERIOISTANT:NOA Beckman.PREOPERATIVE DIAGNOSES:1. Lumbar stenosis with neurogenic claudication.2. Lumbar degenerative scoliosis.POSTOPERATIVE DIAGNOSES:1. Lumbar stenosis with neurogenic claudication.2. Lumbar degenerative scoliosis.PROCEDURES:1. Left- sided direct lateral interbody fusion, L4-L5.2. Anterior arthrodesis, L4-L5, via left retroperitoneal approach.3. Anterior arthrodesis with instrumentation, L4-L5, DLIF.4. Insertion of biomechanical device, titanium interbody cage with plateand screw construct, L4-L5.5. Allograft 1 extra small Infuse with 2.5 mL of Sear[place] for arthrodesis.COMPLICATIONS:None.ANESTHESIA:General.ESTIMATED BLOOD LOSS:Minimal.IMPLANTS:Alphatec titanium 10 x 55 DLIF cage with plate and screw construct.INDICATIONS FOR PROCEDURE:The patient is a 65-year-old female with symptoms of right lower extremityradiculopathy secondary to her severe foraminal stenosis at L4-L5, whounderwent and failed nonsurgical care and elected for [facility]. I discussedthe risks of surgery with her, [...] mm implant.We then placed our Infuse and Searcy putty into the implant, attached a2-hole plate [...] therefore, it didnecessitate use of a physician behavioral health assistant for protection and retraction ofneurologic structures.JAMAL Bass/NABEEL Job #: [id number] DOC #: [id number] Name Value Range Interpretation Code Description Data Kelle rce(s) Supporting Document(s) ID Date Data Source [id number] 01/27/2021 03:42:01 PM EDT [facility] NT INFORMATIONPatient MRN Name Date of Age Gend*PT [id number] Florencia Butts 1955 65 years F IPPT Location Admission Date/Time Visit ID Attending [id number] 01/24/21 0720 --- --- EPI ID CSN Admitting Provider [id number] Eyal Vigil MD([id number]) Attestation signed by Eyal Vigil MD at 01/27/2021 3:41 PMChart reviewed, I agree with the findings and plan of care as communicated tothe Midlevel provider.Signature: REJI Bassate: January 27, 2021Time: 3:41 PM ORTHOPEDIC DISCHARGE SUMMARYPatient Name: Florencia Butts of : 1955 Age 65 yearsPrimary Physician: JESSIE MCNEIL MD PCP Yydcxsztr Date: 01/24/2021 Discharge Date: 01/25/2021dmission Provider: Eyal Vigil MD Discharge Provider: Norm Lindsey, PADischarge Diagnoses:Active Problems: Spinal stenosis of lumbar region with neurogenic claudication DepressionResolved Problems: * No resolved hospital problems. *Surgical Procedures:Procedure(s) with comments:LEFT LUMBAR 4 5 DIRECT LATERAL [facility] (Left[facility] NEUROMONITORINGALPHATECHBrief Hospital Course:Patient was admitted through [...] details.Discharge disposition: She will be discharged from [facility] to home in stable condition.Discharge Weight [...] 1,000 mg by mouth daily as neededfor uamwZ-Fmqsciy-O TABS Take 1 tablet by mouth dailyEPINEPHrine [...] 01/25/2021ignificant Imaging:multiple OR xraysConsults:noneSignature: [phone]: January 25, 2021Time: 8:32 AM Name Value Range Interpretation Code Description Data Kelle rce(s) Supporting Document(s) ID Date Data Source [id number] 01/25/2021 06:16:20 AM EDT [facility] Name Value Range Interpretation Code Description Data Kelle rce(s) Supporting Document(s) SODIUM 143 mmol/L (136-145) [facility] POTASSIUM 4.3 mmol/L (3.6-5.2) [facility] CHLORIDE 108 mmol/L (100-108) [facility] CO2 28 mmol/L (22-31) [facility] ANION GAP 7 mmol/L (7-16) [facility] UREA NITROGEN 13 mg/dL (7-24) [facility] CREATININE 0.56 mg/dL (0.60-1.00) L [facility] BUN/CREAT RATIO 23.2 RATIO (10.0-20.0) H [facility] GLUCOSE 92 mg/dL (70-99) [facility] CALCIUM 8.3 mg/dL (8.4-10.2) L [facility] GFR >60 ml/min/1.73m2 (>59) [facility] GFR ( AMER) >60 ml/min/1.73m2 (>59) [facility] GFR INTERPRETATION [facility] --NORMAL KIDNEY FUNCTION OR MILD DISEASE - GFR >OR= 60CHRONIC KIDNEY DISEASE - GFR 15 - 59RENAL FAILURE - GFR <15 Est. GFR calculation based on the MDRDstudy equation, which assumes a steadystate for creatinine. Est. GFR should notbe used for medication dosing. ID Date Data Source [id number] 01/25/2021 05:40:25 AM EDT [facility] Name Value Range Interpretation Code Description Data Kelle rce(s) Supporting Document(s) WBC 7.5 10*3/uL (4.1-11.0) [facility] [place] RBC 3.32 10*6/uL (4.00-5.40) L [facility] HGB 10.0 g/dL (12.0-16.0) L [facility] HCT 29.6 % (36.0-47.0) L [facility] MCV 89.2 fL (80.0-95.0) [facility] MCH 30.2 pg (27.0-32.0) [facility] MCHC 33.8 g/dL (32.0-36.0) [facility] RDW 14.6 % (10.5-14.5) H [facility] PLT 261 10*3/uL (150-450) [facility] MPV 6.9 fL (7.1-10.7) L [facility] ID Date Data Source [id number] 01/24/2021 01:43:22 PM EDT [address] [address]Vdtfcdg Name: FLORENCIA LOPEZOB: 1955Sex: FOrdering Provider: EYAL Urbina Prov: EYAL Hansen Provider: Procedure Performed: / XR OR SPINE LUMBARExam Date: 01/24/2021 13:11MRN: [id number] Number: [id number] Class: InpatientAccount #: [id number] [id number] Exam: Spinal stenosis of lumbar region with neurogenic claudication [M48.062]Other forms of scoliosis, lumbar region [M41.86]Technique: AP and lateral views obtained.Comparison: NoneFindings: Multiple intraoperative images are obtained during spinal fusion at L4-L5. There is good alignment of the disc spacer and adjacent vertebra.IMPRESSION: Good alignment status post spinal fusion.Report electronically signed by: ASHLEY COHEN On 01/24/2021 1:43 PMWorkstation ID: [id number] Name Value Range Interpretation Code Description Data Kelle rce(s) Supporting Document(s) ID Date Data Source [id number] 01/24/2021 11:21:05 AM EDT [facility] INFORMATIONPatient MRN Name Date of Age Gend*PT [id number] Florencia Butts 1955 65 years F SDAPT Location Admission Date/Time Visit ID Attending Provider --- --- --- --- EPI ID CSN Admitting Provider [id number] ---AirwayPatient location during procedure: ORUrgency: electiveDifficult airway: [...] cmPlacement verified by: chest auscultation and + [id number]: equal breath sounds bilateralGrade view: grade I - full view of glottisAdditional NotesIntubated using glidescope due to previous cranial procedures. Neck wasmaintained in neutral position and not oral or dental trauma was noted. Name Value Range Interpretation Code Description Data Kelle rce(s) Supporting Document(s) ID Date Data Source [id number] 01/24/2021 08:15:41 AM EDT [facility] Name Value Range Interpretation Code Description Data Kelle rce(s) Supporting Document(s) POC NOVA GLU 78 mg/dL (70-99) [facility] PERFORMED BY [facility] CLINICAL STAFF ID Date Data Source [id number] 01/25/2021 08:13:59 AM EDT [facility] AL[facility] SPEC EXP DATE 01/27/2021TEST ING SITE PERFORMED AT [address] [place] [id number] NUMBER [id number] COMPONENT TYPE LEUKOPOOR RED CELLSUNIT DIVISION 00STATUS OF UNIT REL FROM ALLOCTRANSFUSION STATUS OK TO TRANSFUSECROSSMATCH RESULT COMPATIBLEUNIT NUMBER [id number] COMPONENT TYPE LEUKOPOOR RED CELLSUNIT DIVISION 00STATUS OF UNIT REL FROM ALLOCTRANSFUSION STATUS OK TO TRANSFUSECROSSMATCH RESULT COMPATIBLE Name Value Range Interpretation Code Description Data Kelle rce(s) Supporting Document(s) TRANSFUSE RED CELLS [facility] TESTING SITE PERFORMED AT [address] [place] [address] ID Date Data Source [id number] 01/20/2021 11:45:00 AM EDT [facility] ([facility]) Name Value Range Interpretation Code Description Data Kelle rce(s) Supporting Document(s) Coronavirus 2019 Nasopharygeal Laboratory test result [facility] ([facility]) ASSAY INFORMATION: Real Time RT-PCR NOTE: The COVID-19 assay has been cleared by the U.S. Food and Drug Administration under the Emergency Use Authorization (EUA). [employer] and [employer] are designated as high complexity laboratories by the Clinical Laboratory Improvement Amendments of 1988(CLIA) and are qualified to perform this test. Not Detected ID Date Data Source [id number] 01/11/2021 03:39:46 PM EDT [facility] NT INFORMATIONPatient MRN Name Date of Age Gend*PT [id number] Florencia Butts 1955 65 years F OPPT Location Admission Date/Time Visit ID Attending Provider --- --- --- Eyal Vigil MD([id number]) EPI ID CSN Admitting Provider [id number] ---HISTORY PHYSICALName: Florencia Butts : 1955 Sex: female Care Provider: Noni CORDEROending Physician: Dr. Huntleyformant: The patient who is reliable.Chief Complaint: "I [...] The patient met with Dr. Vigil, op namita discussed and they have elected to under go LEFT LUMBAR 4 5 DIRECT LATERALINTERBODY FUSION on 01/24/2021.PAST MEDICAL HISTORY:Past Medical History:Diagnosis Date Depression Falls frequently Headache disorder [place] (hard of hearing) Hydrocephalus s/p head injury [...] mouth daily as needed forpain Historical Provider, CHM-Stqklxw-F TABS Take 1 tablet by mouth daily Historical Provider, EPINEPHrine (EpiPen 2-John) 0.3 MG/0.3ML SOAJ Inject 1 Package into the shoulder,thigh, or buttocks once Inject into thigh once for severe allergic reactionHistorical Provider, ferrous sulfate 325 (65 FE) MG tablet Take 325 mg by mouth daily with breakfastHistorical Provider, MDFLUoxetine (PROzac) 20 MG capsule Take 40 mg [...] warm and dry.HEENT: She is normocephalic, atraumatic. [place] conjunctivae. Anicteric sclerae.Pupils are equal, round, reactive [...] hepatosplenomegaly. Negative CVAT.GENITAL/RECTAL: Deferred.MUSCLE/SKELETAL: Strength is 5/5. 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 A reasonable attempt at proofreading has beenmade to minimize errors. Please call with any questions or corrections. Name Value Range Interpretation Code Description Data Kelle rce(s) Supporting Document(s) ID Date Data Source [id number] 01/11/2021 09:54:55 PM EDT [facility] SPEC EXP DATE 01/25/2021ATI ENT ABO/Rh B POSITIVEANTIBODY SCREEN NEGATIVETESTING SITE PERFORMED AT [address] [place], [place] [address]BLOOD BANK COMMENT BLOOD TYPE CONFIRMED. Name Value Range Interpretation Code Description Data Kelle rce(s) Supporting Document(s) TYPE AND SCREEN [facility] ID Date Data Source [id number] 01/11/2021 07:13:19 PM EDT [facility] Name Value Range Interpretation Code Description Data Kelle rce(s) Supporting Document(s) APTT 23.6 s (22.0-34.3) [facility] ID Date Data Source [id number] 01/11/2021 07:13:19 PM EDT [facility] Name Value Range Interpretation Code Description Data Kelle rce(s) Supporting Document(s) PT 10.8 s (9.2-11.9) [facility] INR 1.01 [facility] SUGGESTED THERAPEUTIC RANGES USING INR F ORSTABILIZED ANTICOAGULATED PATIENTS:STANDARD DOSE THERAPY INR 2.0-3.0 DVT, PE, PREVENT DVT OR EMBOLISMHIGH DOSE THERAPY INR 2.5-3.5 PREVENT EMBOLISM FROM MECHANICAL HEART VALVE ID Date Data Source [id number] 01/11/2021 06:53:40 PM EDT [facility] Name Value Range Interpretation Code Description Data Kelle rce(s) Supporting Document(s) SODIUM 142 mmol/L (136-145) [facility] POTASSIUM 4.1 mmol/L (3.6-5.2) [facility] CHLORIDE 113 mmol/L (100-108) H [facility] CO2 23 mmol/L (22-31) [facility] ANION GAP 6 mmol/L (7-16) L [facility] UREA NITROGEN 17 mg/dL (7-24) [facility] CREATININE 0.62 mg/dL (0.60-1.00) [facility] BUN/CREAT RATIO 27.4 RATIO (10.0-20.0) H [facility] GLUCOSE 87 mg/dL (70-99) [facility] CALCIUM 9.1 mg/dL (8.4-10.2) [facility] TOTAL PROTEIN 6.9 g/dL (6.4-8.2) [facility] ALBUMIN 3.3 g/dL (3.2-4.5) [facility] GLOBULIN 3.6 g/dL (2.7-4.3) [facility] ALB/GLOB RATIO 0.9 RATIO [facility] ALKALINE PHOSPHATASE 104 U/L (45-117) [facility] BILIRUBIN,TOTAL 0.2 mg/dL (0.0-1.0) [facility] PLEASE NOTE:Total bilirubin results may be falselyelevated in patients taking Eltrombopag. AST (SGOT) 12 U/L (11-39) [facility] ALT (SGPT) 21 U/L (12-78) [facility] GFR >60 ml/min/1.73m2 (>59) [facility] GFR ( AMER) >60 ml/min/1.73m2 (>59) [facility] GFR INTERPRETATION [facility] --NORMAL KIDNEY FUNCTION OR MILD DISEASE - GFR >OR= 60CHRONIC KIDNEY DISEASE - GFR 15 - 59RENAL FAILURE - GFR <15 Est. GFR calculation based on the MDRDstudy equation, which assumes a steadystate for creatinine. Est. GFR should notbe used for medication dosing. ID Date Data Source [id number] 01/12/2021 12:58:21 PM EDT [facility] Name Value Range Interpretation Code Description Data Kelle rce(s) Supporting Document(s) SPECIMEN DESCRIPTION [facility] STAPH SCREEN RESULTS (ONEGSA) [facility] COMMENT [facility] GENE TO DETECT STAPH AUREUS. (2) RT-P CR WAS PERFORMED FOR THE mecA AND SCCmec GENES TO DETECT METHICILLIN RESISTANCE IN STAPH AUREUS. ID Date Data Source [id number] 01/17/2021 01:53:38 PM EDT [facility] PC[facility]: Florencia LopezOB: 1955Provider: Yaritza, MalloryJake: 01/11/2021 Reason For VisitFlorencia Butts is here [...] was recorded to enhance documentation accuracy. 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 History of Present IllnessCHIEF COMPLAINTPreoperative follow-up of lumbar spine.HISTORY OF PRESENT ILLNESSThe patient is a 65-year-old female who returns for a preoperative follow-up of the lumbar spine. She is scheduled for L4-5 DLIF on 01/24/2021 at [facility]. 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 [...] rce(s) Supporting Document(s) ID Date Data Source [id number] 12/27/2020 10:52:00 AM EDT [facility] ([facility]) Name Value Range Interpretation Code Description Data Kelle rce(s) Supporting Document(s) Bacteria identified in Urine by Culture Laboratory test result [facility] ([facility]) FULL REPORT IN LAB NOTES (eCW and [facility] ). NO GROWTH ID Date Data Source [id number] 12/27/2020 10:52:00 AM EDT [facility] ([facility]) Name Value Range Interpretation Code Description Data Kelle rce(s) Supporting Document(s) Color, Urine Laboratory test [facility] Appearance, Urine Laboratory test result [facility] Specific [place] Urine Auto 1.024 1.002-1.035 [facility] PH,Urine 6.0 units 5.0-9.0 [facility]) Protein, Urine Auto Laboratory test result [facility] Urobilinogen, Urine Auto 2.0 mg/dL 0.0-2.0 MEDEN T ([facility]) Glucose, Urine (Ua) Auto Laboratory test result [facility] Ketone, Urine Auto Laboratory test result [facility] Bilirubin, Urine Auto Laboratory test result [facility] ([facility]) Nitrite, Urine Auto Laboratory test result [facility] Leukocyte Esterase, Urine Auto Laboratory test result [facility] Blood, Urine Blood Laboratory test result [facility] WBC, Urine Auto 1 /HPF 0-3 [facility] ([facility]) RBC, Urine Auto 2 /HPF 0-3 [facility] ([facility]) Bacteria, Urine Auto Laboratory test result [facility] Squamous Epithelial Cell Ur AU 0 /HPF 0-6 [facility] ([facility]) Mucus, Urine Laboratory test result MEDE NT ([facility]) Hyaline Cast, Urine Auto 0 /LPF 0-1 MEDEN T ([facility]) ID Date Data Source [id number] 12/27/2020 10:49:00 AM EDT [facility] ([facility]) Name Value Range Interpretation Code Description Data Kelle rce(s) Supporting Document(s) Vitamin B12 Level 442 pg/mL [facility] ([facility]) VITAMIN B12 NORMAL RANGE NORMAL 247 - 911 PG/ML INDETERMINATE 211 - 246 PG/ML DEFICIENT LESS THAN 211 PG/ML Folate [facility] [facility] FOLATE NORMAL RANGE NORMAL GREATER THAN 5.4 NG/ML INDETERMINATE 3.4-5.4 NG/ML DEFICIENT LESS THAN 3.4 NG/ML ID Date Data Source [id number] 12/27/2020 10:49:00 AM EDT [facility] ([facility]) Name Value Range Interpretation Code Description Data Kelle rce(s) Supporting Document(s) Total Iron Binding Capacity 245 ug/dL 250-450 ME DENT ([facility]) Percent Saturation 28.6 % 13.2-45.0 [facility] ([facility]) Iron (Fe) 70 ug/dL 50-170 [facility] [facility]) ID Date Data Source [id number] 12/27/2020 10:49:00 AM EDT [facility] ([facility]) Name Value Range Interpretation Code Description Data Kelle rce(s) Supporting Document(s) Ferritin [Mass/volume] in Serum or Plasma 7 ng/mL 8-252 [facility] ([facility]) ID Date Data Source [id number] 12/27/2020 10:49:00 AM EDT [facility] ([facility]) Name Value Range Interpretation Code Description Data Kelle rce(s) Supporting Document(s) Calcidiol [Mass/volume] in Serum or Plasma 34.5 ng/mL 24.0-80.0 [facility] This test was performed using [employer] I P Vitamin D immunoassay kit. Values obtained with different assay methods should not be used interchangeably. ID Date Data Source [id number] 12/27/2020 10:49:00 AM EDT [facility] ([facility]) Name Value Range Interpretation Code Description Data Kelle rce(s) Supporting Document(s) Hemoglobin A1c/Hemoglobin.total in Blood 6.0 % [facility] ([facility]) Lab Result Notes: Pre-Diabetes 5.7 - 6.4 % Diabetes = or > 6.5% Glucose mean value [Mass/volume] in Blood Estimated fr om glycated hemoglobin 125 mg/dL 60-110 [facility] ([facility] ) ID Date Data Source [id number] 12/27/2020 10:49:00 AM EDT [facility] ([facility]) Name Value Range Interpretation Code Description Data Kelle rce(s) Supporting Document(s) Urea nitrogen [Mass/volume] in Serum or Plasma 17 mg/dL 7-18 [facility] ([facility]) Glucose [Mass/volume] in Serum or Plasma 89 mg/dL 74-99 [facility] ([facility]) 100-125 mg/dL PRE-DIABETES/FASTING >126 mg/dL DIABETES/FASTING Creatinine 0.7 mg/dL 0.6-1.3 [facility] Sodium [Moles/volume] in Serum or Plasma 143 meq/L 136-145 [facility] [facility] Potassium [Moles/volume] in Serum or Plasma 4.5 meq/L 3.5-5.1 [facility] ([facility]) Chloride [Moles/volume] in Serum or Plasma 107 meq/L 98-107 [facility] ([facility]) Carbon dioxide, total [Moles/volume] in Serum or Plasma 29 meq/L 21 -32 [facility] Glomerular filtration rate/1.73 sq M pre dicted among non-blacks [Volume Rate/Area] in Serum or Plasma by Creatinine-based formula (MDRD) Laboratory test result [facility] ([facility] ) Calcium [Mass/volume] in Serum or Plasma 8.9 mg/dL 8.5-10.1 [facility] Glomerular filtration rate/1.73 sq M pre dicted among blacks [Volume Rate/Area] in Serum or Plasma by Creatinine-based formula (MDRD) Laboratory test result [facility] <content>CHRONIC KIDNEY DISEASE STAGING PER NKF</content>
<content></content>
<content>STAGE I & II GFR >= 60 NORMAL TO MILDLY DECREASED</content>
<content>STAGE III GFR 30-59 MODERATELY DECREASED</content>
<content>STAGE IV GFR 15-29 SEVERELY DECREASED</content>
<content>STAGE V GFR <15 VERY LITTLE GFR LEFT</content>
<content>ESRD GFR <15 ON FAMILY MEMBER CARETAKER</content>
<content></content> ID Date Data Source [id number] 12/27/2020 10:49:00 AM EDT [facility] ([facility]) Name Value Range Interpretation Code Description Data Kelle rce(s) Supporting Document(s) Leukocytes [#/volume] in Blood by Automated count 4.7 x10*3/UL 4.1-10 .9 [facility] ([facility]) NOTE: CBC VERIFIED Hematocrit [Volume Fraction] of Blood by Automated count 32.3 % 3 7.0-51.0 [facility] ([facility]) Hemoglobin [Mass/volume] in Blood 10.9 g/dL 12.0-18.0 [facility] ([facility]) Erythrocytes [#/volume] in Blood by Automated count 3.73 x10*6/UL 4.2 0-6.30 [facility] ([facility]) MCH 29.3 pg 26.0-32.0 [facility] MCHC 33.9 g/dL 31.0-38.0 [facility]) MCV 86.5 fL 80.0-97.0 [facility] ([facility]) Platelets [#/volume] in Blood by Automated count 378 x10*3/UL 140-440 [facility] ([facility]) MPV 7.1 FL 7.8-11.0 [facility]) Erythrocyte distribution width [Ratio] by Automated count 13.8 % 11.6-13.7 [facility] ([facility]) Mid % 7.4 % 1.7-9.3 [facility] Neut % 51.7 % 37.0-92.0 [facility] Lymph % 40.9 % 10.0-58.5 [facility] Mid # 0.4 x10*3/UL 0.1-0.6 [facility] ([facility]) Neut # 2.4 x10*3/UL 2.0-7.8 [facility] ([facility]) Lymph # 1.9 x10*3/UL 0.6-4.1 [facility] ([facility]) ID Date Data Source [id number] 09/15/2020 10:29:49 AM EDT [facility]: Florencia LopezOB: 1955Provider: Sienna [...] was recorded to enhance documentation accuracy. 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 Results/DataX-rays with 4 views of the [...] today inthe office. Indication: pain/dysfunction.); Status:Complete; Done: 12Sep2020 Perform:SOS22; Due:26Sep2020; Last Updated By:Joaquín Verde; 09/12/2020 3:07:25 PM;Ordered; For:Neck pain; Ordered By:Erika Vigil patient presents for evaluation of the lumbar [...] rce(s) Supporting Document(s) ID Date Data Source [id number] 09/20/2020 09:19:29 AM EDT [facility]: Florencia LopezOB: 1955Provider: Paige Mtz: 09/06/2020 Reason For VisitFlorencia [...] document was dictated and electronically signed using SurIDx software. A reasonable attempt at proof reading [...] rce(s) Supporting Document(s) ID Date Data Source [id number] 09/06/2020 10:48:22 AM T [facility] Name Value Range Interpretation Code Description Data Kelle rce(s) Supporting Document(s) Progress Note [facility] OYZSMk9mZeGZNbLy40/SOGczDHMxb1JuAKcvNKg6RVmkQLRyJ7OdTZI0tC9fKZC9EPbHDuMpCuGbDGW2 lbm [file] POLYSOMNOGRAPHIC TECHNOLOGIST/0GDvqqdJOLveNOGRKBs6aMDDjLuFN+cIgnbHH7S [file] [facility]/bv240E3J12GgNc13YPgo8atgE8dR0dXS8gRezgg1fEngMJpiTrMgFb+riNsn8LiqREn9na0gggjU [file] YVV7IEWm== ID Date Data Source [id number] 09/06/2020 10:48:17 AM EDT [facility] Name Value Range Interpretation Code Description Data Kelle rce(s) Supporting Document(s) Progress Note [facility] YGVRIz7oWaLJNeTi33/BTYhlASGjo4UyZHrhFRp8YCuhESHiD5WfGBR8jX9iHAX0ZMnVEpSwVjGpJCO3 lbm [file] ICAgICAgICAgICAgICAgICAgICAgICAgICAgICAgICAgICAgICAgICAgICAgICAgICAgICAgICAgICAg ICAgICAgICAgICAgICAgICAgICAgICAgICAgICAgIC BzPN7XYNKfGISmJFHdFAVjABLqWELaNOLrMDFvXKDeWDYbLLOxFKEmTMOgXQWrTDCtOUAnRQRxEHOnDQ IbLOBkWDYiWANoGGSoDNYxGLWbGQSaJNGyLAOxLTKdNCZnAWRjNUEiQYQjHN9ELRYwQXWgUMSyNPSqFZ AgICAgICAgICAgICAgICAgICAgICAgICAgICAgICAg DVTtSTXcVGEjVMKcDAAeYUEsOJBpUMHsFCWbIDUkHJSeQVKdRVFcAZByIQRvUIMlAJNyZSMzVN2BTJKa ICAgICAgICAgICAgICAgICAgICAgICAgICAgICAgICAgICAgICAgICAgICAgICAgICAgICAgICAgICAg ICAgICAgICAgICAgICAgICAgICAgICAgICAgICAgIC YrERPoJO1MHIMnMLPaTWRrPZFdJMFtIMArXWDzIAUwIAAfNSMtDCYuWTHmUVDpGJLuYADsAMXrJFYrBV AjEFZhCVViOZTrHKZjNMLaIILfUGIaWXTsFLVsJNJtLBKrQCFtWZErVQIrGDDwAD5HQPJmSLDiSKPqCK AgICAgICAgICAgICAgICAgICAgICAgICAgICAgICAg TVPxSGReKPPgZDSbVMEmYECaRHCoZQZxYPCsGEChEAEwVIPzDKEnNGKwJRVvWGGgOSSaLYXiYKWtUZ8F ICAgICAgICAgICAgICAgICAgICAgICAgICAgICAgICAgICAgICAgICAgICAgICAgICAgICAgICAgICAg ICAgICAgICAgICAgICAgICAgICAgICAgICAgICAgIC IoYLYrRZLgLE8BYEObLTQzOIMwQKJlEXWeZXOnDWSbHLZdEDKoJACsEIBmUQLjDHUtJHMyNTFrGFAtKF BqDMJcYDPfBWQhNXGqRVMcCTNgJCLyDJStULLfCUPuJNNeYEPsPVGoVGSyWJWnFBLtIS5DIRMyYYLgJU AgICAgICAgICAgICAgICAgICAgICAgICAgICAgICAg ICAgICAgICAgICAgICAgICAgICAgICAgICAgICAgICAgICAgICAgICAgICAgICAgICAgICAgICAgICAg ZV5LVMIbSWPtFSDwBIVuVGOmOWPcQSIrHROaOGXeORLzCFNxZMMqERLgBMVrTCXsKSBcCXQvWRDqSIDc ICAgICAgICAgICAgICAgICAgICAgICAgICAgICAgIC KkVQRaQKWmNDNgFW4LSO86jKSyk8B2JKMoCB2pvhg/Gi8KHCyflnLegZQoPA0SUfNjQE3xhs5RGyBdDU 7ixc1KFSvTAiOdF2R9dIZnUJObCZBLOjLlJ53aGLwrLg69WBeuECWaDzSoWGz7Ji5ZNnFnU2hxGEZqHm U3SCKgJsPoOWtrDI3Dl2ZmgWHoNSt+Mo8XEM9sc0Mi VWqhFTWnPL0pqw3UFOyOFlPpG8LkzeY1WDRzXBBhJv8PNPTeHLWdpHEwFQKgWMPVOhLmF3KynW21HMYM Cj4+DAqmdyNfXwkHGsYhIFRnp6AeGRh9DU9XGQQsCNf0pBGuPOGoD5Huk2NiIs49ZOFkAocmXDnaRHGO NWk3iaG6FEMJCD6nUDAcHB1gTR7hYJEoBZBePwHtJD NDYA7HDMGqKIBlgYHvAUKkWGOSFI8DFFtqNEH7SUJiubXudCMnHFgbQL7FZFRaeuOzUCtpHKHTDZz+Pg 2FRZ2le7ZtNTfoVXVdGX3ksd0RSWfWNkPbO9B8cFLsU6R2GRhiSy3OFZKcGXDcCCxpBJPVKYvkPL2ASD 4ftsG8DA5DlUMqGJJiASRvoBHtBXh6C38jpTJdWLhp BM9OTFC+Lola+Ub3JOMMlVLXgEDWnEnEsULFSInPvX5XkQ8JOf6NeI1MbCY36zAvuoxVgMNkiJY8PHQ3h AHCxDPVJZS2AlTCjaB5xqmEfGBShGPJTEnLiW28ckNByZXFnCIT3UKTsXh9DMZJlC5SyxnPbdYudfoNh XTOwOQBZCZ1SMPahjbMnkJVdtTafAN37bUvmTR5DQn 5THtGaQX2gtp1FxHLzCt5FQBMyZq4DXNVoTCSmCOTfLNG8YMXpFoRgNCiaVVTvUMNyOBF7NYNhTYUsMW 9HAeZtSBClGIuwAkNhMPDiFHRmhj3QHIKgPUKfBOy0ReTqNRNoNFHuRCpyIGMlOURwESX2TEPoIVFlSS 9GSlQoJSZnIXHdOIXjZCWtORSvfy5TSSKwOESbYjXa MPUyAMAkTTWtAHukIALqQYIxCxT2LHMdHKGkOL3QXlKwSLXdHTY9QoTpOWPvYYObno4VBBMuFPZzIhM9 STQvVYXzXISbKRokGNVrAXK3XXc3HATkCLLdVV5IFvAmCJIbANF4JKKmVYWvKTJvgf5TVCIrCEMjSUz1 XeHpWVHlKMChNDrsSRAoUJE3WkFnJBNuXOAuUY3IZn WeEGSoOJH3KBrjBVUrULLxen0IKWXnTPIpPuh5QbUtTBRiIJDpVRwuMBZgQIF0BGA5CDXdUTIfHY0TRz KaNTZvWCjuKRRfXVSqLCYpcv9NSFUpSQEzVuR3FuVcCWVcFYZkKKqjALSbVXH4HMubOQTaUSGtQY0WXi IyDLHqXEjtQlSxMQFpVPNjsf2SCBRwNWKgPENyBHOr GUCrQPDrQSg6dcFesPOmKYo2XB3AH2UmajQuAiEUAe6Uu492SQEpOCMfXd3DU8skWy5vYQXzDRNTCa6N DWm5YONcUJM6ZHD9ElQgRWl6XoBeU2C0GNW2MpUdDAZtKIm+VTgyHQL5UdQdJxcaE0VlWwjlTHKgKzBo BJZ6EmL1ACHsNU0nBIBTJk1+EBivrYMnzAsxWNDEOvN1YYE4OUwgASIEDb5X ID Date Data Source [id number] 08/09/2020 08:06:[address] [facility]: Dawn orlando [...] is being seen for a follow-up with . Interval History: The patient is a 65-year-old [...] Propranolol HCl - 60 MG Oral Tablet;Therapy: (Recorded:[id number]) to Recorded PROzac 40 MG Oral Capsule;Therapy: (Recorded:[id number]) to Recorded Tylenol TABS;Therapy: (Recorded:[id number]) to Recorded Vitamin B Complex TABS;Therapy: (Recorded:[id number]) to Recorded History of anemia (V12.3) (Z86.2) [...] performed on 05/13/2020 is remarkable for some tldi-eq-pjhnuoac central canal stenosis at the L3-4 and L4-5 levels due in part to ligamentum flavum hypertrophy but mostly diffuse degenerative changes. There is right-sided neural foraminal narrowing at L4-5 due to facet hypertrophy. This is essentially unchanged since 07/2019. 1. Lumbar stenosis with neurogenic claudication (724.03) (M48.062) 2. Lumbar radiculopathy (724.4) (M54.16) 3. Chronic low back pain (724.2,338.29) (M54.5,G89.29) 1. Block (Transforaminal) ([facility]) Referral Procedure Procedure Status: Hold For - Scheduling Requested for: [id number] try to make this injection for 08/29 [...] 7 days after procedure.Block : Transforaminal (steroid)Professional Electron Beam Welder Setter needed for block? : NoFront Desk Reminder: [...] day? : N/A 3. Orthopedic Spine Surgery ([facility]) Referral Evaluation Evaluation Status: Hold For - Scheduling Requested for: [id number] get stenosis procedures approved through private insurance. Considering SCS but need to rule out roll for surgery.Request Surgical opinion: : Provider's RequestPrevious spine surgery : Patient has not had previous spine surgeryAvi KRAMER's ([facility]): : Eyal Vigil MD Patient was counseled on all of the following: Medications: We will not start any new medications today. DIRECTOR QUALITY ASSURANCE was consulted by my designee and I [...] referring her to Dr. Eyal Vigil at [facility] for a surgical consultation. This is [...] to refer to Dr. Eyal Vigil at [facility] to prognosticate and see if surgery [...] table, the patient is at low risk. [facility] Scribe Detail Form: Meena De Santiago . [facility] Electronically signed by : Esa Amin MD; Aug 09 2020 8:06AM EST (Author) Name Value Range Interpretation Code Description Data Kelle rce(s) Supporting Document(s) ID Date Data Source [id number] 07/14/2020 08:30:00 AM EDT [facility] Name Value Range Interpretation Code Description Data Kelle rce(s) Supporting Document(s) [facility] VHBTHy3qLaMNKaFpLJIsEeyZRZnmJEjpTPRiN7O0FTobQk5XINaeyoLtWYJoFv3+MTDmLY1wuu8aEIOo gMy [file] u5DBsIb6dojnvJOKpbz8ZBGnLAyHYLx3GFRbP3PGVkOVb/5k/vzBJCxiOmI3RPt/forger helper+H31M4Tmr3+33 [file] Packing Shed Supervisor+x0UdyicdPfuXW6Fv89yeRq5bZf38xxXnvDwOUbTFwgJIgxyglo0YvijQ31BKvwaUVRQOH81Tm7blM [file] RPyNRMfg/QKTd14zrdY5t3m0vSdDQd6i/YynPepV1MNtd+Q3nmAdKZAcv/Chloé/e6tBn4gU+Tpb0gonDH [file] vp organizational development/BGhjVdI7RZU1mkt5TfWfhX5MfknE5yk0NCtSJXw [file] 2ccwJDekPfgcBCW5CmH3r4ONzKKZGMxS7V1HK3/senior digital designer [file] YY0xmowBDUdxLPZl8J/trsJ1ETI66ImfMqt77DGuTKf1G0r+fkiDm8Os/Tati/5qhtcal1//I3liieNDSm AcLMN3hcZuoA0zvxAuRxaCQXFtYTKsBrnDZRtnANNn Y7WwQNWlGo9ijALiFJ1SEjIZKrHhADGsNPL3JCDuKAAiFRRiRu7QjDeqSBIbZtJPEaYcBBL7eaFhfI6r deCwRdoAEWTeRUSmMrmZNHpzZzuhuOKzFX2BzCI9FUJoP20rEJ0UNA9dtDxtXfKyJYEmLai8J8OyYyT4 ENA3MxG9JsC3FCvCERWHN3MNMWO1NWI3Sk1sTAjYNV DRNIqBCHkNNMksNIDIVEGAPXP0HGY0VLM3KXb4Om2cLu1hxJUfALTgNo3HnlKoAGLsBGPKS1JfmfFxFK BgFLagRRXyIYXpEk9PGEieSHLtYD2+ZuD2lzEdhZ9XrLekWSYj5MLcATRrUKSUWB2ExGhVWDP7rES7eB KQesIAeoVUtt8uZBn08nXByAXx9eXG2JWvZZDqpykr SDfnwdTuvNBhZY1VIdLxNJ8qiy3NMqL9XWG2vJYxUe3WKCz2FHW8UBztZOCGXw== ID Date Data Source [id number] 07/01/2020 08:30:00 AM EST [facility] ([facility]) Name Value Range Interpretation Code Description Data Kelle rce(s) Supporting Document(s) Cholesterol [Mass/volume] in Serum or Plasma 245 mg/dL 131-200 [facility] ([facility]) Cholesterol in HDL [Mass/volume] in Serum or Plasma 113 mg/dL 35-60 [facility] ([facility]) Triglyceride [Mass/volume] in Serum or Plasma 46 mg/dL 30-150 [facility] ([facility]) Cholesterol in LDL [Mass/volume] in Serum or Plasma by calcu lation 123 CALC 50-159 [facility] ([facility]) ID Date Data Source [id number] 07/01/2020 08:30:00 AM EST [facility] ([facility]) Name Value Range Interpretation Code Description Data Kelle rce(s) Supporting Document(s) Glucose [Mass/volume] in Serum or Plasma 88 mg/dL 74-99 [facility] ([facility]) 100-125 mg/dL PRE-DIABETES/FASTING >126 mg/dL DIABETES/FASTING Urea nitrogen [Mass/volume] in Serum or Plasma 19 mg/dL 7-18 [facility] ([facility]) Creatinine 0.6 mg/dL 0.6-1.3 [facility] Sodium [Moles/volume] in Serum or Plasma 141 meq/L 136-145 [facility] ([facility]) Potassium [Moles/volume] in Serum or Plasma 4.7 meq/L 3.5-5.1 [facility] ([facility]) Carbon dioxide, total [Moles/volume] in Serum or Plasma 28 meq/L 21 -32 [facility] ([facility]) Chloride [Moles/volume] in Serum or Plasma 104 meq/L 98-107 [facility] Calcium [Mass/volume] in Serum or Plasma 8.9 mg/dL 8.5-10.1 [facility] ([facility]) Glomerular filtration rate/1.73 sq M pre dicted among non-blacks [Volume Rate/Area] in Serum or Plasma by Creatinine-based formula (MDRD) Laboratory test result [facility] ([facility] ) Glomerular filtration rate/1.73 sq M pre dicted among blacks [Volume Rate/Area] in Serum or Plasma by Creatinine-based formula (MDRD) Laboratory test result [facility] ([facility]) <content>CHRONIC KIDNEY DISEASE STAGING PER NKF</content>
<content></content>
<content>STAGE I & II GFR >= 60 NORMAL TO MILDLY DECREASED</content>
<content>STAGE III GFR 30-59 MODERATELY DECREASED</content>
<content>STAGE IV GFR 15-29 SEVERELY DECREASED</content>
<content>STAGE V GFR <15 VERY LITTLE GFR LEFT</content>
<content>ESRD GFR <15 ON FAMILY MEMBER CARETAKER</content>
<content></content> ID Date Data Source [id number] 07/01/2020 08:30:00 AM EST [facility] ([facility]) Name Value Range Interpretation Code Description Data Kelle rce(s) Supporting Document(s) Hemoglobin A1c/Hemoglobin.total in Blood 6.1 % [facility] ([facility]) Lab Result Notes: Pre-Diabetes 5.7 - 6.4 % Diabetes = or > 6.5% Glucose mean value [Mass/volume] in Blood Estimated fr om glycated hemoglobin 128 mg/dL 60-110 [facility] ([facility] ) ID Date Data Source [id number] 07/01/2020 08:30:00 AM EST [facility]) Name Value Range Interpretation Code Description Data Kelle rce(s) Supporting Document(s) Leukocytes [#/volume] in Blood by Automated count 4.5 x10*3/UL 4.1-10 .9 [facility] ([facility]) Erythrocytes [#/volume] in Blood by Automated count 3.84 x10*6/UL 4.2 0-6.30 [facility] Hemoglobin [Mass/volume] in Blood 11.3 g/dL 12.0-18.0 [facility] NOTE: RESULT VERIFIED. MCV 87.1 fL 80.0-97.0 [facility] ([facility]) Hematocrit [Volume Fraction] of Blood by Automated count 33.5 % 3 7.0-51.0 [facility] MCH 29.3 pg 26.0-32.0 [facility] ([facility]) Platelets [#/volume] in Blood by Automated count 328 x10*3/UL 140-440 [facility] MCHC 33.7 g/dL 31.0-38.0 [facility] ([facility]) Erythrocyte distribution width [Ratio] by Automated count 13.3 % 11.6-13.7 [facility] ([facility]) Lymph % 41.8 % 10.0-58.5 [facility] ([facility]) MPV 7.2 FL 7.8-11.0 [facility] ([facility]) Mid % 8.7 % 1.7-9.3 [facility] ([facility]) Neut % 49.5 % 37.0-92.0 [facility] ([facility]) Neut # 2.2 x10*3/UL 2.0-7.8 [facility] ([facility]) Lymph # 1.8 x10*3/UL 0.6-4.1 [facility] ([facility]) Mid # 0.5 x10*3/UL 0.1-0.6 [facility] ([facility]) ID Date Data Source [id number] 07/01/2020 08:30:00 AM EST [facility] ([facility]) Name Value Range Interpretation Code Description Data Kelle rce(s) Supporting Document(s) Hemoglobin A1c/Hemoglobin.total in Blood Laboratory test result [facility] ID Date Data Source [id number] 06/24/2020 12:00:00 PM EST [facility] ([facility]) Name Value Range Interpretation Code Description Data Kelle rce(s) Supporting Document(s) TP Reflex HPV ASCUS Laboratory test result [facility] ([facility]) SPECIMEN PART------ A. Cervical, Endocervical, ThinPrep Pap (Assistant Project Manager) CYTOLOGY HX-------- Date of Last Menstrual Period: POST MENOPAUSAL Other Information: Post-menopausal HPV Positive: 11/11/19 Previous Pap ASC-US: 11/11/19 FINAL DIAGNOSIS---- INTERPRETATION: Negative for Intraepithelial Lesion or Malignancy. SPECIMEN ADEQUACY:Satisfactory for evaluation. Endocervical/transformation zone component present. TP Reflex HPV ASCUS Laboratory test result [facility] ([facility]) ID Date Data Source [id number] 06/15/2020 10:45:00 AM EST [facility] Name Value Range Interpretation Code Description Data Kelle rce(s) Supporting Document(s) Follow Up [facility] WUOJWy1pPlCDNnTiSEGiUxqZPPjxCPneNXYcX2N1CEvoAp2BVAscqiBcFLDxYl6+QGGbWG5sac3yQNUs gMy [file] UqIGLo1RI0GOtdUVvxzsGcqMxMlClpT3YxD6bD8uI7IJ3jcLz8J63/service consultant//AwXrskTw0yk6tMEHJiv3/ [file] Mary Ann/tinWV30x+mX5vbCiVttFh+kXIhsoDZl8fLOM+cLh9UAQgUcUwMC1v3hPl54jk1o20chfUOBDjim izUfX7vpYYOcj6kLx6TfrZ5PEEj6vgS/XwedapsukRFGFuKVcA884LuUTT9/RbM4d2A5XoKeBq9+9PrO ISvsvWj1fO5AiCuwagNDj98pB5WTFZi7qfHuMoEFDZ 0UHHKqhhM8pus/r+KAjMUEDu8daYHdnFj0/rZy7sfgU3ZLV1D85SmPMwuvq/VI6nkv982I/V8i0MkS12 W1jGg8hPqluX5VMkkK+technical training manager+Sfs5EKG/xLXrKEKpYyFxfzmEOH5nO3MPxs2AWCk0YLOkxmvAgG9XtuN12 [file] 7zPyfXNPoUe0MdHY/hkBXeyOLAqWtZu+avionics systems repairer/+OQkn9mfZ3G/jXbZluAiu+ZjJF+lEBStIctD5eDnOlI Oe1cqwndWZxgpFoP7xqgOexiX0MozaX07hB5JF6dQZRWTbLIXhUj9+5cSU1ZRq5Cy5q43XZyXnE39JVH WUBMvWiHoqrfkthFEYddxisqz+9stsV5L0qV38ron+ MN90fyxSMGchYXeO19GS4IW/UQHkq+GazSrxOF/6JNUjgmeQcRjOI7eNOr20O4xvB7HBd+DBz3mBaeZ6 Z+kduXxaMt8QXdE5IqA6o1nVj/cf/QWxf0M4i5HvcuTPpZHirwnyC1STLqvcayXMpV0mp2CAb+ra6QpB w17p7SYbVadFtrd1AaTaGlYOuot3UWpV1PBvi5tcKR xNV7IEFLov0hnEN/XKDWdzF9e13nRS6/V2ofnks7U/Cz+wd/7Lz9CWkaxt0disvgPBSqVe7YI4gzImsG QTyJKsqp62jifKx0e7NPnzFceATyoRPkNaqtvZzAnVLcBESQBRhEvtPD737DHA6uTQR9I19f5Bi/Andriy [file] white lead grinder+M1vyTO3ItONfaOex1xsyAnqnKHn5QkTdD30itCKKyxeaaFkNkc27K87UO/eosid7QIemRvpegIF5 [file] p+Lm07i07Ke2N9r+F2Sl2APD5e6D7Uy8yKRFR4i58e MAkjc7RmRTXA9EnFbq+NLX05szQMtw3CxG6kXNXgbY+Fg/e6bZ2DRw1Q+mWKZrPaky9k4dB+RX+7x+8+ UqKPMDLfbnR6DPFfTZL0tG2OYuY9/paET4OGj6hFXIBMZrq3ddyDtXDaIWmNZiq35I41/r+f6lEMAPzj pUtkpbhSC93Y7iBwwQz1MptZhYvQCi8vsXu349FkY/ 7KFZ+HDHw/LGKQgi53QvcriHQ22e9QAKkqxBgRGsDSTTQ0PYglnLhow+nDMCvfkCYnMSiw6IXflUo9Ed mngpjT16PULjkFaoRtDx38twxhG+1ld+ORDD4C6clRE177WHNVphvVKj5CtuIrpHdkkFLhe8knufNoj0 Kfq92gnABGh3zVKOpkk3A1R49O2sQcb+RNV5GXg3Ek aKyKQ2SphVXtv+Sj97/pz3yXfn3eG1pbNTtO+uTv1OpiPH6oiiFnl5tXvvUwIqiium5PIUm/WRVjXI8h hL2diNjQoGpUtpzO/pDQbqsn7k22DHpLtInvF/BPO/L8PyGpEpawORiVdAFpa6VII+Q0aqYR/JhnNnBc 2gFS2Xzj/8SOND4X+FlPx7I7u9M89qkESm8+Tatum+si yl+m+u84n3YyAigsgamrcvkG4OiDqhQ7blaco1mJBY1ZoO9JriHG2aKyYISI2rmiRVRmUKi4+JOpYiPE QrGPfY0IepaD/22jo/OzPbKbWoIsOkN3IlgICcFGtn7ye1bNA3t8Qlf+OQWa4vCeO0woJRN69J9st60m uVaS8DISrYIZkh207o3Wax9unKcCu0muHKT+YGRszW GKPOwYLG4X6CJKI5qBh4ssDnpfFE6Zsh+txwrdCyzDOtcXnTOc+iWt3kUIs+sNco5nri5eDjSecIdrIx pa0p/2Zmbr0q1winrxsyIKPmY3EnwypwzblneWecWK1DA0ehTT/8JDfhZzqzpk44nQ4OB0LfE2QWfocU sgM/RDc3EegCheoTmB1Ei6fvCkj8THfZ9bnvPvRSxY gqa8WEkIOBe2GYLzaJ1x6wP7J/FMwgNhhxC+xZgOBMr987usdeAcObQPZXh8gjwcHLNcxHKxlvpDLNws +kV248NTUzDhiRBA03+LloR7O4WwagS9stfIIxUhR5Gj+HTpOkPl7l7e0ZeAav7CwUiM2p9EXkm4xKoS +iZSk4UY8uzVf/Cwgt4HVJoUf/XqJxLMtrqe9sodwm tw6y89qYBRrM1KqkFH0AZeVMVhTrUHBT4Hi4Io90fCmNCii19RKIgBuNgKuXfJFrLUtyw0i5lashOPcs adgHGcc3QA+lrMPNKewnU4z9r6yy1YugRhQ2xMm9bpa1nJKhOIh+AZ2hPC+/OXf+dulce maria/eKONtaWvhIx [file] +/J+45tL0e1l+Packing Shed Supervisor+dVz5EvkbGCo8nLwNJglhAauL93gGkZvvxgqFfDxNTNJ762PVgRetDSbewR3QXELZ [file] organ grinder/6K4ktcx12/h9BWvo/AwQ8cWzu256VlDUNuBP5V8mf3u61IqmX/i/4v+D/gv8L/i/4/wnw/x0sNK sfZOrjb0lzuui7sZXKf5EU+HcJOm5VAjwstIOEecqt 2Qfh37+1SJ6o73u+Rw59/JGcXlPuZzIJK+CJD9dpLctRjA5mJqDOljM6dn8aT8mxq+Hn0LoPEXgbJkRK CRz2B4Pddu0LlPD8OhhN6DTWdL/ZreCOE6/PH5CaiMQ51vkxN1mL6Nuk6KvmpdkaFCgqBaQTDRM5eH64 btCiBY+Sos22Q4pHprcIncFcslyH8x7BBEo0yUsjHF 2I9IpxlXBaBzHhNa5XFzTApLdTj1iFCWdxeF2Pai431tRMggN04/BJ6i7nDjbN05TyEARHpW+LB9Dbwm iki+e3IyoPNRgM1M9zNxoo3SZ9vkUf7cfCBNFTyqp+I05z0eg65VoJ6yhu9oEn6OJWtdbwMyTCUePUy3 e4R0g6KXnWIOWOOcSwF60rU7mlYKrCTMKouH79Z38g FcBn5zhlHcMVSRPAlbXxI2iaViWAPy6x7MiCNmiQgFsmwBWUyYoXuchYKmrtxRcoyZkiY3D8BftVKCZt F/2Hmt4T5xENPZldjAg/2f3s616DfBGUDPyLGvLGZpOBV7N0WAnSATbykociOsxOGsNt+rvP+Z8Ju7F6 42kVJmqCCRjVR7dG4yLVh63Pb57fiD+8cnpuhLO0zn ZRJEO/Horn0JVwmWUmTC04QUybIYj/XS9h8swSLwr8Kge9G9+X6V+2Xp4hSnMFkyz88i3sGJcxs2y/43 adF2X4H+o1E8LC91Kq9maQsvmyOwHxc5AqkTjXiJwOaXKRx9hlTsCAUYtUddLWBrRvI45aAjlOvredcg B+53n0HPG8c68/Wv+2q92Op4rwRzuSad9gU602w1j3 [file] GWvJPVd68SH1Sdl/Computer Numerical Control Operator/8n0vmM2P9/nIHcAD/+vXp/D [file] +LzMuPWb0vCCGzvAhYcGIznLQ4j1HNiSjc/CAA [file] SvlHLLktiNZpyHnrAADIFci4GuI0Qb5KIYYZS6X= ID Date Data Source [id number] 05/10/2020 03:03:00 PM EST [facility] DATE OF EXAM: 05/06/2020ULTRASOUND GUIDE [...] psoas tendon sheath. [facility]. Professional interpretation performed by [facility] at [facility] .End of diagnostic report for accession: [id number] Interpreted: Ayad Ceron MDTranscribed: 05/10/2020 12:18 PMSigned: 05/10/2020 03:03 PM Ayad Ceron MD ------- [facility] ACC # [id number] BILL # [id number] 2MEM Name Value Range Interpretation Code Description Data Kelle rce(s) Supporting Document(s) ID Date Data Source [id number] 04/27/2020 04:16:15 PM [facility], PCName: Dawn Lucas: 1955Provider: Letty Amin: 04/27/2020 Chief ComplaintLow back [...] is requesting a psoas injection, which Ms. uBtts will be obtaining through [facility]. She denies any true lower [...] Propranolol HCl - 60 MG Oral Tablet;Therapy: (Recorded:[id number]) to Recorded PROzac 40 MG Oral Capsule;Therapy: (Recorded:[id number]) to Recorded Tylenol TABS;Therapy: (Recorded:[id number]) to Recorded Vitamin B Complex TABS;Therapy: (Recorded:58Fso2734) to Recorded Past Medical History History of [...] radiculopathy (724.4) (M54.16) Plan 1. Block (MILD) ([facility]) Referral Procedure Procedure Status: Hold For - Scheduling Requested for: patient currently on a biologic? : NoIs your patient on an Anticoagulant -OR- have Coagulopathy...? : NoDoes patient take aspirin, aspirin products and/or NSAIDs.....? : NoSedation : YesLaterality : BilateralArea: : LumbarProcedure : MILDProfessional Electron Beam Welder Setter needed for block? : NoFront Desk Reminder: : Schedule SP MILD 4-5 weeks with perf MDDo you need more time than 30 minutes? : Add 10 minutesChoose DrLisa : Esa Amin weight: SODS: </= 450 [...] Risk : Low Risk 2. MRI MILD ([facility]) Referral Treatment Treatment Status: Hold For - Scheduling Requested for: MRI at: : [facility] Patient have SCS...? : NoFront Desk Reminder: : I will call pt with results.Is this to rule out a mass? : NoHas the patient had Lumbar surgery? : NoContrast : Without ContrastRe quest Type : Authorization (Private)MRI Body Part : L-Spine Patient was counseled on all of the following: Medications: The patient will not begin any new medications today. DIRECTOR QUALITY ASSURANCE was consulted by my designee and I [...] sending her for a psoas injection at [facility]. We will obtain an updated MRI scan [...] . (iScribes) Signatures Electronically signed by : Eas Amin MD; Apr 27 2020 4:16PM EST (Author) Name Value Range Interpretation Code Description Data Kelle rce(s) Supporting Document(s) ID Date Data Source [id number] 05/03/2020 08:33:42 AM EST [facility] PC[facility]: Florencia LopezOB: 1955Provider: Mgea Torres: 04/26/2020 Reason For VisitFlorencia Butts is here today for right hip. Florencia Butts is an established patient here for follow up. Surgery DOS: 10/06/2018. Surgery Description: right hip replacement. The patient has not had a course of physical therapy for greater than 4 weeks. The patient has not had a course of NSAIDs for greater than 4 weeks. 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 Plan Start: methylPREDNISolone 4 MG Oral Tablet Therapy Pack (Medrol); Take as directed ,please label ONE package A, the other package B Rx By: Rob Torres; Dispense: 0 Days ; #:2 X 21 Tablet Pack; Refill: 0;For: Pain of right hip, Status post right hip replacement; SOFÍA = N; Verified Transmission to [facility]; Last Updated By: Elpidio Junior; 04/26/2020 9:12:47 AM Fluoroscopic Guided Procedure (SOS) Referral Treatment Treatment Status: NeedInformation - Financial Authorization Requested for: [id number] Ordered;For: Pain of right hip, Status post right hip replacement; Ordered By: Rob Torres Performed: Order Comments: Psoas Injection at [place] Due: 10May2020; Last Updated By: Nai Morel; [...] guided injection into the right hip at [facility] on the off chance some of her pain is coming from the hip and not the back.We will set this up. Signatures Electronically signed by : Florencia Diaz, ; Apr 27 2020 4:53PM EST Electronically signed by : Rob Torres M.D.; May 03 2020 8:33AM EST (Author) Name Value Range Interpretation Code Description Data Kelle rce(s) Supporting Document(s) ID Date Data Source [id number] 03/14/2020 11:15:[address] [facility] PCName: Dawn orlando RenziDOB: 1955Provider: Amber BillGarett: 03/10/2020 Chief ComplaintPatient is here for right anterior thigh and low back pain Chief Complaint 2Hip pain NYSW VAS PAIN Established: YAKOV completing section: [place] History of Present IllnessRecent test/procedures: Patient has had the following tests/procedures since their last visit: Xray on hip at [facility]. The patient was last seen by a [facility] provider on 01/13/2020. At today's visit patient presents with their Self Implanted Devices The patient does not have any implanted devices. The patient does not have a glucose monitoring device. Patient is currently working. 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 The patient is being seen for a post block examination. The date of onset of symptoms is approximately Years. INTERVAL EVENTS: include . Patient today for follow-up of right anterior thigh and low back pain. She was also seen at [facility] on 03/01/2024 hip pain. Total [...] Propranolol HCl - 60 MG Oral Tablet;Therapy: (Recorded:[id number]) to Recorded PROzac 40 MG Oral Capsule;Therapy: (Recorded:[id number]) to Recorded Tylenol TABS;Therapy: (Recorded:[id number]) to Recorded Vitamin B Complex TABS;Therapy: (Recorded:[id number]) to Recorded Past Medical History History of [...] Status: Hold For - Scheduling Requested for: [id number] apt w/ dr amin after 04/22/2019 d/t ins jessica. Angelique Bill FNProfessional Electron Beam Welder Setter Needed? : NoType of Follow-up needed: : [...] program and is encouraged to continue. - SUPERVISOR CHEMICAL: The patient was counseled on the following: treatment plan and future treatment options. Discussion/SummaryPatient today for follow-up of right anterior thigh and low back pain. Seen at [facility] on 03/01/2020 for hip pain. [...] defers. Also offered L1/2 PHILL - defers. MyChurch DisclaimerNYSWC MyChurch Disclaimer: This document was dictated and electronically signed using SurIDx software. A reasonable attempt at proof reading has been made to minimize errors. Please call with any questions. Signatures Electronically signed by : Angelique Bill NP; Mar 10 2020 10:06AM EST (Author) Electronically signed by : Nubia Perkins MD; Mar 14 2020 11:14AM EST Name Value Range Interpretation Code Description Data Kelle rce(s) Supporting Document(s) ID Date Data Source [id number] 03/02/2020 02:00:55 PM EST [facility] PC[facility]: Florencia LopezOB: 1955Provider: KimelyBam machadoGarett: 03/01/2020 Reason For VisitFlorencia Butts is here today for Right hip. Florencia Butts is an established patient here for follow up. Surgery DOS: 10/06/2018. Surgery Description: right hip replacement. The patient has not had a course of physical therapy for greater than 4 weeks. The patient has not had a course of NSAIDs for greater than 4 weeks. 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 A reasonable attempt at proof reading has been made to minimize errors. Please call with any questions. Signatures Electronically signed by : Shelby Mtz PA-C; Mar 01 2020 10:02AM EST (Author) Electronically signed by : Rob Torres M.D.; Mar 02 2020 2:00PM EST (Author) Name Value Range Interpretation Code Description Data Kelle rce(s) Supporting Document(s) ID Date Data Source [id number] 02/01/2020 12:30:00 PM EDT [facility] Name Value Range Interpretation Code Description Data Kelle rce(s) Supporting Document(s) SARS coronavirus 2 RNA [Presence] in Res piratory specimen by PADMINI with probe detection [facility] This lab was ordered by [facility] and reported by [facility]. Procedure Social History Code Duration Value Status Description Data Source(s ) Smoking 03/17/2021 05:06:23 PM EST Never smoked tobacco (findi ng) completed Never smoked tobacco (finding) CHARLIE (Ramiro Lima MD [facility]) Alcohol intake 01/25/2021 12:00:00 AM EDT Current drinker of al cohol (finding) completed Current drinker of alcohol (finding) [facility] Tobacco use and exposure 01/11/2021 12:00:00 AM EDT Never used co mpleted Never used [facility] Smoking 01/11/2021 12:00:00 AM EDT Never smoker completed Never s moker [facility] Alcohol intake 01/11/2021 12:00:00 AM EDT Current drinker of al cohol (finding) completed Current drinker of alcohol (finding) [facility] Smoking 06/24/2020 12:00:00 AM EST Patient has never smoked co mpleted Patient has never smoked MEDENT ([facility]) Smoking 04/08/2020 08:26:45 AM EST Never smoked tobacco (findi ng) completed Never smoked tobacco (finding) CHARLIE (Ramiro Lima MD [facility]) Vital Signs ID Date Data Source UNK Name Value Range Interpretation Code Description Data Source(s) Systolic blood pressure 104 mm[Hg] 104 mm[Hg] [facility] Diastolic blood pressure 63 mm[Hg] 63 mm[Hg] [facility] Heart rate 55 /min 55 /min [facility] Body temperature 36.83 Vira 36.83 Vira [facility] Respiratory rate 16 /min 16 /min [facility] Oxygen saturation in Arterial blood by Pulse oximetry 96 % 96 % [facility] Body height 157.5 cm 157.5 cm [facility] Body weight 78.926 kg 78.926 kg [facility] Body mass index (BMI) [Ratio] 31.83 kg/m2 31.83 kg/m2 [facility] Systolic blood pressure 114 mm[Hg] 114 mm[Hg] [facility] Diastolic blood pressure 60 mm[Hg] 60 mm[Hg] [facility] Heart rate 60 /min 60 /min [facility] Body temperature 36 Vira 36 Vira [facility] Respiratory rate 17 /min 17 /min [facility] Body height 157.5 cm 157.5 cm [facility] Body weight 78.926 kg 78.926 kg [facility] Body mass index (BMI) [Ratio] 31.83 kg/m2 31.83 kg/m2 [facility] Oxygen saturation in Arterial blood by Pulse oximetry 98 % 98 % [facility] Systolic blood pressure 128 mm[Hg] 128 mm[Hg] M EDENT ([facility]) RT Arm Diastolic blood pressure 76 mm[Hg] 76 mm[Hg] MEDENT ([facility]) RT Arm Heart rate 51 /min 51 /min MEDENT ([facility]) Body height 61.75 [in_i] 61.75 [in_i] MEDENT ([facility]) '" Body mass index (BMI) [Ratio] 32.4 kg/m2 32.4 k g/m2 MEDENT ([facility]) Body weight 175.50 [lb_av] 175.50 [lb_av] MEDEN T ([facility]) Oxygen saturation in Arterial blood by Pulse oximetry --post exerci se 91 % 91 % MEDENT ([facility]) RM Air Systolic blood pressure 134 mm[Hg] 134 mm[Hg] M EDENT ([facility]) Diastolic blood pressure 78 mm[Hg] 78 mm[Hg] MEDENT ([facility]) Heart rate 66 /min 66 /min MEDENT ([facility]) Body weight 170.00 [lb_av] 170.00 [lb_av] MEDEN T ([facility]) Body temperature 97.5 [degF] 97.5 [degF] MEDENT ([facility]) Body height 61.75 [in_i] 61.75 [in_i] MEDENT ([facility]) 5'.75" Body weight 171.12 [lb_av] 171.12 [lb_av] MEDEN T ([facility]) Body mass index (BMI) [Ratio] 31.5 kg/m2 31.5 k g/m2 MED[facility] ([facility]) Body mass index (BMI) [Ratio] 31.7 kg/m2 31.7 k g/m2 MEDENT ([facility]) Diastolic blood pressure 64 mm[Hg] 64 mm[Hg] MEDENT ([facility]) RT Arm Heart rate 64 /min 64 /min MED[facility] ([facility]) Body height 61.75 [in_i] 61.75 [in_i] MEDENT ([facility]) 5'1.75" Systolic blood pressure 102 mm[Hg] 102 mm[Hg] M EDENT ([facility]) RT Arm Body weight 172.00 [lb_av] 172.00 [lb_av] RULAEN T ([facility]) Patient Treatment Plan of Care Planned Activity Planned Date Details Description Data Source (s) Bisacodyl 10 MG Rectal Suppository 01/26/2021 07:00:00 PM EDT [facility] Magnesium Hydroxide 80 MG/ML Oral Suspension 01/25/2021 12:00:00 AM EDT [facility] Bisacodyl 10 MG Rectal Suppository 01/25/2021 12:00:00 AM EDT [facility] Acetaminophen 500 MG Oral Tablet 01/25/2021 12:00:00 AM EDT [facility] Oxycodone Hydrochloride 5 MG Oral Tablet 01/25/2021 12:00:00 AM EDT [facility] Docusate Sodium 50 MG / sennosides, [facility] 8.6 MG Oral Ta blet 01/25/2021 12:00:00 AM EDT [facility] Ondansetron 4 MG Disintegrating Oral Tablet 01/24/2021 04:20:29 PM EDT [facility] ondansetron (ZOFRAN) injection 4 mg 01/24/2021 04:20:29 PM EDT [facility] 2 ML Metoclopramide 5 MG/ML Prefilled Syringe 01/24/2021 04:20:29 P M EDT [facility] Mineral Oil 1000 MG/ML Enema 01/24/2021 04:20:29 PM EDT [facility] fentaNYL Citrate (PF) (SUBLIMAZE) injection 25 mcg 01/24/2021 04 :20:29 PM EDT [facility] Calcium Carbonate 500 MG Chewable Tablet 01/24/2021 04:20:29 PM EDT [facility] Aluminum Hydroxide 40 MG/ML / Magnesium Hydroxide 40 MG/ML / Simethicone 4 MG/ML Oral Suspension 01/24/2021 04:20:28 PM EDT [facility]
--- NOTE | 2021-04-02 03:43 | HPEPDOC ---
[facility] Medical History & Physical Date of Admission Apr 02, 2021 Date of Service: Apr 02, 2021 History and Physical CHIEF COMPLAINT: R SHOULDER PAIN S/P FALL HISTORY OF PRESENT ILLNESS: 65 year old F, with a PMHX of depression, head trauma with resultant hydrocephalus s/p MANUFACTURING ASSISTANT shunt (with numerous revisions), gastric bypass, presented to ER after she sustained a mechanical fall (tripped over slipper) and fell forwards landing on her R side. This resulted in severe R shoulder and R hip pain. She also hit her head on a door. She denies any chest pain, palpitation, vision changes, lightheadedness or dizziness at present or during time of fall. Patient underwent mitchell-CT. At this time final reports are not available [facility], however, reports are printed in ER, which I reviewed. Patient has a slightly displaced longitudinal fracture of the greater tubercle. Dr. Deleon was consulted from ER. Patient is to avoid any ROM or weight lifting. Patient was unable to be DC from ER due to pain in R shoulder. Patient will be admitted to hospitalist service and will be consulted by Dr. Deleon. PAST MEDICAL HISTORY: depression hydrocephalus s/p MANUFACTURING ASSISTANT shunt PAST SURGICAL HISTORY: Gastric bypass in 2007 tonsillectomy numerous brain/cranial surgeries at [facility] (s/p TBI, hydrocephalus, MANUFACTURING ASSISTANT shunt, brain cyst) L4-L5 disc fusion? 2 months ago at [facility] in [place], [place] SOCIAL HISTORY: remote brief smoking hx in college rare etoh use denies illicit drug use FAMILY HISTORY: reviewed with patient, no pertinent family history provided ALLERGIES: Please see below. REVIEW OF SYSTEMS: 10 point ROS conducted, relevant findings are noted in HPI HOME MEDICATIONS: Please see below. PHYSICAL EXAMINATION: VITAL SIGNS: please see below GENERAL APPEARANCE: patient in pain in bed, alert and oriented. HEENT: PERRLA, EOMI. CARDIOVASCULAR: RRR, normal S1, S2. LUNGS: CTAB, no wheeze. ABDOMEN: soft, non tender, no masses MUSCULOSKELETAL: R shoulder in sling, no ROM or WB per ortho. R hip tender to palpation . EXTREMITIES: R hand cap refill < 2 sec, ulnar and radial pulses 2+, no cyanosis. LE pulses 2+ bilaterally, cap refill < 2, no cyanosis. NEUROLOGICAL: no focal neuro deficits, speech clear, no facial asymmetry. LABORATORY DATA: See below. IMAGING: CT lumbar spine (12/11/21); 1. Status post fusion at L4-L5. 2. Degenerative disc changes and facet arthropathy with no significant spinal stenosis. There are varying degrees of multilevel neural foraminal stenosis. 3. Otherwise negative CT lumbar spine. No acute fracture or subluxation. CT C-spine (04/01/21): 1. No acute fracture or traumatic subluxation of the cervical spine. 2. Multilevel degenerative disc and articular pillar arthropathy. CT thoracic spine (04/01/21): - slightly decreased height T6-T9 with slight anterior wedge configuration of T7 and T8, appears to be chronic. - otherwise negative CT thoracic spine XR elbow: (04/01/21): no acute changes CT head wo contrast (04/01/21): no acute findings XR pelvis (04/01/21): - R hip prosthesis in position - s/p fusion at L4-L5 - MANUFACTURING ASSISTANT shunt extending into R pelvis - Mild degenerative change L hip - negative pelvis otherwise MICROBIOLOGY: Please see below. ASSESSMENT: 65 year old F, with a PMHX of depressions, head trauma with resultant hydrocephalus s/p MANUFACTURING ASSISTANT shunt (with numerous revisions), gastric bypass, presented to ER after she sustained a mechanical fall (tripped over slipper) and fell forwards landing on her R side. Patient has a fracture of the R greater tubercle. Patient will be admitted to hospitalist service and will be consulted by Dr. Deleon. . PLAN: #R shoulder pain 2/2 R great tubercle - s/p mechanical fall. neurovascularly intact. - denies chest pain, palpitations, SOB, lightheadedness - CT imaging Vrad reports reviewed in ER chart - Dr. Deleon was consulted from ER. - patient is admitted for pain control - start morphine 2 mg IV q4h prn for breakthrough pain - norco 5 mg q4h for moderate to severe pain - bowel regimen - NPO for AM in event of OR. #Hx of TBI/hydrocephalus/s/p MANUFACTURING ASSISTANT shunting - follow up with neurology and neurosurgery #Chronic back pain s/p L4-L5 fusion - follows at [facility] - has a hx of frequent falls, improved after fusion - PT eval ordered. DVT ppx: SCDs. TEDs. Vital Signs Vital Signs Date Time Temp Pulse Resp B/P (MAP) Pulse Ox O2 Delivery O2 Flow Rate FiO2 12/12/21 02:16 59 16 120/68 (85) 99 Room Air 04/01/21 21:16 98.0 Laboratory Data Labs 24H Laboratory Tests 2 04/01/21 21:29: Immature Granulocyte % (Auto) 1.3, Neutrophils (%) (Auto) 54.2, Lymphocytes (%) (Auto) 33.4, Monocytes (%) (Auto) 8.3H, Eosinophils (%) (Auto) 2.2, Basophils (%) (Auto) 0.6, Neutrophils # (Auto) 3.4, Lymphocytes # (Auto) 2.1, Monocytes # (Auto) 0.5, Eosinophils # (Auto) 0.1, Basophils # (Auto) 0.0, Nucleated Red Blood Cells % (auto) 0.0, Anion Gap 7L, Glomerular Filtration Rate > 60.0, Calcium Level 8.8, Magnesium Level 2.3 04/02/21 01:15: Coronavirus (COVID-19)(PCR) NEGATIVE, Influenza Type A (RT-PCR) NEGATIVE, Influenza Type B (RT-PCR) NEGATIVE, Respiratory Syncytial Virus (PCR) NEGATIVE CBC/BMP Laboratory Tests 04/01/21 21:29 Home Medications Scheduled Fluoxetine Hcl (Fluoxetine HCl) 20 Mg Capsule, 40 MG PO DAILY Propranolol HCl (Propranolol HCl ER) 60 Mg Cap.sa.24h, 60 MG PO DAILY Scheduled PRN Acetaminophen (Acetaminophen) 500 Mg Tablet, 1,000 MG PO Q6H PRN for moderate pain Allergies Coded Allergies: No Known Allergies (Unverified , 04/01/21) A-FIB/CHADSVASC A-FIB History Current/History of A-Fib/PAF?: No KAMILA SMITH MD Apr 02, 2021 03:43
[2021-04-02 04:00] VITALS: BP 130/74
[2021-04-02 08:25] LABS: BASO % 0.4 % (0.0-1.0); EOS % 0.3 % (0.0-3.0); HEMATOCRIT 32.1 % (36.0-47.0); HEMOGLOBIN 10.3 g/dl (12.0-15.5); LYMPH # 1.3 10^3/uL (1.5-5.0); MEAN CORPUSCULAR HEMOGLOBIN 29.1 pg (27.0-33.0); MEAN CORPUSCULAR HGB CONC 32.1 g/dl (32.0-36.5); MEAN CORPUSCULAR VOLUME 90.7 fl (80.0-96.0); MONO # 0.7 10^3/uL (0.0-0.8); MONO % 9.1 % (2.0-8.0); NEUTROPHILS # 5.2 10^3/uL (1.5-8.5); NEUTROPHILS % 71.8 % (36.0-66.0); PLATELET COUNT, AUTOMATED 286 10^3/uL (150-450); RED BLOOD COUNT 3.54 10^6/uL (4.00-5.40); WHITE BLOOD COUNT 7.2 10^3/uL (4.0-10.0)
[2021-04-02] MEDS: PROPRANOLOL 60 MG LA CAP PO SCH (08:29)
[2021-04-02] MEDS: MORPHINE 2 MG/ML 1ML VIAL (J2270) IV PRN ×2 (08:29→17:06)
[2021-04-02] MEDS: FLUoxetine 20 MG CAP PO SCH (08:30)
--- NOTE | 2021-04-02 08:40 | REP ---
INDICATION: mechanical fall. COMPARISON: None. TECHNIQUE: AP pelvis, two views. FINDINGS: The bony pelvic ring is intact. There is a right hip arthroplasty in place. Patient is status post L4-5 fusion with hardware visible. Sacrum appears intact. No sacral or pelvic fracture is seen. There is mild osteoarthritis affecting the left hip. There appears to be a ventriculoperitoneal shunt catheter in the right abdomen. IMPRESSION: No fracture seen. <Electronically signed by Tyler Ramos > 04/02/21 [id number]
--- NOTE | 2021-04-02 08:41 | REP ---
INDICATION: mechanical fall. COMPARISON: None. TECHNIQUE: AP and lateral views of the right humerus FINDINGS: AP and lateral views of the right humerus demonstrate a nondisplaced fracture of the surgical neck of the proximal humerus. There is diffuse osteopenia. No other fracture is seen. No opaque foreign body noted. IMPRESSION: Proximal humeral fracture nondisplaced. <Electronically signed by Tyler Ramos > 04/02/21 [id number]
--- NOTE | 2021-04-02 08:43 | REP ---
INDICATION: mechanical fall. COMPARISON: None. TECHNIQUE: Four views of the right shoulder are provided. FINDINGS: There is a nondisplaced fracture of the greater tuberosity region of the proximal humerus. The glenohumeral and acromioclavicular joints are normally aligned. There is diffuse osteopenia. Some periarticular soft tissue swelling. There is a ventriculoperitoneal shunt catheter noted coursing over the right chest. IMPRESSION: Proximal humeral fracture. Diffuse osteopenia. <Electronically signed by Tyler Ramos > 04/02/21 [id number]
--- NOTE | 2021-04-02 08:44 | REP ---
INDICATION: mechanical fall. COMPARISON: None. TECHNIQUE: Four views of the right elbow. FINDINGS: Four views of the right elbow demonstrate diffuse osteopenia. No fracture or subluxation is seen. Positioning is somewhat less than optimal due to patient factors. No evidence of fat pad sign to suggest joint effusion. IMPRESSION: No fracture seen. Diffuse osteopenia. <Electronically signed by Tyler Ramos > 04/02/21 [id number]
[2021-04-02 08:58] LABS: ALBUMIN 3.1 GM/DL (3.2-5.2); ALT/SGPT 34 U/L (12-78); BILIRUBIN,TOTAL 0.5 MG/DL (0.2-1.0); BLOOD UREA NITROGEN 16 MG/DL (7-18); CALCIUM LEVEL 8.7 MG/DL (8.8-10.2); CARBON DIOXIDE LEVEL 26 MEQ/L (21-32); CHLORIDE LEVEL 106 MEQ/L (98-107); CREATININE FOR GFR 0.59 MG/DL (0.55-1.30); GLOMERULAR FILTRATION RATE > 60.0 (>45); GLUCOSE, FASTING 106 MG/DL (70-100); MAGNESIUM LEVEL 2.1 MG/DL (1.8-2.4); POTASSIUM SERUM 4.3 MEQ/L (3.5-5.1); SODIUM LEVEL 140 MEQ/L (136-145); TOTAL PROTEIN 6.4 GM/DL (6.4-8.2)
--- NOTE | 2021-04-02 09:03 | CR.PDOC ---
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 Severe R shoulder and R hip pain. She also hit her head on a door. Imaging of shoulder showed a minimally to undisplaced fracture of the greater tuberosity. I was consulted from ED overnight and advised NONWB, shoulder immobilizers and ROM only to elbow, wrist, not shoulder. Follow up in clinic planned for 10-14 days, post injury. Patient was unable to be DC from ER due to pain in R shoulder and was admitted to hospitalist service. Of note, during the interview with the patient, she has revealed that she has had previous issues with a right shoulder rotator cuff tear and has gone through physical therapy for this in the past with decreased range of motion and a ctivity overhead. PAST MEDICAL HISTORY: depression hydrocephalus s/p ZONING ADMINISTRATOR shunt PAST SURGICAL HISTORY: Gastric bypass in 2007 tonsillectomy numerous brain/cranial surgeries at [facility] (s/p TBI, hydrocephalus, ZONING ADMINISTRATOR shunt, brain cyst) L4-L5 disc fusion? 2 months ago at [facility] in [place], [place] SOCIAL HISTORY: remote brief smoking hx in college rare etoh use denies illicit drug use FAMILY HISTORY: reviewed with patient, no pertinent family history provided ALLERGIES: Please see below. REVIEW OF SYSTEMS: Right shoulder and hip pain HOME MEDICATIONS: Please see below. PHYSICAL EXAMINATION: VITAL SIGNS: Please see below. GENERAL APPEARANCE: Patient is alert and oriented and lying in bed in no acute distress. She does seem a little anxious. CARDIOVASCULAR: Palpable radial pulse to the right upper extremity EXTREMITIES: Examination of the right upper extremity was limited secondary to pain so the right shoulder was not taken through range of motion. The patient was able to gently move her elbow and wrist without any significant discomfort. She was moving her digits as well NEUROLOGICAL: Patient was grossly neurovascularly intact to median, ulnar and radial nerve distributions for light sensation. She is intact to these sensations for motor as well as the AIN. Xray: X-ray imaging of the right shoulder was independently reviewed by myself. Right proximal humerus greater tuberosity fracture, minimally to undisplaced. X-ray imaging of the right hip was independently reviewed by myself. This demonstrated a right total hip arthroplasty in position without any obvious signs of loosening, subsidence, periprosthetic fracture or asymmetric polyethylene wear or any other complications otherwise LABORATORY DATA: Please see below. ASSESSMENT/PLAN: 1. Right Shoulder greater tuberosity fracture minimally to nondisplaced: NONWB right upper extremity, shoulder immobilizer and ROM only to elbow, wrist, not shoulder. Plan for repeat x-ray imaging in 10 to 14 days in the orthopedic clinic. Vital Signs/I&O Vital Signs Date Time Temp Pulse Resp B/P (MAP) Pulse Ox O2 Delivery O2 Flow Rate FiO2 04/02/21 08:39 18 Room Air 04/02/21 04:00 97.7 71 130/74 (92) 96 I&O- Last 24 Hours up to 6 AM 04/02/21 06:00 Intake Total 0 ml Balance 0 ml Laboratory Data Labs 24H Laboratory Tests 2 04/01/21 21:29: Immature Granulocyte % (Auto) 1.3, Neutrophils (%) (Auto) 54.2, Lymphocytes (%) (Auto) 33.4, Monocytes (%) (Auto) 8.3H, Eosinophils (%) (Auto) 2.2, Basophils (%) (Auto) 0.6, Neutrophils # (Auto) 3.4, Lymphocytes # (Auto) 2.1, Monocytes # (Auto) 0.5, Eosinophils # (Auto) 0.1, Basophils # (Auto) 0.0, Nucleated Red Blood Cells % (auto) 0.0, Anion Gap 7L, Glomerular Filtration Rate > 60.0, Calcium Level 8.8, Magnesium Level 2.3 04/02/21 01:15: Coronavirus (COVID-19)(PCR) NEGATIVE, Influenza Type A (RT-PCR) NEGATIVE, Influenza Type B (RT-PCR) NEGATIVE, Respiratory Syncytial Virus (PCR) NEGATIVE 04/02/21 07:53: Immature Granulocyte % (Auto) 0.4, Neutrophils (%) (Auto) 71.8H, Lymphocytes (%) (Auto) 18.0L, Monocytes (%) (Auto) 9.1H, Eosinophils (%) (Auto) 0.3, Basophils (%) (Auto) 0.4, Neutrophils # (Auto) 5.2, Lymphocytes # (Auto) 1.3L, Monocytes # (Auto) 0.7, Eosinophils # (Auto) 0.0, Basophils # (Auto) 0.0, Nucleated Red Blood Cells % (auto) 0.0 CBC/BMP Laboratory Tests 04/01/21 21:29 04/02/21 07:53 Allergies Coded Allergies: No Known Allergies (Unverified , 04/01/21) Home Medications Scheduled Fluoxetine Hcl (Fluoxetine HCl) 20 Mg Capsule, 40 MG PO DAILY, (Reported) Propranolol HCl (Propranolol HCl ER) 60 Mg Cap.sa.24h, 60 MG PO DAILY, (Reported) Scheduled PRN Acetaminophen (Acetaminophen) 500 Mg Tablet, 1,000 MG PO Q6H PRN for moderate pain, (Reported) CRISTINA ROY MD Apr 02, 2021 09:03
[2021-04-02 14:00] VITALS: BP 90/59
[2021-04-02] MEDS: NORCO, ANEXSIA 5/325MG TABLET (HYDROcodone/ACETAMINOPHEN) PO PRN ×2 (14:23→21:38)
[2021-04-02 16:48] VITALS: BP 94/61
[2021-04-02 22:00] VITALS: BP 94/60
[2021-04-02] MEDS ORDERED: NORCO, ANEXSIA 5/325MG TABLET (HYDROcodone/ACETAMINOPHEN) PO PRN (22:40)
[2021-04-03] MEDS: NORCO, ANEXSIA 5/325MG TABLET (HYDROcodone/ACETAMINOPHEN) PO PRN ×4 (03:47→20:37)
[2021-04-03 06:00] VITALS: BP 95/64
[2021-04-03 06:52] LABS: ALBUMIN 2.9 GM/DL (3.2-5.2); ALT/SGPT 27 U/L (12-78); BILIRUBIN,TOTAL 0.4 MG/DL (0.2-1.0); BLOOD UREA NITROGEN 16 MG/DL (7-18); CALCIUM LEVEL 8.6 MG/DL (8.8-10.2); CARBON DIOXIDE LEVEL 27 MEQ/L (21-32); CHLORIDE LEVEL 103 MEQ/L (98-107); CREATININE FOR GFR 0.51 MG/DL (0.55-1.30); GLOMERULAR FILTRATION RATE > 60.0 (>45); GLUCOSE, FASTING 116 MG/DL (70-100); POTASSIUM SERUM 4.6 MEQ/L (3.5-5.1); SODIUM LEVEL 136 MEQ/L (136-145); TOTAL PROTEIN 6.2 GM/DL (6.4-8.2)
[2021-04-03] MEDS: PROPRANOLOL 60 MG LA CAP PO SCH (08:58)
[2021-04-03] MEDS: FLUoxetine 20 MG CAP PO SCH (08:59)
--- NOTE | 2021-04-03 11:32 | IPNPDOC ---
Text Note Date of Service The patient was seen on 04/03/21. NOTE Subjective: Patient seen and examined at bedside. No acute overnight events reported. Patient voices no new medical complaints this morning. 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 Patient has a fracture of the R greater tub ercle. Patient admitted to hospitalist service and consulted by orthopedics. PLAN: #R shoulder pain 2/2 R great tubercle - s/p mechanical fall. neurovascularly intact. - denies chest pain, palpitations, SOB, lightheadedness - CT imaging Vrad reports reviewed in ER chart - ortho c/s appreciated - conservative measures - PT/OT - patient is admitted for pain control and PT - norco 5 mg q4h for moderate to severe pain - bowel regimen #Hx of TBI/hydrocephalus/s/p FIRE SPRINKLER INSTALLER shunting - follow up with neurology and neurosurgery #Chronic back pain s/p L4-L5 fusion - follows at [facility] - has a hx of frequent falls, improved after fusion - PT eval ordered. DVT ppx: SCDs. TEDs. Disposition: pending further PT for safe discharge home VS,Fishbone, I+O VS, Fishbone, I+O Laboratory Tests 04/03/21 05:50 Vital Signs Date Time Temp Pulse Resp B/P (MAP) Pulse Ox O2 Delivery O2 Flow Rate FiO2 04/03/21 09:29 18 04/03/21 08:58 91/55 04/03/21 06:00 98.2 77 94 Room Air I&O- Last 24 Hours up to 6 AM 04/03/21 06:00 Intake Total 2280 ml Balance 2280 ml KAMRON ROWE MD Apr 03, 2021 11:32
[2021-04-03 14:00] VITALS: BP 91/55
--- NOTE | 2021-04-03 14:45 | REP ---
INDICATION: mechanical fall COMPARISON: None TECHNIQUE: Standard helical technique without contrast FINDINGS: No gross abnormality is seen involving the mediastinum or pulmonary gorge. There are no pleural or pericardial effusions. The imaged upper abdomen shows multiple low-density hepatic lesions previously seen to be hemangiomas on abdominal MRI of 11/13/2016. The imaged osseous structures are within normal limits for the patient's age. Evaluation of the lung castro shows mild bilateral lower lung field subsegmental atelectatic and/or fibrotic changes. There are no masses or significant pulmonary nodules. A portion of a MGMT SPECIALIST shunt catheter is identified. IMPRESSION: No acute abnormality <Electronically signed by Derek Snell > 04/03/21 [id number]
--- NOTE | 2021-04-03 14:47 | REP ---
INDICATION: mechanical fall. COMPARISON: None. TECHNIQUE: Standard helical technique without contrast FINDINGS: Vertebral body height and alignment is within normal limits for the patient's age. Chronic changes are suspected T6 through T8 including discogenic changes. There is no evidence of an acute fracture, dislocation, or subluxation. No abnormal paraspinal soft tissue densities are identified. IMPRESSION: No acute abnormalities identified. <Electronically signed by Derek Snell > 04/03/21 0075
--- NOTE | 2021-04-03 14:55 | REP ---
INDICATION: mechanical fall. COMPARISON: 12/08/2011 TECHNIQUE: 5 mm contiguous transaxial sections were obtained from the skull base to the cerebral convexities. FINDINGS: A ABALONE FISHERMAN shunt catheter is identified through a right parietal bone defect the tip of which lies adjacent to the body of the left lateral ventricle. A 2nd ABALONE FISHERMAN catheter is identified from the foramen magnum through the 4th ventricle terminating in the 3rd ventricle. There is no ventriculomegaly. There is decreased density seen in the thalamus on the right consistent with an unchanged cyst. There is no evidence of an acute intracranial hemorrhagic or non hemorrhagic event. There is no mass effect. There is no change in the paranasal sinuses or mastoid air cells. There is no change in the skull or skull base region. IMPRESSION: No acute intracranial pathology or significant change compared to the prior exam. <Electronically signed by Derek Snell > 04/03/21 [id number]
[2021-04-03 19:46] VITALS: BP 98/60
[2021-04-04] MEDS: NORCO, ANEXSIA 5/325MG TABLET (HYDROcodone/ACETAMINOPHEN) PO PRN ×2 (02:53→16:10)
[2021-04-04 06:00] VITALS: BP 113/61
[2021-04-04] MEDS ORDERED: HYDR-3715 PO (08:17)
[2021-04-04] MEDS ORDERED: MIRA1POW3 PO (08:17)
[2021-04-04 08:19] VITALS: BP 116/64
[2021-04-04] MEDS: PROPRANOLOL 60 MG LA CAP PO SCH (08:19)
[2021-04-04] MEDS: FLUoxetine 20 MG CAP PO SCH (08:19)
[2021-04-04 14:00] VITALS: BP 101/62
--- NOTE | 2021-04-04 23:11 | DS.PDOC ---
Discharge Summary General Date of Admission Apr 02, 2021 at 03:12 Date of Discharge 04/04/21 Attending Physician: Tisha Menjivar MD Discharge Summary PROCEDURES PERFORMED DURING STAY: None ADMITTING DIAGNOSES: #Right Shoulder greater tuberosity fracture minimally to nondisplaced s/p mechanical fall #Hx of TBI/hydrocephalus/s/p CLIENT RELATION SPECIALIST shunting #Chronic back pain s/p L4-L5 fusion DISCHARGE DIAGNOSES: #Right Shoulder greater tuberosity fracture minimally to nondisplaced s/p mechanical fall #Hx of TBI/hydrocephalus/s/p CLIENT RELATION SPECIALIST shunting #Chronic back pain s/p L4-L5 fusion COMPLICATIONS/CHIEF COMPLAINT: Fracture Of Greater Tuberosity Of Humerus. HISTORY OF PRESENT ILLNESS: 65 year old F, with a PMHX of depression, head trauma with resultant hydrocephalus s/p CLIENT RELATION SPECIALIST shunt (with numerous revisions), gastric bypass, presented to ER after she sustained a mechanical fall (tripped over slipper) and fell forwards landing on her R side. This resulted in severe R shoulder and R hip pain. She also hit her head on a door. She denies any chest pain, palpitation, vision changes, lightheadedness or dizziness at present or during time of fall. HOSPITAL COURSE: Patient underwent mitchell-CT in the emergency room.patient was found to have a slightly displaced longitudinal fracture of the greater tubercle. Dr. Deleon was consulted from ER. Patient is to avoid any ROM or weight lifting. Patient was unable to be DC from ER due to pain in R shoulder. Patient was admitted to hospitalist service, Ortho consulted. During her hospital stay the following issues were treated/addressed: #Right Shoulder greater tuberosity fracture minimally to nondisplaced s/p mechanical fall. -Imaging above -Ortho: Nonweightbearing right upper extremity, shoulder immobilizer and range of motion only to elbow, wrist, not shoulder. Plan for repeat x-ray imaging in 10 to 14 days in the orthopedic clinic -Home health services, evaluated by PT this hospital stay -Pain control, sling right upper extremity #Hx of TBI/hydrocephalus/s/p CLIENT RELATION SPECIALIST shunting - follow up with neurology and neurosurgery outpatient #Chronic back pain s/p L4-L5 fusion - follows at [facility] - has a hx of frequent falls, improved after fusion DISCHARGE MEDICATIONS: Please see below. ALLERGIES: Please see below. PHYSICAL EXAMINATION ON DISCHARGE: VITAL SIGNS: please see below GENERAL APPEARANCE: In no acute distress, sitting up in bed HEENT: PERRLA, EOMI. CARDIOVASCULAR: RRR, normal S1, S2. No murmurs, rubs or gallops LUNGS: CTAB, no wheeze. No rhonchi ABDOMEN: soft, non tender, no masses, bowel sounds +4 quadrants MUSCULOSKELETAL: R shoulder in sling, range of motion not tested : Deferred EXTREMITIES: R hand cap refill < 2 sec, ulnar and radial pulses 2+, no cyanosis. LE pulses 2+ bilaterally, cap refill < 2, no cyanosis. NEUROLOGICAL: no focal neuro deficits, speech clear, no facial asymmetry. Psych: Mood and affect appropriate LABORATORY DATA: See below. IMAGING: CT lumbar spine (04/01/21); 1. Status post fusion at L4-L5. 2. Degenerative disc changes and facet arthropathy with no significant spinal stenosis. There are varying degrees of multilevel neural foraminal stenosis. 3. Otherwise negative CT lumbar spine. No acute fracture or subluxation. CT C-spine (04/01/21): 1. No acute fracture or traumatic subluxation of the cervical spine. 2. Multilevel degenerative disc and articular pillar arthropathy. CT thoracic spine (04/01/21): - slightly decreased height T6-T9 with slight anterior wedge configuration of T7 and T8, appears to be chronic. - otherwise negative CT thoracic spine XR elbow: (04/01/21): no acute changes CT head wo contrast (04/01/21): no acute findings XR pelvis (04/01/21): - R hip prosthesis in position - s/p fusion at L4-L5 - CLIENT RELATION SPECIALIST shunt extending into R pelvis - Mild degenerative change L hip - negative pelvis otherwise PROGNOSIS: Good ACTIVITY: As tolerated DIET: Regular DISPOSITION: 06 Home Health Service. DISCHARGE INSTRUCTIONS / ITEMS TO FOLLOWUP ON ON OUTPATIENT: 1. Please follow up with your primary care provider in 1-2 weeks after discharge. Update them on your recent hospitalization. 2. Per orthopedic surgery, their suggestions are for nonweightbearing of your right upper extremity, shoulder immobilizer and range of motion only allowed to elbow, wrist, not shoulder. Plan for repeat x-ray imaging in 10 to 14 days in the orthopedic clinic. DISCHARGE CONDITION: Stable TIME SPENT ON DISCHARGE: 35 minutes. Vital Signs/I&Os Vital Signs Date Time Temp Pulse Resp B/P (MAP) Pulse Ox O2 Delivery O2 Flow Rate FiO2 12/14/21 16:10 20 04/04/21 14:00 98.0 80 101/62 (75) 95 Room Air I&O- Last 24 Hours up to 6 AM 04/04/21 06:00 Intake Total 600 ml Balance 600 ml Discharge Medications Scheduled Fluoxetine Hcl (Fluoxetine HCl) 20 Mg Capsule, 40 MG PO DAILY, (Reported) Propranolol HCl (Propranolol HCl ER) 60 Mg Cap.sa.24h, 60 MG PO DAILY, (Reported) Scheduled PRN Acetaminophen (Acetaminophen) 500 Mg Tablet, 1,000 MG PO Q6H PRN for moderate pain, (Reported) Hydrocodone/Acetaminophen (Hydrocodone-Acetamin 5-325 mg) 1 Each Tablet, 1 TAB PO Q6HP PRN for MODERATE/SEVERE PAIN (PS 5-10) Polyethylene Glycol 3350 (Miralax) 17 Gm Powd.pack, 1 PKT PO DAILYPRN PRN for CONSTIPATION Allergies Coded Allergies: No Known Allergies (Unverified , 04/01/21) Tisha Menjivar MD Apr 04, 2021 23:10
== END 2021-04-04 16:25 | disposition home health service (06) ==
LOC: M ED 20:35 → M ED INP 04-02 03:12 → M MS5PR 04-02 03:50
PROVIDERS: ADMIT Family Medicine; ATTEND Internal Medicine
DX: S42.254A Nondisplaced fracture of greater tuberosity of right humerus, initial encounter for closed fracture (principal); M85.821 Other specified disorders of bone density and structure, right upper arm; W01.198A Fall on same level from slipping, tripping and stumbling with subsequent striking against other object, initial encounter; Y92.098 Other place in other non-institutional residence as the place of occurrence of the external cause; Y93.01 Activity, walking, marching and hiking; Y99.8 Other external cause status; G91.3 Post-traumatic hydrocephalus, unspecified; Z98.2 Presence of cerebrospinal fluid drainage device; Z87.820 Personal history of traumatic brain injury; M54.9 Dorsalgia, unspecified; G89.29 Other chronic pain; Z98.1 Arthrodesis status; M25.551 Pain in right hip; F32.9 Major depressive disorder, single episode, unspecified; Z91.81 History of falling; Z98.84 Bariatric surgery status; Z96.641 Presence of right artificial hip joint; Z79.899 Other long term (current) drug therapy
CPT/HCPCS: 36415; 70450; 71250; 72125; 72128; 72131; 72190; 73030; 73060; 73080; 80048; 80053; 83735; 85025; 87631; 96374; 96375; 96376; 97116; 97162; 97530; 99284; J2270; J2405; J3360

== ENCOUNTER → 2021-04-13 | Outpatient (CLI) | payer BC ==
[~2021-04-13] MED LIST changes: +ACET-683 PO; +FLUO20CA22 PO; +HYDR-3715 PO; +MIRA1POW3 PO; +PROP60CA PO
--- NOTE | 2021-04-13 11:16 | REP ---
INDICATION: RT HUMERUS FX, RT HIP PAIN. COMPARISON: 04/01/2021 TECHNIQUE: AP and Y-view right shoulder FINDINGS: Comminuted fracture of the humeral head/neck again noted. Underlying osteopenia and degenerative changes stable. IMPRESSION: Continued evidence for comminuted fracture of the proximal humerus. <Electronically signed by Joaquim Penn > 04/13/21 1119
--- NOTE | 2021-04-13 11:17 | REP ---
INDICATION: RT HUMERUS FX, RT HIP PAIN COMPARISON: 04/01/2021 TECHNIQUE: AP and frog-lateral views of the right hip FINDINGS: Right hip replacement in satisfactory stable position. Fixation at L4-5 noted. Osseous structures demonstrate osteopenia and degenerative changes. No new acute fracture or dislocation identified. IMPRESSION: Stable examination. No acute fracture or dislocation appreciated. <Electronically signed by Joaquim Penn > 04/13/21 [id number]
== END ==
LOC: M SOG 10:52
PROVIDERS: ATTEND Orthopaedic Surgery
DX: S42.251A Displaced fracture of greater tuberosity of right humerus, initial encounter for closed fracture (principal); M25.551 Pain in right hip; M85.811 Other specified disorders of bone density and structure, right shoulder

== ENCOUNTER → 2021-04-26 | Outpatient (CLI) | payer BC ==
--- NOTE | 2021-04-26 16:35 | REP ---
INDICATION: RT HUMERUS FX. COMPARISON: 04/13/2021 TECHNIQUE: Four views FINDINGS: The previously described proximal humeral fracture is unchanged in alignment and position. There is a subtle degree of callus formation seen surrounding the fracture fragments consistent with early healing. IMPRESSION: As above. <Electronically signed by Derek Snell > 04/26/21 [id number]
== END ==
LOC: M SOG 09:48
PROVIDERS: ATTEND Orthopaedic Surgery
DX: S42.221A 2-part displaced fracture of surgical neck of right humerus, initial encounter for closed fracture (principal); X58.XXXA Exposure to other specified factors, initial encounter; Y92.89 Other specified places as the place of occurrence of the external cause; Y93.9 Activity, unspecified; Y99.9 Unspecified external cause status

== ENCOUNTER → 2021-05-15 | Outpatient (CLI) | payer BC | LOC: M WHC 14:52 | PROVIDERS: ATTEND Internal Medicine | DX: Z13.820 Encounter for screening for osteoporosis (principal); M85.88 Other specified disorders of bone density and structure, other site; M85.852 Other specified disorders of bone density and structure, left thigh ==

== ENCOUNTER → 2021-05-18 | Outpatient (CLI) | payer BC | LOC: M SOG 15:35 | PROVIDERS: ATTEND Orthopaedic Surgery | DX: S42.221D 2-part displaced fracture of surgical neck of right humerus, subsequent encounter for fracture with routine healing (principal) ==

== ENCOUNTER → 2021-06-30 | Outpatient (REF) | payer BC ==
[2021-06-30 13:23] LABS: PERCENT SATURATION 21.5 % (13.2-45.0)
[2021-06-30 13:38] LABS: FOLATE 13.9 NG/ML
== END ==
LOC: M LAB REF 12:16
PROVIDERS: ATTEND Registered Nurse
DX: D50.9 Iron deficiency anemia, unspecified (principal); Z98.84 Bariatric surgery status

== ENCOUNTER → 2021-09-13 | Outpatient (REF) | LOC: M PLALAB 13:52 | PROVIDERS: ATTEND Internal Medicine | DX: M25.711 Osteophyte, right shoulder (principal) ==

== ENCOUNTER → 2022-01-08 | Outpatient (CLI) | payer BC ==
[2022-01-08 09:26] LABS: BLOOD UREA NITROGEN 14 MG/DL (7-18); CREATININE FOR GFR 0.58 MG/DL (0.55-1.30); GLOMERULAR FILTRATION RATE > 60.0 (>45)
== END ==
LOC: M LAB 08:16
PROVIDERS: ATTEND Orthopaedic Surgery
DX: Z00.00 Encounter for general adult medical examination without abnormal findings (principal); M54.50 Low back pain, unspecified

== ENCOUNTER → 2022-01-12 | Outpatient (REF) | payer BC ==
[2022-01-12 11:42] LABS: PERCENT SATURATION 30.8 % (13.2-45.0)
== END ==
LOC: M LAB REF 10:58
PROVIDERS: ATTEND Registered Nurse
DX: D50.9 Iron deficiency anemia, unspecified (principal); Z98.84 Bariatric surgery status

== ENCOUNTER → 2022-01-19 | Outpatient (CLI) | payer BC | LOC: M PLARAD 14:45 | PROVIDERS: ATTEND Orthopaedic Surgery | DX: M51.26 Other intervertebral disc displacement, lumbar region (principal); M99.63 Osseous and subluxation stenosis of intervertebral foramina of lumbar region ==

== ENCOUNTER → 2022-01-25 | Outpatient (CLI) | payer BC | LOC: M LAB 07:07 | PROVIDERS: ATTEND Orthopaedic Surgery | DX: T56.891A Toxic effect of other metals, accidental (unintentional), initial encounter (principal); Z96.649 Presence of unspecified artificial hip joint ==

== ENCOUNTER → 2022-03-02 | Outpatient (CLI) | payer BC | LOC: M PLARAD 09:48 | PROVIDERS: ATTEND Physician Assistant | DX: M25.511 Pain in right shoulder (principal) ==

== ENCOUNTER → 2022-03-14 | Outpatient (CLI) | payer BC ==
[2022-03-14 08:22] LABS: HEMATOCRIT 37.9 % (36.0-47.0); HEMOGLOBIN 12.1 g/dl (12.0-15.5); MEAN CORPUSCULAR HEMOGLOBIN 30.6 pg (27.0-33.0); MEAN CORPUSCULAR HGB CONC 31.9 g/dl (32.0-36.5); MEAN CORPUSCULAR VOLUME 95.9 fl (80.0-96.0); PLATELET COUNT, AUTOMATED 275 10^3/uL (150-450); RED BLOOD COUNT 3.95 10^6/uL (4.00-5.40); WHITE BLOOD COUNT 4.8 10^3/uL (4.0-10.0)
[2022-03-14 09:50] LABS: C REACTIVE PROTEIN QUANTITATIV 0.4 MG/DL (<1.0); FERRITIN 11.8 NG/ML (7.3-270.7); FREE T4 0.87 NG/DL (0.89-1.76); PERCENT SATURATION 27.3 % (13.2-45.0); THYROID STIMULATING HORMONE 1.794 uIU/ML (0.55-4.78); TOTAL 25(OH) VITAMIN D 16.9 NG/ML (20.0-100.0)
[2022-03-14 11:30] LABS: HEMOGLOBIN A1c 5.3 % (4.0-6.0)
[2022-03-16 20:08] LABS: COPPER PLASMA 97 ug/dL (80-158); TRANSFERRIN 191 mg/dL (192-364)
== END ==
LOC: M LAB 07:24
PROVIDERS: ATTEND Internal Medicine Hematology
DX: E61.1 Iron deficiency (principal); E55.9 Vitamin D deficiency, unspecified; R73.03 Prediabetes

== ENCOUNTER → 2022-07-24 | Outpatient (CLI) | payer MEDICARE ==
[~2022-07-24] MED LIST changes: +DIPH-435 PO; -DIPH25CA32 PO
== END ==
LOC: M PLALAB 11:24
PROVIDERS: ATTEND Internal Medicine Endocrinology, Diabetes & Metabolism
DX: E55.9 Vitamin D deficiency, unspecified (principal)

== ENCOUNTER → 2022-10-25 | Outpatient (CLI) | payer MEDICARE | LOC: M PLALAB 08:41 | PROVIDERS: ATTEND Internal Medicine Endocrinology, Diabetes & Metabolism | DX: M81.0 Age-related osteoporosis without current pathological fracture (principal) ==

== ENCOUNTER → 2023-02-25 | Outpatient (CLI) | payer MEDICARE ==
[2023-02-25 12:20] LABS: BLOOD UREA NITROGEN 18 MG/DL (9-23); CALCIUM LEVEL 9.1 MG/DL (8.3-10.6); CARBON DIOXIDE LEVEL 30 MMOL/L (20-31); CHLORIDE LEVEL 104 MMOL/L (98-107); GLOMERULAR FILTRATION RATE > 60.0 (>45); GLUCOSE, FASTING 94 MG/DL (74-106); POTASSIUM SERUM 4.5 MMOL/L (3.5-5.1); SODIUM LEVEL 143 MMOL/L (136-145); TOTAL 25(OH) VITAMIN D 29.7 NG/ML (20.0-100.0)
== END ==
LOC: M PLALAB 07:21
PROVIDERS: ATTEND Nurse Practitioner Family
DX: E55.9 Vitamin D deficiency, unspecified (principal); Z79.899 Other long term (current) drug therapy

== ENCOUNTER → 2023-05-21 | Outpatient (CLI) | payer MEDICARE | LOC: M WHC 09:56 | PROVIDERS: ATTEND Internal Medicine Endocrinology, Diabetes & Metabolism | DX: Z13.820 Encounter for screening for osteoporosis (principal); M85.852 Other specified disorders of bone density and structure, left thigh ==

== ENCOUNTER → 2023-08-28 | Outpatient (CLI) | payer MEDICARE ==
[~2023-08-28] MED LIST changes: -MIRA1POW3 PO; +MIRA33506 PO
== END ==
LOC: M PLALAB 11:22
PROVIDERS: ATTEND Internal Medicine Endocrinology, Diabetes & Metabolism
DX: M81.0 Age-related osteoporosis without current pathological fracture (principal)

== ENCOUNTER → 2023-12-30 | Outpatient (REF) | payer MEDICARE ==
[~2023-12-30] MED LIST changes: +FLUO-365 PO; -FLUO20CA22 PO
[2023-12-30 14:16] LABS: FERRITIN 12.5 NG/ML (7.3-270.7); PERCENT SATURATION 25.9 % (13.2-45.0)
== END ==
LOC: M LAB REF 12:43
PROVIDERS: ATTEND Internal Medicine
DX: D50.9 Iron deficiency anemia, unspecified (principal)

== ENCOUNTER → 2024-02-28 | Outpatient (CLI) | payer MEDICARE ==
[2024-02-28 11:19] LABS: TOTAL 25(OH) VITAMIN D 36.5 NG/ML (20.0-100.0)
== END ==
LOC: M PLALAB 08:33
PROVIDERS: ATTEND Nurse Practitioner Family
DX: M81.0 Age-related osteoporosis without current pathological fracture (principal); E55.9 Vitamin D deficiency, unspecified

== ENCOUNTER → 2024-06-12 | Outpatient (CLI) | payer MEDICARE ==
[2024-06-12 15:31] LABS: BLOOD UREA NITROGEN 17 MG/DL (9-23); CALCIUM LEVEL 8.8 MG/DL (8.3-10.6); CARBON DIOXIDE LEVEL 30 MMOL/L (20-31); CHLORIDE LEVEL 105 MMOL/L (98-107); CREATININE FOR GFR 0.66 MG/DL (0.55-1.30); GLOMERULAR FILTRATION RATE > 60.0 (>45); GLUCOSE, FASTING 88 MG/DL (74-106); POTASSIUM SERUM 4.5 MMOL/L (3.5-5.1); SODIUM LEVEL 143 MMOL/L (136-145)
[2024-06-12 15:33] LABS: TOTAL 25(OH) VITAMIN D 32.4 NG/ML (20.0-100.0)
== END ==
LOC: M PLALAB 07:51
PROVIDERS: ATTEND Nurse Practitioner Family
DX: M81.0 Age-related osteoporosis without current pathological fracture (principal); E55.9 Vitamin D deficiency, unspecified

== ENCOUNTER → 2024-07-30 | Outpatient (CLI) | payer MEDICARE | LOC: M WHC 11:19 | PROVIDERS: ATTEND Nurse Practitioner Family | DX: M81.0 Age-related osteoporosis without current pathological fracture (principal) ==

== ENCOUNTER → 2024-09-02 | Outpatient (CLI) | payer MEDICARE ==
[2024-09-02 13:03] LABS: BLOOD UREA NITROGEN 15 MG/DL (9-23); CALCIUM LEVEL 8.9 MG/DL (8.3-10.6); CARBON DIOXIDE LEVEL 26 MMOL/L (20-31); CHLORIDE LEVEL 107 MMOL/L (98-107); CREATININE FOR GFR 0.64 MG/DL (0.55-1.30); GLOMERULAR FILTRATION RATE > 90.0 (>45); GLUCOSE, FASTING 86 MG/DL (74-106); POTASSIUM SERUM 4.5 MMOL/L (3.5-5.1); SODIUM LEVEL 144 MMOL/L (136-145)
[2024-09-02 13:05] LABS: TOTAL 25(OH) VITAMIN D 36.4 NG/ML (20.0-100.0)
== END ==
LOC: M PLALAB 07:33
PROVIDERS: ATTEND Nurse Practitioner Family
DX: M81.0 Age-related osteoporosis without current pathological fracture (principal); E55.9 Vitamin D deficiency, unspecified

== ENCOUNTER → 2024-10-19 | Outpatient (CLI) | payer MEDICARE ==
[2024-10-19 14:01] LABS: BASO # 0.1 10^3/uL (0.0-0.2); BASO % 0.9 % (0.0-1.0); EOS # 0.1 10^3/uL (0.0-0.5); EOS % 1.6 % (0.0-3.0); HEMATOCRIT 40.6 % (36.0-47.0); HEMOGLOBIN 12.8 g/dl (12.0-15.5); LYMPH # 1.9 10^3/uL (1.5-5.0); LYMPH % 34.7 % (24.0-44.0); MEAN CORPUSCULAR HEMOGLOBIN 30.4 pg (27.0-33.0); MEAN CORPUSCULAR HGB CONC 31.5 g/dl (32.0-36.5); MEAN CORPUSCULAR VOLUME 96.4 fl (80.0-96.0); MONO # 0.5 10^3/uL (0.0-0.8); MONO % 8.9 % (2.0-8.0); NEUTROPHILS # 2.9 10^3/uL (1.5-8.5); NEUTROPHILS % 53.5 % (36.0-66.0); PLATELET COUNT, AUTOMATED 433 10^3/uL (150-450); RED BLOOD COUNT 4.21 10^6/uL (4.00-5.40); WHITE BLOOD COUNT 5.5 10^3/uL (4.0-10.0)
[2024-10-19 14:11] LABS: ERYTHROCYTE SEDIMENTATION RATE 24 mm/hr (0-30)
[2024-10-19 14:46] LABS: RHEUMATOID FACTOR QUANT < 3.5 IU/ML (<14); THYROID STIMULATING HORMONE 2.524 uIU/ML (0.55-4.78); THYROXINE (T4) 9.4 UG/DL (4.5-10.9); TOTAL T3 99.5 NG/DL (60.0-181.0)
[2024-10-19 14:47] LABS: THYROID PEROXIDASE ANTIBODY 30 U/ML (<60.0)
[2024-10-21 12:59] LABS: THRYOGLOBULIN ANTIBODIES (ATA) < 1 IU/mL (< or = 1); THYROGLOBULIN QUANTITATIVE 12.9 ng/mL (2.8-40.9)
[2024-10-21 16:08] LABS: ANA SCREEN, IFA NEGATIVE (NEGATIVE)
[2024-10-23 21:54] LABS: TRYPTASE 3.7 mcg/L (<11.0)
[2024-11-02 10:05] LABS: IGE RECEPTOR ABY 1 < 16 % (<16)
== END ==
LOC: M PLALAB 10:26
PROVIDERS: ATTEND Allergy & Immunology Allergy
DX: T78.2XXA Anaphylactic shock, unspecified, initial encounter (principal); L50.1 Idiopathic urticaria; Z79.899 Other long term (current) drug therapy

== ENCOUNTER → 2024-12-10 | Outpatient (CLI) | payer MEDICARE ==
[2024-12-10 11:46] LABS: CALCIUM LEVEL 9.1 MG/DL (8.3-10.6); CARBON DIOXIDE LEVEL 27 MMOL/L (20-31); CHLORIDE LEVEL 108 MMOL/L (98-107); CREATININE FOR GFR 0.60 MG/DL (0.55-1.30); GLOMERULAR FILTRATION RATE > 90.0 (>45); POTASSIUM SERUM 4.9 MMOL/L (3.5-5.1); SODIUM LEVEL 146 MMOL/L (136-145)
== END ==
LOC: M PLALAB 07:11
PROVIDERS: ATTEND Nurse Practitioner Family
DX: M81.0 Age-related osteoporosis without current pathological fracture (principal)

== ENCOUNTER → 2025-01-07 | Outpatient (REF) | payer MEDICARE ==
[2025-01-07 15:51] LABS: VITAMIN B12 LEVEL 242.0 PG/ML (211-911)
== END ==
LOC: M LAB REF 15:10
PROVIDERS: ATTEND Internal Medicine
DX: D50.9 Iron deficiency anemia, unspecified (principal)